=== PATIENT | male | born 1935 | race Caucasian/White ===

== ENCOUNTER → 2018-02-06 10:19 | Outpatient (CLI) | payer MEDICARE, SELFPAY ==
[2018-02-06 10:33] LABS: Bacteria Urine None Seen; RBC Urine None Seen (0-5/HPF)
[2018-02-06 13:28] LABS: Appearance Urine UA CLEAR; Bilirubin Urine UA NEGATIVE (NEGATIVE); Color Urine UA YELLOW; Glucose Urine UA NEGATIVE (Normal); Ketones Urine UA NEGATIVE (NEGATIVE); Leukocyte Esterase Urine UA TRACE (NEGATIVE); Nitrite Urine UA Negative (Negative); Occult Blood Urine UA NEGATIVE (Negative); Protein Urine UA NEGATIVE (Negative)
[2018-02-06 13:35] LABS: Culture Indicated Urine Cult Not Indicated; WBC Urine 0-1/HPF (0-5/HPF)
== END ==
PROVIDERS: Family Provider Internal Medicine; PCP Internal Medicine; Visit Provider Urology
DX: R39.9 Unspecified symptoms and signs involving the genitourinary system (principal)
CPT/HCPCS: 81001

== ENCOUNTER → 2018-03-27 10:25 | Outpatient (CLI) | payer MEDICARE, SELFPAY ==
--- NOTE | 2018-03-27 | DI.RAD.S_ITS ---
PROCEDURE: XR LUMBAR SPINE 2-3V INDICATIONS: LOW BACK PAIN TECHNIQUE: 2 Views of the lumbar spine were acquired. COMPARISON: None. FINDINGS: Motion artifact limits evaluation of the lateral view. Bones: 5 [id number] vertebrae are present. There is normal bony alignment. No vertebral body compression fractures. No suspicious bony lesions. Mild degenerative change including intervertebral disc space narrowing, endplate sclerosis, and facet sclerosis is present in the lower lumbar spine. Soft tissues: Overlying bowel gas pattern is normal. No suspicious soft tissue calcifications. IMPRESSION: Mild degenerative change. Dictated by: Madisyn Juares M.D. on 03/27/2018 at 10:59 Approved by: aMdisyn Juares M.D. on 03/27/2018 at 10:59
== END ==
PROVIDERS: Family Provider Internal Medicine; PCP Internal Medicine; Visit Provider Internal Medicine
DX: M51.36 Other intervertebral disc degeneration, lumbar region (principal); M54.5 Low back pain
CPT/HCPCS: 72100

== ENCOUNTER → 2018-06-19 15:30 | Outpatient (CLI) | payer MEDICARE, SELFPAY ==
[2018-06-19 19:07] LABS: Vitamin B12 735 pg/mL (239-931)
== END ==
PROVIDERS: Family Provider Internal Medicine; PCP Internal Medicine; Visit Provider Internal Medicine
DX: D51.1 Vitamin B12 deficiency anemia due to selective vitamin B12 malabsorption with proteinuria (principal)
CPT/HCPCS: 36415; 82607

== ENCOUNTER → 2018-07-12 11:14 | Outpatient (CLI) | payer MEDICARE, SELFPAY ==
[2018-07-12 13:59] LABS: Thyroid Stimulating Hormone 2.19 uIU/mL (0.47-4.68)
[2018-07-12 21:43] LABS: Vitamin B12 893 pg/mL (239-931)
== END ==
PROVIDERS: PCP Internal Medicine; Visit Provider Internal Medicine
DX: D51.9 Vitamin B12 deficiency anemia, unspecified (principal); E03.9 Hypothyroidism, unspecified
CPT/HCPCS: 36415; 82607; 84443

== ENCOUNTER → 2018-10-09 08:07 | Outpatient (CLI) | payer MEDICARE, SELFPAY ==
[2018-10-09 09:54] LABS: BUN Creatinine Ratio 15.8 (6-22); Blood Urea Nitrogen 19 mg/dL (9-20); Calcium 9.1 mg/dL (8.4-10.2); Carbon Dioxide 29 mmol/L (22-32); Chloride 101 mmol/L (98-107); Cholesterol 154 mg/dL (140-199); Glucose 94 mg/dL (80-110); HDL Cholesterol 30 mg/dL (40-60); HEMOLYSIS 17 (0-50); LDL Cholesterol Calculated 97 mg/dL (<100); Potassium 4.3 mmol/L (3.4-5.1); Sodium 140 mmol/L (137-145); Triglycerides 137 mg/dL (35-150)
[2018-10-09 10:42] LABS: Vitamin B12 732 pg/mL (239-931)
[2018-10-09 11:37] LABS: Free T4, Direct Thyroxine 0.94 ng/dL (0.78-2.19)
== END ==
PROVIDERS: PCP Internal Medicine; Visit Provider Internal Medicine
DX: D51.1 Vitamin B12 deficiency anemia due to selective vitamin B12 malabsorption with proteinuria (principal); E03.9 Hypothyroidism, unspecified
CPT/HCPCS: 36415; 80048; 80061; 82607; 84439; 84443

== ENCOUNTER → 2018-11-06 10:30 | Outpatient (CLI) | payer MEDICARE, SELFPAY ==
[2018-11-06 11:23] LABS: Add Manual Diff / Slide Review NO; Basophils Absolute Auto 0 /uL (0-100); Basophils Percent Auto 0.5 % (0-2); Eosinophils Absolute Auto 300 /uL (0-450); Hematocrit 40.7 % (41-53); Hemoglobin 13.9 g/dL (13.5-17.5); Lymphocytes Absolute Auto 1200 /uL (1100-4500); Lymphocytes Percent Auto 21.2 % (25-40); Mean Corpuscular Hemoglobin 31.8 PG (26-34); Mean Corpuscular Volume 93.6 fL (80-100); Monocytes Absolute Auto 500 /uL (0-900); Monocytes Percent Auto 8.6 % (3-14); Neutrophils Absolute Auto 3700 /uL (1500-7000); Neutrophils Percent Auto 63.7 % (50-75); Platelet Count 227 X10^3/uL (150-400); Red Blood Cell Count 4.35 X10^6/uL (4.5-5.9); Red Cell Distribution Width 14.7 % (11.6-14.8); White Blood Cell Count 5.8 X10^3/uL (4.5-11.0)
[2018-11-06 11:41] LABS: B Type Natriuretic Peptide < 100 (<100)
[2018-11-06 11:44] LABS: Alanine Aminotransferase 30 IU/L (21-72); Albumin Globulin Ratio 1.3 (1.0-2.8); Alkaline Phosphatase 72 U/L (38-126); Aspartate Aminotransferase 22 IU/L (17-59); Bilirubin Total 0.8 mg/dL (0.2-1.3); Blood Urea Nitrogen 18 mg/dL (9-20); Calcium 8.6 mg/dL (8.4-10.2); Carbon Dioxide 28 mmol/L (22-32); Chloride 102 mmol/L (98-107); Glucose 128 mg/dL (80-110); HEMOLYSIS < 15 (0-50); Potassium 4.4 mmol/L (3.4-5.1); Sodium 139 mmol/L (137-145)
== END ==
PROVIDERS: Family Provider Internal Medicine; PCP Internal Medicine; Visit Provider Internal Medicine Cardiovascular Disease
DX: R06.02 Shortness of breath (principal)
CPT/HCPCS: 36415; 80053; 83880; 85025

== ENCOUNTER → 2018-11-20 09:02 | Outpatient (CLI) | payer MEDICARE, SELFPAY ==
--- NOTE | 2018-11-24 15:46 | P.PFT.S_ITS ---
Pulmonary Function Test Referral & Results Date Patient Seen: 11/20/18 Requesting provider: Pam Apodaca Indication: Shortness of breath Results: The spirometry demonstrates an FVC of 4.0 7 L which is 94% of predicted . The FEV1 was measured at 3.13 L which is 103% of predicted. The FEV1/FVC ratio was 77 which is 100% of predicted. Following the administration of bronchodilator there was no appreciable change to above normal numbers. Lung volumes show an SVC of 4.09 L which is 87% of predicted. The diffusing capacity was measured at 21.43 which is 61% of predicted. No hemoglobin value was provided, so no correction for potential anemia could be made, if appropriate. The maximum voluntary ventilation was normal Interpretation: This study demonstrates normal spirometry but reduced diffusing capacity as above. Compared to PFTs performed in February 2012, spirometry was normal at that time as well however diffusing capacity has decreased from 20/7 0.98 or 79% of predicted in 2011 to current numbers above. Clinical correlation suggested
== END ==
PROVIDERS: Family Provider Internal Medicine; PCP Internal Medicine; Visit Provider Internal Medicine Cardiovascular Disease
DX: R06.02 Shortness of breath (principal)
CPT/HCPCS: 94060; 94726; 94729

== ENCOUNTER → 2018-11-27 12:36 | Outpatient (CLI) | payer MEDICARE, SELFPAY ==
--- NOTE | 2018-11-27 | DI.NM.S_ITS ---
PROCEDURE: NM SHERRY PERF SPECT R&S PHARM Rest and pharmacological stress myocardial perfusion SPECT with gated imaging and ejection fraction RADIOPHARMACEUTICAL: 24.9 mCi Tc-99m tetrafosmin IV at rest and 26.3 mCi Tc-99m tetrafosmin IV at peak effect of pharmacological stress. Syp-lei-wptzjhgk was performed. INDICATIONS: SHORTNESS OF BREATH TECHNIQUE: Radiopharmaceutical was injected at peak stress test, and also at rest. SPECT images were obtained. SPECT myocardial perfusion images were displayed in short axis, horizontal long axis, and vertical long axis views. Gated images were reviewed using [employer] software. COMPARISON: None. CARDIAC STRESS: A pharmacologic stress test was performed under the supervision of an attending staff, using an infusion of Lexiscan. Hemodynamic data: There is normal blood pressure and heart rate response to pharmacologic stress. Symptoms: The patient denied anginal chest pain. Aminophylline: Not given EKG: No diagnostic changes of ischemia; no ectopy. FINDINGS: Raw data: There is good myocardial uptake of radiotracer. No significant motion artifacts. Hkbz-wc-fkdte ratio is 0.37 (normal is less than 0.38 for tetrafosmin tracer). Left ventricle function: Gated images demonstrate normal left ventricular wall thickening. No segmental wall motion abnormalities. No transient ischemic dilation; TID is 1.04 (normal less than 1.3). Left ventricle resting end diastolic volume is 98 mL. Left ventricle stress ejection fraction is >75% ; normal range is above 45%. Myocardial perfusion: There is normal distribution of activity in the right and left ventricular myocardium. No fixed or reversible perfusion defects. IMPRESSION: Normal pharmacological myocardial perfusion study. Dictated by: Oracio Souza M.D. on 11/28/2018 at 14:40 Approved by: Oracio Souza M.D. on 11/28/2018 at 14:43
--- NOTE | 2018-11-27 | DI.ECHO.S_ITS ---
[place] [facility]---------+ [facility] +---------+ : : [address] : : : : [id number] : : : : Phone: [phone]+ Echocardiogram Report + + :Name: SADIA MATHUR Study Date: 11/27/2018 Height: 72 in : :[facility] Weight: 205 lb : : Gender: Male BSA: 2.2 m2 : :: 1935 Age: 83 yrs BP: 150/84 mmHg: :Reason For Study: SOB : :Ordering Physician: Pam : :Aziwmary Performed By: Leslie Zhang : :Referring: Charmaine Adamson : + + Interpretation Summary The left ventricle is normal in size. The ejection fraction is estimated to be 60-65%. Borderline right ventricular enlargement. Right ventricular systolic function is at the lower limits of normal. There is a pacemaker lead in the right ventricle. Pacemaker lead is new. There is mild tricuspid regurgitation. The right ventricular systolic pressure is estimated to be at least 31 mmHg based on an estimated right atrial pressure of 3 mm Hg. Procedure: A two-dimensional transthoracic echocardiogram with color flow and Doppler was performed. The study quality was technically adequate. Comparison is made with the echocardiogram of 12-19-09. The patient has a paced rhythm. Left Ventricle: The left ventricle is normal in size. There is no thrombus. The ejection fraction is estimated to be 60-65%. There has been no significant change since the previous study. Septal motion is consistent with conduction abnormality. MV E/A: 0.99 Med Peak E' Sadi: 4.7 cm/sec E/E' med: 14.7. Right Ventricle: Borderline right ventricular enlargement. There is a pacemaker lead in the right ventricle. Right ventricular systolic function is at the lower limits of normal. Atria: The left atrium is moderately dilated. Right atrial size is normal. A prominent eustachian valve is noted. The interatrial septum is intact with no evidence for an atrial septal defect. Mitral Valve: There is mild mitral annular calcification. There is trace mitral regurgitation. Aortic Valve: The aortic valve is trileaflet. The aortic valve opens well. There is no aortic valve stenosis. There is trace aortic regurgitation. Tricuspid Valve: The tricuspid valve is not well visualized, but is grossly normal. There is mild tricuspid regurgitation. The right ventricular systolic pressure is estimated to be at least 31 mmHg based on an estimated right atrial pressure of 3 mm Hg. Pulmonic Valve: The pulmonic valve is not well seen, but is grossly normal. There is trace pulmonic regurgitation. Great Vessels: The aortic root is normal size. The ascending aorta is mildly enlarged. The aortic arch is mildly enlarged. There has been no significant change since the previous study. The IVC is of normal diameter and collapses greater than 50% with a sniff. This suggests a low right atrial pressure of 3 mm Hg. Pericardium/ Pleura There is no pericardial effusion. There is no pleural effusion. MMode/2D Measurements & Calculations LVIDd: 5.1 cm Ao root diam: 3.7 cm LVIDs: 3.7 cm Aortic Jxn: 3.0 cm FS: 27.0 % asc Aorta Diam: 3.9 cm IVSd: 0.85 cm Ao Arch Diam (Prox Trans): 3.7 cm LVPWd: 0.98 cm LV landrum. diameter/BSA (cm/m^2): 2.3 LV sys. diameter/BSA (cm/m^2): 1.7 LA dimension: 4.2 cm RA long axis: 5.2 cm LA A2 area: 28.2 cm2 RA area: 20.9 cm2 LA A4 area: 24.4 cm2 RA vol: 71.4 ml LA length (vol): 6.0 cm RA : 33.2 ml/m2 LA vol: 97.9 ml IVC diam: 1.8 cm LA vol index: 45.5 ml/m2 RVDd major: 5.9 cm RVD1 (basal): 5.0 cm RVD2 (mid): 4.6 cm Doppler Measurements & Calculations Ao V2 max: 139.5 cm/sec MV E max sadi: 69.6 cm/sec Ao V2 mean: 96.2 cm/sec MV A max sadi: 70.5 cm/sec Ao max P.8 mmHg MV E/A: 0.99 Ao mean P.2 mmHg Med Peak E' Sadi: 4.7 cm/sec Ao V2 VTI: 33.1 cm E/E' med: 14.7 Lat Peak E' Sadi: 8.1 cm/sec E/E' lat: 8.6 E/e' average: 11.6 MV dec time: 0.24 sec MV P1/2t: 69.1 msec TR max sadi: 264.3 cm/sec MV P1/2t max sadi: 67.5 cm/sec TR max P.9 mmHg MVA(P1/2t): 3.2 cm2 PA V2 max: 85.3 cm/sec PA V2 mean: 56.3 cm/sec PA mean P.5 mmHg PA Accel Time: 0.11 sec Reading Physician:LAVONNE
--- NOTE | 2018-11-27 14:50 | P.PCN_ITS ---
Cardiac Stress Test Report Referral & Results Date Patient Seen: 11/27/18 Requesting provider: Pam Apodaca Indication: Shortness of breath Procedure Note: After both written and verbal informed consent the patient had an IV started by the diagnostic imaging RN and then was hooked up to the treadmill monitoring system. The patient was placed on the treadmill at 1 mile an hour with no elevation and was then injected with the Ana María scan material. The Cardiolite was then immediately administered. The patient spent an additional 2-3 minutes on the treadmill before being returned to the [facility] in the supine position. The patient had a normal response to all infused materials. Occasional PVC Impression: Normal response as above Occasional PVC Please see perfusion imaging report for details regarding possible ischemia Please note: Actual ECG tracings can be found in the PACS system.
== END ==
PROVIDERS: PCP Internal Medicine; Visit Provider Internal Medicine Cardiovascular Disease
DX: I07.1 Rheumatic tricuspid insufficiency (principal); R06.02 Shortness of breath; Z95.0 Presence of cardiac pacemaker
CPT/HCPCS: 78452; 93016; 93017; 93018; 93306; A9502; J2785

== ENCOUNTER 2018-11-29 13:00 | Outpatient (RCR) | payer MEDICARE, SELFPAY ==
--- NOTE | 2018-06-14 12:02 | PT.OPPOC ---
Current Diagnoses Other abnormalities of gait and mobility (06/14/18) Weakness (06/14/18) Provider Visit Care Team Role Provider Type Charmaine Adamson MD Attending Provider Physician Family Provider Primary Care Provider Specialty: Internal Medicine Address: [address] [place] [address], [id number] Email: Plan Of Care PT-OP-T Assessment and Plan Start: 06/14/18 17:35 Freq: Status: Active Protocol: Document 06/14/18 17:37 ML (Rec: 06/14/18 18:12 ML [id number]) Physical Therapy Assessment Rehab Potential Rehabilitation Potential Good Evaluation Complexity Number of Personal Factors/Comorbidities 3 or More Number of Body Systems Impaired 4 or More Clinical Presentation at Evaluation Evolving Impairments Impairments Activity Tolerance Balance Coordination Functional Activities Functional Mobility Gait Posture Strength Transfers Goals 2 Impairment dec strength Short Term Goal (STG) Pt will improve MMT of all LE to greater than or equal to 4 STG Duration 07/15/18 1 Impairment dec balance Short Term Goal (STG) Pt will score >35 on the WILLETT demonstrating safe ambulation w/AD STG Duration 07/15/18 Intermediate Goal (LTG) Pt will score >45 on the WILLETT demonstrating safe ambulation and dec fall risk LTG Duration 08/14/18 Assessment Summary Assessment Pt shows significant decline since the last time that he has been in PT, but would benefit from skilled PT 2x/ week to inc balance and strength. Pt seems eager to grow in his mobility confidence in order to avoid future falls and become more function. Physical Therapy Plan Frequency and Duration Frequency of Treatment 2x/Week Duration of Treatment 2 months Plan of Care Start Date 06/14/18 Plan of Care End Date 08/14/18 Therapeutic Interventions Therapeutic Interventions Balance Training Coordination Training Gait Training Home Exercise Program Joint Mobilizations Manual Therapy Neuromuscular Re-education Patient/Caregiver Education Self-Care/Home Management Soft Tissue Mobilization Therapeutic Activities Therapeutic Exercises Next Visit Focus/Plan Next Note Type Treatment Note Next Visit Plan HEP (check exercises and add others, including strength); shuttle balance, gait training , marching Plan of Care Dates Plan of Care Start Date 06/14/18 Plan of Care End Date 08/14/18 Please Sign and Return: I have reviewed this Plan of Care and certify that the skilled therapy services above are required to meet the patient?s needs. Physician Signature Date Printed Name and Credentials Clinical Instructor Signature Printed Name and Credentials
--- NOTE | 2018-06-14 17:00 | PT.OIE ---
Current Diagnoses Other abnormalities of gait and mobility (06/14/18) Weakness (06/14/18) Provider Visit Care Team Role Provider Type Charmaine Adamson MD Attending Provider Physician Family Provider Primary Care Provider Specialty: Internal Medicine Address: [address] [place] [address], [id number] Email: Physical Therapy Initial Evaluation PT-OP-A Visit Information Start: 06/14/18 17:35 Freq: Status: Active Protocol: Document 06/14/18 17:37 ML (Rec: 06/14/18 18:12 ML [id number]) Out-Patient Physical Therapy Visit Information Visit Information Visit Type Initial Evaluation Visit Start Time 16:00 Visit Stop Time 16:48 Total Visit Minutes 48 Visit Number 1 Number of BULK PLANT AGENT Visits 0 Evaluation Information Evaluation Date 06/14/18 PT-OP-B Current Condition Start: 06/14/18 17:35 Freq: Status: Active Protocol: Document 06/14/18 17:37 ML (Rec: 06/14/18 18:12 ML [id number]) Current Condition History of Current Condition Current Complaints dec balance & strength History of Current Condition Pt presents to initial evaluation with a 4WW, moving slowly into the treatment room with his caregiver and . The pt reports having two falls within the last two weeks about a week apart, but the caregiver reports no falls prior since starting her buhr dresser work with him in January. The pt reports no major injuries from the falls, but that they both occurred in the narrow spaced bathroom where he was trying to turn and lost his balance, or tried to bend down and his R knee gave out. The pt mentions that he does not ambulate anywhere without his 4WW inside of the house or outside of the house. The pt reports general fatigue that seems to be getting worse and shows concern for his difficulty of turning, especially in tight spaces, stairs (in which he walks down sideways witha rail), walking uphill, and bending down. The pt voices that he seeks to increase his balance overall and to feel comfortable with his R leg, because it currently feels weak. The pt's MMT showed that his L LE was weaker than his R, but the pt said he noted this today in general after going for a walk . Treatment Goals Patient/Caregiver Goals Pt would like to inc LE strength, dec fatigue, and inc overall balance in order to feel more comfortable for functional activities, particularly showering at home . PT-OP-C Subjective Start: 06/14/18 17:35 Freq: Status: Active Protocol: Document 06/14/18 17:37 ML (Rec: 06/14/18 18:12 ML [id number]) OP-PT Subjective Patient Comments Patient Comments Pt also noted that his memory seems to be decreasing and that he has trouble articulating sometimes, especially with his M's, and that he is more open to beginning speech therapy. Caregiver and also note that his voice is softer recently. PT-OP-D Balance Start: 06/14/18 17:35 Freq: Status: Active Protocol: Document 06/14/18 17:37 ML (Rec: 06/14/18 18:12 ML [id number]) Valdez Balance Assessment Total Score Valdez Impairment Rating 40 to 59% Impaired (Score 23- 33) PT-OP-G Mobility & Gait Start: 06/14/18 17:35 Freq: Status: Active Protocol: Document 06/14/18 17:37 ML (Rec: 06/14/18 18:12 ML [id number]) OP Gait Assessment Assistive Devices Assistive Device 4 Wheeled Walker Comments Gait Comments Pt moves slowly with AD PT-OP-Q Treatments Start: 06/14/18 17:35 Freq: Status: Active Protocol: Document 06/14/18 17:37 ML (Rec: 06/14/18 18:12 ML [id number]) Neuro Re-Education Treatment Balance Activities 2 Details eyes closed at counter Reps/Duration 30 sec hold 3x w/rest prn Comments HEP; DO NOT DO WITHOUT CAREGIVER 1 Details tandem stance at counter Reps/Duration 30 sec hold 3x w/rest prn Comments HEP; not full tandem, small step forward, DO NOT DO WITHOUT CAREGIVER PT-OP-T Assessment and Plan Start: 06/14/18 17:35 Freq: Status: Active Protocol: Document 06/14/18 17:37 ML (Rec: 06/14/18 18:12 ML [id number]) Physical Therapy Assessment Rehab Potential Rehabilitation Potential Good Evaluation Complexity Number of Personal Factors/Comorbidities 3 or More Number of Body Systems Impaired 4 or More Clinical Presentation at Evaluation Evolving Impairments Impairments Activity Tolerance Balance Coordination Functional Activities Functional Mobility Gait Posture Strength Transfers Goals 2 Impairment dec strength Short Term Goal (STG) Pt will improve MMT of all LE to greater than or equal to 4 STG Duration 07/15/18 1 Impairment dec balance Short Term Goal (STG) Pt will score >35 on the VALDEZ demonstrating safe ambulation w/AD STG Duration 07/15/18 Detention Goal (LTG) Pt will score >45 on the VALDEZ demonstrating safe ambulation and dec fall risk LTG Duration 08/14/18 Assessment Summary Assessment Pt shows significant decline since the last time that he has been in PT, but would benefit from skilled PT 2x/ week to inc balance and strength. Pt seems eager to grow in his mobility confidence in order to avoid future falls and become more function. Physical Therapy Plan Frequency and Duration Frequency of Treatment 2x/Week Duration of Treatment 2 months Plan of Care Start Date 06/14/18 Plan of Care End Date 08/14/18 Therapeutic Interventions Therapeutic Interventions Balance Training Coordination Training Gait Training Home Exercise Program Joint Mobilizations Manual Therapy Neuromuscular Re-education Patient/Caregiver Education Self-Care/Home Management Soft Tissue Mobilization Therapeutic Activities Therapeutic Exercises Next Visit Focus/Plan Next Note Type Treatment Note Next Visit Plan HEP (check exercises and add others, including strength); shuttle balance, gait training , marching
--- NOTE | 2018-06-15 11:58 | PT.OIE ---
Current Diagnoses Other abnormalities of gait and mobility (06/14/18) Weakness (06/14/18) Provider Visit Care Team Role Provider Type Charmaine Adamson MD Attending Provider Physician Family Provider Primary Care Provider Specialty: Internal Medicine Address: [address] [place] [address], [id number] Email: Physical Therapy Initial Evaluation PT-OP-A Visit Information Start: 06/14/18 17:35 Freq: Status: Active Protocol: Document 06/14/18 17:37 ML (Rec: 06/14/18 18:12 ML [id number]) Out-Patient Physical Therapy Visit Information Visit Information Visit Type Initial Evaluation Visit Start Time 16:00 Visit Stop Time 16:48 Total Visit Minutes 48 Visit Number 1 Number of ELEVATOR OPERATOR Visits 0 Evaluation Information Evaluation Date 06/14/18 PT-OP-B Current Condition Start: 06/14/18 17:35 Freq: Status: Active Protocol: Document 06/14/18 17:37 ML (Rec: 06/14/18 18:12 ML [id number]) Current Condition History of Current Condition Current Complaints dec balance & strength History of Current Condition Pt presents to initial evaluation with a 4WW, moving slowly into the treatment room with his caregiver and . The pt reports having two falls within the last two weeks about a week apart, but the caregiver reports no falls prior since starting her senior national account manager work with him in January. The pt reports no major injuries from the falls, but that they both occurred in the narrow spaced bathroom where he was trying to turn and lost his balance, or tried to bend down and his R knee gave out. The pt mentions that he does not ambulate anywhere without his 4WW inside of the house or outside of the house. The pt reports general fatigue that seems to be getting worse and shows concern for his difficulty of turning, especially in tight spaces, stairs (in which he walks down sideways witha rail), walking uphill, and bending down. The pt voices that he seeks to increase his balance overall and to feel comfortable with his R leg, because it currently feels weak. The pt's MMT showed that his L LE was weaker than his R, but the pt said he noted this today in general after going for a walk . Treatment Goals Patient/Caregiver Goals Pt would like to inc LE strength, dec fatigue, and inc overall balance in order to feel more comfortable for functional activities, particularly showering at home . PT-OP-C Subjective Start: 06/14/18 17:35 Freq: Status: Active Protocol: Document 06/14/18 17:37 ML (Rec: 06/14/18 18:12 ML [id number]) OP-PT Subjective Patient Comments Patient Comments Pt also noted that his memory seems to be decreasing and that he has trouble articulating sometimes, especially with his M's, and that he is more open to beginning speech therapy. Caregiver and also note that his voice is softer recently. PT-OP-D Balance Start: 06/14/18 17:35 Freq: Status: Active Protocol: Document 06/14/18 17:37 ML (Rec: 06/14/18 18:12 ML [id number]) Valdez Balance Assessment Total Score Valdez Impairment Rating 40 to 59% Impaired (Score 23- 33) PT-OP-G Mobility & Gait Start: 06/14/18 17:35 Freq: Status: Active Protocol: Document 06/14/18 17:37 ML (Rec: 06/14/18 18:12 ML [id number]) OP Gait Assessment Assistive Devices Assistive Device 4 Wheeled Walker Comments Gait Comments Pt moves slowly with AD PT-OP-Q Treatments Start: 06/14/18 17:35 Freq: Status: Active Protocol: Document 06/14/18 17:37 ML (Rec: 06/14/18 18:12 ML [id number]) Neuro Re-Education Treatment Balance Activities 2 Details eyes closed at counter Reps/Duration 30 sec hold 3x w/rest prn Comments HEP; DO NOT DO WITHOUT CAREGIVER 1 Details tandem stance at counter Reps/Duration 30 sec hold 3x w/rest prn Comments HEP; not full tandem, small step forward, DO NOT DO WITHOUT CAREGIVER PT-OP-T Assessment and Plan Start: 06/14/18 17:35 Freq: Status: Active Protocol: Document 06/14/18 17:37 ML (Rec: 06/14/18 18:12 ML [id number]) Physical Therapy Assessment Rehab Potential Rehabilitation Potential Good Evaluation Complexity Number of Personal Factors/Comorbidities 3 or More Number of Body Systems Impaired 4 or More Clinical Presentation at Evaluation Evolving Impairments Impairments Activity Tolerance Balance Coordination Functional Activities Functional Mobility Gait Posture Strength Transfers Goals 2 Impairment dec strength Short Term Goal (STG) Pt will improve MMT of all LE to greater than or equal to 4 STG Duration 07/15/18 1 Impairment dec balance Short Term Goal (STG) Pt will score >35 on the VALDEZ demonstrating safe ambulation w/AD STG Duration 07/15/18 Nursing Home Goal (LTG) Pt will score >45 on the VALDEZ demonstrating safe ambulation and dec fall risk LTG Duration 08/14/18 Assessment Summary Assessment Pt shows significant decline since the last time that he has been in PT, but would benefit from skilled PT 2x/ week to inc balance and strength. Pt seems eager to grow in his mobility confidence in order to avoid future falls and become more function. Physical Therapy Plan Frequency and Duration Frequency of Treatment 2x/Week Duration of Treatment 2 months Plan of Care Start Date 06/14/18 Plan of Care End Date 08/14/18 Therapeutic Interventions Therapeutic Interventions Balance Training Coordination Training Gait Training Home Exercise Program Joint Mobilizations Manual Therapy Neuromuscular Re-education Patient/Caregiver Education Self-Care/Home Management Soft Tissue Mobilization Therapeutic Activities Therapeutic Exercises Next Visit Focus/Plan Next Note Type Treatment Note Next Visit Plan HEP (check exercises and add others, including strength); shuttle balance, gait training , marching
--- NOTE | 2018-06-16 16:05 | PT.OTN ---
Current Diagnoses Other abnormalities of gait and mobility (06/16/18) Physical Therapy Treatment Note PT-OP-A Visit Information Start: 06/14/18 17:35 Freq: Status: Active Protocol: Document 06/16/18 16:05 RCC (Rec: 06/16/18 16:52 RCC [id number]) Out-Patient Physical Therapy Visit Information Visit Information Visit Type Treatment Note Visit Start Time 15:20 Visit Stop Time 16:05 Total Visit Minutes 45 Visit Number 2 Number of RETORT OR CONDENSER PRESS OPERATOR Visits 0 Evaluation Information Evaluation Date 06/14/18 PT-OP-B Current Condition Start: 06/14/18 17:35 Freq: Status: Active Protocol: Document 06/14/18 17:37 ML (Rec: 06/14/18 18:12 ML [id number]) Current Condition History of Current Condition Current Complaints dec balance & strength History of Current Condition Pt presents to initial evaluation with a 4WW, moving slowly into the treatment room with his caregiver and . The pt reports having two falls within the last two weeks about a week apart, but the caregiver reports no falls prior since starting her material spreader work with him in January. The pt reports no major injuries from the falls, but that they both occurred in the narrow spaced bathroom where he was trying to turn and lost his balance, or tried to bend down and his R knee gave out. The pt mentions that he does not ambulate anywhere without his 4WW inside of the house or outside of the house. The pt reports general fatigue that seems to be getting worse and shows concern for his difficulty of turning, especially in tight spaces, stairs (in which he walks down sideways witha rail), walking uphill, and bending down. The pt voices that he seeks to increase his balance overall and to feel comfortable with his R leg, because it currently feels weak. The pt's MMT showed that his L LE was weaker than his R, but the pt said he noted this today in general after going for a walk . Treatment Goals Patient/Caregiver Goals Pt would like to inc LE strength, dec fatigue, and inc overall balance in order to feel more comfortable for functional activities, particularly showering at home . PT-OP-C Subjective Start: 06/14/18 17:35 Freq: Status: Active Protocol: Document 06/16/18 16:05 RCC (Rec: 06/16/18 16:52 RCC [email or web address]) OP-PT Subjective Patient Comments Patient Comments Pt, , caregiver report compliance with HEP. PT-OP-D Balance Start: 06/14/18 17:35 Freq: Status: Active Protocol: Document 06/14/18 17:37 ML (Rec: 06/14/18 18:12 ML [id number]) Valdez Balance Assessment Total Score Valdez Impairment Rating 40 to 59% Impaired (Score 23- 33) PT-OP-G Mobility & Gait Start: 06/14/18 17:35 Freq: Status: Active Protocol: Document 06/14/18 17:37 ML (Rec: 06/14/18 18:12 ML [id number]) OP Gait Assessment Assistive Devices Assistive Device 4 Wheeled Walker Comments Gait Comments Pt moves slowly with AD PT-OP-Q Treatments Start: 06/14/18 17:35 Freq: Status: Active Protocol: Document 06/16/18 16:05 RCC (Rec: 06/16/18 16:52 RCC [email or web address]) Gym Equipment Shuttle Recovery Unilateral Squats Resistance 37 lbs Shuttle Recovery Platform Unstable Reps/Time to fatigue Bilateral Squats Resistance 62 lbs Shuttle Recovery Platform Unstable Reps/Time to fatigue Shuttle Balance 1 Details yellow- DL neutral, semi- tandem with horiz head turns, 1/4 turns Therapeutic Exercises Standing Exercises sit<->stand Standing Exercise Name sit<->stand/squats with chair behind pt Side bilateral Equipment Used standing bar Reps/Minutes 5 Comments VC for body mechanics/ alignment lateral walks Standing Exercise Name resisted lateral walking Side bilateral Resistance level 2 Reps/Minutes 2 laps Comments VC Neuro Re-Education Treatment Balance Activities 1 Details tandem stance at balance bar Reps/Duration 30 sec hold 3x w/rest prn Comments not full tandem, small step forward; EO, EC, head movements horiz and vertical PT-OP-T Assessment and Plan Start: 06/14/18 17:35 Freq: Status: Active Protocol: Document 06/16/18 16:05 RCC (Rec: 06/16/18 16:52 RCC [email or web address]) Physical Therapy Assessment Assessment Summary Assessment Pt given a gait belt today for use with CGs during HEP, advance HEP to include head movements with static standing balance. Pt fatigues more quickly on the RLE compared to the LLE with leg press. He was able to control concentric and eccentrically with leg press but occasional plopping with sit<->stand. Physical Therapy Plan Frequency and Duration Frequency of Treatment 2x/Week Duration of Treatment 2 months Plan of Care Start Date 06/14/18 Plan of Care End Date 08/14/18 Next Visit Focus/Plan Next Note Type Treatment Note Next Visit Plan standing marching, hurdles in // bars; if safe, add lateral walk or steps to HEP.
--- NOTE | 2018-06-19 16:51 | PT.OTN ---
Current Diagnoses Other abnormalities of gait and mobility (06/19/18) Physical Therapy Treatment Note PT-OP-A Visit Information Start: 06/14/18 17:35 Freq: Status: Active Protocol: Document 06/19/18 14:34 SAK (Rec: 06/19/18 16:49 SAK [id number]) Out-Patient Physical Therapy Visit Information Visit Information Visit Type Treatment Note Visit Start Time 14:34 Visit Stop Time 15:14 Total Visit Minutes 40 Visit Number 3 Number of SUPERVISOR Visits 0 Evaluation Information Evaluation Date 06/14/18 PT-OP-B Current Condition Start: 06/14/18 17:35 Freq: Status: Active Protocol: Document 06/14/18 17:37 ML (Rec: 06/14/18 18:12 ML [id number]) Current Condition History of Current Condition Current Complaints dec balance & strength History of Current Condition Pt presents to initial evaluation with a 4WW, moving slowly into the treatment room with his caregiver and . The pt reports having two falls within the last two weeks about a week apart, but the caregiver reports no falls prior since starting her multimedia coordinator work with him in January. The pt reports no major injuries from the falls, but that they both occurred in the narrow spaced bathroom where he was trying to turn and lost his balance, or tried to bend down and his R knee gave out. The pt mentions that he does not ambulate anywhere without his 4WW inside of the house or outside of the house. The pt reports general fatigue that seems to be getting worse and shows concern for his difficulty of turning, especially in tight spaces, stairs (in which he walks down sideways witha rail), walking uphill, and bending down. The pt voices that he seeks to increase his balance overall and to feel comfortable with his R leg, because it currently feels weak. The pt's MMT showed that his L LE was weaker than his R, but the pt said he noted this today in general after going for a walk . Treatment Goals Patient/Caregiver Goals Pt would like to inc LE strength, dec fatigue, and inc overall balance in order to feel more comfortable for functional activities, particularly showering at home . PT-OP-C Subjective Start: 06/14/18 17:35 Freq: Status: Active Protocol: Document 06/19/18 14:34 SAK (Rec: 06/19/18 16:49 SAK [id number]) OP-PT Subjective Patient Comments Patient Comments Patient frustrated with body's decreased balance responses PT-OP-D Balance Start: 06/14/18 17:35 Freq: Status: Active Protocol: Document 06/14/18 17:37 ML (Rec: 06/14/18 18:12 ML [id number]) Willett Balance Assessment Total Score Willett Impairment Rating 40 to 59% Impaired (Score 23- 33) PT-OP-G Mobility & Gait Start: 06/14/18 17:35 Freq: Status: Active Protocol: Document 06/14/18 17:37 ML (Rec: 06/14/18 18:12 ML [id number]) OP Gait Assessment Assistive Devices Assistive Device 4 Wheeled Walker Comments Gait Comments Pt moves slowly with AD PT-OP-Q Treatments Start: 06/14/18 17:35 Freq: Status: Active Protocol: Document 06/19/18 14:34 SAK (Rec: 06/19/18 15:13 SAK [id number]) Gym Equipment Shuttle Recovery Unilateral Squats Resistance 37 lbs Shuttle Recovery Platform Unstable Reps/Time to fatigue Bilateral Squats Resistance 62 lbs Shuttle Recovery Platform Unstable Reps/Time to fatigue Gait Training Gait Activity 1 Device Used 4WW Level of Assistance SBA, cues Surface firm Distance/Duration 50' x 2 Treatment Focus upright posture, minimize lean on walker Neuro Re-Education Treatment Balance Activities marching Reps/Duration 1 min Comments unilateral UE suport at at parallel bars step-outs Details fwd, bck, side Equipment in parallel bars Reps/Duration 10x ea Tiltboard Details fwd/bck, side/side Reps/Duration 10 min standing rhythmic stabilization Details EO Surface firm Reps/Duration 6 min backward walking Reps/Duration 3 min Comments single UE support on bar as needed sidestepping Reps/Duration 3 min Comments franchesca UE support as needed on bar Self-Care/Home Management Treatment Education Patient Education Home Exercise Program Safety Caregiver Education step-outs Other Education step-outs for at home PT-OP-T Assessment and Plan Start: 06/14/18 17:35 Freq: Status: Active Protocol: Document 06/19/18 14:34 SAK (Rec: 06/19/18 16:49 SAK [id number]) Physical Therapy Assessment Goals 2 Impairment dec strength Short Term Goal (STG) Pt will improve MMT of all LE to greater than or equal to 4 STG Duration 07/15/18 1 Impairment dec balance Short Term Goal (STG) Pt will score >35 on the WILLETT demonstrating safe ambulation w/AD STG Duration 07/15/18 Mcc Goal (LTG) Pt will score >45 on the WILLETT demonstrating safe ambulation and dec fall risk LTG Duration 08/14/18 Assessment Summary Assessment Needs frequent, brief rest breaks. Initially very poor balance reactions, improved awareness with training during session, but still poor automatic reactions. Physical Therapy Plan Frequency and Duration Frequency of Treatment 2x/Week Duration of Treatment 2 months Plan of Care Start Date 06/14/18 Plan of Care End Date 08/14/18 Next Visit Focus/Plan Next Note Type Treatment Note Next Visit Plan add hurdles, progression of balance ex to facilitate balance reactions.
--- NOTE | 2018-06-23 16:05 | PT.OTN ---
Current Diagnoses Other abnormalities of gait and mobility (06/23/18) Physical Therapy Treatment Note PT-OP-A Visit Information Start: 06/14/18 17:35 Freq: Status: Active Protocol: Document 06/23/18 16:05 RCC (Rec: 06/24/18 13:51 RCC [email or web address]) Out-Patient Physical Therapy Visit Information Visit Information Visit Type Treatment Note Visit Start Time 15:23 Visit Stop Time 16:05 Total Visit Minutes 42 Visit Number 4 Number of CCNP Visits 0 Evaluation Information Evaluation Date 06/14/18 PT-OP-B Current Condition Start: 06/14/18 17:35 Freq: Status: Active Protocol: Document 06/14/18 17:37 ML (Rec: 06/14/18 18:12 ML [id number]) Current Condition History of Current Condition Current Complaints dec balance & strength History of Current Condition Pt presents to initial evaluation with a 4WW, moving slowly into the treatment room with his caregiver and . The pt reports having two falls within the last two weeks about a week apart, but the caregiver reports no falls prior since starting her time checker work with him in January. The pt reports no major injuries from the falls, but that they both occurred in the narrow spaced bathroom where he was trying to turn and lost his balance, or tried to bend down and his R knee gave out. The pt mentions that he does not ambulate anywhere without his 4WW inside of the house or outside of the house. The pt reports general fatigue that seems to be getting worse and shows concern for his difficulty of turning, especially in tight spaces, stairs (in which he walks down sideways witha rail), walking uphill, and bending down. The pt voices that he seeks to increase his balance overall and to feel comfortable with his R leg, because it currently feels weak. The pt's MMT showed that his L LE was weaker than his R, but the pt said he noted this today in general after going for a walk . Treatment Goals Patient/Caregiver Goals Pt would like to inc LE strength, dec fatigue, and inc overall balance in order to feel more comfortable for functional activities, particularly showering at home . PT-OP-C Subjective Start: 06/14/18 17:35 Freq: Status: Active Protocol: Document 06/23/18 16:05 RCC (Rec: 06/24/18 13:51 RCC [email or web address]) OP-PT Subjective Patient Comments Patient Comments pt's CG reports she thinks Boubacar is better on his feet today. PT-OP-D Balance Start: 06/14/18 17:35 Freq: Status: Active Protocol: Document 06/14/18 17:37 ML (Rec: 06/14/18 18:12 ML [id number]) Valdez Balance Assessment Total Score Valdez Impairment Rating 40 to 59% Impaired (Score 23- 33) PT-OP-G Mobility & Gait Start: 06/14/18 17:35 Freq: Status: Active Protocol: Document 06/14/18 17:37 ML (Rec: 06/14/18 18:12 ML [id number]) OP Gait Assessment Assistive Devices Assistive Device 4 Wheeled Walker Comments Gait Comments Pt moves slowly with AD PT-OP-Q Treatments Start: 06/14/18 17:35 Freq: Status: Active Protocol: Document 06/23/18 16:05 RCC (Rec: 06/24/18 13:51 RCC [email or web address]) Gym Equipment Shuttle Recovery Unilateral Squats Resistance 37 lbs Shuttle Recovery Platform Unstable Reps/Time to fatigue Bilateral Squats Resistance 62 lbs Shuttle Recovery Platform Unstable Reps/Time to fatigue Shuttle Balance 1 Details yellow- DL neutral, semi- tandem with horiz head turns, 1/4 turns Comments perturbations with eyes open Gait Training Gait Activity hurdles Description hurdles on firm and foam surfaces Device Used standing bar on one side Level of Assistance Min A Surface firm and foam Comments gait belt Neuro Re-Education Treatment Balance Activities marching Reps/Duration 1 min Comments unilateral UE suport at at parallel bars Tiltboard Details fwd/bck, side/side Reps/Duration 12 min backward walking Reps/Duration 2 min Comments single UE support on bar as needed PT-OP-T Assessment and Plan Start: 06/14/18 17:35 Freq: Status: Active Protocol: Document 06/23/18 16:05 RCC (Rec: 06/24/18 13:51 RCC [email or web address]) Physical Therapy Assessment Assessment Summary Assessment Pt tolerated standing on Shuttle Balance with perturbations today, losing balance occasionally but improved since last week. Pt was fatigued after this session, with prolonged time required to manage the transition from tile to carpet to rubber outdoor rug region using his FWW. Physical Therapy Plan Frequency and Duration Frequency of Treatment 2x/Week Duration of Treatment 2 months Plan of Care Start Date 06/14/18 Plan of Care End Date 08/14/18 Next Visit Focus/Plan Next Note Type Treatment Note Next Visit Plan cont. standing balance training, prog. gait with various surfaces.
--- NOTE | 2018-06-27 15:19 | PT.OTN ---
Current Diagnoses Other abnormalities of gait and mobility (06/27/18) Physical Therapy Treatment Note PT-OP-A Visit Information Start: 06/14/18 17:35 Freq: Status: Active Protocol: Document 06/27/18 14:30 DCW (Rec: 06/27/18 15:18 DCW [id number]) Out-Patient Physical Therapy Visit Information Visit Information Visit Type Treatment Note Visit Start Time 14:30 Visit Stop Time 15:15 Total Visit Minutes 45 Visit Number 5 Number of CREDIT RISK OFFICER Visits 0 Evaluation Information Evaluation Date 06/14/18 PT-OP-B Current Condition Start: 06/14/18 17:35 Freq: Status: Active Protocol: Document 06/14/18 17:37 ML (Rec: 06/14/18 18:12 ML [id number]) Current Condition History of Current Condition Current Complaints dec balance & strength History of Current Condition Pt presents to initial evaluation with a 4WW, moving slowly into the treatment room with his caregiver and . The pt reports having two falls within the last two weeks about a week apart, but the caregiver reports no falls prior since starting her evp global multimedia sales work with him in January. The pt reports no major injuries from the falls, but that they both occurred in the narrow spaced bathroom where he was trying to turn and lost his balance, or tried to bend down and his R knee gave out. The pt mentions that he does not ambulate anywhere without his 4WW inside of the house or outside of the house. The pt reports general fatigue that seems to be getting worse and shows concern for his difficulty of turning, especially in tight spaces, stairs (in which he walks down sideways witha rail), walking uphill, and bending down. The pt voices that he seeks to increase his balance overall and to feel comfortable with his R leg, because it currently feels weak. The pt's MMT showed that his L LE was weaker than his R, but the pt said he noted this today in general after going for a walk . Treatment Goals Patient/Caregiver Goals Pt would like to inc LE strength, dec fatigue, and inc overall balance in order to feel more comfortable for functional activities, particularly showering at home . PT-OP-C Subjective Start: 06/14/18 17:35 Freq: Status: Active Protocol: Document 06/27/18 14:30 DCW (Rec: 06/27/18 15:18 DCW [id number]) OP-PT Subjective Patient Comments Patient Comments Pt notes that he feels his left leg is stronger than his right. PT-OP-D Balance Start: 06/14/18 17:35 Freq: Status: Active Protocol: Document 06/14/18 17:37 ML (Rec: 06/14/18 18:12 ML [id number]) Willett Balance Assessment Total Score Willett Impairment Rating 40 to 59% Impaired (Score 23- 33) PT-OP-G Mobility & Gait Start: 06/14/18 17:35 Freq: Status: Active Protocol: Document 06/14/18 17:37 ML (Rec: 06/14/18 18:12 ML [id number]) OP Gait Assessment Assistive Devices Assistive Device 4 Wheeled Walker Comments Gait Comments Pt moves slowly with AD PT-OP-Q Treatments Start: 06/14/18 17:35 Freq: Status: Active Protocol: Document 06/27/18 14:30 DCW (Rec: 06/27/18 15:18 DCW [id number]) Gym Equipment Shuttle Recovery Bilateral Heel Raises Resistance 75# Reps/Time to fatigue Unilateral Squats Resistance 37 lbs Shuttle Recovery Platform Unstable Reps/Time to fatigue Bilateral Squats Resistance 62 lbs Shuttle Recovery Platform Unstable Reps/Time to fatigue Shuttle Balance 1 Details yellow Comments eyes open/closed, head turns, perturbations with eyes open Therapeutic Exercises Sitting Exercises Seated Marching Sitting Exercise Name Marching Side bilateral Resistance 9# Long Arc Quads Sitting Exercise Name LAQ Side bilateral Resistance 9# Standing Exercises Heel-toe Ambulation Standing Exercise Name Heel-toe in // bars Other Exercises Resisted Fwd/Retro walking Resistance Yellow Resisted Side-stepping Resistance Yellow Gait Training Gait Activity hurdles Description hurdles on firm and foam surfaces Device Used standing bar on one side Level of Assistance Min A Surface firm and foam Comments gait belt PT-OP-T Assessment and Plan Start: 06/14/18 17:35 Freq: Status: Active Protocol: Document 06/27/18 14:30 DCW (Rec: 06/27/18 15:18 DCW [id number]) Physical Therapy Assessment Impairments Impairments Activity Tolerance Balance Coordination Functional Activities Functional Mobility Gait Posture Strength Transfers Goals 2 Impairment dec strength Short Term Goal (STG) Pt will improve MMT of all LE to greater than or equal to 4 STG Duration 07/15/18 1 Impairment dec balance Short Term Goal (STG) Pt will score >35 on the WILLETT demonstrating safe ambulation w/AD STG Duration 07/15/18 Senior Living Goal (LTG) Pt will score >45 on the WILLETT demonstrating safe ambulation and dec fall risk LTG Duration 08/14/18 Assessment Summary Assessment Pt tolerated new TherEx well, no new complaints or concerns. Physical Therapy Plan Frequency and Duration Frequency of Treatment 2x/Week Duration of Treatment 2 months Plan of Care Start Date 06/14/18 Plan of Care End Date 08/14/18 Therapeutic Interventions Therapeutic Interventions Balance Training Coordination Training Gait Training Home Exercise Program Joint Mobilizations Manual Therapy Neuromuscular Re-education Patient/Caregiver Education Self-Care/Home Management Soft Tissue Mobilization Therapeutic Activities Therapeutic Exercises Next Visit Focus/Plan Next Note Type Treatment Note Next Visit Plan cont. standing balance training, prog. gait with various surfaces.
--- NOTE | 2018-06-30 15:15 | PT.OTN ---
Current Diagnoses Other abnormalities of gait and mobility (06/30/18) Physical Therapy Treatment Note PT-OP-A Visit Information Start: 06/14/18 17:35 Freq: Status: Active Protocol: Document 06/30/18 15:15 RCC (Rec: 06/30/18 16:46 RCC [email or web address]) Out-Patient Physical Therapy Visit Information Visit Information Visit Type Treatment Note Visit Start Time 14:43 Visit Stop Time 15:15 Total Visit Minutes 32 Visit Number 6 Number of PAINTING CONTRACTOR Visits 0 Evaluation Information Evaluation Date 06/14/18 PT-OP-B Current Condition Start: 06/14/18 17:35 Freq: Status: Active Protocol: Document 06/14/18 17:37 ML (Rec: 06/14/18 18:12 ML [id number]) Current Condition History of Current Condition Current Complaints dec balance & strength History of Current Condition Pt presents to initial evaluation with a 4WW, moving slowly into the treatment room with his caregiver and . The pt reports having two falls within the last two weeks about a week apart, but the caregiver reports no falls prior since starting her full stack software developer work with him in January. The pt reports no major injuries from the falls, but that they both occurred in the narrow spaced bathroom where he was trying to turn and lost his balance, or tried to bend down and his R knee gave out. The pt mentions that he does not ambulate anywhere without his 4WW inside of the house or outside of the house. The pt reports general fatigue that seems to be getting worse and shows concern for his difficulty of turning, especially in tight spaces, stairs (in which he walks down sideways witha rail), walking uphill, and bending down. The pt voices that he seeks to increase his balance overall and to feel comfortable with his R leg, because it currently feels weak. The pt's MMT showed that his L LE was weaker than his R, but the pt said he noted this today in general after going for a walk . Treatment Goals Patient/Caregiver Goals Pt would like to inc LE strength, dec fatigue, and inc overall balance in order to feel more comfortable for functional activities, particularly showering at home . PT-OP-C Subjective Start: 06/14/18 17:35 Freq: Status: Active Protocol: Document 06/30/18 15:15 RCC (Rec: 06/30/18 16:46 RCC [email or web address]) OP-PT Subjective Patient Comments Patient Comments After 32 min of treatment, pt requested to stop pt due to fatigue, stating I think I'm done. PT-OP-D Balance Start: 06/14/18 17:35 Freq: Status: Active Protocol: Document 06/14/18 17:37 ML (Rec: 06/14/18 18:12 ML [id number]) Valdez Balance Assessment Total Score Valdez Impairment Rating 40 to 59% Impaired (Score 23- 33) PT-OP-G Mobility & Gait Start: 06/14/18 17:35 Freq: Status: Active Protocol: Document 06/14/18 17:37 ML (Rec: 06/14/18 18:12 ML [id number]) OP Gait Assessment Assistive Devices Assistive Device 4 Wheeled Walker Comments Gait Comments Pt moves slowly with AD PT-OP-Q Treatments Start: 06/14/18 17:35 Freq: Status: Active Protocol: Document 06/30/18 15:15 RCC (Rec: 06/30/18 16:46 RCC [email or web address]) Gym Equipment Shuttle Balance 1 Details blue Comments eyes open/closed, head turns, perturbations with eyes open, semi-tandem with horiz. head movements Therapeutic Exercises Standing Exercises Heel-toe Ambulation Standing Exercise Name Heel-toe in // bars Neuro Re-Education Treatment Balance Activities BOSU standing Details DL standing on BOSU with UE support Reps/Duration 4 min Tiltboard Details fwd/bck, side/side Reps/Duration 10 min PT-OP-T Assessment and Plan Start: 06/14/18 17:35 Freq: Status: Active Protocol: Document 06/30/18 15:15 RCC (Rec: 06/30/18 16:46 RCC [email or web address]) Physical Therapy Assessment Assessment Summary Assessment Pt tolerated 32 min of treatment, then requested to discontinue the session today due to fatigue. Pt was able to ambulate to car safely. Plan to progress pt with gait and standing balance as tolerated, with close monitoring on fatigue, but likely an isolated incident as pt was just at dermatology prior to this appointment and had a large biopsy done today. Physical Therapy Plan Frequency and Duration Frequency of Treatment 2x/Week Duration of Treatment 2 months Plan of Care Start Date 06/14/18 Plan of Care End Date 08/14/18 Next Visit Focus/Plan Next Note Type Treatment Note Next Visit Plan cont. to prog. gait and standing balance as tolerated, uneven gait and ankle strategy with balance.
--- NOTE | 2018-07-04 15:39 | PT.OTN ---
Current Diagnoses Other abnormalities of gait and mobility (07/04/18) Physical Therapy Treatment Note PT-OP-A Visit Information Start: 06/14/18 17:35 Freq: Status: Active Protocol: Document 07/04/18 14:30 GGD (Rec: 07/04/18 15:39 GGD [email or web address]) Out-Patient Physical Therapy Visit Information Visit Information Visit Type Treatment Note Visit Start Time 14:30 Visit Stop Time 15:12 Total Visit Minutes 42 Visit Number 7 Number of LARYNGOLOGIST Visits 1 Evaluation Information Evaluation Date 06/14/18 PT-OP-B Current Condition Start: 06/14/18 17:35 Freq: Status: Active Protocol: Document 06/14/18 17:37 ML (Rec: 06/14/18 18:12 ML [id number]) Current Condition History of Current Condition Current Complaints dec balance & strength History of Current Condition Pt presents to initial evaluation with a 4WW, moving slowly into the treatment room with his caregiver and . The pt reports having two falls within the last two weeks about a week apart, but the caregiver reports no falls prior since starting her multimedia educational specialist work with him in January. The pt reports no major injuries from the falls, but that they both occurred in the narrow spaced bathroom where he was trying to turn and lost his balance, or tried to bend down and his R knee gave out. The pt mentions that he does not ambulate anywhere without his 4WW inside of the house or outside of the house. The pt reports general fatigue that seems to be getting worse and shows concern for his difficulty of turning, especially in tight spaces, stairs (in which he walks down sideways witha rail), walking uphill, and bending down. The pt voices that he seeks to increase his balance overall and to feel comfortable with his R leg, because it currently feels weak. The pt's MMT showed that his L LE was weaker than his R, but the pt said he noted this today in general after going for a walk . Treatment Goals Patient/Caregiver Goals Pt would like to inc LE strength, dec fatigue, and inc overall balance in order to feel more comfortable for functional activities, particularly showering at home . PT-OP-C Subjective Start: 06/14/18 17:35 Freq: Status: Active Protocol: Document 07/04/18 14:30 GGD (Rec: 07/04/18 15:39 GGD [email or web address]) OP-PT Subjective Patient Comments Patient Comments Pt states that he went to the pool today. PT-OP-D Balance Start: 06/14/18 17:35 Freq: Status: Active Protocol: Document 06/14/18 17:37 ML (Rec: 06/14/18 18:12 ML [id number]) Valdez Balance Assessment Total Score Valdez Impairment Rating 40 to 59% Impaired (Score 23- 33) PT-OP-G Mobility & Gait Start: 06/14/18 17:35 Freq: Status: Active Protocol: Document 06/14/18 17:37 ML (Rec: 06/14/18 18:12 ML [id number]) OP Gait Assessment Assistive Devices Assistive Device 4 Wheeled Walker Comments Gait Comments Pt moves slowly with AD PT-OP-Q Treatments Start: 06/14/18 17:35 Freq: Status: Active Protocol: Document 07/04/18 14:30 GGD (Rec: 07/04/18 15:39 GGD [email or web address]) Gym Equipment Shuttle Recovery Bilateral Heel Raises Resistance 75# Reps/Time to fatigue Unilateral Squats Resistance 37 lbs Shuttle Recovery Platform Unstable Reps/Time to fatigue Bilateral Squats Resistance 75 lbs Shuttle Recovery Platform Unstable Reps/Time to fatigue Shuttle Balance 1 Details blue Comments eyes open/closed, head turns, perturbations with eyes open, semi-tandem with horiz. head movements Therapeutic Exercises Standing Exercises Heel-toe Ambulation Standing Exercise Name Heel-toe in // bars Comments forward and backwards. Other Exercises Resisted Fwd/Retro walking Resistance Yellow Resisted Side-stepping Resistance Yellow Gait Training Gait Activity hurdles Description hurdles on firm Device Used standing bar on one side Level of Assistance Min A Surface firm and foam Comments gait belt Neuro Re-Education Treatment Balance Activities 1 Details balloon toss Comments WBOS, without UE support PT-OP-T Assessment and Plan Start: 06/14/18 17:35 Freq: Status: Active Protocol: Document 07/04/18 14:30 GGD (Rec: 07/04/18 15:39 GGD [email or web address]) Physical Therapy Assessment Assessment Summary Assessment Pt improved tolerance to exercise and balance activities. He had backwards lean with NBOS balance and LOB needing UE support with tandem balance. Physical Therapy Plan Frequency and Duration Frequency of Treatment 2x/Week Duration of Treatment 2 months Plan of Care Start Date 06/14/18 Plan of Care End Date 08/14/18 Next Visit Focus/Plan Next Note Type Treatment Note Next Visit Plan cont. to prog. gait and standing balance
--- NOTE | 2018-07-18 16:17 | PT.OTN ---
Current Diagnoses Other abnormalities of gait and mobility (07/18/18) Physical Therapy Treatment Note PT-OP-A Visit Information Start: 06/14/18 17:35 Freq: Status: Active Protocol: Document 07/18/18 13:45 GGD (Rec: 07/18/18 16:17 GGD [email or web address]) Out-Patient Physical Therapy Visit Information Visit Information Visit Type Treatment Note Visit Start Time 13:45 Visit Stop Time 14:25 Total Visit Minutes 40 Visit Number 8 Number of CAPTAIN FIRE PREVENTION BUREAU Visits 2 Evaluation Information Evaluation Date 06/14/18 PT-OP-B Current Condition Start: 06/14/18 17:35 Freq: Status: Active Protocol: Document 06/14/18 17:37 ML (Rec: 06/14/18 18:12 ML [id number]) Current Condition History of Current Condition Current Complaints dec balance & strength History of Current Condition Pt presents to initial evaluation with a 4WW, moving slowly into the treatment room with his caregiver and . The pt reports having two falls within the last two weeks about a week apart, but the caregiver reports no falls prior since starting her time checker work with him in January. The pt reports no major injuries from the falls, but that they both occurred in the narrow spaced bathroom where he was trying to turn and lost his balance, or tried to bend down and his R knee gave out. The pt mentions that he does not ambulate anywhere without his 4WW inside of the house or outside of the house. The pt reports general fatigue that seems to be getting worse and shows concern for his difficulty of turning, especially in tight spaces, stairs (in which he walks down sideways witha rail), walking uphill, and bending down. The pt voices that he seeks to increase his balance overall and to feel comfortable with his R leg, because it currently feels weak. The pt's MMT showed that his L LE was weaker than his R, but the pt said he noted this today in general after going for a walk . Treatment Goals Patient/Caregiver Goals Pt would like to inc LE strength, dec fatigue, and inc overall balance in order to feel more comfortable for functional activities, particularly showering at home . PT-OP-C Subjective Start: 06/14/18 17:35 Freq: Status: Active Protocol: Document 07/18/18 13:45 GGD (Rec: 07/18/18 16:17 GGD [email or web address]) OP-PT Subjective Patient Comments Patient Comments Pt states he is tired today and didn't sleep good last night. PT-OP-D Balance Start: 06/14/18 17:35 Freq: Status: Active Protocol: Document 06/14/18 17:37 ML (Rec: 06/14/18 18:12 ML [id number]) Valdez Balance Assessment Total Score [place] Impairment Rating 40 to 59% Impaired (Score 23- 33) PT-OP-G Mobility & Gait Start: 06/14/18 17:35 Freq: Status: Active Protocol: Document 06/14/18 17:37 ML (Rec: 06/14/18 18:12 ML [id number]) OP Gait Assessment Assistive Devices Assistive Device 4 Wheeled Walker Comments Gait Comments Pt moves slowly with AD PT-OP-Q Treatments Start: 06/14/18 17:35 Freq: Status: Active Protocol: Document 07/18/18 13:45 GGD (Rec: 07/18/18 16:17 GGD [email or web address]) Gym Equipment Shuttle Recovery Bilateral Heel Raises Resistance 75# Reps/Time to fatigue Unilateral Squats Resistance 37 lbs Shuttle Recovery Platform Unstable Reps/Time to fatigue Bilateral Squats Resistance 75 lbs Shuttle Recovery Platform Unstable Reps/Time to fatigue Shuttle Balance 1 Details blue Comments eyes open/closed, head turns, perturbations with eyes open, semi-tandem with horiz. head movements Therapeutic Exercises Standing Exercises Heel-toe Ambulation Standing Exercise Name Heel-toe Comments forward and backwards. Other Exercises Resisted Fwd/Retro walking Resistance Yellow Resisted Side-stepping Resistance Yellow Gait Training Gait Activity hurdles Description hurdles on firm Device Used standing bar on one side Level of Assistance Min A Surface firm and foam Comments gait belt Neuro Re-Education Treatment Balance Activities 3 Details SLS Surface firm Reps/Duration 6 PT-OP-T Assessment and Plan Start: 06/14/18 17:35 Freq: Status: Active Protocol: Document 07/18/18 13:45 GGD (Rec: 07/18/18 16:17 GGD [email or web address]) Physical Therapy Assessment Assessment Summary Assessment Pt need increase in rest breaks and quickly fatigued. He had increase in LOB posterior and need CGA to mod A. Physical Therapy Plan Frequency and Duration Frequency of Treatment 2x/Week Duration of Treatment 2 months Plan of Care Start Date 06/14/18 Plan of Care End Date 08/14/18 Next Visit Focus/Plan Next Note Type Treatment Note Next Visit Plan progress gait and standing balance
--- NOTE | 2018-07-25 16:49 | PT.OTN ---
Current Diagnoses Other abnormalities of gait and mobility (07/25/18) Physical Therapy Treatment Note PT-OP-A Visit Information Start: 06/14/18 17:35 Freq: Status: Active Protocol: Document 07/25/18 12:00 ML (Rec: 07/25/18 12:11 ML [email or web address]) Out-Patient Physical Therapy Visit Information Visit Information Visit Type Treatment Note Visit Start Time 11:20 Visit Stop Time 12:00 Total Visit Minutes 40 Visit Number 9 Number of WET END OPERATOR Visits 0 PT-OP-B Current Condition Start: 06/14/18 17:35 Freq: Status: Active Protocol: Document 06/14/18 17:37 ML (Rec: 06/14/18 18:12 ML [id number]) Current Condition History of Current Condition Current Complaints dec balance & strength History of Current Condition Pt presents to initial evaluation with a 4WW, moving slowly into the treatment room with his caregiver and . The pt reports having two falls within the last two weeks about a week apart, but the caregiver reports no falls prior since starting her time buyer work with him in January. The pt reports no major injuries from the falls, but that they both occurred in the narrow spaced bathroom where he was trying to turn and lost his balance, or tried to bend down and his R knee gave out. The pt mentions that he does not ambulate anywhere without his 4WW inside of the house or outside of the house. The pt reports general fatigue that seems to be getting worse and shows concern for his difficulty of turning, especially in tight spaces, stairs (in which he walks down sideways witha rail), walking uphill, and bending down. The pt voices that he seeks to increase his balance overall and to feel comfortable with his R leg, because it currently feels weak. The pt's MMT showed that his L LE was weaker than his R, but the pt said he noted this today in general after going for a walk . Treatment Goals Patient/Caregiver Goals Pt would like to inc LE strength, dec fatigue, and inc overall balance in order to feel more comfortable for functional activities, particularly showering at home . PT-OP-C Subjective Start: 06/14/18 17:35 Freq: Status: Active Protocol: Document 07/25/18 12:00 ML (Rec: 07/25/18 12:11 ML [email or web address]) OP-PT Subjective Patient Comments Patient Comments Pt notes that he did a workout in the pool this morning so he is a bit tired today. PT-OP-D Balance Start: 06/14/18 17:35 Freq: Status: Active Protocol: Document 06/14/18 17:37 ML (Rec: 06/14/18 18:12 ML [id number]) Willett Balance Assessment Total Score Willett Impairment Rating 40 to 59% Impaired (Score 23- 33) PT-OP-G Mobility & Gait Start: 06/14/18 17:35 Freq: Status: Active Protocol: Document 06/14/18 17:37 ML (Rec: 06/14/18 18:12 ML [id number]) OP Gait Assessment Assistive Devices Assistive Device 4 Wheeled Walker Comments Gait Comments Pt moves slowly with AD PT-OP-Q Treatments Start: 06/14/18 17:35 Freq: Status: Active Protocol: Document 07/25/18 12:00 ML (Rec: 07/25/18 12:11 ML [email or web address]) Gym Equipment Shuttle Balance 1 Details blue Comments WBOS forward; WBOS, NBOS, mid- tandem side ways; balance and wt shifting Therapeutic Exercises Standing Exercises sit<->stand Reps/Minutes 5x Comments cues for control and walker position to side Neuro Re-Education Treatment Balance Activities 180 turns Details no UE support Comments cues for picking up feet and engaging core; pt noted difficulty in maintaining balance through this motion diagonal step to Details R and L Equipment bar and cones Comments cues for picking up feet marching Details slow and controlled Equipment bar Reps/Duration 20'x4 backward walking Equipment bar, yellow band Comments cues for keeping feet apart sidestepping Equipment bar, yellow band Comments cues for dec trunk lean and picking up feet 2 Details tandem walking PT-OP-T Assessment and Plan Start: 06/14/18 17:35 Freq: Status: Active Protocol: Document 07/25/18 12:00 ML (Rec: 07/25/18 12:11 ML [email or web address]) Physical Therapy Assessment Goals 2 Impairment dec strength Short Term Goal (STG) Pt will improve MMT of all LE to greater than or equal to 4 STG Duration 07/15/18 1 Impairment dec balance Short Term Goal (STG) Pt will score >35 on the WILLETT demonstrating safe ambulation w/AD STG Duration 07/15/18 Residential Goal (LTG) Pt will score >45 on the WILLETT demonstrating safe ambulation and dec fall risk LTG Duration 08/14/18 Assessment Summary Assessment Pt was able to achieve all balance exercises today, although was continually cued for a more forward lean, rather than leaning backward where he tends to lose his balance. Pt was able to improve his balance when cued to engage core. Pt has difficulty picking up his R foot through activities, but improved with cueing. Physical Therapy Plan Frequency and Duration Frequency of Treatment 2x/Week Duration of Treatment 2 months Plan of Care Start Date 06/14/18 Plan of Care End Date 08/14/18 Next Visit Focus/Plan Next Note Type Progress Note Next Visit Plan strength assessment; progress gait and standing balance
--- NOTE | 2018-07-28 15:15 | PT.OPPN ---
Current Diagnoses Other abnormalities of gait and mobility (07/31/18) Physical Therapy Progress Note PT-OP-A Visit Information Start: 06/14/18 17:35 Freq: Status: Active Protocol: Document 07/31/18 14:43 [facility] (Rec: 07/31/18 15:15 [facility] [id number]) Out-Patient Physical Therapy Visit Information Visit Information Visit Type Treatment Note Visit Note 11 total Visit Start Time 14:35 Visit Stop Time 15:15 Total Visit Minutes 40 Visit Number 2/10 Number of MEDICAL CENTER DIRECTOR Visits 0 PT-OP-B Current Condition Start: 06/14/18 17:35 Freq: Status: Active Protocol: Document 06/14/18 17:37 ML (Rec: 06/14/18 18:12 ML [id number]) Current Condition History of Current Condition Current Complaints dec balance & strength History of Current Condition Pt presents to initial evaluation with a 4WW, moving slowly into the treatment room with his caregiver and . The pt reports having two falls within the last two weeks about a week apart, but the caregiver reports no falls prior since starting her multimedia educational specialist work with him in January. The pt reports no major injuries from the falls, but that they both occurred in the narrow spaced bathroom where he was trying to turn and lost his balance, or tried to bend down and his R knee gave out. The pt mentions that he does not ambulate anywhere without his 4WW inside of the house or outside of the house. The pt reports general fatigue that seems to be getting worse and shows concern for his difficulty of turning, especially in tight spaces, stairs (in which he walks down sideways witha rail), walking uphill, and bending down. The pt voices that he seeks to increase his balance overall and to feel comfortable with his R leg, because it currently feels weak. The pt's MMT showed that his L LE was weaker than his R, but the pt said he noted this today in general after going for a walk . Treatment Goals Patient/Caregiver Goals Pt would like to inc LE strength, dec fatigue, and inc overall balance in order to feel more comfortable for functional activities, particularly showering at home . PT-OP-C Subjective Start: 06/14/18 17:35 Freq: Status: Active Protocol: Document 07/31/18 14:43 [facility] (Rec: 07/31/18 15:15 [facility] [id number]) OP-PT Subjective Patient Comments Patient Comments reports he has been doing exercises without CG PT-OP-D Balance Start: 06/14/18 17:35 Freq: Status: Active Protocol: Document 07/28/18 10:36 ML (Rec: 07/28/18 11:41 ML [id number]) Balance Tests Willett Balance Test Willett Balance Test Score 36 Willett Impairment Rating 20 to 39% Impaired (Score 34- 44) Willett Balance Assessment Total Score Willett Impairment Rating 20 to 39% Impaired (Score 34- 44) PT-OP-G Mobility & Gait Start: 06/14/18 17:35 Freq: Status: Active Protocol: Document 06/14/18 17:37 ML (Rec: 06/14/18 18:12 ML [id number]) OP Gait Assessment Assistive Devices Assistive Device 4 Wheeled Walker Comments Gait Comments Pt moves slowly with AD PT-OP-M Strength Start: 06/14/18 17:35 Freq: Status: Active Protocol: Document 07/28/18 10:36 ML (Rec: 07/28/18 11:41 ML [id number]) Hip Strength Hip Manual Muscle Testing Right Flexion (L2) 4 Good Abduction 4 Good External Rotation 4 Good Internal Rotation 4 Good Left Flexion (L2) 4+ Good+ Abduction 4 Good External Rotation 4- Good- Internal Rotation 4+ Good+ Knee Strength Knee Manual Muscle Testing Right Flexion (S2) 4+ Good+ Extension (L3) 4+ Good+ Left Flexion (S2) 4 Good Extension (L3) 4+ Good+ Ankle/Foot Strength Ankle and Foot Manual Muscle Testing Right Dorsiflexion (L4) 4+ Good+ Plantarflexion (S1) 5 Normal Left Dorsiflexion (L4) 4+ Good+ Plantarflexion (S1) 5 Normal Comments PF tested seated PT-OP-T Assessment and Plan Start: 06/14/18 17:35 Freq: Status: Active Protocol: Document 07/31/18 14:43 [facility] (Rec: 07/31/18 15:15 [facility] [id number]) Physical Therapy Assessment Goals 2 Impairment dec strength Short Term Goal (STG) Pt will improve MMT of all LE to greater than or equal to 4 STG Duration 07/15/18 1 Impairment dec balance Short Term Goal (STG) Pt will score >35 on the WILLETT demonstrating safe ambulation w/AD STG Duration 07/15/18 Button Bradder Goal (LTG) Pt will score >45 on the WILLETT demonstrating safe ambulation and dec fall risk LTG Duration 08/14/18 Assessment Summary Assessment Pt was fatigued by today's session. Reminders required for doing exercises with caregivers. Physical Therapy Plan Frequency and Duration Frequency of Treatment 2x/Week Duration of Treatment 2 months Plan of Care Start Date 06/14/18 Plan of Care End Date 08/14/18 Next Visit Focus/Plan Next Note Type Treatment Note Next Visit Plan Advance balance and strengthening
--- NOTE | 2018-07-28 15:50 | PT.OTN ---
Current Diagnoses Other abnormalities of gait and mobility (07/28/18) Physical Therapy Treatment Note PT-OP-A Visit Information Start: 06/14/18 17:35 Freq: Status: Active Protocol: Document 07/28/18 10:36 ML (Rec: 07/28/18 11:41 ML [id number]) Out-Patient Physical Therapy Visit Information Visit Information Visit Type Progress Note Visit Start Time 10:32 Visit Stop Time 11:20 Total Visit Minutes 48 Visit Number 10 Number of JAMMER OPERATOR Visits 0 PT-OP-B Current Condition Start: 06/14/18 17:35 Freq: Status: Active Protocol: Document 06/14/18 17:37 ML (Rec: 06/14/18 18:12 ML [id number]) Current Condition History of Current Condition Current Complaints dec balance & strength History of Current Condition Pt presents to initial evaluation with a 4WW, moving slowly into the treatment room with his caregiver and . The pt reports having two falls within the last two weeks about a week apart, but the caregiver reports no falls prior since starting her assistant associate full professor work with him in January. The pt reports no major injuries from the falls, but that they both occurred in the narrow spaced bathroom where he was trying to turn and lost his balance, or tried to bend down and his R knee gave out. The pt mentions that he does not ambulate anywhere without his 4WW inside of the house or outside of the house. The pt reports general fatigue that seems to be getting worse and shows concern for his difficulty of turning, especially in tight spaces, stairs (in which he walks down sideways witha rail), walking uphill, and bending down. The pt voices that he seeks to increase his balance overall and to feel comfortable with his R leg, because it currently feels weak. The pt's MMT showed that his L LE was weaker than his R, but the pt said he noted this today in general after going for a walk . Treatment Goals Patient/Caregiver Goals Pt would like to inc LE strength, dec fatigue, and inc overall balance in order to feel more comfortable for functional activities, particularly showering at home . PT-OP-C Subjective Start: 06/14/18 17:35 Freq: Status: Active Protocol: Document 07/28/18 10:36 ML (Rec: 07/28/18 11:41 ML [id number]) OP-PT Subjective Patient Comments Patient Comments Pt notes that he is feeling a little light headed today and weak. PT-OP-D Balance Start: 06/14/18 17:35 Freq: Status: Active Protocol: Document 07/28/18 10:36 ML (Rec: 07/28/18 11:41 ML [id number]) Balance Tests Willett Balance Test Willett Balance Test Score 36 Willett Impairment Rating 20 to 39% Impaired (Score 34- 44) Willett Balance Assessment Total Score Willett Impairment Rating 20 to 39% Impaired (Score 34- 44) PT-OP-G Mobility & Gait Start: 06/14/18 17:35 Freq: Status: Active Protocol: Document 06/14/18 17:37 ML (Rec: 06/14/18 18:12 ML [id number]) OP Gait Assessment Assistive Devices Assistive Device 4 Wheeled Walker Comments Gait Comments Pt moves slowly with AD PT-OP-M Strength Start: 06/14/18 17:35 Freq: Status: Active Protocol: Document 07/28/18 10:36 ML (Rec: 07/28/18 11:41 ML [id number]) Hip Strength Hip Manual Muscle Testing Right Flexion (L2) 4 Good Abduction 4 Good External Rotation 4 Good Internal Rotation 4 Good Left Flexion (L2) 4+ Good+ Abduction 4 Good External Rotation 4- Good- Internal Rotation 4+ Good+ Knee Strength Knee Manual Muscle Testing Right Flexion (S2) 4+ Good+ Extension (L3) 4+ Good+ Left Flexion (S2) 4 Good Extension (L3) 4+ Good+ Ankle/Foot Strength Ankle and Foot Manual Muscle Testing Right Dorsiflexion (L4) 4+ Good+ Plantarflexion (S1) 5 Normal Left Dorsiflexion (L4) 4+ Good+ Plantarflexion (S1) 5 Normal Comments PF tested seated PT-OP-Q Treatments Start: 06/14/18 17:35 Freq: Status: Active Protocol: Document 07/28/18 10:36 ML (Rec: 07/28/18 11:41 ML [id number]) Therapeutic Exercises Standing Exercises toe taps Equipment Used bar and stool Comments HEP ER Resistance lvl 2 Equipment Used bar Comments HEP; cues for foot position and going slow sit<->stand Equipment Used bar Reps/Minutes 10x Comments HEP lateral walks Resistance lvl 2 Reps/Minutes bar Comments HEP Therapeutic Activity Therapeutic Activity BP Comments BP 136/78 PT-OP-T Assessment and Plan Start: 06/14/18 17:35 Freq: Status: Active Protocol: Document 07/28/18 10:36 ML (Rec: 07/28/18 11:41 ML [id number]) Physical Therapy Assessment Goals 2 Impairment dec strength Short Term Goal (STG) Pt will improve MMT of all LE to greater than or equal to 4 STG Duration 07/15/18 1 Impairment dec balance Short Term Goal (STG) Pt will score >35 on the WILLETT demonstrating safe ambulation w/AD STG Duration 07/15/18 Prison Goal (LTG) Pt will score >45 on the WILLETT demonstrating safe ambulation and dec fall risk LTG Duration 08/14/18 Assessment Summary Assessment Pt demonstrated inc strength today. Pt's feeling of lightheadedness was addressed and his BP was 136/78. Pt was checked in with frequently and given rests. Pt has also improved his balance. Pt was given an updated HEP to progress through these advancement as he still has some deficits. Physical Therapy Plan Frequency and Duration Frequency of Treatment 2x/Week Duration of Treatment 2 months Plan of Care Start Date 06/14/18 Plan of Care End Date 08/14/18 Next Visit Focus/Plan Next Note Type Treatment Note Next Visit Plan review HEP (clamshell instead if needed); strength assessment; progress gait and standing balance
--- NOTE | 2018-07-31 15:15 | PT.OTN ---
Current Diagnoses Other abnormalities of gait and mobility (07/31/18) Physical Therapy Treatment Note PT-OP-A Visit Information Start: 06/14/18 17:35 Freq: Status: Active Protocol: Document 07/31/18 14:43 [facility] (Rec: 07/31/18 15:15 [facility] [id number]) Out-Patient Physical Therapy Visit Information Visit Information Visit Type Treatment Note Visit Note 11 total Visit Start Time 14:35 Visit Stop Time 15:15 Total Visit Minutes 40 Visit Number 2/10 Number of SALES ACCOUNT SPECIALIST Visits 0 PT-OP-B Current Condition Start: 06/14/18 17:35 Freq: Status: Active Protocol: Document 06/14/18 17:37 ML (Rec: 06/14/18 18:12 ML [id number]) Current Condition History of Current Condition Current Complaints dec balance & strength History of Current Condition Pt presents to initial evaluation with a 4WW, moving slowly into the treatment room with his caregiver and . The pt reports having two falls within the last two weeks about a week apart, but the caregiver reports no falls prior since starting her time piece repairer work with him in January. The pt reports no major injuries from the falls, but that they both occurred in the narrow spaced bathroom where he was trying to turn and lost his balance, or tried to bend down and his R knee gave out. The pt mentions that he does not ambulate anywhere without his 4WW inside of the house or outside of the house. The pt reports general fatigue that seems to be getting worse and shows concern for his difficulty of turning, especially in tight spaces, stairs (in which he walks down sideways witha rail), walking uphill, and bending down. The pt voices that he seeks to increase his balance overall and to feel comfortable with his R leg, because it currently feels weak. The pt's MMT showed that his L LE was weaker than his R, but the pt said he noted this today in general after going for a walk . Treatment Goals Patient/Caregiver Goals Pt would like to inc LE strength, dec fatigue, and inc overall balance in order to feel more comfortable for functional activities, particularly showering at home . PT-OP-C Subjective Start: 06/14/18 17:35 Freq: Status: Active Protocol: Document 07/31/18 14:43 [facility] (Rec: 07/31/18 15:15 [facility] [id number]) OP-PT Subjective Patient Comments Patient Comments reports he has been doing exercises without CG PT-OP-D Balance Start: 06/14/18 17:35 Freq: Status: Active Protocol: Document 07/28/18 10:36 ML (Rec: 07/28/18 11:41 ML [id number]) Balance Tests Willett Balance Test Willett Balance Test Score 36 Willett Impairment Rating 20 to 39% Impaired (Score 34- 44) Willett Balance Assessment Total Score Willett Impairment Rating 20 to 39% Impaired (Score 34- 44) PT-OP-G Mobility & Gait Start: 06/14/18 17:35 Freq: Status: Active Protocol: Document 06/14/18 17:37 ML (Rec: 06/14/18 18:12 ML [id number]) OP Gait Assessment Assistive Devices Assistive Device 4 Wheeled Walker Comments Gait Comments Pt moves slowly with AD PT-OP-M Strength Start: 06/14/18 17:35 Freq: Status: Active Protocol: Document 07/28/18 10:36 ML (Rec: 07/28/18 11:41 ML [id number]) Hip Strength Hip Manual Muscle Testing Right Flexion (L2) 4 Good Abduction 4 Good External Rotation 4 Good Internal Rotation 4 Good Left Flexion (L2) 4+ Good+ Abduction 4 Good External Rotation 4- Good- Internal Rotation 4+ Good+ Knee Strength Knee Manual Muscle Testing Right Flexion (S2) 4+ Good+ Extension (L3) 4+ Good+ Left Flexion (S2) 4 Good Extension (L3) 4+ Good+ Ankle/Foot Strength Ankle and Foot Manual Muscle Testing Right Dorsiflexion (L4) 4+ Good+ Plantarflexion (S1) 5 Normal Left Dorsiflexion (L4) 4+ Good+ Plantarflexion (S1) 5 Normal Comments PF tested seated PT-OP-Q Treatments Start: 06/14/18 17:35 Freq: Status: Active Protocol: Document 07/31/18 14:43 [facility] (Rec: 07/31/18 15:15 [facility] [id number]) Gym Equipment Shuttle Balance 1 Details red Comments WBOS & NBOS fwd & side Therapeutic Exercises Standing Exercises toe taps Equipment Used bar and stool Comments changed to controlled marches ER Resistance lvl 2 Equipment Used bar Comments HEP; cues for foot position and going slow sit<->stand Equipment Used bar Reps/Minutes 10x Comments HEP lateral walks Resistance lvl 2 Reps/Minutes barx3 Comments HEP Neuro Re-Education Treatment Balance Activities 3 Details hurdles Reps/Duration 6 reps PT-OP-T Assessment and Plan Start: 06/14/18 17:35 Freq: Status: Active Protocol: Document 07/31/18 14:43 [facility] (Rec: 07/31/18 15:15 [facility] [id number]) Physical Therapy Assessment Goals 2 Impairment dec strength Short Term Goal (STG) Pt will improve MMT of all LE to greater than or equal to 4 STG Duration 07/15/18 1 Impairment dec balance Short Term Goal (STG) Pt will score >35 on the WILLETT demonstrating safe ambulation w/AD STG Duration 07/15/18 Director Of Blood Goal (LTG) Pt will score >45 on the WILLETT demonstrating safe ambulation and dec fall risk LTG Duration 08/14/18 Assessment Summary Assessment Pt was fatigued by today's session. Reminders required for doing exercises with caregivers. Physical Therapy Plan Frequency and Duration Frequency of Treatment 2x/Week Duration of Treatment 2 months Plan of Care Start Date 06/14/18 Plan of Care End Date 08/14/18 Next Visit Focus/Plan Next Note Type Treatment Note Next Visit Plan Advance balance and strengthening
--- NOTE | 2018-08-04 14:32 | PT.OTN ---
Current Diagnoses Other abnormalities of gait and mobility (08/04/18) Physical Therapy Treatment Note PT-OP-A Visit Information Start: 06/14/18 17:35 Freq: Status: Active Protocol: Document 08/04/18 14:07 [facility] (Rec: 08/04/18 14:32 [facility] [id number]) Out-Patient Physical Therapy Visit Information Visit Information Visit Type Treatment Note Visit Note 12 total Visit Start Time 14:35 Visit Stop Time 15:15 Total Visit Minutes 40 Visit Number 3/10 Number of LANGUAGE TUTOR Visits 0 PT-OP-B Current Condition Start: 06/14/18 17:35 Freq: Status: Active Protocol: Document 06/14/18 17:37 ML (Rec: 06/14/18 18:12 ML [id number]) Current Condition History of Current Condition Current Complaints dec balance & strength History of Current Condition Pt presents to initial evaluation with a 4WW, moving slowly into the treatment room with his caregiver and . The pt reports having two falls within the last two weeks about a week apart, but the caregiver reports no falls prior since starting her horse race timer work with him in January. The pt reports no major injuries from the falls, but that they both occurred in the narrow spaced bathroom where he was trying to turn and lost his balance, or tried to bend down and his R knee gave out. The pt mentions that he does not ambulate anywhere without his 4WW inside of the house or outside of the house. The pt reports general fatigue that seems to be getting worse and shows concern for his difficulty of turning, especially in tight spaces, stairs (in which he walks down sideways witha rail), walking uphill, and bending down. The pt voices that he seeks to increase his balance overall and to feel comfortable with his R leg, because it currently feels weak. The pt's MMT showed that his L LE was weaker than his R, but the pt said he noted this today in general after going for a walk . Treatment Goals Patient/Caregiver Goals Pt would like to inc LE strength, dec fatigue, and inc overall balance in order to feel more comfortable for functional activities, particularly showering at home . PT-OP-C Subjective Start: 06/14/18 17:35 Freq: Status: Active Protocol: Document 08/04/18 14:07 [facility] (Rec: 08/04/18 14:32 [facility] [id number]) OP-PT Subjective Patient Comments Patient Comments reports he has been unable to get to the pool this week d/t car issues. PT-OP-D Balance Start: 06/14/18 17:35 Freq: Status: Active Protocol: Document 07/28/18 10:36 ML (Rec: 07/28/18 11:41 ML [id number]) Balance Tests Willett Balance Test Willett Balance Test Score 36 Willett Impairment Rating 20 to 39% Impaired (Score 34- 44) Willett Balance Assessment Total Score Willett Impairment Rating 20 to 39% Impaired (Score 34- 44) PT-OP-G Mobility & Gait Start: 06/14/18 17:35 Freq: Status: Active Protocol: Document 06/14/18 17:37 ML (Rec: 06/14/18 18:12 ML [id number]) OP Gait Assessment Assistive Devices Assistive Device 4 Wheeled Walker Comments Gait Comments Pt moves slowly with AD PT-OP-M Strength Start: 06/14/18 17:35 Freq: Status: Active Protocol: Document 07/28/18 10:36 ML (Rec: 07/28/18 11:41 ML [id number]) Hip Strength Hip Manual Muscle Testing Right Flexion (L2) 4 Good Abduction 4 Good External Rotation 4 Good Internal Rotation 4 Good Left Flexion (L2) 4+ Good+ Abduction 4 Good External Rotation 4- Good- Internal Rotation 4+ Good+ Knee Strength Knee Manual Muscle Testing Right Flexion (S2) 4+ Good+ Extension (L3) 4+ Good+ Left Flexion (S2) 4 Good Extension (L3) 4+ Good+ Ankle/Foot Strength Ankle and Foot Manual Muscle Testing Right Dorsiflexion (L4) 4+ Good+ Plantarflexion (S1) 5 Normal Left Dorsiflexion (L4) 4+ Good+ Plantarflexion (S1) 5 Normal Comments PF tested seated PT-OP-Q Treatments Start: 06/14/18 17:35 Freq: Status: Active Protocol: Document 08/04/18 14:07 [facility] (Rec: 08/04/18 14:32 [facility] [id number]) Gym Equipment Shuttle Recovery Unilateral Squats Resistance 37 lbs Shuttle Recovery Platform Unstable Reps/Time to fatigue Bilateral Squats Resistance 75 lbs Shuttle Recovery Platform Unstable Reps/Time to fatigue Shuttle Balance 1 Details red Comments WBOS & NBOS & staggered stance fwd & side WBOS Neuro Re-Education Treatment Balance Activities 3 Details hurdles Reps/Duration 6 reps marching Details slow and controlled Equipment bar as needed Reps/Duration 20'x2 backward walking Equipment bar as needed Comments cues for keeping feet apart sidestepping Equipment bar, yellow band Comments cues for dec trunk lean and picking up feet 2 Details tandem walking Reps/Duration 2x20ft 1 Details tandem stance B PT-OP-T Assessment and Plan Start: 06/14/18 17:35 Freq: Status: Active Protocol: Document 08/04/18 14:07 [facility] (Rec: 08/04/18 14:32 [facility] [id number]) Physical Therapy Assessment Goals 2 Impairment dec strength Short Term Goal (STG) Pt will improve MMT of all LE to greater than or equal to 4 STG Duration 07/15/18 1 Impairment dec balance Short Term Goal (STG) Pt will score >35 on the WILLETT demonstrating safe ambulation w/AD STG Duration 07/15/18 Halfway Goal (LTG) Pt will score >45 on the WILLETT demonstrating safe ambulation and dec fall risk LTG Duration 08/14/18 Assessment Summary Assessment Pt had difficulty with turning during today's session. He is challenged by dec use of rail during balance exercises and does require it to regain balance throughout exercises. Physical Therapy Plan Frequency and Duration Frequency of Treatment 2x/Week Duration of Treatment 2 months Plan of Care Start Date 06/14/18 Plan of Care End Date 08/14/18 Next Visit Focus/Plan Next Note Type Treatment Note Next Visit Plan Advance balance and strengthening
--- NOTE | 2018-08-09 14:29 | PT.OTN ---
Current Diagnoses Other abnormalities of gait and mobility (08/09/18) Physical Therapy Treatment Note PT-OP-A Visit Information Start: 06/14/18 17:35 Freq: Status: Active Protocol: Document 08/09/18 14:02 [facility] (Rec: 08/09/18 14:29 [facility] [id number]) Out-Patient Physical Therapy Visit Information Visit Information Visit Type Treatment Note Visit Note 13 total Visit Start Time 13:45 Visit Stop Time 14:25 Total Visit Minutes 40 Visit Number 4/10 Number of PRODUCTION LINE OPERATOR Visits 0 PT-OP-B Current Condition Start: 06/14/18 17:35 Freq: Status: Active Protocol: Document 06/14/18 17:37 ML (Rec: 06/14/18 18:12 ML [id number]) Current Condition History of Current Condition Current Complaints dec balance & strength History of Current Condition Pt presents to initial evaluation with a 4WW, moving slowly into the treatment room with his caregiver and . The pt reports having two falls within the last two weeks about a week apart, but the caregiver reports no falls prior since starting her time clock mechanic work with him in January. The pt reports no major injuries from the falls, but that they both occurred in the narrow spaced bathroom where he was trying to turn and lost his balance, or tried to bend down and his R knee gave out. The pt mentions that he does not ambulate anywhere without his 4WW inside of the house or outside of the house. The pt reports general fatigue that seems to be getting worse and shows concern for his difficulty of turning, especially in tight spaces, stairs (in which he walks down sideways witha rail), walking uphill, and bending down. The pt voices that he seeks to increase his balance overall and to feel comfortable with his R leg, because it currently feels weak. The pt's MMT showed that his L LE was weaker than his R, but the pt said he noted this today in general after going for a walk . Treatment Goals Patient/Caregiver Goals Pt would like to inc LE strength, dec fatigue, and inc overall balance in order to feel more comfortable for functional activities, particularly showering at home . PT-OP-C Subjective Start: 06/14/18 17:35 Freq: Status: Active Protocol: Document 08/09/18 14:02 [facility] (Rec: 08/09/18 14:29 [facility] [id number]) OP-PT Subjective Patient Comments Patient Comments Reports he went to the pool yesterday. PT-OP-D Balance Start: 06/14/18 17:35 Freq: Status: Active Protocol: Document 07/28/18 10:36 ML (Rec: 07/28/18 11:41 ML [id number]) Balance Tests Willett Balance Test Willett Balance Test Score 36 Willett Impairment Rating 20 to 39% Impaired (Score 34- 44) Willett Balance Assessment Total Score Willett Impairment Rating 20 to 39% Impaired (Score 34- 44) PT-OP-G Mobility & Gait Start: 06/14/18 17:35 Freq: Status: Active Protocol: Document 06/14/18 17:37 ML (Rec: 06/14/18 18:12 ML [id number]) OP Gait Assessment Assistive Devices Assistive Device 4 Wheeled Walker Comments Gait Comments Pt moves slowly with AD PT-OP-M Strength Start: 06/14/18 17:35 Freq: Status: Active Protocol: Document 07/28/18 10:36 ML (Rec: 07/28/18 11:41 ML [id number]) Hip Strength Hip Manual Muscle Testing Right Flexion (L2) 4 Good Abduction 4 Good External Rotation 4 Good Internal Rotation 4 Good Left Flexion (L2) 4+ Good+ Abduction 4 Good External Rotation 4- Good- Internal Rotation 4+ Good+ Knee Strength Knee Manual Muscle Testing Right Flexion (S2) 4+ Good+ Extension (L3) 4+ Good+ Left Flexion (S2) 4 Good Extension (L3) 4+ Good+ Ankle/Foot Strength Ankle and Foot Manual Muscle Testing Right Dorsiflexion (L4) 4+ Good+ Plantarflexion (S1) 5 Normal Left Dorsiflexion (L4) 4+ Good+ Plantarflexion (S1) 5 Normal Comments PF tested seated PT-OP-Q Treatments Start: 06/14/18 17:35 Freq: Status: Active Protocol: Document 08/09/18 14:02 [facility] (Rec: 08/09/18 14:29 [facility] [id number]) Gym Equipment Shuttle Recovery Unilateral Squats Resistance 37 lbs Shuttle Recovery Platform Unstable Reps/Time to fatigue Bilateral Squats Resistance 87 lbs Shuttle Recovery Platform Unstable Reps/Time to fatigue Shuttle Balance 1 Details red Comments WBOS & NBOS & staggered stance fwd & side WBOS Neuro Re-Education Treatment Balance Activities 3 Details hurdles Equipment rail prn Reps/Duration 10 reps BOSU standing Details standing on bosu Comments rail prn marching Details slow and controlled Equipment bar as needed Reps/Duration 20'x2 backward walking Equipment bar as needed Reps/Duration 2x15ft Comments cues for keeping feet apart sidestepping Equipment bar, red band Reps/Duration 2x15ft Comments cues for dec trunk lean and picking up feet 2 Details tandem walking Reps/Duration 2x20ft 1 Details tandem stance B PT-OP-T Assessment and Plan Start: 06/14/18 17:35 Freq: Status: Active Protocol: Document 08/09/18 14:02 [facility] (Rec: 08/09/18 14:29 [facility] [id number]) Physical Therapy Assessment Goals 2 Impairment dec strength Short Term Goal (STG) Pt will improve MMT of all LE to greater than or equal to 4 STG Duration 07/15/18 1 Impairment dec balance Short Term Goal (STG) Pt will score >35 on the WILLETT demonstrating safe ambulation w/AD STG Duration 07/15/18 Speech Correction Consultant Goal (LTG) Pt will score >45 on the WILLETT demonstrating safe ambulation and dec fall risk LTG Duration 08/14/18 Assessment Summary Assessment Pt is improving with his ability to tolerate standing activities and is improving with ability to tolerate inc resistance and balance. Physical Therapy Plan Frequency and Duration Frequency of Treatment 2x/Week Duration of Treatment 2 months Plan of Care Start Date 06/14/18 Plan of Care End Date 08/14/18 Next Visit Focus/Plan Next Note Type Treatment Note Next Visit Plan Advance balance and strengthening
--- NOTE | 2018-08-11 14:28 | PT.OTN ---
Current Diagnoses Other abnormalities of gait and mobility (08/11/18) Physical Therapy Treatment Note PT-OP-A Visit Information Start: 06/14/18 17:35 Freq: Status: Active Protocol: Document 08/11/18 13:44 [facility] (Rec: 08/11/18 14:27 [facility] [id number]) Out-Patient Physical Therapy Visit Information Visit Information Visit Type Treatment Note Visit Note 14 total Visit Start Time 13:45 Visit Stop Time 14:25 Total Visit Minutes 40 Visit Number 5/10 Number of INTEGRATION SOLUTION ARCHITECT Visits 0 PT-OP-B Current Condition Start: 06/14/18 17:35 Freq: Status: Active Protocol: Document 06/14/18 17:37 ML (Rec: 06/14/18 18:12 ML [id number]) Current Condition History of Current Condition Current Complaints dec balance & strength History of Current Condition Pt presents to initial evaluation with a 4WW, moving slowly into the treatment room with his caregiver and . The pt reports having two falls within the last two weeks about a week apart, but the caregiver reports no falls prior since starting her time study technologist work with him in January. The pt reports no major injuries from the falls, but that they both occurred in the narrow spaced bathroom where he was trying to turn and lost his balance, or tried to bend down and his R knee gave out. The pt mentions that he does not ambulate anywhere without his 4WW inside of the house or outside of the house. The pt reports general fatigue that seems to be getting worse and shows concern for his difficulty of turning, especially in tight spaces, stairs (in which he walks down sideways witha rail), walking uphill, and bending down. The pt voices that he seeks to increase his balance overall and to feel comfortable with his R leg, because it currently feels weak. The pt's MMT showed that his L LE was weaker than his R, but the pt said he noted this today in general after going for a walk . Treatment Goals Patient/Caregiver Goals Pt would like to inc LE strength, dec fatigue, and inc overall balance in order to feel more comfortable for functional activities, particularly showering at home . PT-OP-C Subjective Start: 06/14/18 17:35 Freq: Status: Active Protocol: Document 08/11/18 13:44 [facility] (Rec: 08/11/18 14:27 [facility] [id number]) OP-PT Subjective Patient Comments Patient Comments Pt reports he felt okay after last session. PT-OP-D Balance Start: 06/14/18 17:35 Freq: Status: Active Protocol: Document 07/28/18 10:36 ML (Rec: 07/28/18 11:41 ML [id number]) Balance Tests Willett Balance Test Willett Balance Test Score 36 Willett Impairment Rating 20 to 39% Impaired (Score 34- 44) Willett Balance Assessment Total Score Willett Impairment Rating 20 to 39% Impaired (Score 34- 44) PT-OP-G Mobility & Gait Start: 06/14/18 17:35 Freq: Status: Active Protocol: Document 06/14/18 17:37 ML (Rec: 06/14/18 18:12 ML [id number]) OP Gait Assessment Assistive Devices Assistive Device 4 Wheeled Walker Comments Gait Comments Pt moves slowly with AD PT-OP-M Strength Start: 06/14/18 17:35 Freq: Status: Active Protocol: Document 07/28/18 10:36 ML (Rec: 07/28/18 11:41 ML [id number]) Hip Strength Hip Manual Muscle Testing Right Flexion (L2) 4 Good Abduction 4 Good External Rotation 4 Good Internal Rotation 4 Good Left Flexion (L2) 4+ Good+ Abduction 4 Good External Rotation 4- Good- Internal Rotation 4+ Good+ Knee Strength Knee Manual Muscle Testing Right Flexion (S2) 4+ Good+ Extension (L3) 4+ Good+ Left Flexion (S2) 4 Good Extension (L3) 4+ Good+ Ankle/Foot Strength Ankle and Foot Manual Muscle Testing Right Dorsiflexion (L4) 4+ Good+ Plantarflexion (S1) 5 Normal Left Dorsiflexion (L4) 4+ Good+ Plantarflexion (S1) 5 Normal Comments PF tested seated PT-OP-Q Treatments Start: 06/14/18 17:35 Freq: Status: Active Protocol: Document 08/11/18 13:44 [facility] (Rec: 08/11/18 14:27 [facility] [id number]) Gym Equipment Shuttle Recovery Unilateral Squats Resistance 50 lbs Shuttle Recovery Platform Unstable Reps/Time to fatigue Bilateral Squats Resistance 100 lbs Shuttle Recovery Platform Unstable Reps/Time to fatigue Neuro Re-Education Treatment Balance Activities theradiscs Details NBOS & staggered stance B Comments w/head turns 3 Details hurdles Equipment rail prn Reps/Duration 8 reps BOSU standing Details standing on bosu Comments rail prn marching Details slow and controlled Equipment bar as needed Reps/Duration 20'x2 backward walking Equipment bar as needed Reps/Duration 2x20ft Comments cues for keeping feet apart sidestepping Equipment bar, red band Reps/Duration 2x20ft Comments cues for dec trunk lean and picking up feet 2 Details tandem walking Reps/Duration 2x20ft 1 Details tandem stance B PT-OP-T Assessment and Plan Start: 06/14/18 17:35 Freq: Status: Active Protocol: Document 08/11/18 13:44 [facility] (Rec: 08/11/18 14:27 [facility] [id number]) Physical Therapy Assessment Goals 2 Impairment dec strength Short Term Goal (STG) Pt will improve MMT of all LE to greater than or equal to 4 STG Duration 07/15/18 1 Impairment dec balance Short Term Goal (STG) Pt will score >35 on the WILLETT demonstrating safe ambulation w/AD STG Duration 07/15/18 Senior Power Plant Operator Goal (LTG) Pt will score >45 on the WILLETT demonstrating safe ambulation and dec fall risk LTG Duration 08/14/18 Assessment Summary Assessment Pt did well with NBOS on blue theradiscs but had more difficulty with staggered stance. He cont to fatigue with exercise, but requires less rest breaks between exercises. Physical Therapy Plan Frequency and Duration Frequency of Treatment 2x/Week Duration of Treatment 2 months Plan of Care Start Date 06/14/18 Plan of Care End Date 08/14/18 Next Visit Focus/Plan Next Note Type Treatment Note Next Visit Plan progress balance with further head turns & eyes closed
--- NOTE | 2018-08-16 12:09 | PT.OTN ---
Current Diagnoses Other abnormalities of gait and mobility (08/16/18) Physical Therapy Treatment Note PT-OP-A Visit Information Start: 06/14/18 17:35 Freq: Status: Active Protocol: Document 08/16/18 11:26 [facility] (Rec: 08/16/18 12:07 [facility] [id number]) Out-Patient Physical Therapy Visit Information Visit Information Visit Type Treatment Note Visit Note 15 total Visit Start Time 11:15 Visit Stop Time 11:55 Total Visit Minutes 40 Visit Number 6/10 Number of LENDING CONSULTANT Visits 0 PT-OP-B Current Condition Start: 06/14/18 17:35 Freq: Status: Active Protocol: Document 06/14/18 17:37 ML (Rec: 06/14/18 18:12 ML [id number]) Current Condition History of Current Condition Current Complaints dec balance & strength History of Current Condition Pt presents to initial evaluation with a 4WW, moving slowly into the treatment room with his caregiver and . The pt reports having two falls within the last two weeks about a week apart, but the caregiver reports no falls prior since starting her real time analyst work with him in January. The pt reports no major injuries from the falls, but that they both occurred in the narrow spaced bathroom where he was trying to turn and lost his balance, or tried to bend down and his R knee gave out. The pt mentions that he does not ambulate anywhere without his 4WW inside of the house or outside of the house. The pt reports general fatigue that seems to be getting worse and shows concern for his difficulty of turning, especially in tight spaces, stairs (in which he walks down sideways witha rail), walking uphill, and bending down. The pt voices that he seeks to increase his balance overall and to feel comfortable with his R leg, because it currently feels weak. The pt's MMT showed that his L LE was weaker than his R, but the pt said he noted this today in general after going for a walk . Treatment Goals Patient/Caregiver Goals Pt would like to inc LE strength, dec fatigue, and inc overall balance in order to feel more comfortable for functional activities, particularly showering at home . PT-OP-C Subjective Start: 06/14/18 17:35 Freq: Status: Active Protocol: Document 08/16/18 11:26 [facility] (Rec: 08/16/18 12:07 [facility] [id number]) OP-PT Subjective Patient Comments Patient Comments Pt reports he wants to start going to the pool more often. PT-OP-D Balance Start: 06/14/18 17:35 Freq: Status: Active Protocol: Document 08/16/18 11:26 [facility] (Rec: 08/16/18 12:08 [facility] [id number]) Balance Tests Willett Balance Test Willett Balance Test Score 43 Willett Impairment Rating 20 to 39% Impaired (Score 34- 44) PT-OP-G Mobility & Gait Start: 06/14/18 17:35 Freq: Status: Active Protocol: Document 06/14/18 17:37 ML (Rec: 06/14/18 18:12 ML [id number]) OP Gait Assessment Assistive Devices Assistive Device 4 Wheeled Walker Comments Gait Comments Pt moves slowly with AD PT-OP-M Strength Start: 06/14/18 17:35 Freq: Status: Active Protocol: Document 08/16/18 11:26 [facility] (Rec: 08/16/18 12:07 [facility] [id number]) Hip Strength Hip Manual Muscle Testing Right Flexion (L2) 5 Normal Abduction 3+ Fair+ External Rotation 4+ Good+ Internal Rotation 4 Good Left Flexion (L2) 5 Normal Abduction 4- Good- External Rotation 4+ Good+ Internal Rotation 4+ Good+ Knee Strength Knee Manual Muscle Testing Right Flexion (S2) 5 Normal Extension (L3) 5 Normal Left Flexion (S2) 5 Normal Extension (L3) 4+ Good+ Ankle/Foot Strength Ankle and Foot Manual Muscle Testing Right Dorsiflexion (L4) 4+ Good+ Plantarflexion (S1) 4 Good Left Dorsiflexion (L4) 4 Good PT-OP-Q Treatments Start: 06/14/18 17:35 Freq: Status: Active Protocol: Document 08/16/18 11:26 [facility] (Rec: 08/16/18 12:07 [facility] [id number]) Therapeutic Exercises Sidelying Exercises abd Sidelying Exercise Name hip abd Side bilateral Reps/Minutes 15 Neuro Re-Education Treatment Balance Activities theradiscs Details NBOS & staggered stance B Comments w/head turns marching Details slow and controlled Equipment bar as needed Reps/Duration 20'x2 backward walking Equipment bar as needed Reps/Duration 2x20ft Comments cues for keeping feet apart sidestepping Equipment bar, red band Reps/Duration 2x20ft Comments cues for dec trunk lean and picking up feet 2 Details up/down stairs Comments attempting reciprocal up 13 stiars and step to down with 1 rail Self-Care/Home Management Treatment Activities Self-Care/Home Management Activities discussed gradually going to the pool more often; start by adding 1 day a week; discussed progresss with balance and continuation of PT. PT-OP-T Assessment and Plan Start: 06/14/18 17:35 Freq: Status: Active Protocol: Document 08/16/18 11:26 [facility] (Rec: 08/16/18 12:07 [facility] [id number]) Physical Therapy Assessment Goals 2 Impairment dec strength Short Term Goal (STG) Pt will improve MMT of all LE to greater than or equal to 4 STG Duration 07/15/18 almost achieved except abd 1 Impairment dec balance Short Term Goal (STG) Pt will score >35 on the WILLETT demonstrating safe ambulation w/AD STG Duration achieved It Help Desk Analyst Goal (LTG) Pt will score >45 on the WILLETT demonstrating safe ambulation and dec fall risk LTG Duration 09/14/18-improved Assessment Summary Assessment Pt had difficulty when asked to do head turns today. He is improving overall with balance and met his short term balance goals but is still very weak in abductors and dynamic balance Physical Therapy Plan Frequency and Duration Frequency of Treatment 1-2x/Week Duration of Treatment 2 months Plan of Care Start Date 08/16/18 Plan of Care End Date 10/17/18 Next Visit Focus/Plan Next Note Type Treatment Note Next Visit Plan progress balance with further head turns & eyes closed
--- NOTE | 2018-08-16 12:09 | PT.OPPOC ---
Current Diagnoses Other abnormalities of gait and mobility (08/16/18) Provider Visit Care Team Role Provider Type Charmaine Adamson MD Attending Provider Physician Family Provider Primary Care Provider Specialty: Internal Medicine Address: [address] [place] [address], [id number] Email: Plan Of Care PT-OP-T Assessment and Plan Start: 06/14/18 17:35 Freq: Status: Active Protocol: Document 08/16/18 11:26 [facility] (Rec: 08/16/18 12:07 [facility] [id number]) Physical Therapy Assessment Goals 2 Impairment dec strength Short Term Goal (STG) Pt will improve MMT of all LE to greater than or equal to 4 STG Duration 07/15/18 almost achieved except abd 1 Impairment dec balance Short Term Goal (STG) Pt will score >35 on the WILLETT demonstrating safe ambulation w/AD STG Duration achieved Lens Grinder Rough Goal (LTG) Pt will score >45 on the WILLETT demonstrating safe ambulation and dec fall risk LTG Duration 09/14/18-improved Assessment Summary Assessment Pt had difficulty when asked to do head turns today. He is improving overall with balance and met his short term balance goals but is still very weak in abductors and dynamic balance Physical Therapy Plan Frequency and Duration Frequency of Treatment 1-2x/Week Duration of Treatment 2 months Plan of Care Start Date 08/16/18 Plan of Care End Date 10/17/18 Next Visit Focus/Plan Next Note Type Treatment Note Next Visit Plan progress balance with further head turns & eyes closed Plan of Care Dates Plan of Care Start Date 08/16/18 Plan of Care End Date 10/17/18 Please Sign and Return: I have reviewed this Plan of Care and certify that the skilled therapy services above are required to meet the patient?s needs. Physician Signature Date Printed Name and Credentials Clinical Instructor Signature Printed Name and Credentials
--- NOTE | 2018-08-18 12:58 | PT.OTN ---
Current Diagnoses Other abnormalities of gait and mobility (08/18/18) Physical Therapy Treatment Note PT-OP-A Visit Information Start: 06/14/18 17:35 Freq: Status: Active Protocol: Document 08/18/18 12:16 [facility] (Rec: 08/18/18 12:58 [facility] [id number]) Out-Patient Physical Therapy Visit Information Visit Information Visit Type Treatment Note Visit Note 16 total Visit Start Time 12:15 Visit Stop Time 12:55 Total Visit Minutes 40 Visit Number 2/10 Number of SPA MANAGER Visits 0 PT-OP-B Current Condition Start: 06/14/18 17:35 Freq: Status: Active Protocol: Document 06/14/18 17:37 ML (Rec: 06/14/18 18:12 ML [id number]) Current Condition History of Current Condition Current Complaints dec balance & strength History of Current Condition Pt presents to initial evaluation with a 4WW, moving slowly into the treatment room with his caregiver and . The pt reports having two falls within the last two weeks about a week apart, but the caregiver reports no falls prior since starting her time clerk work with him in January. The pt reports no major injuries from the falls, but that they both occurred in the narrow spaced bathroom where he was trying to turn and lost his balance, or tried to bend down and his R knee gave out. The pt mentions that he does not ambulate anywhere without his 4WW inside of the house or outside of the house. The pt reports general fatigue that seems to be getting worse and shows concern for his difficulty of turning, especially in tight spaces, stairs (in which he walks down sideways witha rail), walking uphill, and bending down. The pt voices that he seeks to increase his balance overall and to feel comfortable with his R leg, because it currently feels weak. The pt's MMT showed that his L LE was weaker than his R, but the pt said he noted this today in general after going for a walk . Treatment Goals Patient/Caregiver Goals Pt would like to inc LE strength, dec fatigue, and inc overall balance in order to feel more comfortable for functional activities, particularly showering at home . PT-OP-C Subjective Start: 06/14/18 17:35 Freq: Status: Active Protocol: Document 08/18/18 12:16 [facility] (Rec: 08/18/18 12:58 [facility] [id number]) OP-PT Subjective Patient Comments Patient Comments Reports he is feeling pretty good. PT-OP-D Balance Start: 06/14/18 17:35 Freq: Status: Active Protocol: Document 08/16/18 11:26 [facility] (Rec: 08/16/18 12:08 [facility] [id number]) Balance Tests Willett Balance Test Willett Balance Test Score 43 Willett Impairment Rating 20 to 39% Impaired (Score 34- 44) PT-OP-G Mobility & Gait Start: 06/14/18 17:35 Freq: Status: Active Protocol: Document 06/14/18 17:37 ML (Rec: 06/14/18 18:12 ML [id number]) OP Gait Assessment Assistive Devices Assistive Device 4 Wheeled Walker Comments Gait Comments Pt moves slowly with AD PT-OP-M Strength Start: 06/14/18 17:35 Freq: Status: Active Protocol: Document 08/16/18 11:26 [facility] (Rec: 08/16/18 12:07 [facility] [id number]) Hip Strength Hip Manual Muscle Testing Right Flexion (L2) 5 Normal Abduction 3+ Fair+ External Rotation 4+ Good+ Internal Rotation 4 Good Left Flexion (L2) 5 Normal Abduction 4- Good- External Rotation 4+ Good+ Internal Rotation 4+ Good+ Knee Strength Knee Manual Muscle Testing Right Flexion (S2) 5 Normal Extension (L3) 5 Normal Left Flexion (S2) 5 Normal Extension (L3) 4+ Good+ Ankle/Foot Strength Ankle and Foot Manual Muscle Testing Right Dorsiflexion (L4) 4+ Good+ Plantarflexion (S1) 4 Good Left Dorsiflexion (L4) 4 Good PT-OP-Q Treatments Start: 06/14/18 17:35 Freq: Status: Active Protocol: Document 08/18/18 12:16 [facility] (Rec: 08/18/18 12:58 [facility] [id number]) Neuro Re-Education Treatment Balance Activities stairs Details up/down 13 steps with 1 rail reciprocally carioca Details carioca Reps/Duration 2x20ft theradiscs Details NBOS & staggered stance B Comments w/head turns 3 Details hurdles Equipment rail prn Reps/Duration 8 reps BOSU standing Details standing on bosu Comments rail prn marching Details slow and controlled Equipment bar as needed Reps/Duration 20'x2 backward walking Equipment bar as needed Reps/Duration 2x20ft Comments cues for keeping feet apart sidestepping Equipment bar, red band Reps/Duration 2x20ft Comments cues for dec trunk lean and picking up feet 2 Details tandem walking Reps/Duration 2x20ft 1 Details tandem stance B PT-OP-T Assessment and Plan Start: 06/14/18 17:35 Freq: Status: Active Protocol: Document 08/18/18 12:16 [facility] (Rec: 08/18/18 12:58 [facility] [id number]) Physical Therapy Assessment Goals 2 Impairment dec strength Short Term Goal (STG) Pt will improve MMT of all LE to greater than or equal to 4 STG Duration 07/15/18 almost achieved except abd 1 Impairment dec balance Short Term Goal (STG) Pt will score >35 on the WILLETT demonstrating safe ambulation w/AD STG Duration achieved Slitter Scorer Goal (LTG) Pt will score >45 on the WILLETT demonstrating safe ambulation and dec fall risk LTG Duration 09/14/18-improved Assessment Summary Assessment Pt improved with stairs today with less imbalance and improved control down the steps. He cont to be challeneged with unstable surfaces and NBOS positions Physical Therapy Plan Frequency and Duration Frequency of Treatment 1-2x/Week Duration of Treatment 2 months Plan of Care Start Date 08/16/18 Plan of Care End Date 10/17/18 Next Visit Focus/Plan Next Note Type Treatment Note Next Visit Plan Cont to work on step ups
--- NOTE | 2018-08-25 10:31 | PT.OTN ---
Current Diagnoses Other abnormalities of gait and mobility (08/25/18) Physical Therapy Treatment Note PT-OP-A Visit Information Start: 06/14/18 17:35 Freq: Status: Active Protocol: Document 08/25/18 10:06 [facility] (Rec: 08/25/18 10:31 [facility] [id number]) Out-Patient Physical Therapy Visit Information Visit Information Visit Type Treatment Note Visit Note 17 total Visit Start Time 09:45 Visit Stop Time 10:25 Total Visit Minutes 40 Visit Number 3/10 Number of HAND GLASS CUTTER Visits 0 PT-OP-B Current Condition Start: 06/14/18 17:35 Freq: Status: Active Protocol: Document 06/14/18 17:37 ML (Rec: 06/14/18 18:12 ML [id number]) Current Condition History of Current Condition Current Complaints dec balance & strength History of Current Condition Pt presents to initial evaluation with a 4WW, moving slowly into the treatment room with his caregiver and . The pt reports having two falls within the last two weeks about a week apart, but the caregiver reports no falls prior since starting her crane chaser work with him in January. The pt reports no major injuries from the falls, but that they both occurred in the narrow spaced bathroom where he was trying to turn and lost his balance, or tried to bend down and his R knee gave out. The pt mentions that he does not ambulate anywhere without his 4WW inside of the house or outside of the house. The pt reports general fatigue that seems to be getting worse and shows concern for his difficulty of turning, especially in tight spaces, stairs (in which he walks down sideways witha rail), walking uphill, and bending down. The pt voices that he seeks to increase his balance overall and to feel comfortable with his R leg, because it currently feels weak. The pt's MMT showed that his L LE was weaker than his R, but the pt said he noted this today in general after going for a walk . Treatment Goals Patient/Caregiver Goals Pt would like to inc LE strength, dec fatigue, and inc overall balance in order to feel more comfortable for functional activities, particularly showering at home . PT-OP-C Subjective Start: 06/14/18 17:35 Freq: Status: Active Protocol: Document 08/25/18 10:06 [facility] (Rec: 08/25/18 10:31 [facility] [id number]) OP-PT Subjective Patient Comments Patient Comments Reports legs are feeling week. HE has not gone to the pool this week. PT-OP-D Balance Start: 06/14/18 17:35 Freq: Status: Active Protocol: Document 08/16/18 11:26 [facility] (Rec: 08/16/18 12:08 [facility] [id number]) Balance Tests Willett Balance Test Willett Balance Test Score 43 Willett Impairment Rating 20 to 39% Impaired (Score 34- 44) PT-OP-G Mobility & Gait Start: 06/14/18 17:35 Freq: Status: Active Protocol: Document 06/14/18 17:37 ML (Rec: 06/14/18 18:12 ML [id number]) OP Gait Assessment Assistive Devices Assistive Device 4 Wheeled Walker Comments Gait Comments Pt moves slowly with AD PT-OP-M Strength Start: 06/14/18 17:35 Freq: Status: Active Protocol: Document 08/16/18 11:26 [facility] (Rec: 08/16/18 12:07 [facility] [id number]) Hip Strength Hip Manual Muscle Testing Right Flexion (L2) 5 Normal Abduction 3+ Fair+ External Rotation 4+ Good+ Internal Rotation 4 Good Left Flexion (L2) 5 Normal Abduction 4- Good- External Rotation 4+ Good+ Internal Rotation 4+ Good+ Knee Strength Knee Manual Muscle Testing Right Flexion (S2) 5 Normal Extension (L3) 5 Normal Left Flexion (S2) 5 Normal Extension (L3) 4+ Good+ Ankle/Foot Strength Ankle and Foot Manual Muscle Testing Right Dorsiflexion (L4) 4+ Good+ Plantarflexion (S1) 4 Good Left Dorsiflexion (L4) 4 Good PT-OP-Q Treatments Start: 06/14/18 17:35 Freq: Status: Active Protocol: Document 08/25/18 10:06 [facility] (Rec: 08/25/18 10:31 [facility] [id number]) Gym Equipment Shuttle Balance 1 Details red Comments WBOS & NBOS fwd & side Neuro Re-Education Treatment Balance Activities stairs Details up/down 26 steps with 1 rail reciprocally carioca Details carioca Reps/Duration 20ft theradiscs Details NBOS & staggered stance B Comments w/head turns then EC 3 Details hurdles Equipment rail prn Reps/Duration 6 reps marching Details slow and controlled Equipment bar as needed Reps/Duration 20'x2 backward walking Equipment bar as needed Reps/Duration 2x20ft Comments cues for keeping feet apart sidestepping Equipment bar, red band Reps/Duration 2x20ft Comments cues for dec trunk lean and picking up feet 2 Details tandem walking Reps/Duration 2x20ft 1 Details tandem stance B PT-OP-T Assessment and Plan Start: 06/14/18 17:35 Freq: Status: Active Protocol: Document 08/25/18 10:06 [facility] (Rec: 08/25/18 10:31 [facility] [id number]) Physical Therapy Assessment Goals 2 Impairment dec strength Short Term Goal (STG) Pt will improve MMT of all LE to greater than or equal to 4 STG Duration 07/15/18 almost achieved except abd 1 Impairment dec balance Short Term Goal (STG) Pt will score >35 on the WILLETT demonstrating safe ambulation w/AD STG Duration achieved Mcc Goal (LTG) Pt will score >45 on the WILLETT demonstrating safe ambulation and dec fall risk LTG Duration 09/14/18-improved Assessment Summary Assessment Pt is improving with balance on uneven surfaces today and was able to stairs with improved form and endurance. Physical Therapy Plan Frequency and Duration Frequency of Treatment 1-2x/Week Duration of Treatment 2 months Plan of Care Start Date 08/16/18 Plan of Care End Date 10/17/18 Next Visit Focus/Plan Next Note Type Treatment Note Next Visit Plan Work on balance with balloon
--- NOTE | 2018-09-06 14:18 | PT.OTN ---
Current Diagnoses Other abnormalities of gait and mobility (09/06/18) Physical Therapy Treatment Note PT-OP-A Visit Information Start: 06/14/18 17:35 Freq: Status: Active Protocol: Document 09/06/18 13:45 [facility] (Rec: 09/06/18 14:18 [facility] [id number]) Out-Patient Physical Therapy Visit Information Visit Information Visit Type Treatment Note Visit Note 1 visit 2019 Visit Start Time 13:45 Visit Stop Time 14:25 Total Visit Minutes 40 Visit Number 4/ Number of TRIM SAWYER Visits 0 PT-OP-B Current Condition Start: 06/14/18 17:35 Freq: Status: Active Protocol: Document 06/14/18 17:37 ML (Rec: 06/14/18 18:12 ML [id number]) Current Condition History of Current Condition Current Complaints dec balance & strength History of Current Condition Pt presents to initial evaluation with a 4WW, moving slowly into the treatment room with his caregiver and . The pt reports having two falls within the last two weeks about a week apart, but the caregiver reports no falls prior since starting her real time operator work with him in January. The pt reports no major injuries from the falls, but that they both occurred in the narrow spaced bathroom where he was trying to turn and lost his balance, or tried to bend down and his R knee gave out. The pt mentions that he does not ambulate anywhere without his 4WW inside of the house or outside of the house. The pt reports general fatigue that seems to be getting worse and shows concern for his difficulty of turning, especially in tight spaces, stairs (in which he walks down sideways witha rail), walking uphill, and bending down. The pt voices that he seeks to increase his balance overall and to feel comfortable with his R leg, because it currently feels weak. The pt's MMT showed that his L LE was weaker than his R, but the pt said he noted this today in general after going for a walk . Treatment Goals Patient/Caregiver Goals Pt would like to inc LE strength, dec fatigue, and inc overall balance in order to feel more comfortable for functional activities, particularly showering at home . PT-OP-C Subjective Start: 06/14/18 17:35 Freq: Status: Active Protocol: Document 09/06/18 13:45 [facility] (Rec: 09/06/18 14:18 [facility] [id number]) OP-PT Subjective Patient Comments Patient Comments Reports his balance has been difficult chari with turns. PT-OP-D Balance Start: 06/14/18 17:35 Freq: Status: Active Protocol: Document 08/16/18 11:26 [facility] (Rec: 08/16/18 12:08 [facility] [id number]) Balance Tests Willett Balance Test Willett Balance Test Score 43 Willett Impairment Rating 20 to 39% Impaired (Score 34- 44) PT-OP-G Mobility & Gait Start: 06/14/18 17:35 Freq: Status: Active Protocol: Document 06/14/18 17:37 ML (Rec: 06/14/18 18:12 ML [id number]) OP Gait Assessment Assistive Devices Assistive Device 4 Wheeled Walker Comments Gait Comments Pt moves slowly with AD PT-OP-M Strength Start: 06/14/18 17:35 Freq: Status: Active Protocol: Document 08/16/18 11:26 [facility] (Rec: 08/16/18 12:07 [facility] [id number]) Hip Strength Hip Manual Muscle Testing Right Flexion (L2) 5 Normal Abduction 3+ Fair+ External Rotation 4+ Good+ Internal Rotation 4 Good Left Flexion (L2) 5 Normal Abduction 4- Good- External Rotation 4+ Good+ Internal Rotation 4+ Good+ Knee Strength Knee Manual Muscle Testing Right Flexion (S2) 5 Normal Extension (L3) 5 Normal Left Flexion (S2) 5 Normal Extension (L3) 4+ Good+ Ankle/Foot Strength Ankle and Foot Manual Muscle Testing Right Dorsiflexion (L4) 4+ Good+ Plantarflexion (S1) 4 Good Left Dorsiflexion (L4) 4 Good PT-OP-Q Treatments Start: 06/14/18 17:35 Freq: Status: Active Protocol: Document 09/06/18 13:45 [facility] (Rec: 09/06/18 14:18 [facility] [id number]) Gym Equipment Shuttle Recovery Bilateral Squats Resistance 112 lbs Shuttle Recovery Platform Unstable Reps/Time to fatigue Neuro Re-Education Treatment Balance Activities EC Details EC fwd & backwards walking Reps/Duration 2x20ft stairs Details up/down 26 steps with 1 rail reciprocally theradiscs Details NBOS & staggered stance B Comments w/head turns then EC 3 Details hurdles Equipment rail prn Reps/Duration 6 reps Comments then 8 reps with 2 hurdles spread marching Details slow and controlled Equipment bar as needed Reps/Duration 20'x2 1 Details tandem stance B PT-OP-T Assessment and Plan Start: 06/14/18 17:35 Freq: Status: Active Protocol: Document 09/06/18 13:45 [facility] (Rec: 09/06/18 14:18 [facility] [id number]) Physical Therapy Assessment Goals 2 Impairment dec strength Short Term Goal (STG) Pt will improve MMT of all LE to greater than or equal to 4 STG Duration 07/15/18 almost achieved except abd 1 Impairment dec balance Short Term Goal (STG) Pt will score >35 on the WILLETT demonstrating safe ambulation w/AD STG Duration achieved Heating Technician Goal (LTG) Pt will score >45 on the WILLETT demonstrating safe ambulation and dec fall risk LTG Duration 09/14/18-improved Assessment Summary Assessment Pt fatigued with treatment, but did well with balance pods today. EC balance is most limit for pt. Physical Therapy Plan Frequency and Duration Frequency of Treatment 1-2x/Week Duration of Treatment 2 months Plan of Care Start Date 08/16/18 Plan of Care End Date 10/17/18 Next Visit Focus/Plan Next Note Type Treatment Note Next Visit Plan Work on balance with balloon & UE use during balance activities
--- NOTE | 2018-09-15 14:32 | PT.OTN ---
Current Diagnoses Other abnormalities of gait and mobility (09/15/18) Physical Therapy Treatment Note PT-OP-A Visit Information Start: 06/14/18 17:35 Freq: Status: Active Protocol: Document 09/15/18 14:14 [facility] (Rec: 09/15/18 14:31 [facility] [id number]) Out-Patient Physical Therapy Visit Information Visit Information Visit Type Treatment Note Visit Note 2 visit 2019 Visit Start Time 13:50 Visit Stop Time 14:30 Total Visit Minutes 40 Visit Number 5/10 Number of FLUORESCENT SOLUTION MIXER Visits 0 PT-OP-B Current Condition Start: 06/14/18 17:35 Freq: Status: Active Protocol: Document 06/14/18 17:37 ML (Rec: 06/14/18 18:12 ML [id number]) Current Condition History of Current Condition Current Complaints dec balance & strength History of Current Condition Pt presents to initial evaluation with a 4WW, moving slowly into the treatment room with his caregiver and . The pt reports having two falls within the last two weeks about a week apart, but the caregiver reports no falls prior since starting her full stack java developer work with him in January. The pt reports no major injuries from the falls, but that they both occurred in the narrow spaced bathroom where he was trying to turn and lost his balance, or tried to bend down and his R knee gave out. The pt mentions that he does not ambulate anywhere without his 4WW inside of the house or outside of the house. The pt reports general fatigue that seems to be getting worse and shows concern for his difficulty of turning, especially in tight spaces, stairs (in which he walks down sideways witha rail), walking uphill, and bending down. The pt voices that he seeks to increase his balance overall and to feel comfortable with his R leg, because it currently feels weak. The pt's MMT showed that his L LE was weaker than his R, but the pt said he noted this today in general after going for a walk . Treatment Goals Patient/Caregiver Goals Pt would like to inc LE strength, dec fatigue, and inc overall balance in order to feel more comfortable for functional activities, particularly showering at home . PT-OP-C Subjective Start: 06/14/18 17:35 Freq: Status: Active Protocol: Document 09/15/18 14:14 [facility] (Rec: 09/15/18 14:32 [facility] [id number]) OP-PT Subjective Patient Comments Patient Comments Pt reports d/t diahrea he was unable to go to the pool yesterday PT-OP-D Balance Start: 06/14/18 17:35 Freq: Status: Active Protocol: Document 08/16/18 11:26 [facility] (Rec: 08/16/18 12:08 [facility] [id number]) Balance Tests Willett Balance Test Willett Balance Test Score 43 Willett Impairment Rating 20 to 39% Impaired (Score 34- 44) PT-OP-G Mobility & Gait Start: 06/14/18 17:35 Freq: Status: Active Protocol: Document 06/14/18 17:37 ML (Rec: 06/14/18 18:12 ML [id number]) OP Gait Assessment Assistive Devices Assistive Device 4 Wheeled Walker Comments Gait Comments Pt moves slowly with AD PT-OP-M Strength Start: 06/14/18 17:35 Freq: Status: Active Protocol: Document 08/16/18 11:26 [facility] (Rec: 08/16/18 12:07 [facility] [id number]) Hip Strength Hip Manual Muscle Testing Right Flexion (L2) 5 Normal Abduction 3+ Fair+ External Rotation 4+ Good+ Internal Rotation 4 Good Left Flexion (L2) 5 Normal Abduction 4- Good- External Rotation 4+ Good+ Internal Rotation 4+ Good+ Knee Strength Knee Manual Muscle Testing Right Flexion (S2) 5 Normal Extension (L3) 5 Normal Left Flexion (S2) 5 Normal Extension (L3) 4+ Good+ Ankle/Foot Strength Ankle and Foot Manual Muscle Testing Right Dorsiflexion (L4) 4+ Good+ Plantarflexion (S1) 4 Good Left Dorsiflexion (L4) 4 Good PT-OP-Q Treatments Start: 06/14/18 17:35 Freq: Status: Active Protocol: Document 09/15/18 14:14 [facility] (Rec: 09/15/18 14:31 [facility] [id number]) Gym Equipment Shuttle Recovery Bilateral Squats Resistance 112 lbs Shuttle Recovery Platform Unstable Reps/Time to fatigue Therapeutic Exercises Sitting Exercises hip abd Sitting Exercise Name hip abd Equipment Used red band Reps/Minutes 30 Seated Marching Sitting Exercise Name seated marching Equipment Used red band Reps/Minutes 20 Neuro Re-Education Treatment Balance Activities EC Details EC fwd & backwards walking Reps/Duration 2x20ft theradiscs Details NBOS & staggered stance B Comments w/head turns then EC 3 Details hurdles Equipment rail prn Reps/Duration 6 reps Comments then 8 reps with 2 hurdles spread marching Details slow and controlled Equipment bar as needed Reps/Duration 20'x2 backward walking Equipment bar as needed Reps/Duration 2x20ft Comments cues for keeping feet apart sidestepping Equipment bar, red band Reps/Duration 2x20ft Comments cues for dec trunk lean and picking up feet 1 Details tandem stance B PT-OP-T Assessment and Plan Start: 06/14/18 17:35 Freq: Status: Active Protocol: Document 09/15/18 14:14 [facility] (Rec: 09/15/18 14:31 [facility] [id number]) Physical Therapy Assessment Goals 2 Impairment dec strength Short Term Goal (STG) Pt will improve MMT of all LE to greater than or equal to 4 STG Duration 07/15/18 almost achieved except abd 1 Impairment dec balance Short Term Goal (STG) Pt will score >35 on the WILLETT demonstrating safe ambulation w/AD STG Duration achieved Multi Disciplined Language Analyst Goal (LTG) Pt will score >45 on the WILLETT demonstrating safe ambulation and dec fall risk LTG Duration 09/14/18-improved Assessment Summary Assessment Pt fatigued easility with today's session but he did well with eyes closed and backwards walking balance today. Physical Therapy Plan Frequency and Duration Frequency of Treatment 1-2x/Week Duration of Treatment 2 months Plan of Care Start Date 08/16/18 Plan of Care End Date 10/17/18 Next Visit Focus/Plan Next Note Type Treatment Note Next Visit Plan balance with balloon
--- NOTE | 2018-09-20 14:51 | PT.OTN ---
Current Diagnoses Other abnormalities of gait and mobility (09/20/18) Physical Therapy Treatment Note PT-OP-A Visit Information Start: 06/14/18 17:35 Freq: Status: Active Protocol: Document 09/20/18 13:55 [facility] (Rec: 09/20/18 14:51 [facility] [id number]) Out-Patient Physical Therapy Visit Information Visit Information Visit Type Treatment Note Visit Note 3 visit 2019 Visit Start Time 13:45 Visit Stop Time 14:25 Total Visit Minutes 40 Visit Number 6/ Number of BENZENE WASHER Visits 0 PT-OP-B Current Condition Start: 06/14/18 17:35 Freq: Status: Active Protocol: Document 06/14/18 17:37 ML (Rec: 06/14/18 18:12 ML [id number]) Current Condition History of Current Condition Current Complaints dec balance & strength History of Current Condition Pt presents to initial evaluation with a 4WW, moving slowly into the treatment room with his caregiver and . The pt reports having two falls within the last two weeks about a week apart, but the caregiver reports no falls prior since starting her full stack web developer work with him in January. The pt reports no major injuries from the falls, but that they both occurred in the narrow spaced bathroom where he was trying to turn and lost his balance, or tried to bend down and his R knee gave out. The pt mentions that he does not ambulate anywhere without his 4WW inside of the house or outside of the house. The pt reports general fatigue that seems to be getting worse and shows concern for his difficulty of turning, especially in tight spaces, stairs (in which he walks down sideways witha rail), walking uphill, and bending down. The pt voices that he seeks to increase his balance overall and to feel comfortable with his R leg, because it currently feels weak. The pt's MMT showed that his L LE was weaker than his R, but the pt said he noted this today in general after going for a walk . Treatment Goals Patient/Caregiver Goals Pt would like to inc LE strength, dec fatigue, and inc overall balance in order to feel more comfortable for functional activities, particularly showering at home . PT-OP-C Subjective Start: 06/14/18 17:35 Freq: Status: Active Protocol: Document 09/20/18 13:55 [facility] (Rec: 09/20/18 14:51 [facility] [id number]) OP-PT Subjective Patient Comments Patient Comments Pt reports he had diahrea again and was unable to go to the pool. Feels better today than last week PT-OP-D Balance Start: 06/14/18 17:35 Freq: Status: Active Protocol: Document 08/16/18 11:26 [facility] (Rec: 08/16/18 12:08 [facility] [id number]) Balance Tests Willett Balance Test Willett Balance Test Score 43 Willett Impairment Rating 20 to 39% Impaired (Score 34- 44) PT-OP-G Mobility & Gait Start: 06/14/18 17:35 Freq: Status: Active Protocol: Document 06/14/18 17:37 ML (Rec: 06/14/18 18:12 ML [id number]) OP Gait Assessment Assistive Devices Assistive Device 4 Wheeled Walker Comments Gait Comments Pt moves slowly with AD PT-OP-M Strength Start: 06/14/18 17:35 Freq: Status: Active Protocol: Document 08/16/18 11:26 [facility] (Rec: 08/16/18 12:07 [facility] [id number]) Hip Strength Hip Manual Muscle Testing Right Flexion (L2) 5 Normal Abduction 3+ Fair+ External Rotation 4+ Good+ Internal Rotation 4 Good Left Flexion (L2) 5 Normal Abduction 4- Good- External Rotation 4+ Good+ Internal Rotation 4+ Good+ Knee Strength Knee Manual Muscle Testing Right Flexion (S2) 5 Normal Extension (L3) 5 Normal Left Flexion (S2) 5 Normal Extension (L3) 4+ Good+ Ankle/Foot Strength Ankle and Foot Manual Muscle Testing Right Dorsiflexion (L4) 4+ Good+ Plantarflexion (S1) 4 Good Left Dorsiflexion (L4) 4 Good PT-OP-Q Treatments Start: 06/14/18 17:35 Freq: Status: Active Protocol: Document 09/20/18 13:55 [facility] (Rec: 09/20/18 14:51 [facility] [id number]) Gym Equipment Shuttle Recovery Bilateral Squats Resistance 112 lbs Shuttle Recovery Platform Unstable Reps/Time to fatigue Shuttle Balance 1 Details red Comments WBOS & NBOS fwd & side Neuro Re-Education Treatment Balance Activities EC Details EC fwd & backwards walking Reps/Duration 2x20ft theradiscs Details NBOS & staggered stance B Comments w/tossing balloon 3 Details hurdles Equipment rail prn Reps/Duration 6 reps Comments then 8 reps with 2 hurdles spread marching Details slow and controlled Equipment bar as needed Reps/Duration 20'x2 backward walking Equipment bar as needed Reps/Duration 20ft Comments cues for large steps with eyes closed sidestepping Equipment bar, red band Reps/Duration 20ft Comments cues for dec trunk lean and picking up feet 1 Details tandem stance B PT-OP-T Assessment and Plan Start: 06/14/18 17:35 Freq: Status: Active Protocol: Document 09/20/18 13:55 [facility] (Rec: 09/20/18 14:51 [facility] [id number]) Physical Therapy Assessment Goals 2 Impairment dec strength Short Term Goal (STG) Pt will improve MMT of all LE to greater than or equal to 4 STG Duration 07/15/18 almost achieved except abd 1 Impairment dec balance Short Term Goal (STG) Pt will score >35 on the WILLETT demonstrating safe ambulation w/AD STG Duration achieved Assisted Goal (LTG) Pt will score >45 on the WILLETT demonstrating safe ambulation and dec fall risk LTG Duration 09/14/18-improved Assessment Summary Assessment Pt did well with balloon tosses but was challenged with higher throws. He cont to fatigue with sessions Physical Therapy Plan Frequency and Duration Frequency of Treatment 1-2x/Week Duration of Treatment 2 months Plan of Care Start Date 08/16/18 Plan of Care End Date 10/17/18 Next Visit Focus/Plan Next Note Type Treatment Note Next Visit Plan SLS & kicking ball
--- NOTE | 2018-09-27 14:24 | PT.OTN ---
Current Diagnoses Other abnormalities of gait and mobility (09/27/18) Physical Therapy Treatment Note PT-OP-A Visit Information Start: 06/14/18 17:35 Freq: Status: Active Protocol: Document 09/27/18 14:06 [facility] (Rec: 09/27/18 14:24 [facility] [id number]) Out-Patient Physical Therapy Visit Information Visit Information Visit Type Treatment Note Visit Note 4 visit 2019 Visit Start Time 13:40 Visit Stop Time 14:20 Total Visit Minutes 40 Visit Number 7/ Number of MANUFACTURING INSPECTOR Visits 0 PT-OP-B Current Condition Start: 06/14/18 17:35 Freq: Status: Active Protocol: Document 06/14/18 17:37 ML (Rec: 06/14/18 18:12 ML [id number]) Current Condition History of Current Condition Current Complaints dec balance & strength History of Current Condition Pt presents to initial evaluation with a 4WW, moving slowly into the treatment room with his caregiver and . The pt reports having two falls within the last two weeks about a week apart, but the caregiver reports no falls prior since starting her realtime court reporter work with him in January. The pt reports no major injuries from the falls, but that they both occurred in the narrow spaced bathroom where he was trying to turn and lost his balance, or tried to bend down and his R knee gave out. The pt mentions that he does not ambulate anywhere without his 4WW inside of the house or outside of the house. The pt reports general fatigue that seems to be getting worse and shows concern for his difficulty of turning, especially in tight spaces, stairs (in which he walks down sideways witha rail), walking uphill, and bending down. The pt voices that he seeks to increase his balance overall and to feel comfortable with his R leg, because it currently feels weak. The pt's MMT showed that his L LE was weaker than his R, but the pt said he noted this today in general after going for a walk . Treatment Goals Patient/Caregiver Goals Pt would like to inc LE strength, dec fatigue, and inc overall balance in order to feel more comfortable for functional activities, particularly showering at home . PT-OP-C Subjective Start: 06/14/18 17:35 Freq: Status: Active Protocol: Document 09/27/18 14:06 [facility] (Rec: 09/27/18 14:24 [facility] [id number]) OP-PT Subjective Patient Comments Patient Comments Pt reports he went to the pool yesterday. PT-OP-D Balance Start: 06/14/18 17:35 Freq: Status: Active Protocol: Document 08/16/18 11:26 [facility] (Rec: 08/16/18 12:08 [facility] [id number]) Balance Tests Willett Balance Test Willett Balance Test Score 43 Willett Impairment Rating 20 to 39% Impaired (Score 34- 44) PT-OP-G Mobility & Gait Start: 06/14/18 17:35 Freq: Status: Active Protocol: Document 06/14/18 17:37 ML (Rec: 06/14/18 18:12 ML [id number]) OP Gait Assessment Assistive Devices Assistive Device 4 Wheeled Walker Comments Gait Comments Pt moves slowly with AD PT-OP-M Strength Start: 06/14/18 17:35 Freq: Status: Active Protocol: Document 08/16/18 11:26 [facility] (Rec: 08/16/18 12:07 [facility] [id number]) Hip Strength Hip Manual Muscle Testing Right Flexion (L2) 5 Normal Abduction 3+ Fair+ External Rotation 4+ Good+ Internal Rotation 4 Good Left Flexion (L2) 5 Normal Abduction 4- Good- External Rotation 4+ Good+ Internal Rotation 4+ Good+ Knee Strength Knee Manual Muscle Testing Right Flexion (S2) 5 Normal Extension (L3) 5 Normal Left Flexion (S2) 5 Normal Extension (L3) 4+ Good+ Ankle/Foot Strength Ankle and Foot Manual Muscle Testing Right Dorsiflexion (L4) 4+ Good+ Plantarflexion (S1) 4 Good Left Dorsiflexion (L4) 4 Good PT-OP-Q Treatments Start: 06/14/18 17:35 Freq: Status: Active Protocol: Document 09/27/18 14:06 [facility] (Rec: 09/27/18 14:24 [facility] [id number]) Gym Equipment Shuttle Recovery Bilateral Squats Resistance 112 lbs Shuttle Recovery Platform Unstable Reps/Time to fatigue Neuro Re-Education Treatment Balance Activities EC Details EC fwd & backwards walking Reps/Duration 2x20ft stairs Details up/down 26 steps with 1 rail reciprocally theradiscs Details NBOS & staggered stance B Comments w/tossing balloon marching Details slow and controlled Equipment bar as needed Reps/Duration 20'x2 Comments fwd/back EC 1 Details tandem stance B PT-OP-T Assessment and Plan Start: 06/14/18 17:35 Freq: Status: Active Protocol: Document 09/27/18 14:06 [facility] (Rec: 09/27/18 14:24 [facility] [id number]) Physical Therapy Assessment Goals 2 Impairment dec strength Short Term Goal (STG) Pt will improve MMT of all LE to greater than or equal to 4 STG Duration 07/15/18 almost achieved except abd 1 Impairment dec balance Short Term Goal (STG) Pt will score >35 on the WILLETT demonstrating safe ambulation w/AD STG Duration achieved Fdc Goal (LTG) Pt will score >45 on the WILLETT demonstrating safe ambulation and dec fall risk LTG Duration 09/14/18-improved Assessment Summary Assessment Pt did better with balloon toss today. He cont to lose his balance backwards most often without ability to regain indep. Physical Therapy Plan Frequency and Duration Frequency of Treatment 1-2x/Week Duration of Treatment 2 months Plan of Care Start Date 08/16/18 Plan of Care End Date 10/17/18 Next Visit Focus/Plan Next Note Type Treatment Note Next Visit Plan kicking ball
--- NOTE | 2018-10-04 15:16 | PT.OTN ---
Current Diagnoses Other abnormalities of gait and mobility (10/04/18) Physical Therapy Treatment Note PT-OP-A Visit Information Start: 06/14/18 17:35 Freq: Status: Active Protocol: Document 10/04/18 14:24 [facility] (Rec: 10/04/18 15:16 [facility] [id number]) Out-Patient Physical Therapy Visit Information Visit Information Visit Type Treatment Note Visit Note 5 visit 2019 Visit Start Time 13:52 Visit Stop Time 14:30 Total Visit Minutes 38 Visit Number 8/ Number of COAT CHECKER Visits 0 PT-OP-B Current Condition Start: 06/14/18 17:35 Freq: Status: Active Protocol: Document 06/14/18 17:37 ML (Rec: 06/14/18 18:12 ML [id number]) Current Condition History of Current Condition Current Complaints dec balance & strength History of Current Condition Pt presents to initial evaluation with a 4WW, moving slowly into the treatment room with his caregiver and . The pt reports having two falls within the last two weeks about a week apart, but the caregiver reports no falls prior since starting her flight crew time clerk work with him in January. The pt reports no major injuries from the falls, but that they both occurred in the narrow spaced bathroom where he was trying to turn and lost his balance, or tried to bend down and his R knee gave out. The pt mentions that he does not ambulate anywhere without his 4WW inside of the house or outside of the house. The pt reports general fatigue that seems to be getting worse and shows concern for his difficulty of turning, especially in tight spaces, stairs (in which he walks down sideways witha rail), walking uphill, and bending down. The pt voices that he seeks to increase his balance overall and to feel comfortable with his R leg, because it currently feels weak. The pt's MMT showed that his L LE was weaker than his R, but the pt said he noted this today in general after going for a walk . Treatment Goals Patient/Caregiver Goals Pt would like to inc LE strength, dec fatigue, and inc overall balance in order to feel more comfortable for functional activities, particularly showering at home . PT-OP-C Subjective Start: 06/14/18 17:35 Freq: Status: Active Protocol: Document 10/04/18 14:24 [facility] (Rec: 10/04/18 15:16 [facility] [id number]) OP-PT Subjective Patient Comments Patient Comments Pt reports he has sometimes had some SOB and dizziness recently. CG and note he has not told them re: this. PT-OP-D Balance Start: 06/14/18 17:35 Freq: Status: Active Protocol: Document 08/16/18 11:26 [facility] (Rec: 08/16/18 12:08 [facility] [id number]) Balance Tests Willett Balance Test Willett Balance Test Score 43 Willett Impairment Rating 20 to 39% Impaired (Score 34- 44) PT-OP-G Mobility & Gait Start: 06/14/18 17:35 Freq: Status: Active Protocol: Document 06/14/18 17:37 ML (Rec: 06/14/18 18:12 ML [id number]) OP Gait Assessment Assistive Devices Assistive Device 4 Wheeled Walker Comments Gait Comments Pt moves slowly with AD PT-OP-M Strength Start: 06/14/18 17:35 Freq: Status: Active Protocol: Document 08/16/18 11:26 [facility] (Rec: 08/16/18 12:07 [facility] [id number]) Hip Strength Hip Manual Muscle Testing Right Flexion (L2) 5 Normal Abduction 3+ Fair+ External Rotation 4+ Good+ Internal Rotation 4 Good Left Flexion (L2) 5 Normal Abduction 4- Good- External Rotation 4+ Good+ Internal Rotation 4+ Good+ Knee Strength Knee Manual Muscle Testing Right Flexion (S2) 5 Normal Extension (L3) 5 Normal Left Flexion (S2) 5 Normal Extension (L3) 4+ Good+ Ankle/Foot Strength Ankle and Foot Manual Muscle Testing Right Dorsiflexion (L4) 4+ Good+ Plantarflexion (S1) 4 Good Left Dorsiflexion (L4) 4 Good PT-OP-Q Treatments Start: 06/14/18 17:35 Freq: Status: Active Protocol: Document 10/04/18 14:24 LR (Rec: 10/04/18 15:16 [facility] [id number]) Gym Equipment Shuttle Recovery Bilateral Squats Resistance 112 lbs Shuttle Recovery Platform Unstable Reps/Time to fatigue Therapeutic Exercises Standing Exercises lunges Standing Exercise Name walking mini lunges Reps/Minutes 2x20ft Neuro Re-Education Treatment Balance Activities EC Details EC fwd & backwards walking Reps/Duration 2x20ft marching Details slow and controlled Equipment bar as needed Reps/Duration 20'x2 Comments fwd/back EC sidestepping Equipment bar, red band Reps/Duration 20ft Comments cues for dec trunk lean and picking up feet 1 Details tandem stance B PT-OP-T Assessment and Plan Start: 06/14/18 17:35 Freq: Status: Active Protocol: Document 10/04/18 14:24 [facility] (Rec: 10/04/18 15:16 [facility] [id number]) Physical Therapy Assessment Goals 2 Impairment dec strength Short Term Goal (STG) Pt will improve MMT of all LE to greater than or equal to 4 STG Duration 07/15/18 almost achieved except abd 1 Impairment dec balance Short Term Goal (STG) Pt will score >35 on the WILLETT demonstrating safe ambulation w/AD STG Duration achieved Color Blender Goal (LTG) Pt will score >45 on the WILLETT demonstrating safe ambulation and dec fall risk LTG Duration 09/14/18-improved Assessment Summary Assessment Pt had inc difficulty with balance tasks today. He appeared more fatigued today. Physical Therapy Plan Frequency and Duration Frequency of Treatment 1-2x/Week Duration of Treatment 2 months Plan of Care Start Date 08/16/18 Plan of Care End Date 10/17/18 Next Visit Focus/Plan Next Note Type Treatment Note Next Visit Plan kicking ball
--- NOTE | 2018-10-18 18:59 | PT.OTN ---
Current Diagnoses Other abnormalities of gait and mobility (10/18/18) Physical Therapy Treatment Note PT-OP-A Visit Information Start: 06/14/18 17:35 Freq: Status: Active Protocol: Document 10/18/18 13:44 [facility] (Rec: 10/18/18 15:59 [facility] [id number]) Out-Patient Physical Therapy Visit Information Visit Information Visit Type Treatment Note Visit Note 6 visit 2019 Visit Start Time 13:45 Visit Stop Time 14:25 Total Visit Minutes 40 Visit Number 09/07 Number of PEDIATRIC HOSPITALIST Visits 0 PT-OP-B Current Condition Start: 06/14/18 17:35 Freq: Status: Active Protocol: Document 06/14/18 17:37 ML (Rec: 06/14/18 18:12 ML [id number]) Current Condition History of Current Condition Current Complaints dec balance & strength History of Current Condition Pt presents to initial evaluation with a 4WW, moving slowly into the treatment room with his caregiver and . The pt reports having two falls within the last two weeks about a week apart, but the caregiver reports no falls prior since starting her time lock expert work with him in January. The pt reports no major injuries from the falls, but that they both occurred in the narrow spaced bathroom where he was trying to turn and lost his balance, or tried to bend down and his R knee gave out. The pt mentions that he does not ambulate anywhere without his 4WW inside of the house or outside of the house. The pt reports general fatigue that seems to be getting worse and shows concern for his difficulty of turning, especially in tight spaces, stairs (in which he walks down sideways witha rail), walking uphill, and bending down. The pt voices that he seeks to increase his balance overall and to feel comfortable with his R leg, because it currently feels weak. The pt's MMT showed that his L LE was weaker than his R, but the pt said he noted this today in general after going for a walk . Treatment Goals Patient/Caregiver Goals Pt would like to inc LE strength, dec fatigue, and inc overall balance in order to feel more comfortable for functional activities, particularly showering at home . PT-OP-C Subjective Start: 06/14/18 17:35 Freq: Status: Active Protocol: Document 10/18/18 13:44 [facility] (Rec: 10/18/18 15:59 [facility] [id number]) OP-PT Subjective Patient Comments Patient Comments had fever last wk PT-OP-D Balance Start: 06/14/18 17:35 Freq: Status: Active Protocol: Document 08/16/18 11:26 [facility] (Rec: 08/16/18 12:08 [facility] [id number]) Balance Tests Willett Balance Test Willett Balance Test Score 43 Willett Impairment Rating 20 to 39% Impaired (Score 34- 44) PT-OP-G Mobility & Gait Start: 06/14/18 17:35 Freq: Status: Active Protocol: Document 06/14/18 17:37 ML (Rec: 06/14/18 18:12 ML [id number]) OP Gait Assessment Assistive Devices Assistive Device 4 Wheeled Walker Comments Gait Comments Pt moves slowly with AD PT-OP-M Strength Start: 06/14/18 17:35 Freq: Status: Active Protocol: Document 10/18/18 13:44 [facility] (Rec: 10/18/18 15:59 [facility] [id number]) Hip Strength Hip Manual Muscle Testing Right Flexion (L2) 4+ Good+ Abduction 4 Good External Rotation 4+ Good+ Internal Rotation 5 Normal Left Flexion (L2) 4+ Good+ Abduction 4 Good External Rotation 5 Normal Internal Rotation 5 Normal Knee Strength Knee Manual Muscle Testing Right Flexion (S2) 5 Normal Extension (L3) 5 Normal Left Flexion (S2) 4+ Good+ Extension (L3) 5 Normal Ankle/Foot Strength Ankle and Foot Manual Muscle Testing Right Dorsiflexion (L4) 5 Normal Plantarflexion (S1) 5 Normal Comments seated Left Dorsiflexion (L4) 5 Normal Plantarflexion (S1) 5 Normal PT-OP-Q Treatments Start: 06/14/18 17:35 Freq: Status: Active Protocol: Document 10/18/18 13:44 [facility] (Rec: 10/18/18 15:59 [facility] [id number]) Gym Equipment Shuttle Recovery Bilateral Squats Resistance 112 lbs Shuttle Recovery Platform Unstable Reps/Time to fatigue Neuro Re-Education Treatment Balance Activities EC Details EC fwd & backwards walking Reps/Duration 2x20ft stairs Details up/down 26 steps with 1 rail reciprocally marching Details slow and controlled Equipment bar as needed Reps/Duration 20'x2 Comments fwd/back EC 2 Details toe taps on 6 in step 1 Details tandem stance B PT-OP-T Assessment and Plan Start: 06/14/18 17:35 Freq: Status: Active Protocol: Document 10/18/18 13:44 [facility] (Rec: 10/18/18 15:59 [facility] [id number]) Physical Therapy Assessment Goals 2 Impairment dec strength Short Term Goal (STG) Pt will improve MMT of all LE to greater than or equal to 4 STG Duration achieved 1 Impairment dec balance Short Term Goal (STG) Pt will score >35 on the WILLETT demonstrating safe ambulation w/AD STG Duration achieved Nursing Home Goal (LTG) Pt will score >45 on the WILLETT demonstrating safe ambulation and dec fall risk LTG Duration 12/13/18 43 Assessment Summary Assessment Pt has made excellent progress with strength and has difficulty with balance still at home. Pt would benefit from cont PT to progress balance now that pt has improved strength. Physical Therapy Plan Frequency and Duration Frequency of Treatment 1-2x/Week Duration of Treatment 6 weeks Plan of Care Start Date 10/18/18 Plan of Care End Date 11/29/18 Therapeutic Interventions Therapeutic Interventions Balance Training Gait Training Home Exercise Program Neuromuscular Re-education Taping Therapeutic Activities Therapeutic Exercises Next Visit Focus/Plan Next Note Type Treatment Note Next Visit Plan kicking ball
--- NOTE | 2018-10-18 18:59 | PT.OPPOC ---
Current Diagnoses Other abnormalities of gait and mobility (10/18/18) Provider Visit Care Team Role Provider Type Charmaine Adamson MD Attending Provider Physician Family Provider Primary Care Provider Specialty: Internal Medicine Address: [address] [place] [address], [id number] Email: Plan Of Care PT-OP-T Assessment and Plan Start: 06/14/18 17:35 Freq: Status: Active Protocol: Document 10/18/18 13:44 [facility] (Rec: 10/18/18 15:59 [facility] [id number]) Physical Therapy Assessment Goals 2 Impairment dec strength Short Term Goal (STG) Pt will improve MMT of all LE to greater than or equal to 4 STG Duration achieved 1 Impairment dec balance Short Term Goal (STG) Pt will score >35 on the WILLETT demonstrating safe ambulation w/AD STG Duration achieved Fpc Goal (LTG) Pt will score >45 on the WILLETT demonstrating safe ambulation and dec fall risk LTG Duration 12/13/18 43 Assessment Summary Assessment Pt has made excellent progress with strength and has difficulty with balance still at home. Pt would benefit from cont PT to progress balance now that pt has improved strength. Physical Therapy Plan Frequency and Duration Frequency of Treatment 1-2x/Week Duration of Treatment 6 weeks Plan of Care Start Date 10/18/18 Plan of Care End Date 11/29/18 Therapeutic Interventions Therapeutic Interventions Balance Training Gait Training Home Exercise Program Neuromuscular Re-education Taping Therapeutic Activities Therapeutic Exercises Next Visit Focus/Plan Next Note Type Treatment Note Next Visit Plan kicking ball Plan of Care Dates Plan of Care Start Date 10/18/18 Plan of Care End Date 11/29/18 Please Sign and Return: I have reviewed this Plan of Care and certify that the skilled therapy services above are required to meet the patient?s needs. Physician Signature Date Printed Name and Credentials Clinical Instructor Signature Printed Name and Credentials
--- NOTE | 2018-10-25 16:48 | PT.OTN ---
Current Diagnoses Other abnormalities of gait and mobility (10/25/18) Physical Therapy Treatment Note PT-OP-A Visit Information Start: 06/14/18 17:35 Freq: Status: Active Protocol: Document 10/25/18 15:15 HH (Rec: 10/25/18 16:48 HH [id number]) Out-Patient Physical Therapy Visit Information Visit Information Visit Type Treatment Note Visit Note 7 visit 2019 Visit Start Time 15:15 Visit Stop Time 16:10 Total Visit Minutes 55 Visit Number 2/ Number of ROLL SLICING MACHINE TENDER Visits 0 PT-OP-B Current Condition Start: 06/14/18 17:35 Freq: Status: Active Protocol: Document 06/14/18 17:37 ML (Rec: 06/14/18 18:12 ML [id number]) Current Condition History of Current Condition Current Complaints dec balance & strength History of Current Condition Pt presents to initial evaluation with a 4WW, moving slowly into the treatment room with his caregiver and . The pt reports having two falls within the last two weeks about a week apart, but the caregiver reports no falls prior since starting her master automotive technician work with him in January. The pt reports no major injuries from the falls, but that they both occurred in the narrow spaced bathroom where he was trying to turn and lost his balance, or tried to bend down and his R knee gave out. The pt mentions that he does not ambulate anywhere without his 4WW inside of the house or outside of the house. The pt reports general fatigue that seems to be getting worse and shows concern for his difficulty of turning, especially in tight spaces, stairs (in which he walks down sideways witha rail), walking uphill, and bending down. The pt voices that he seeks to increase his balance overall and to feel comfortable with his R leg, because it currently feels weak. The pt's MMT showed that his L LE was weaker than his R, but the pt said he noted this today in general after going for a walk . Treatment Goals Patient/Caregiver Goals Pt would like to inc LE strength, dec fatigue, and inc overall balance in order to feel more comfortable for functional activities, particularly showering at home . PT-OP-C Subjective Start: 06/14/18 17:35 Freq: Status: Active Protocol: Document 10/25/18 15:15 HH (Rec: 10/25/18 16:48 HH [id number]) OP-PT Subjective Patient Comments Patient Comments I think i am getting stronger CG and attend tx session PT-OP-D Balance Start: 06/14/18 17:35 Freq: Status: Active Protocol: Document 08/16/18 11:26 [facility] (Rec: 08/16/18 12:08 [facility] [id number]) Balance Tests Valdez Balance Test Valdez Balance Test Score 43 Valdez Impairment Rating 20 to 39% Impaired (Score 34- 44) PT-OP-G Mobility & Gait Start: 06/14/18 17:35 Freq: Status: Active Protocol: Document 06/14/18 17:37 ML (Rec: 06/14/18 18:12 ML [id number]) OP Gait Assessment Assistive Devices Assistive Device 4 Wheeled Walker Comments Gait Comments Pt moves slowly with AD PT-OP-M Strength Start: 06/14/18 17:35 Freq: Status: Active Protocol: Document 10/18/18 13:44 [facility] (Rec: 10/18/18 15:59 [facility] [id number]) Hip Strength Hip Manual Muscle Testing Right Flexion (L2) 4+ Good+ Abduction 4 Good External Rotation 4+ Good+ Internal Rotation 5 Normal Left Flexion (L2) 4+ Good+ Abduction 4 Good External Rotation 5 Normal Internal Rotation 5 Normal Knee Strength Knee Manual Muscle Testing Right Flexion (S2) 5 Normal Extension (L3) 5 Normal Left Flexion (S2) 4+ Good+ Extension (L3) 5 Normal Ankle/Foot Strength Ankle and Foot Manual Muscle Testing Right Dorsiflexion (L4) 5 Normal Plantarflexion (S1) 5 Normal Comments seated Left Dorsiflexion (L4) 5 Normal Plantarflexion (S1) 5 Normal PT-OP-Q Treatments Start: 06/14/18 17:35 Freq: Status: Active Protocol: Document 10/25/18 15:15 (Rec: 10/25/18 16:48 [id number]) Therapeutic Exercises Standing Exercises marches Standing Exercise Name high knee walking Side bilateral Comments close to grab bar sit<->stand Standing Exercise Name finger support on grab bar Comments focus on eccentric stand to sit lateral walks Standing Exercise Name CGA Comments dance 'tango' sequence Neuro Re-Education Treatment Balance Activities ball catch and throw with amb Equipment tennis ball Comments foward walking and lateral walk ball catch and throw Comments balloon --> therapy ball --> tennis ball PT-OP-T Assessment and Plan Start: 06/14/18 17:35 Freq: Status: Active Protocol: Document 10/25/18 15:15 HH (Rec: 10/25/18 16:48 HH [email or web address]) Physical Therapy Assessment Assessment Summary Assessment Pt arcadio session very well. He only took 2 breaks with 2 -4 mins break. There's noticeable improved balance and steadiness during task oriented balance training. Pt demonstrates steady gait today while tennis ball catch and throw. Pt did not show signs of LOB but he tends to increased sway / LOB while amb without a task. cues for him to use wall to park his 4WW and use trunk lean to facilitate sit to stand . Physical Therapy Plan Next Visit Focus/Plan Next Note Type Treatment Note Next Visit Plan kicking ball/ ball catch and throw
--- NOTE | 2018-11-01 15:21 | PT.OTN ---
Current Diagnoses Other abnormalities of gait and mobility (11/01/18) Physical Therapy Treatment Note PT-OP-A Visit Information Start: 06/14/18 17:35 Freq: Status: Active Protocol: Document 11/01/18 09:45 AMB (Rec: 11/01/18 09:49 AMB [id number]) Out-Patient Physical Therapy Visit Information Visit Information Visit Type Treatment Note Visit Note 8 visit 2019 Visit Start Time 09:00 Visit Stop Time 09:45 Total Visit Minutes 45 Visit Number 3/10 Number of DIVERSIFIED CROPS SUPERVISOR Visits 0 PT-OP-B Current Condition Start: 06/14/18 17:35 Freq: Status: Active Protocol: Document 06/14/18 17:37 ML (Rec: 06/14/18 18:12 ML [id number]) Current Condition History of Current Condition Current Complaints dec balance & strength History of Current Condition Pt presents to initial evaluation with a 4WW, moving slowly into the treatment room with his caregiver and . The pt reports having two falls within the last two weeks about a week apart, but the caregiver reports no falls prior since starting her timekeeper work with him in January. The pt reports no major injuries from the falls, but that they both occurred in the narrow spaced bathroom where he was trying to turn and lost his balance, or tried to bend down and his R knee gave out. The pt mentions that he does not ambulate anywhere without his 4WW inside of the house or outside of the house. The pt reports general fatigue that seems to be getting worse and shows concern for his difficulty of turning, especially in tight spaces, stairs (in which he walks down sideways witha rail), walking uphill, and bending down. The pt voices that he seeks to increase his balance overall and to feel comfortable with his R leg, because it currently feels weak. The pt's MMT showed that his L LE was weaker than his R, but the pt said he noted this today in general after going for a walk . Treatment Goals Patient/Caregiver Goals Pt would like to inc LE strength, dec fatigue, and inc overall balance in order to feel more comfortable for functional activities, particularly showering at home . PT-OP-C Subjective Start: 06/14/18 17:35 Freq: Status: Active Protocol: Document 11/01/18 09:45 AMB (Rec: 11/01/18 09:49 AMB [email or web address]) OP-PT Subjective Patient Comments Patient Comments Pt states he feels his strength is getting better, but his balance is still a think. PT-OP-D Balance Start: 06/14/18 17:35 Freq: Status: Active Protocol: Document 08/16/18 11:26 LR (Rec: 08/16/18 12:08 [facility] [id number]) Balance Tests Valdez Balance Test Valdez Balance Test Score 43 Valdez Impairment Rating 20 to 39% Impaired (Score 34- 44) PT-OP-G Mobility & Gait Start: 06/14/18 17:35 Freq: Status: Active Protocol: Document 06/14/18 17:37 ML (Rec: 06/14/18 18:12 ML [id number]) OP Gait Assessment Assistive Devices Assistive Device 4 Wheeled Walker Comments Gait Comments Pt moves slowly with AD PT-OP-M Strength Start: 06/14/18 17:35 Freq: Status: Active Protocol: Document 10/18/18 13:44 LR (Rec: 10/18/18 15:59 [facility] [id number]) Hip Strength Hip Manual Muscle Testing Right Flexion (L2) 4+ Good+ Abduction 4 Good External Rotation 4+ Good+ Internal Rotation 5 Normal Left Flexion (L2) 4+ Good+ Abduction 4 Good External Rotation 5 Normal Internal Rotation 5 Normal Knee Strength Knee Manual Muscle Testing Right Flexion (S2) 5 Normal Extension (L3) 5 Normal Left Flexion (S2) 4+ Good+ Extension (L3) 5 Normal Ankle/Foot Strength Ankle and Foot Manual Muscle Testing Right Dorsiflexion (L4) 5 Normal Plantarflexion (S1) 5 Normal Comments seated Left Dorsiflexion (L4) 5 Normal Plantarflexion (S1) 5 Normal PT-OP-Q Treatments Start: 06/14/18 17:35 Freq: Status: Active Protocol: Document 11/01/18 09:00 AMB (Rec: 11/01/18 15:21 AMB [email or web address]) Therapeutic Exercises Standing Exercises 1 Standing Exercise Name salsa walking Comments fwd/bckwd stepping lunges Standing Exercise Name walking mini lunges Reps/Minutes 2x20ft sit<->stand Standing Exercise Name finger support on grab bar Comments focus on eccentric stand to sit lateral walks Standing Exercise Name CGA Comments dance 'tango' sequence Neuro Re-Education Treatment Balance Activities ball catch and throw with amb Equipment tennis ball Comments foward walking and lateral walk CGA at all times, 1 Karin for LOB ball catch and throw Details WBOS to mod tandem Comments tennis ball CGA stairs Details tap ups at 6 step PT-OP-T Assessment and Plan Start: 06/14/18 17:35 Freq: Status: Active Protocol: Document 11/01/18 09:00 AMB (Rec: 11/01/18 09:54 AMB [id number]) Physical Therapy Assessment Assessment Summary Assessment Pt is doing well with dual tasking balance exercises. Physical Therapy Plan Next Visit Focus/Plan Next Note Type Treatment Note Next Visit Plan kicking ball/ ball catch and throw
--- NOTE | 2018-11-08 13:46 | PT.OTN ---
Current Diagnoses Other abnormalities of gait and mobility (11/08/18) Physical Therapy Treatment Note PT-OP-A Visit Information Start: 06/14/18 17:35 Freq: Status: Active Protocol: Document 11/08/18 12:13 EA (Rec: 11/08/18 13:14 EA [id number]) Out-Patient Physical Therapy Visit Information Visit Information Visit Type Treatment Note Visit Start Time 10:30 Visit Stop Time 11:15 Total Visit Minutes 45 Visit Number 12/06 PT-OP-B Current Condition Start: 06/14/18 17:35 Freq: Status: Active Protocol: Document 06/14/18 17:37 ML (Rec: 06/14/18 18:12 ML [id number]) Current Condition History of Current Condition Current Complaints dec balance & strength History of Current Condition Pt presents to initial evaluation with a 4WW, moving slowly into the treatment room with his caregiver and . The pt reports having two falls within the last two weeks about a week apart, but the caregiver reports no falls prior since starting her timers inspector work with him in January. The pt reports no major injuries from the falls, but that they both occurred in the narrow spaced bathroom where he was trying to turn and lost his balance, or tried to bend down and his R knee gave out. The pt mentions that he does not ambulate anywhere without his 4WW inside of the house or outside of the house. The pt reports general fatigue that seems to be getting worse and shows concern for his difficulty of turning, especially in tight spaces, stairs (in which he walks down sideways witha rail), walking uphill, and bending down. The pt voices that he seeks to increase his balance overall and to feel comfortable with his R leg, because it currently feels weak. The pt's MMT showed that his L LE was weaker than his R, but the pt said he noted this today in general after going for a walk . Treatment Goals Patient/Caregiver Goals Pt would like to inc LE strength, dec fatigue, and inc overall balance in order to feel more comfortable for functional activities, particularly showering at home . PT-OP-C Subjective Start: 06/14/18 17:35 Freq: Status: Active Protocol: Document 11/08/18 12:13 EA (Rec: 11/08/18 13:14 EA [id number]) OP-PT Subjective Patient Comments Patient Comments Pt reports no other complaint but balance today. PT-OP-D Balance Start: 06/14/18 17:35 Freq: Status: Active Protocol: Document 08/16/18 11:26 LR (Rec: 08/16/18 12:08 [facility] [id number]) Balance Tests Valdez Balance Test Valdez Balance Test Score 43 Valdez Impairment Rating 20 to 39% Impaired (Score 34- 44) PT-OP-G Mobility & Gait Start: 06/14/18 17:35 Freq: Status: Active Protocol: Document 06/14/18 17:37 ML (Rec: 06/14/18 18:12 ML [id number]) OP Gait Assessment Assistive Devices Assistive Device 4 Wheeled Walker Comments Gait Comments Pt moves slowly with AD PT-OP-M Strength Start: 06/14/18 17:35 Freq: Status: Active Protocol: Document 10/18/18 13:44 LR (Rec: 10/18/18 15:59 [facility] [id number]) Hip Strength Hip Manual Muscle Testing Right Flexion (L2) 4+ Good+ Abduction 4 Good External Rotation 4+ Good+ Internal Rotation 5 Normal Left Flexion (L2) 4+ Good+ Abduction 4 Good External Rotation 5 Normal Internal Rotation 5 Normal Knee Strength Knee Manual Muscle Testing Right Flexion (S2) 5 Normal Extension (L3) 5 Normal Left Flexion (S2) 4+ Good+ Extension (L3) 5 Normal Ankle/Foot Strength Ankle and Foot Manual Muscle Testing Right Dorsiflexion (L4) 5 Normal Plantarflexion (S1) 5 Normal Comments seated Left Dorsiflexion (L4) 5 Normal Plantarflexion (S1) 5 Normal PT-OP-Q Treatments Start: 06/14/18 17:35 Freq: Status: Active Protocol: Document 11/08/18 12:13 EA (Rec: 11/08/18 13:14 EA [id number]) Therapeutic Exercises Standing Exercises 1 Standing Exercise Name salsa walking Comments fwd/bckwd stepping lunges Standing Exercise Name walking mini lunges Reps/Minutes 2x20ft sit<->stand Standing Exercise Name no support Comments focus on eccentric stand to sit lateral walks Standing Exercise Name CGA Comments dance 'tango' sequence Neuro Re-Education Treatment Balance Activities ball catch and throw with amb Equipment tennis ball Comments foward walking and lateral walk CGA at all times, 1 Karin for LOB ball catch and throw Details WBOS to mod tandem Comments tennis ball CGA EC Details EC fwd & backwards walking Reps/Duration 2x20ft stairs Details tap ups at 6 step carioca Details carioca Reps/Duration 20ft sidestepping Details side step squat heel raises Equipment YTB Reps/Duration 20ft PT-OP-T Assessment and Plan Start: 06/14/18 17:35 Freq: Status: Active Protocol: Document 11/08/18 12:13 EA (Rec: 11/08/18 13:14 EA [id number]) Physical Therapy Assessment Assessment Summary Assessment Pt tolerated treatment well. Patient will cont to benefit with current plan. Physical Therapy Plan Next Visit Focus/Plan Next Note Type Treatment Note Next Visit Plan kicking ball/ ball catch and throw
--- NOTE | 2018-11-22 16:00 | PT.OTN ---
Current Diagnoses Other abnormalities of gait and mobility (11/22/18) Physical Therapy Treatment Note PT-OP-A Visit Information Start: 06/14/18 17:35 Freq: Status: Active Protocol: Document 11/22/18 15:54 EA (Rec: 11/22/18 16:00 EA [id number]) Out-Patient Physical Therapy Visit Information Visit Information Visit Type Treatment Note Visit Start Time 13:45 Visit Stop Time 14:30 Total Visit Minutes 38 Visit Number 02/05 PT-OP-B Current Condition Start: 06/14/18 17:35 Freq: Status: Active Protocol: Document 06/14/18 17:37 ML (Rec: 06/14/18 18:12 ML [id number]) Current Condition History of Current Condition Current Complaints dec balance & strength History of Current Condition Pt presents to initial evaluation with a 4WW, moving slowly into the treatment room with his caregiver and . The pt reports having two falls within the last two weeks about a week apart, but the caregiver reports no falls prior since starting her teller supervisor work with him in January. The pt reports no major injuries from the falls, but that they both occurred in the narrow spaced bathroom where he was trying to turn and lost his balance, or tried to bend down and his R knee gave out. The pt mentions that he does not ambulate anywhere without his 4WW inside of the house or outside of the house. The pt reports general fatigue that seems to be getting worse and shows concern for his difficulty of turning, especially in tight spaces, stairs (in which he walks down sideways witha rail), walking uphill, and bending down. The pt voices that he seeks to increase his balance overall and to feel comfortable with his R leg, because it currently feels weak. The pt's MMT showed that his L LE was weaker than his R, but the pt said he noted this today in general after going for a walk . Treatment Goals Patient/Caregiver Goals Pt would like to inc LE strength, dec fatigue, and inc overall balance in order to feel more comfortable for functional activities, particularly showering at home . PT-OP-C Subjective Start: 06/14/18 17:35 Freq: Status: Active Protocol: Document 11/22/18 15:54 EA (Rec: 11/22/18 16:00 EA [id number]) OP-PT Subjective Patient Comments Patient Comments Pt reports compliant with HEP. PT-OP-D Balance Start: 06/14/18 17:35 Freq: Status: Active Protocol: Document 08/16/18 11:26 LR (Rec: 08/16/18 12:08 [facility] [id number]) Balance Tests Valdez Balance Test Valdez Balance Test Score 43 Valdez Impairment Rating 20 to 39% Impaired (Score 34- 44) PT-OP-G Mobility & Gait Start: 06/14/18 17:35 Freq: Status: Active Protocol: Document 06/14/18 17:37 ML (Rec: 06/14/18 18:12 ML [id number]) OP Gait Assessment Assistive Devices Assistive Device 4 Wheeled Walker Comments Gait Comments Pt moves slowly with AD PT-OP-M Strength Start: 06/14/18 17:35 Freq: Status: Active Protocol: Document 10/18/18 13:44 LR (Rec: 10/18/18 15:59 [facility] [id number]) Hip Strength Hip Manual Muscle Testing Right Flexion (L2) 4+ Good+ Abduction 4 Good External Rotation 4+ Good+ Internal Rotation 5 Normal Left Flexion (L2) 4+ Good+ Abduction 4 Good External Rotation 5 Normal Internal Rotation 5 Normal Knee Strength Knee Manual Muscle Testing Right Flexion (S2) 5 Normal Extension (L3) 5 Normal Left Flexion (S2) 4+ Good+ Extension (L3) 5 Normal Ankle/Foot Strength Ankle and Foot Manual Muscle Testing Right Dorsiflexion (L4) 5 Normal Plantarflexion (S1) 5 Normal Comments seated Left Dorsiflexion (L4) 5 Normal Plantarflexion (S1) 5 Normal PT-OP-Q Treatments Start: 06/14/18 17:35 Freq: Status: Active Protocol: Document 11/22/18 15:54 EA (Rec: 11/22/18 16:00 EA [id number]) Cardio Equipment Recumbent Stepper (Sci-Fit) Duration (Minutes) 5 Resistance 2 Gym Equipment Shuttle Balance 1 Details red Comments WBOS & NBOS fwd & side Therapeutic Exercises Standing Exercises 1 Standing Exercise Name salsa walking Comments fwd/bckwd stepping marches Standing Exercise Name high knee walking Side bilateral Comments close to grab bar lunges Standing Exercise Name walking mini lunges Reps/Minutes 2x20ft toe taps Equipment Used bar and stool Comments changed to controlled marches Heel-toe Ambulation Standing Exercise Name Heel-toe Comments forward and backwards. sit<->stand Standing Exercise Name no support Comments focus on eccentric stand to sit Other Exercises Resisted Fwd/Retro walking Resistance Yellow Neuro Re-Education Treatment Balance Activities ball catch and throw with amb Equipment basket ball Comments foward walking and lateral walk CGA at all times, 1 Karin for LOB ball catch and throw Details WBOS to mod tandem Comments basket ball CGA EC Details EC fwd & backwards walking Reps/Duration 2x20ft carioca Details carioca Reps/Duration 20ft step-outs Details step in/out floor squares Reps/Duration x 4 lines Comments CGA sidestepping Details side step squat heel raises Equipment GTB Reps/Duration 20ft PT-OP-T Assessment and Plan Start: 06/14/18 17:35 Freq: Status: Active Protocol: Document 11/22/18 15:54 EA (Rec: 11/22/18 16:00 EA [id number]) Physical Therapy Assessment Assessment Summary Assessment Pt tolerated treatment well. Continue with current plan. Physical Therapy Plan Next Visit Focus/Plan Next Note Type Treatment Note Next Visit Plan kicking ball/ ball catch and throw
--- NOTE | 2018-11-29 13:48 | PT.OTN ---
Current Diagnoses Other abnormalities of gait and mobility (11/29/18) Physical Therapy Treatment Note PT-OP-A Visit Information Start: 06/14/18 17:35 Freq: Status: Active Protocol: Document 11/29/18 12:59 [facility] (Rec: 11/29/18 13:48 [facility] [id number]) Out-Patient Physical Therapy Visit Information Visit Information Visit Type Discharge Summary Visit Start Time 13:00 Visit Stop Time 13:40 Total Visit Minutes 40 PT-OP-B Current Condition Start: 06/14/18 17:35 Freq: Status: Active Protocol: Document 06/14/18 17:37 ML (Rec: 06/14/18 18:12 ML [id number]) Current Condition History of Current Condition Current Complaints dec balance & strength History of Current Condition Pt presents to initial evaluation with a 4WW, moving slowly into the treatment room with his caregiver and . The pt reports having two falls within the last two weeks about a week apart, but the caregiver reports no falls prior since starting her marine diesel mechanic work with him in January. The pt reports no major injuries from the falls, but that they both occurred in the narrow spaced bathroom where he was trying to turn and lost his balance, or tried to bend down and his R knee gave out. The pt mentions that he does not ambulate anywhere without his 4WW inside of the house or outside of the house. The pt reports general fatigue that seems to be getting worse and shows concern for his difficulty of turning, especially in tight spaces, stairs (in which he walks down sideways witha rail), walking uphill, and bending down. The pt voices that he seeks to increase his balance overall and to feel comfortable with his R leg, because it currently feels weak. The pt's MMT showed that his L LE was weaker than his R, but the pt said he noted this today in general after going for a walk . Treatment Goals Patient/Caregiver Goals Pt would like to inc LE strength, dec fatigue, and inc overall balance in order to feel more comfortable for functional activities, particularly showering at home . PT-OP-C Subjective Start: 06/14/18 17:35 Freq: Status: Active Protocol: Document 11/29/18 12:59 LR (Rec: 11/29/18 13:48 [facility] [id number]) OP-PT Subjective Patient Comments Patient Comments Pt reports compliant with HEP. PT-OP-D Balance Start: 06/14/18 17:35 Freq: Status: Active Protocol: Document 11/29/18 12:59 [facility] (Rec: 11/29/18 13:48 [facility] [id number]) Balance Tests Willett Balance Test Willett Balance Test Score 46 PT-OP-G Mobility & Gait Start: 06/14/18 17:35 Freq: Status: Active Protocol: Document 06/14/18 17:37 ML (Rec: 06/14/18 18:12 ML [id number]) OP Gait Assessment Assistive Devices Assistive Device 4 Wheeled Walker Comments Gait Comments Pt moves slowly with AD PT-OP-M Strength Start: 06/14/18 17:35 Freq: Status: Active Protocol: Document 10/18/18 13:44 [facility] (Rec: 10/18/18 15:59 [facility] [id number]) Hip Strength Hip Manual Muscle Testing Right Flexion (L2) 4+ Good+ Abduction 4 Good External Rotation 4+ Good+ Internal Rotation 5 Normal Left Flexion (L2) 4+ Good+ Abduction 4 Good External Rotation 5 Normal Internal Rotation 5 Normal Knee Strength Knee Manual Muscle Testing Right Flexion (S2) 5 Normal Extension (L3) 5 Normal Left Flexion (S2) 4+ Good+ Extension (L3) 5 Normal Ankle/Foot Strength Ankle and Foot Manual Muscle Testing Right Dorsiflexion (L4) 5 Normal Plantarflexion (S1) 5 Normal Comments seated Left Dorsiflexion (L4) 5 Normal Plantarflexion (S1) 5 Normal PT-OP-Q Treatments Start: 06/14/18 17:35 Freq: Status: Active Protocol: Document 11/29/18 12:59 [facility] (Rec: 11/29/18 13:48 [facility] [id number]) Gym Equipment Shuttle Balance 1 Details blue Comments FWD: WBOS, NBOS & staggered stance ; side : WBOS while hitting balloon Neuro Re-Education Treatment Balance Activities ball catch and throw with amb Equipment basket ball Comments foward/back walking and lateral walk CGA at all times , 1 Karin for LOB 3 Details step fwd/back w/arm swings B Self-Care/Home Management Treatment Education Caregiver Education edu to pt and CG on cont of home program and senior center courses PT-OP-T Assessment and Plan Start: 06/14/18 17:35 Freq: Status: Active Protocol: Document 11/29/18 12:59 [facility] (Rec: 11/29/18 13:48 [facility] [id number]) Physical Therapy Assessment Goals 2 Impairment dec strength Short Term Goal (STG) Pt will improve MMT of all LE to greater than or equal to 4 STG Duration achieved 1 Impairment dec balance Short Term Goal (STG) Pt will score >35 on the WILLETT demonstrating safe ambulation w/AD STG Duration achieved Collection Support Specialist Goal (LTG) Pt will score >45 on the WILLETT demonstrating safe ambulation and dec fall risk LTG Duration achieved Assessment Summary Assessment Pt has made good improvements with his strength and balance at this time. He is indep with HEP and is going to cont with home exercises. Physical Therapy Plan Discharge Physical Therapy Discharge Reasons Goals Met
== END 2018-11-29 15:00 | disposition home or self-care (01) ==
LOC: PHYS 13:00
PROVIDERS: Family Provider Internal Medicine; PCP Internal Medicine; Visit Provider Internal Medicine
DX: R26.89 Other abnormalities of gait and mobility (principal)
CPT/HCPCS: 97110; 97112; 97116; 97162; 97535

== ENCOUNTER 2019-03-07 08:22 | Day surgery (SDC) | payer MEDICARE, SELFPAY ==
--- NOTE | 2019-03-04 15:45 | PM.PREOP ---
Pre-operative Note Interval Note History & Physical reviewed/Exam performed by Physician: Yes Changes to H&P: No
--- NOTE | 2019-03-04 15:53 | P.OP_ITS ---
Operative Date/Time/Diagnoses Date of procedure: 03/07/19 Time of procedure: 09:45 Procedure & Clinicians Procedure: Preoperative diagnoses: 1. Cataract surgery with PCIOL. 2. Mature or advanced nuclear sclerotic and cortical cataract with loose zonules. 3. History of Flomax use. 4. Cardiac pacemaker on aspirin. 5. Sleep apnea. 6. 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 7. Memory loss 8. 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 9. Anosmia 10. Ptosis 11. Macular degeneration Postoperative diagnoses: 1. Phacoemulsification with placement of a posterior chamber intraocular lens implant. Surgeon: Verona Dalton MD Complications: none Specimen: None Implant: ZCBOO+20.5 Blood loss: None Anesthesia: Retrobulbar with monitored standby. Description of procedure: Dictated by: Verona Dalton MD Copy to: [facility] Post operative diagnoses: 1. Cataract removed with placement of a posterior chamber intraocular lens. Procedure: Phacoemulsification with posterior chamber intraocular lens implant Surgeon: Verona Dalton MD Blood loss: None Anesthesia: Retrobulbar with monitored standby Description of procedure: Patient has presented with decreased vision due to cataract which is affecting activities of daily living. Has multiple medical problems as described above and has been cleared for surgery. Due to his memory loss is felt best improve his vision to decrease his risk falls and improved quality of life. He has prostate surgery but prior Flomax use withpossible floppy iris syndrome but a Malyguin ring iwas not required during surgery. The patient wants surgery to improve vision. He declines a toric intraocular lens. Aspirin was stopped for surgery. The patient was taken to the operating room and given IV sedation. A retrobulbar block consisting of 6 cc of 2% xylocaine without epinephrine mixed half and half with 0.5% Marcaine with 1 cc of hyaluronidase added is placed between the medial and lateral 1/3 of the inferior orbital rim. Lid akinesia is obtain with 1% xylocaine with epinephrine infiltrated along the lid margin. The eye is manually massaged for 30 sec, prepped using Betadine solution, and draped in the usual sterile fashion. Temporal approach was made, a 1 mm side-port incision was performed 90 degrees from the planned corneal wound. Phenylephrine 1.5% mixed with 1% xylocaine 0.2 cc was placed into the anterior chamber. Viscoat followed by Brisa was then placed. A 2.6 mm clear incision with a 2.6 mm blade was placed. A 360 degree capsulorrhexis style capsulotomy was then performed with a cystitome needle on a Healon. Zonules were loose but held intact.Hydrodelineation and hydrodissection were performed. The phacoemulsification unit is introduced, and sculpting used to groove the central lens. It is then removed in chopping mode. Epi nucleus is removed with epinuclear mode and irrigation aspiration was used to remove the peripheral cortex. The posterior capsule is polished. The intraocular lens is selected, inspected, power confirmed, and placed in the posterior chamber. The pupil was constricted with Miostat. The wound was stromally hydrated and tested for leaks, there was none and was left sutureless. Vigamox 0.1 cc was placed into the anterior chamber. Kenalog 0.2 cc was placed in the superior subconjunctival space. A drop of antibiotic and was placed and the eye was patched and shielded. The patient was stable and returned to the recovery room in excellent condition. Dictated by: Verona Dalton MD Copy to: [facility]
[2019-03-07 08:56] VITALS: BMI 27.3
[2019-03-07 09:00] VITALS: BP 109/67; PULSE 64; RESP 15; TEMP 36.2; O2SAT 95
[2019-03-07] MEDS: PROPARACAINE 0.5% OPHTH SOL 2 DROPS EYE-OP (09:08)
[2019-03-07] MEDS: CATARACT EYE COMPOUND (10 DROPS/SYRINGE) 3 DROPS EYE-OP (09:17)
--- NOTE | 2019-03-07 10:09 | SUR.OPER ---
Supine on eye stretcher, head on extension cradle secured with tape. Arms tucked at sides with blanket. Pillow under knees.
[2019-03-07] MEDS: ERYTHROMYCIN OPHTH 1 GM OINT 1 APPLIC EYE-RIGHT (10:16)
[2019-03-07] MEDS: BALANCED SALT IRRIG SOLN NO.2 500 ML, EPINEPHrine 1 MG IRR (10:17)
[2019-03-07] MEDS: OFLOXACIN 0.3% OPHTH 5 ML 2 DROPS EYE-RIGHT (10:18)
[2019-03-07] MEDS: LIDOCAINE 1% W/EPI INJ 20 ML INJ (10:19)
[2019-03-07] MEDS: LIDOCAINE 2% INJ SDV 5 ML INJ (10:20)
[2019-03-07] MEDS: LIDOCAINE 2% 4 ML, BUPIVACAINE 0.5% (PF) 4 ML, HYALURONIDASE 150 UNIT INJ (10:22)
[2019-03-07] MEDS: CARBACHOL 1.5 ML VIAL INJ (10:24)
[2019-03-07] MEDS: HYALURONATE SODIUM 10 MG/ML SYRINGE INJ (10:24)
[2019-03-07] MEDS: CHONDROIDTIN/SOD HYALURONATE 1.05 ML SYRINGE INTRAOCULA ×2 (10:24→10:25)
[2019-03-07] MEDS: TRIAMCINOLONE 50 MG/5 ML VIAL INJ (10:25)
[2019-03-07] MEDS: MOXIFLOXACIN OPHTH DROPS 3 ML BOTTLE 2 DROPS INJ (10:26)
[2019-03-07 11:00] VITALS: BP 122/75; PULSE 60; RESP 18; TEMP 36.7; O2SAT 97
== END 2019-03-07 11:10 | disposition home or self-care (01) ==
LOC: OR 08:23
PROVIDERS: Family Provider Internal Medicine; PCP Internal Medicine; Visit Provider Ophthalmology
PROC: (CPT 66984; principal; 2019-03-07 09:45)
DX: H25.811 Combined forms of age-related cataract, right eye (principal); Z95.0 Presence of cardiac pacemaker; G47.30 Sleep apnea, unspecified; H02.409 Unspecified ptosis of unspecified eyelid; H35.30 Unspecified macular degeneration
CPT/HCPCS: 66984; J0171; J2704; J3301; J3470

== ENCOUNTER 2019-03-21 08:09 | Day surgery (SDC) | payer MEDICARE, SELFPAY ==
--- NOTE | 2019-03-19 19:36 | PM.PREOP ---
Pre-operative Note Interval Note History & Physical reviewed/Exam performed by Physician: Yes Changes to H&P: No
--- NOTE | 2019-03-19 19:37 | PM.OP.1 ---
Operative Date/Time/Diagnoses Date of procedure: 03/21/19 Time of procedure: 10:45 Procedure & Clinicians Procedure: Preoperative diagnoses: 1. Left cataract surgery with PCIOL 2. Advanced nuclear sclerotic and cortical cataract. 3. Cardiac pacemaker. 4. Sleep Apnea. 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 7. H/o TURP 8. Macular drusen. Postoperative diagnoses: 1. Left complex surgery with use of capsular dye and placement of a posterior chamber intraocular lens implant. Surgeon: Verona Dalton MD Complications: none Specimen: None Implant: ZCBOO+20.0 Blood loss: None Anesthesia: Retrobulbar with monitored standby. Description of procedure: Dictated by: Verona Dalton MD Copy to: [facility] Post operative diagnoses: 1. Left complex cataract removed with placement of a posterior chamber intraocular lens. Procedure: Phacoemulsification with posterior chamber intraocular lens implant Surgeon: Verona Dalton MD Blood loss: None Anesthesia: Retrobulbar with monitored standby Description of procedure: Patient has presented with decreased vision due to cataract which is affecting activities of daily living. The patient wants surgery to improve vision especially reading. The patient was taken to the operating room and given IV sedation. A retrobulbar block consisting of 6 cc of 2% xylocaine without epinephrine mixed half and half with 0.5% Marcaine with 1 cc of hyaluronidase added is placed between the medial and lateral 1/3 of the inferior orbital rim. Lid akinesia is obtain with 1% xylocaine with epinephrine infiltrated along the lid margin. The eye is manually massaged for 30 sec, prepped using Betadine solution, and draped in the usual sterile fashion. Temporal approach was made, a 1 mm side-port incision was performed 90 degrees from the planned corneal wound. Phenylephrine 1.5% mixed with 1% xylocaine 0.2 cc was placed into the anterior chamber. Viscoat followed by Brisa was then placed. A 2.6 mm clear incision with a 2.6 mm blade was placed. A 360 degree capsulorrhexis style capsulotomy was then performed with a cystitome needle on a Healon. The zonules were slightly lax but remained intact. Hydrodelineation and hydrodissection were performed. The phacoemulsification unit is introduced, and sculpting used to groove the central lens. It is then removed in chopping mode. Epi nucleus is removed with epinuclear mode and irrigation aspiration was used to remove the peripheral cortex. The posterior capsule is polished. The intraocular lens is selected, inspected, power confirmed, and placed in the posterior chamber. The pupil was constricted with Miostat. The wound was stromally hydrated and tested for leaks, there was none and was left sutureless. Vigamox 0.1 cc was placed into the anterior chamber. Kenalog 0.2 cc was placed in the superior subconjunctival space. A drop of antibiotic and was placed and the eye was patched and shielded. The patient was stable and returned to the recovery room in excellent condition. Dictated by: Verona Dalton MD Copy to: [facility]
[2019-03-21 09:38] VITALS: BP 118/78; PULSE 60; RESP 15; TEMP 36.3; O2SAT 96; BMI 36.6
[2019-03-21] MEDS: PROPARACAINE 0.5% OPHTH SOL 2 DROPS EYE-OP (09:50)
[2019-03-21] MEDS: CATARACT EYE COMPOUND (10 DROPS/SYRINGE) 3 DROPS EYE-OP (09:50)
[2019-03-21] MEDS: LIDOCAINE 2% 4 ML, BUPIVACAINE 0.5% (PF) 4 ML, HYALURONIDASE 150 UNIT INJ (11:19)
[2019-03-21] MEDS: LIDOCAINE 1% W/EPI INJ 20 ML INJ (11:19)
[2019-03-21] MEDS: MOXIFLOXACIN OPHTH DROPS 3 ML BOTTLE 2 DROPS INJ (11:20)
[2019-03-21] MEDS: PHENYLEPHRINE/LIDOCAINE VIAL (OR) 0.2 ML EYE-OP (11:20)
[2019-03-21] MEDS: BALANCED SALT IRRIG SOLN NO.2 15 ML IRR (11:21)
[2019-03-21] MEDS: CHONDROIDTIN/SOD HYALURONATE 1.05 ML SYRINGE INTRAOCULA (11:21)
[2019-03-21] MEDS: TRIAMCINOLONE 50 MG/5 ML VIAL INJ (11:21)
[2019-03-21] MEDS: CARBACHOL 1.5 ML VIAL INJ (11:22)
[2019-03-21] MEDS: OFLOXACIN 0.3% OPHTH 5 ML 2 DROPS EYE-LEFT (11:22)
[2019-03-21] MEDS: HYALURONATE SODIUM 10 MG/ML SYRINGE INJ (11:22)
[2019-03-21] MEDS: BALANCED SALT IRRIG SOLN NO.2 500 ML, EPINEPHrine 1 MG IRR (11:23)
[2019-03-21] MEDS: ERYTHROMYCIN OPHTH 1 GM OINT 1 APPLIC EYE-LEFT (11:28)
[2019-03-21 11:50] VITALS: BP 122/74; PULSE 60; RESP 15; TEMP 36.5; O2SAT 97
== END 2019-03-21 12:00 | disposition home or self-care (01) ==
LOC: OR 08:11
PROVIDERS: Family Provider Internal Medicine; PCP Internal Medicine; Visit Provider Ophthalmology
PROC: (CPT 66984; principal; 2019-03-21 10:45)
DX: H25.812 Combined forms of age-related cataract, left eye (principal); Z95.0 Presence of cardiac pacemaker; G47.30 Sleep apnea, unspecified; H35.369 Drusen (degenerative) of macula, unspecified eye
CPT/HCPCS: 66984; J0171; J2250; J2704; J3010; J3301; J3470

== ENCOUNTER → 2019-06-07 19:02 | Outpatient (ROUT) | payer MEDICARE, SELFPAY ==
[2019-06-07 20:00] LABS: TSH w/ Reflex to FT4 2.07 uIU/mL (0.47-4.68)
== END ==
PROVIDERS: Family Provider Internal Medicine; PCP Internal Medicine; Visit Provider Internal Medicine
DX: E03.9 Hypothyroidism, unspecified (principal)
CPT/HCPCS: 84443

== ENCOUNTER 2019-09-26 08:36 | Emergency (ER) | payer MEDICARE, SELFPAY ==
[2019-09-26 09:12] VITALS: BP 125/78; PULSE 62; RESP 14; TEMP 36.4; O2SAT 97; BMI 27.5
[2019-09-26] MEDS: SODIUM CHLORIDE 0.9% 1,000 ML 150 ML IV (09:38)
--- NOTE | 2019-09-26 09:38 | DI.CT.S_ITS ---
PROCEDURE: CT HEAD/BRAIN WO CON INDICATIONS: spining vertigo and weakness in right leg TECHNIQUE: Noncontrast 4.5 mm thick angled axial sections acquired from the foramen magnum to the vertex, with coronal and sagittal reformats. For radiation dose reduction, the following was used: automated exposure control, adjustment of mA and/or kV according to patient size. COMPARISON: [facility], CT, HEAD WITHOUT CONTRAST, 11/05/2017, 5:30. FINDINGS: Image quality: Excellent. CSF spaces: Basal cisterns are patent. No extra-axial fluid collections. Ventricles are prominent in size. There is mild parenchymal volume loss. Brain: No midline shift. No intracranial masses or hemorrhage. Wyatt-white matter interface is normal. Confluent areas of low attenuation are seen within the periventricular white matter of the supratentorial brain. Skull and face: Calvarium and visualized facial bones are intact, without suspicious lesions. Sinuses: Postoperative changes of the ethmoid sinuses are present. Opacification of the sphenoid air cells and right maxillary sinus is present. Bony remodeling and thickening is evident. Otherwise, the imaged paranasal sinuses and mastoid air cells are clear. IMPRESSION: 1. No acute intracranial hemorrhage. 2. Chronic small vessel ischemic changes and parenchymal volume loss are similar to the prior study. 3. Given the degree of ventricular prominence, clinical correlation to exclude the possibility of normal pressure hydrocephalus is recommended. 4. 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 Dictated by: Richard Benson M.D. on 09/26/2019 at 9:03 Approved by: Richard Benson M.D. on 09/26/2019 at 9:05
[2019-09-26 09:39] LABS: Add Manual Diff / Slide Review NO; Basophils Absolute Auto 0 /uL (0-100); Basophils Percent Auto 0.2 % (0-2); Eosinophils Absolute Auto 100 /uL (0-450); Eosinophils Percent Auto 1.8 % (2-4); Hematocrit 42.6 % (41-53); Hemoglobin 14.5 g/dL (13.5-17.5); Lymphocytes Absolute Auto 800 /uL (1100-4500); Lymphocytes Percent Auto 10.6 % (25-40); Mean Corpuscular Hemoglobin 32.2 PG (26-34); Mean Corpuscular Volume 94.7 fL (80-100); Monocytes Absolute Auto 400 /uL (0-900); Monocytes Percent Auto 5.6 % (3-14); Neutrophils Absolute Auto 5900 /uL (1500-7000); Neutrophils Percent Auto 81.8 % (50-75); Platelet Count 180 X10^3/uL (150-400); Red Cell Distribution Width 14.9 % (11.6-14.8); White Blood Cell Count 7.2 X10^3/uL (4.5-11.0)
--- NOTE | 2019-09-26 09:46 | ED_ITS ---
HPI - Dizziness General Chief Complaint: Dizziness Stated Complaint: R LEG WEAKNESS DIZINESS VOMITING Time Seen by Provider: 09/26/19 09:27 Source: patient Mode of arrival: Wheelchair Limitations: no limitations History of Present Illness HPI Narrative: The patient is a 4-year-old male who presented to the emergency department with dizziness when he woke up. He had trouble with his balance on the right side and was unable to walk. He describes his dizziness as spinning. He denied any headache. He has had no change in his hearing no pressure in his head. He states that he was having difficulty in bearing weight on his right leg will without falling. He denied any pain or weakness in his right leg. He denies a history of atrial fibrillation any racing of his heart. He admits to a pacemaker and has had no irregular heart rate. He states that he falls all the time and fell 2 weeks ago but has not had any head injury. He has not lost consciousness. He denies any seizures. He denied any change in vision loss of vision double vision. He has had no shortness of breath cough chest pain palpitations. He has had no abdominal pain but has had occasional nausea without any significant vomiting. He has had no diarrhea with normal bowel movements no melena or hematochezia. He denies any urinary symptoms. Related Data Home Medications Medication Instructions Recorded Confirmed CU/MN/SE/VIT A/VIT B2/VIT C/ 1 tab PO BID #0 04/12/13 03/07/19 (#ICAPS ORIGINAL) CYANOCOBALAMIN (VITAMIN B-12) 1,000 mcg PO BID #0 04/12/13 03/07/19 HYOSCYAMINE SULFATE (HYOMAX-FT) 1 tab PO BID #0 04/12/13 03/07/19 VITAMIN D (Vitamin D3) 1,000 unit PO QDAY #0 04/12/13 03/07/19 colesevelam [WelChol] 0 mg PO TIDP #0 04/12/13 03/07/19 levothyroxine 100 mcg PO DAILY 03/07/19 03/07/19 Previous Rx's Medication Instructions Recorded levofloxacin [Levaquin] 500 mg PO 1600 #30 tab 11/09/17 meclizine 12.5 mg PO TID PRN #20 tab 09/26/19 Allergies Allergy/AdvReac Type Severity Reaction Status Date / Time metoclopramide Allergy Unknown pt unsure Verified 09/26/19 09:12 [METOCLOPRAMIDE] Sulfa (Sulfonamide Allergy Unknown Verified 09/26/19 09:12 Antibiotics) [SULFA (SULFONAMIDE ANTIBIOTICS)] Review of Systems Review of Systems ROS Unobtainable: All systems reviewed & are unremarkable except as noted in HPI and below Patient History Social History household members: spouse Smoking Status: Unknown if ever smoked Smoking Status: Unknown if ever smoked alcohol intake frequency: holidays/special occasions only Substance Use Type: does not use Exam Narrative Exam Narrative: PHYSICAL EXAM: CONSTITUTIONAL: Awake, Alert, Oriented, Coherent, Cooperative in NAD. Does not appear toxic or ill. The patient is very talkative and has a good sense of humor. HEAD: AT/NC EENT: PERRL, FROM of eyes, no discharge, no nystagmus No drainage from the ears, Tympanic membranes intact bilaterally, clear EAC No epistaxis or nasal drainage Oral mucosa is moist and pink, posterior pharynx is without erythema or exudate. NECK: Supple, no obvious JVD, Trachea is midline without stridor, no palpable LN or masses. SPINE: No gross deformity, no palpable tenderness of the cervical, thoracic, lumbar or sacral spine. No CVA tenderness. THORAX: No deformity, retractions, chest wall tenderness, subcutaneous air or crepitice. LUNGS: Clear with symmetrical breath sounds without respiratory distress HEART: Normal heart tones, regular rhythm and rate without murmur. ABDOMEN: Soft, non-tender, normal bowel sounds without guarding, rebound, rigidity or palpable mass or organomegaly. EXTREMITIES: No edema, cyanosis, deformity or tenderness. SKIN: No rash, bruising, petechiae or purpura. NEURO: Awake, alert, oriented, conversive, cranial nerves II-XII are symmetrical and normal, moves all 4 extremities and is ambulatory with assistance and a walker. The patient's cerebellar functions were within normal limits as well as sensation. Initial Vital Signs Initial Vital Signs: Vital Signs Temperature 97.6 F 09/26/19 09:12 Pulse Rate 62 09/26/19 09:12 Respiratory Rate 14 09/26/19 09:12 Blood Pressure 125/78 09/26/19 09:12 Pulse Oximetry 97 09/26/19 09:12 Course Course Course Narrative: [id number] patient earlier today was complaining of of vertigo. Physical exam did not reveal that he had any nystagmus. His tympanic membranes are intact bilaterally without any pathology noted. CT scan revealed no acute intracranial pathology hemorrhage or stroke. The patient was given Antivert 25 mg p.o. and 1 L of fluid rehydration. The patient's dizziness has completely resolved he was ambulated with a walker and did well. The patient appears to be safe to go home. He was advised to follow-up with his primary care physician and be re-evaluated in 48-72 hours. Orders Ordered: Discontinued Medications Hydralazine HCl (Apresoline) 10 mg IV Q6HR PRN PRN Reason: Hypertension Sodium Chloride (Normal Saline 0.9%) 1,000 mls @ 150 mls/hr IV CONT CINDI Last Infusion: 09/26/19 13:30 Dose: 0 mls/hr Documented by: GAURIARRINGJOSE Infusion: 09/26/19 12:50 Dose: 999 mls/hr Documented by: GAURIARRINGJOSE Admin: 09/26/19 09:38 Dose: 150 mls/hr Documented by: NORMA Meclizine HCl (Antivert) 25 mg PO NOW ONE Stop: 09/26/19 11:34 Last Admin: 09/26/19 12:13 Dose: 25 mg Documented by: NORMA Vital Signs Vital signs: Vital Signs - 8 hr 09/26/19 09:12 09/26/19 09:58 09/26/19 10:25 Temperature 97.6 F Pulse Rate 62 63 60 Pulse Rate [Orthostatic Lying] Pulse Rate [Orthostatic Sitting] Pulse Rate [Orthostatic Standing] Respiratory Rate 14 21 19 Blood Pressure 125/78 Blood Pressure [Left Arm] 123/73 122/69 Blood Pressure [Orthostatic Lying] Blood Pressure [Orthostatic Sitting] Blood Pressure [Orthostatic Standing] Pulse Oximetry 97 98 92 09/26/19 11:33 09/26/19 12:28 Temperature Pulse Rate 60 Pulse Rate [Orthostatic Lying] 62 Pulse Rate [Orthostatic Sitting] 60 Pulse Rate [Orthostatic Standing] 65 Respiratory Rate 18 Blood Pressure Blood Pressure [Left Arm] 119/71 Blood Pressure [Orthostatic Lying] 114/71 Blood Pressure [Orthostatic Sitting] 122/72 Blood Pressure [Orthostatic Standing] 122/95 H Pulse Oximetry 96 MDM - Dizziness Lab Data Attestation: I reviewed the patient's lab results. Result diagrams: 09/26/19 09:30 09/26/19 09:30 Labs: Lab Results 09/26/19 09/26/19 09/26/19 Range/Units 09:30 09:30 09:30 WBC 7.2 (4.5-11.0) X10^3/uL RBC 4.50 (4.5-5.9) X10^6/uL Hgb 14.5 (13.5-17.5) g/dL Hct 42.6 (41-53) % MCV 94.7 (80-100) fL MCH 32.2 (26-34) PG MCHC 34.0 (30-36) % RDW 14.9 H (11.6-14.8) % Plt Count 180 (150-400) X10^3/uL Neut % (Auto) 81.8 H (50-75) % Lymph % (Auto) 10.6 L (25-40) % Arthur % (Auto) 5.6 (3-14) % Eos % (Auto) 1.8 L (2-4) % Baso % (Auto) 0.2 (0-2) % Neut # (Auto) 5900 (4801-4722) /uL Lymph # (Auto) 800 L (9985-6365) /uL Arthur # (Auto) 400 (0-900) /uL Eos # (Auto) 100 (0-450) /uL Baso # (Auto) 0 (0-100) /uL ESR 6 (0-15) MM/HR Sodium 141 (137-145) mmol/L Potassium 4.3 (3.4-5.1) mmol/L Chloride 107 (98-107) mmol/L Carbon Dioxide 25 (22-32) mmol/L BUN 24 H (9-20) mg/dL Creatinine 1.10 (0.66-1.25) mg/dL Estimated GFR > 60.0 (>60) mL/min BUN/Creatinine Ratio 21.8 (6-22) Glucose 103 (80-110) mg/dL Calcium 9.1 (8.4-10.2) mg/dL Troponin I < 0.012 (0.01-0.034) ng/mL ECG Data Attestation: I personally reviewed and interpreted this ECG as follows: Interpretation: The patient's EKG obtained on September 26 at 9:11 a.m.: 3 6 reveals a in electronic atrial paced rhythm [place] interval is 304 milliseconds first-degree AV block ventricular rate is 60. QTC is normal at 422 milliseconds. Left axis deviation. There are no acute diagnostic ST segment changes noted. T-waves are inverted in leads III. The patient has a Q-wave in III no other acute diagnostic changes. Discharge Plan Departure Patient Disposition: Home Clinical Impression: Weakness, Vertigo, Dizziness Discharge Date/Time: 09/26/19 13:47 Instructions: Orthostatic Hypotension, DI for Vertigo, DI for Dizziness- Nonvertigo Activity Restrictions/Additional Instructions: The patient was advised to be re-evaluated by his primary care physician in 48- 72 hours. If you developed spinning dizziness take the Antivert as prescribed. You must drink at least 2 L of fluid per day to keep yourself well hydrated. Your normal maintenance fluid is 2 L per day. If your dehydrated you need to drink a little bit more depending on how dehydrated you are. If you develop chest pain associated with dizziness shortness of breath associated with d izziness passing out you need to return to the emergency department for re- evaluation otherwise follow-up with your primary care physician. Prescriptions: New meclizine 12.5 mg tablet 12.5 mg PO TID PRN (Reason: dizziness) Qty: 20 RF: 0 No Action colesevelam [WelChol] 625 MG tablet 0 mg PO TIDP Qty: 0 RF: 0 CU/MN/SE/VIT A/VIT B2/VIT C/ (#ICAPS ORIGINAL) 1 tab PO BID Qty: 0 RF: 0 HYOSCYAMINE SULFATE (HYOMAX-FT) 1 tab PO BID Qty: 0 RF: 0 CYANOCOBALAMIN (VITAMIN B-12) 1,000 mcg PO BID Qty: 0 RF: 0 VITAMIN D (Vitamin D3) 1,000 unit PO QDAY Qty: 0 RF: 0 levofloxacin [Levaquin] 500 MG tablet 500 mg PO 1600 Qty: 30 RF: 0 levothyroxine 100 mcg PO DAILY RF: 0 Referrals: Charmaine Adamson MD [Primary Care Provider] -
[2019-09-26 09:51] LABS: BUN Creatinine Ratio 21.8 (6-22); Blood Urea Nitrogen 24 mg/dL (9-20); Calcium 9.1 mg/dL (8.4-10.2); Carbon Dioxide 25 mmol/L (22-32); Chloride 107 mmol/L (98-107); Estimated Glomerular Filt Rate > 60.0 mL/min (>60); Glucose 103 mg/dL (80-110); HEMOLYSIS < 15 (0-50); Potassium 4.3 mmol/L (3.4-5.1); Sodium 141 mmol/L (137-145)
[2019-09-26 09:58] VITALS: BP 123/73; PULSE 63; RESP 21; O2SAT 98
[2019-09-26 10:03] LABS: Erythrocyte Sedimentation Rate 6 MM/HR (0-15); Troponin I < 0.012 ng/mL (0.01-0.034)
[2019-09-26 10:25] VITALS: BP 122/69; PULSE 60; RESP 19; O2SAT 92
[2019-09-26 11:33] VITALS: BP 114/71; BP 122/72; BP 122/95; PULSE 60; PULSE 62; PULSE 65
[2019-09-26] MEDS: MECLIZINE HCL 12.5 MG TABLET 25 MG PO (12:13)
[2019-09-26 12:28] VITALS: BP 119/71; PULSE 60; RESP 18; O2SAT 96
== END 2019-09-26 13:47 | disposition home or self-care (01) ==
PROVIDERS: Emergency Provider Emergency Medicine; Family Provider Internal Medicine; PCP Internal Medicine
DX: R53.1 Weakness (principal); R42 Dizziness and giddiness; Z95.0 Presence of cardiac pacemaker
CPT/HCPCS: 36415; 70450; 80048; 84484; 85025; 85651; 93005; 93010; 99285

== ENCOUNTER → 2019-10-10 14:14 | Outpatient (CLI) | payer MEDICARE, SELFPAY ==
[2019-10-10 14:51] LABS: Alanine Aminotransferase 17 IU/L (<50); Albumin 4.2 g/dL (3.5-5.0); Albumin Globulin Ratio 1.4 (1.0-2.8); Alkaline Phosphatase 61 U/L (38-126); Aspartate Aminotransferase 25 IU/L (17-59); BUN Creatinine Ratio 14.5 (6-22); Bilirubin Total 0.9 mg/dL (0.2-1.3); Blood Urea Nitrogen 16 mg/dL (9-20); Calcium 9.2 mg/dL (8.4-10.2); Carbon Dioxide 30 mmol/L (22-32); Chloride 101 mmol/L (98-107); Estimated Glomerular Filt Rate > 60.0 mL/min (>60); Glucose 84 mg/dL (80-110); HEMOLYSIS < 15 (0-50); Potassium 4.1 mmol/L (3.4-5.1); Sodium 141 mmol/L (137-145); Total Protein 7.2 g/dL (6.3-8.2)
[2019-10-10 14:52] LABS: Hemoglobin A1C% w Est Avg Glu 5.5 % (4.0-6.0)
[2019-10-10 15:43] LABS: Vitamin B12 761 pg/mL (239-931)
[2019-10-10 16:00] LABS: Free T4, Direct Thyroxine 0.73 ng/dL (0.78-2.19)
[2019-10-10 16:15] LABS: Thyroid Stimulating Hormone 3.36 uIU/mL (0.47-4.68)
[2019-10-12 15:09] LABS: Triiodothyronine T3 Total 79 ng/dL (76-181)
== END ==
PROVIDERS: PCP Internal Medicine; Referring Provider Internal Medicine; Visit Provider Internal Medicine
DX: I95.9 Hypotension, unspecified (principal); E03.9 Hypothyroidism, unspecified; G31.84 Mild cognitive impairment of uncertain or unknown etiology; R73.9 Hyperglycemia, unspecified
CPT/HCPCS: 36415; 80053; 82607; 83036; 84439; 84443; 84480

== ENCOUNTER 2019-10-24 12:25 | Outpatient (RCR) | payer MEDICARE, SELFPAY ==
--- NOTE | 2019-10-24 16:02 | ST.OPIE ---
Visit Care Team Role Provider Type Kenyon Dalton MD Attending Provider Physician Primary Care Provider Referring Provider Specialty: Wound Care Address: [address] [place] [address], [id number] Email: [email or web address] Speech-Language Pathology Initial Evaluation [facility] Clinical Swallow Evaluation Start: 10/24/19 13:26 Freq: Status: Active Protocol: Document 10/24/19 13:26 LL (Rec: 10/24/19 13:31 LL [id number]) Clinical Swallow Evaluation Session Time Visit Start Time 12:30 Visit Stop Time 13:15 Total Visit Minutes 45 Visit Information Visit Number 1 Plan of Care Dates 10/24/19-01/22/20 Insurance Information Medicare Referral Referring Physician Dr. Kenyon Dalton Reason for Referral Dysphagia Setting Assessment Location Outpatient Care Visit Type Note Type Initial Evaluation Next Note Type Next Note Type Treatment Note Patient Information Identification Type Name History Shelli is a 84 y/o M who was referred by his primary physician, Dr. Kenyon Dalton due to choking/gagging episodes while eating/drinking. Dr. Dalton stated Patient reports choking on solids a couple of times per month and feels the frequency is beginning to increase. Of note, he has a SLT eval about 4 years ago however these notes are not yet available in his chart. Shelli reports no surgical procedures and/or injuries that caused swallowing difficulty. Shelli's reported that she has noticed a decrease in 's speaking volume over the past several months. Subjective Observations Shelli arrived on time to appointment. Shelli was accompanied by his and caregiver, who were both present during session. Evaluation Liquids Trialed Thin Solids Trialed Puree,Regular Administration Type Cup Single Sip,Cup Consecutive Sips,Self-Feeding Oral Impairment Mildly Impaired Oral Strategies Upright at 90 degrees,Lingual Sweep,Controlled Bite/Sip Size Oral Phase Comments During oral mechanism examination, it was noted that Shelli presented with a left side slight labial droop, reduced/weak lip seal (e.g., [facility] able to deflate cheeks filled with air), and slightly uncoordinated lingual movements. Shelli reported that he occassionally drools and pockets food on the left side which he independently clears with a lingual sweep. Shelli was given thin water by cup, applesauce, and a cracker. During PO trials, Shelli presented with minimum oral residue with cracker, which was cleared with a lingual sweep and liquid wash. Pharyngeal Strategies Sitting Upright (90 deg),Small Bites and Sips Pharyngeal Phase Comments During PO trials, Shelli presented with an immediate cough with thin water following cracker. He reported feeling food/liquid stuck on the left side of his throat. However, pharyngeal impairment cannot be fully evaluated without instrumental assessment. Findings Dysphagia Type Oropharyngeal phase dysphagia Rehabilitation Potential Excellent Impressions Shelli presents with mild oral dysphagia and signs of aspiration during intake as well as reported symptoms of swallowing difficulties (e.g., choking/gagging). It is recommended that Shelli receive a modified barium swallow study to determine least restrictive diet, risk for aspiration, and skilled therapy recommendations. Diet Recommendations Liquids Order Thin Diet Order Regular Medication Recommendations As Tolerated Aspiration Precautions Recommended Precautions Upright at 90 Degrees,Small Bites/Sips,Lingual Sweep,Check for Pocketing Treatment Plan Therapy Recommendations Verbal education was provided to Shelli, his , and their caregiver to review recommended compensatory swallow strategies (e.g., upright at 90 degrees, small bites/sips, check for pocketing, lingual sweep, and liquid wash to clear oral residues). Discussed recommendations for ENT consult with to include laryngoscopy to determine cause of dysphonia and potential need for voice therapy. Further therapy recommendations will be made pending modified barium swallow study results. Dysphagia Goals Shelli will participate in a modified barium swallow study to determine least restrictive diet, risk for aspiration, and skilled therapy recommendations. [facility] Follow Up After modified barium swallow study to review results and guide POC Referrals/Other Recommended Referrals ENT Consult
--- NOTE | 2020-05-15 14:19 | ST.OPDS ---
Visit Care Team Role Provider Type Kenyon Dalton MD Attending Provider Physician Primary Care Provider Referring Provider Address: [address] [place] [address], [id number] Patient is being discharged due to not being seen since September 2019.
== END 2020-05-16 15:00 ==
LOC: SP 12:25
PROVIDERS: PCP Internal Medicine; Referring Provider Internal Medicine; Visit Provider Internal Medicine
DX: R13.11 Dysphagia, oral phase (principal)
CPT/HCPCS: 92610

== ENCOUNTER → 2020-01-14 10:50 | Outpatient (CLI) | payer MEDICARE, SELFPAY ==
[2020-01-14 12:39] LABS: Free T4, Direct Thyroxine 0.83 ng/dL (0.78-2.19)
[2020-01-14 12:52] LABS: Thyroid Stimulating Hormone 2.98 uIU/mL (0.47-4.68)
[2020-01-15 23:07] LABS: Triiodothyronine T3 Total 79 ng/dL (71-180)
== END ==
PROVIDERS: PCP Internal Medicine; Referring Provider Internal Medicine; Visit Provider Internal Medicine
DX: E03.9 Hypothyroidism, unspecified (principal)
CPT/HCPCS: 36415; 84439; 84443; 84480

== ENCOUNTER → 2020-02-04 07:53 | Outpatient (CLI) | payer MEDICARE, SELFPAY ==
--- NOTE | 2020-02-04 | DI.RAD.S_ITS ---
PROCEDURE: FL BARIUM SWALLOW W SPEECH INDICATIONS: Other dysphagia TECHNIQUE: Examination was conducted in conjunction with speech pathology per standard protocol. In the lateral projection, filming was performed of the patient swallowing. AP projection filming may also be performed with patient swallowing. COMPARISON: None. FINDINGS: Function: The oral preparatory phase appears normal, with proper containment. The subsequent oral propulsive phase, pharyngeal phase, and esophageal phase of swallowing also appear normal with all proffered substances. There is laryngotracheal penetration without jeanne aspiration. Laryngotracheal penetration most pronounced with thin liquids. No pathologic vallecular pooling. A 13 mm barium pill rapidly passed through the esophagus to the stomach Morphology: No cricopharyngeal bar is identified. No cervical esophageal webs. No Zenker's diverticulum. No strictures. IMPRESSION: Laryngotracheal penetration. Dictated by: Mindi Malik MD, PhD on 02/04/2020 at 9:37 Approved by: Mindi Malik MD, PhD on 02/04/2020 at 9:39
--- NOTE | 2020-02-04 15:59 | ST.SWALLOW ---
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 Modified Barium Swallow Study Start: 02/04/20 13:28 Freq: Status: Active Protocol: Document 02/04/20 13:29 LL (Rec: 02/04/20 13:42 LL [id number]) Modified Barium Swallow Study Total Time Visit Start Time 08:30 Visit Stop Time 08:53 Total Visit Minutes 23 Visit Information Insurance Information Medicare Referral Referring Physician Andrae Wallace MD Reason for Referral Type and severity of dysphagia Setting Setting Outpatient Care Patient Information Identification Type Name,ID Card Patient History Per initial evaluation report: Shelli is an 84 y/o male who was referred by his primary physician, Dr. Kenyon Dalton due to choking/gagging episodes while eating/drinking . Dr. Dalton stated Patient reports choking on solids a couple of times per month and feels the frequency is beginning to increase. 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 Shelli reports no surgical procedures and/or injuries that caused swallowing difficulty. Shelli's reported that she has noticed a decrease in 's speaking volume over the past several months. Shelli was referred by ENT, Dr. Andrae Wallace to receive a modified barium swallow study to determine least restrictive diet, risk for aspiration, and effective compensatory swallow strategies. Subjective Observations Shelli arrived on time and provided case history. He was able to follow all instructions. Patient Positioning Position View Lateral Imaging Lateral View Textures Administered Trials Presented Thin Liquid via Cup,Thin Liquid via Straw,[place] Liquid via Cup,Regular Textures, Barium Tablet Oral Phase Source: MBSIMP (TM) (C) Bolus Specific Scoring Grid Lip Closure Minimal Impairment Tongue Control During Bolus Hold WFL Bolus Prep/Mastication No Impairment (WNL) Bolus Transport/Lingual Motion No Impairment (WNL) A/P Lingual Propulsion Delay No Oral Residue Mild Impairment Residue Clearing WFL Nasal Regurgitation No Additional Oral Phase Observations Oral Peripheral Exam: Left side labial droop, reduced/ weak labial seal, and slightly uncoordinated lingual movements. Oral phase: Mildly impaired. Mild oral residue present which cleared with subsequent swallows, not abnormal for intake of barium contrast. Pharyngeal Phase Source: MBSIMP (TM) (C) Bolus Specific Scoring Grid Delayed Initiation of Pharyngeal Swallow No Soft Palate Elevation Minimal Impairment Tongue Base Strength/Range of Motion Minimal Impairment Residue Along the Tongue Base Yes: Mild Clearance of Residue Along Tongue Base WFL Laryngeal Elevation Minimal Impairment Anterior Hyoid Movement Minimal Impairment Epiglottic Range of Motion Minimal Impairment Vallecular Residue Yes: mild Clearance of Vallecular Residue WFL Laryngeal Vestibular Closure Mild Impairment Pharyngeal Stripping Wave Mild Impairment Pharyngeal Contraction Mild Impairment Posterior Pharyngeal Wall Residue No Clearance of Posterior Pharyngeal Wall WFL Residue Upper Esophageal Sphincter Opening WFL Residue in the Pyriform Sinuses Yes: Mild Clearance of Residue in the Pyriform WFL Sinuses Esophageal Clearance Upright Position WFL Pharyngoesophageal Backflow Observed No Additional Pharyngeal Phase Observations Minimally reduced tongue base retraction impacting hyolaryngeal elevation and complete epiglottic inversion. PA Scale Score: 3 - contrast enters the airway, remains above the vocal folds, and is not ejected from the airway (e .g., Shelli's PA score is between 2-3 - trace amount of residue in the airway until cued to throat clear - reswallow). Penetration observed with normal size sip of thin liquid from cup and straw. Penetration not observed when straw was taken away and bolus size was reduced. Chin tuck was implemented, but proved to be ineffective. Shelli presented with mild tongue base, vallecular, and pyriform sinuses residue on thin and nectar thick liquids, which cleared with throat clear and reswallow. Shelli presented with trace tongue base and pyriform sinuses residue on regular texture (e.g., abimael cracker) trial. Reduced pharyngeal stripping wave and contraction likely due to pharyngeal weakness, causing pharynx residue and penetration with normal bolus size. A/P View Esophageal Observations Esophageal Function Rapid bolus flow through esophagus and into stomach was observed. Clinical Impressions Dysphagia Type Mild oropharyngeal dysphagia Findings Shelli presents with mild oropharyngeal dysphagia likely due to generalized weakness and age -related changes. Shelli tolerated thin liquid from cup and straw, nectar thick liquid from cup, and regular texture (e.g., cracker) trial with no overt s/sx of aspiration (e.g., cough, throat clear, watery eyes). No penetration observed when Shelli was verbally cued to take a small sip to limit liquid bolus size. Shelli was educated on results and recommendations. Shelli verbalized understanding and agreement with continuation of current diet and recommended swallow strategies to increase safety with oral intake. It is recommended that Shelli continues with a regular texture diet and thin liquids with use of small bites/sips, sitting upright at 90 degrees, throat clear - reswallow, no straw use, and check for left sided pocketing / perform lingual sweep, which Shelli does independently. Rehabilitation Potential Excellent Patient Appropriate for Therapy Yes Recommendations Diet Liquids Order Thin Diet Order Regular Medication Recommendation As Tolerated Additional Dietary Needs Single Sips,Controlled Sips,No Straws Aspiration Precautions Recommended Precautions Upright at 90 Degrees,Small Bites/Sips,Lingual Sweep,Check for Pocketing,Liquids from Cup Treatment Plan Therapy Recommendations Outpatient Speech Therapy,Oral Motor Exercises,Vocal Fold Adduction Exercises, Compensatory Strategy Education Compensatory Strategies Recommendations Sitting Upright (90 deg), Pocketing,No Straw,Liquids from Cup,Small Bites and Sips Short Term Goals 1. Shelli will perform safe swallow strategies given minimum cues to improve protection of airway and reduce the risk of aspiration. 2. Shelli will tolerate regular texture diet and thin liquids with use of compensatory swallow strategies without any overt s /sx of aspiration. 3. Shelli will complete recommended oral and pharyngeal/laryngeal strengthening exercises given minimum cues. Snf Goals 1. Shelli will tolerate regular texture diet and thin liquids without any overt s/sx of aspiration. 2. Patient and caregiver(s) will verbalize understanding of education for dysphagia severity, oral motor and laryngeal/pharyngeal strengthening exercises, and compensatory swallow strategies. Placement Recommendation After Discharge Home Additional Recommendations/Comments Follow up x 1-2 to review modified barium swallow study results, train safety swallow strategies, train oral and pharyngeal/laryngeal strengthening exercises, and provide patient/caregiver education on dysphagia severity and compensatory swallow strategies.
== END ==
PROVIDERS: PCP Internal Medicine; Referring Provider Otolaryngology; Visit Provider Otolaryngology
DX: R13.19 Other dysphagia (principal)
CPT/HCPCS: 74230; 92611

== ENCOUNTER 2020-03-27 13:00 | Outpatient (RCR) | payer MEDICARE, SELFPAY ==
--- NOTE | 2019-11-07 16:25 | PT.OIE ---
Current Diagnoses Difficulty in walking, not elsewhere classified (11/07/19) Weakness (11/07/19) History of falling (11/07/19) Visit Care Team Role Provider Type Kenyon Dalton MD Attending Provider Physician Primary Care Provider Referring Provider Specialty: Wound Care Address: [address] [place] [address], [id number] Email: [email or web address] Physical Therapy Initial Evaluation PT-OP-A Visit Information Start: 11/05/19 15:00 Freq: Status: Active Protocol: Document 11/07/19 10:41 SP (Rec: 11/07/19 11:12 SP [email or web address]) Out-Patient Physical Therapy Visit Information Visit Information Visit Type Initial Evaluation Visit Start Time 09:00 Visit Stop Time 09:50 Total Visit Minutes 50 Visit Number 1 Number of TOOL CRIB ATTENDANT Visits 0 PT-OP-B Current Condition Start: 11/05/19 15:00 Freq: Status: Active Protocol: Document 11/07/19 10:41 SP (Rec: 11/07/19 11:12 SP [email or web address]) Current Condition History of Current Condition Current Complaints leg weakness, decreased balance, low activity tolerance History of Current Condition Pt, 84yo male, presents to PT with c/o B leg weakness. Pt states his legs have gotten weaker over the last few months and he feels unsteady on his feet. He has not had any recent falls and has not experienced any dizziness since the last time he was in the hospital. Pt goes to pool 2x/week and completes old PT exercises at home. He currently has a caregiver with him every day of the week and they assist him with walking up the stairs and getting in and out of a car. Pt would like to get back to going on long walks, grocery shopping, and getting more exercise without feeling weak and unsteady. He has had previous PT before and states it has helped his weakness and balance in the past. Prior Treatments and Tests Physical Therapy for weakness/ balance Cataract removal, R shld refduction, colectomy, neuropathy, pacemaker Treatment Goals Patient/Caregiver Goals get legs stronger in order to be able to go on long walks with , go grocery shopping , and be able to walk around in community without LOB. PT-OP-D Balance Start: 11/05/19 15:00 Freq: Status: Active Protocol: Document 11/07/19 10:41 SP (Rec: 11/07/19 11:12 SP [email or web address]) Balance Tests Valdez Balance Test Valdez Balance Test Score 30 Valdez Impairment Rating 40 to 59% Impaired (Score 23- 33) PT-OP-E Functional Tests Start: 11/05/19 15:00 Freq: Status: Active Protocol: Document 11/07/19 10:41 SP (Rec: 11/07/19 11:12 SP [email or web address]) Functional Tests 30 Second Sit to Stand Test Score 6 Comments with BUE support Dynamic Gait Index (DGI) Score 13/24 DGI Impairment Rating 40 to <60% Impaired (Score 10- 14) PT-OP-G Mobility & Gait Start: 11/05/19 15:00 Freq: Status: Active Protocol: Document 11/07/19 10:41 SP (Rec: 11/07/19 11:12 SP [email or web address]) OP Mobility Evaluation Transfers Sit to Stand able to complete without UE support, needs cueing when transferring stand to sit to slow down and get closer to the surface. OP Gait Assessment Comments Gait Comments Pt ambulates with FWW, forward trunk lean, decreased gait speed, decreased B foot clearance, and decreased push off on the R. PT-OP-M Strength Start: 11/05/19 15:00 Freq: Status: Active Protocol: Document 11/07/19 10:41 SP (Rec: 11/07/19 11:12 SP [email or web address]) Hip Strength Hip Manual Muscle Testing Right Flexion (L2) 3+ Fair+ External Rotation 3+ Fair+ Internal Rotation 3+ Fair+ Left Flexion (L2) 4- Good- External Rotation 4- Good- Internal Rotation 4- Good- Knee Strength Knee Manual Muscle Testing Right Flexion (S2) 4- Good- Extension (L3) 4- Good- Left Flexion (S2) 4- Good- Extension (L3) 4- Good- Ankle/Foot Strength Ankle and Foot Manual Muscle Testing Right Dorsiflexion (L4) 4- Good- Left Dorsiflexion (L4) 4- Good- PT-OP-Q Treatments Start: 11/05/19 15:00 Freq: Status: Active Protocol: Document 11/07/19 10:41 SP (Rec: 11/07/19 11:12 SP [email or web address]) Therapeutic Exercises Supine Exercises clamshell Side bilateral Resistance L1 Reps/Minutes 10 SLR Side bilateral Reps/Minutes 20 Standing Exercises hip abd Side bilateral Reps/Minutes 20 hip ext Side bilateral Reps/Minutes 20 PT-OP-T Assessment and Plan Start: 11/05/19 15:00 Freq: Status: Active Protocol: Document 11/07/19 10:41 SP (Rec: 11/07/19 11:12 SP [email or web address]) Physical Therapy Assessment Rehab Potential Rehabilitation Potential Good Evaluation Complexity Number of Personal Factors/Comorbidities 3 or More Number of Body Systems Impaired 4 or More Clinical Presentation at Evaluation Evolving Impairments Impairments Activity Tolerance,Balance, Coordination,Functional Activities,Functional Mobility ,Gait,Pain,Posture,ROM, Strength,Transfers Goals Three Impairment Gait Pocket Builder Goal (LTG) Pt will walk with improved gait pattern and demonstrate foot clearance bilaterally during swing phase LTG Duration 8 weeks 2 Impairment Balance Short Term Goal (STG) Pt will score >45/56 on BBS to decrease fall risk STG Duration 6 weeks [facility] Goal (LTG) Pt will score >19/24 on DGI in order to decrease fall risk LTG Duration 8 weeks 1 Impairment LE strength Short Term Goal (STG) Pt will be able to complete 10 sit to stands in 30s STG Duration 4 weeks [facility] Goal (LTG) Pt will have 4/5 LE strength in order to be able to transfer safely LTG Duration 8 weeks Assessment Summary Assessment Pt presents to PT with B LE weakness and decreased balance causing pt to be a high fall risk in the community. He also presents with poor posture and slow gait speed. Pt would benefit from skilled PT services in order to improve impairments, maximize function , and increase overall activity tolerance in order to be able to ambulate for longer distances and complete ADLs. Physical Therapy Plan Frequency and Duration Frequency of Treatment 2x/Week Duration of Treatment 2 months Plan of Care Start Date 11/07/19 Plan of Care End Date 01/07/20 Therapeutic Interventions Therapeutic Interventions Aquatic Therapy,Balance Training,Gait Training,Home Exercise Program,Joint Mobilizations,Manual Therapy, Neuromuscular Re-education, Patient/Caregiver Education, Self-Care/Home Management,Soft Tissue Mobilization, Therapeutic Activities, Therapeutic Exercises Modalities Cold Pack/Ice Massage,Hot Packs Next Visit Focus/Plan Next Note Type Treatment Note Next Visit Plan Reassess how HEP went, begin balance activities.
--- NOTE | 2019-11-07 16:26 | PT.OPPOC ---
Physical, Occupational & Speech Therapy At [facility] Current Diagnoses Difficulty in walking, not elsewhere classified (11/07/19) Weakness (11/07/19) History of falling (11/07/19) Visit Care Team Role Provider Type Kenyon Dalton MD Attending Provider Physician Primary Care Provider Referring Provider Specialty: Wound Care Address: [address] [place] [address], [phone] Email: [email or web address] Plan Of Care PT-OP-T Assessment and Plan Start: 11/05/19 15:00 Freq: Status: Active Protocol: Document 11/07/19 10:41 SP (Rec: 11/07/19 11:12 SP [email or web address]) Physical Therapy Assessment Rehab Potential Rehabilitation Potential Good Evaluation Complexity Number of Personal Factors/Comorbidities 3 or More Number of Body Systems Impaired 4 or More Clinical Presentation at Evaluation Evolving Impairments Impairments Activity Tolerance,Balance, Coordination,Functional Activities,Functional Mobility ,Gait,Pain,Posture,ROM, Strength,Transfers Goals Three Impairment Gait Correction Goal (LTG) Pt will walk with improved gait pattern and demonstrate foot clearance bilaterally during swing phase LTG Duration 8 weeks 2 Impairment Balance Short Term Goal (STG) Pt will score >45/56 on BBS to decrease fall risk STG Duration 6 weeks Correction Goal (LTG) Pt will score >19/24 on DGI in order to decrease fall risk LTG Duration 8 weeks 1 Impairment LE strength Short Term Goal (STG) Pt will be able to complete 10 sit to stands in 30s STG Duration 4 weeks Transportation Equipment Painter Goal (LTG) Pt will have 4/5 LE strength in order to be able to transfer safely LTG Duration 8 weeks Assessment Summary Assessment Pt presents to PT with B LE weakness and decreased balance causing pt to be a high fall risk in the community. He also presents with poor posture and slow gait speed. Pt would benefit from skilled PT services in order to improve impairments, maximize function , and increase overall activity tolerance in order to be able to ambulate for longer distances and complete ADLs. Physical Therapy Plan Frequency and Duration Frequency of Treatment 2x/Week Duration of Treatment 2 months Plan of Care Start Date 11/07/19 Plan of Care End Date 01/07/20 Therapeutic Interventions Therapeutic Interventions Aquatic Therapy,Balance Training,Gait Training,Home Exercise Program,Joint Mobilizations,Manual Therapy, Neuromuscular Re-education, Patient/Caregiver Education, Self-Care/Home Management,Soft Tissue Mobilization, Therapeutic Activities, Therapeutic Exercises Modalities Cold Pack/Ice Massage,Hot Packs Next Visit Focus/Plan Next Note Type Treatment Note Next Visit Plan Reassess how HEP went, begin balance activities. Plan of Care Dates Plan of Care Start Date 11/07/19 Plan of Care End Date 01/07/20 Electronically Signed by: Hannah Wallace, PT 11/07/19 [id number] Please Sign and Return: I have reviewed this Plan of Care and certify that the skilled therapy services above are required to meet the patient?s needs. Physician Signature Date Printed Name and Credentials Clinical Instructor Signature Printed Name and Credentials
--- NOTE | 2019-11-12 15:47 | PT.OTN ---
Current Diagnoses Difficulty in walking, not elsewhere classified (11/12/19) Weakness (11/12/19) History of falling (11/12/19) Physical Therapy Treatment Note PT-OP-A Visit Information Start: 11/05/19 15:00 Freq: Status: Active Protocol: Document 11/12/19 11:19 SP (Rec: 11/12/19 11:33 SP [email or web address]) Out-Patient Physical Therapy Visit Information Visit Information Visit Type Treatment Note Visit Start Time 09:48 Visit Stop Time 10:30 Total Visit Minutes 42 Visit Number 2 Number of GREASER AND OILER Visits 0 PT-OP-B Current Condition Start: 11/05/19 15:00 Freq: Status: Active Protocol: Document 11/07/19 10:41 SP (Rec: 11/07/19 11:12 SP [email or web address]) Current Condition History of Current Condition Current Complaints leg weakness, decreased balance, low activity tolerance History of Current Condition Pt, 84yo male, presents to PT with c/o B leg weakness. Pt states his legs have gotten weaker over the last few months and he feels unsteady on his feet. He has not had any recent falls and has not experienced any dizziness since the last time he was in the hospital. Pt goes to pool 2x/week and completes old PT exercises at home. He currently has a caregiver with him every day of the week and they assist him with walking up the stairs and getting in and out of a car. Pt would like to get back to going on long walks, grocery shopping, and getting more exercise without feeling weak and unsteady. He has had previous PT before and states it has helped his weakness and balance in the past. Prior Treatments and Tests Physical Therapy for weakness/ balance Cataract removal, R shld refduction, colectomy, neuropathy, pacemaker Treatment Goals Patient/Caregiver Goals get legs stronger in order to be able to go on long walks with , go grocery shopping , and be able to walk around in community without LOB. PT-OP-C Subjective Start: 11/05/19 15:00 Freq: Status: Active Protocol: Document 11/12/19 11:19 SP (Rec: 11/12/19 11:33 SP [email or web address]) OP-PT Subjective Patient Comments Patient Comments Pt reports he has been doing his HEP daily. He went on a walk yesterday and felt good. He states he is feeling like he tends to shift his weight backwards when standing and wants to work on his balance. PT-OP-D Balance Start: 11/05/19 15:00 Freq: Status: Active Protocol: Document 11/07/19 10:41 SP (Rec: 11/07/19 11:12 SP [email or web address]) Balance Tests Valdez Balance Test Valdez Balance Test Score 30 Valdez Impairment Rating 40 to 59% Impaired (Score 23- 33) PT-OP-E Functional Tests Start: 11/05/19 15:00 Freq: Status: Active Protocol: Document 11/07/19 10:41 SP (Rec: 11/07/19 11:12 SP [email or web address]) Functional Tests 30 Second Sit to Stand Test Score 6 Comments with BUE support Dynamic Gait Index (DGI) Score 13/24 DGI Impairment Rating 40 to <60% Impaired (Score 10- 14) PT-OP-G Mobility & Gait Start: 11/05/19 15:00 Freq: Status: Active Protocol: Document 11/07/19 10:41 SP (Rec: 11/07/19 11:12 SP [email or web address]) OP Mobility Evaluation Transfers Sit to Stand able to complete without UE support, needs cueing when transferring stand to sit to slow down and get closer to the surface. OP Gait Assessment Comments Gait Comments Pt ambulates with FWW, forward trunk lean, decreased gait speed, decreased B foot clearance, and decreased push off on the R. PT-OP-M Strength Start: 11/05/19 15:00 Freq: Status: Active Protocol: Document 11/07/19 10:41 SP (Rec: 11/07/19 11:12 SP [email or web address]) Hip Strength Hip Manual Muscle Testing Right Flexion (L2) 3+ Fair+ External Rotation 3+ Fair+ Internal Rotation 3+ Fair+ Left Flexion (L2) 4- Good- External Rotation 4- Good- Internal Rotation 4- Good- Knee Strength Knee Manual Muscle Testing Right Flexion (S2) 4- Good- Extension (L3) 4- Good- Left Flexion (S2) 4- Good- Extension (L3) 4- Good- Ankle/Foot Strength Ankle and Foot Manual Muscle Testing Right Dorsiflexion (L4) 4- Good- Left Dorsiflexion (L4) 4- Good- PT-OP-Q Treatments Start: 11/05/19 15:00 Freq: Status: Active Protocol: Document 11/12/19 11:19 SP (Rec: 11/12/19 11:33 SP [email or web address]) Cardio Equipment Recumbent Stepper (Sci-Fit) Duration (Minutes) 6 Resistance 4 Therapeutic Exercises Supine Exercises bridge Reps/Minutes 20 clamshell Side bilateral Resistance L1 Reps/Minutes 20 SLR Side bilateral Reps/Minutes 30 Comments cue for quad contraction prior to lifting leg, slow down. Sitting Exercises seated heel raises Side bilateral Reps/Minutes 30 Seated Marching Side bilateral Resistance L1 Reps/Minutes 30 sec x 4 Standing Exercises hip abd Side bilateral Reps/Minutes 30 hip ext Side bilateral Reps/Minutes 20 Neuro Re-Education Treatment Balance Activities parallel bars Comments 1. feet together 2. feet apart 3. staggered stance all with head turns, EC rockerboard Comments 1. weight shift fwd/back 2. keep board in place, add head turns PT-OP-T Assessment and Plan Start: 11/05/19 15:00 Freq: Status: Active Protocol: Document 11/12/19 11:19 SP (Rec: 11/12/19 11:33 SP [email or web address]) Physical Therapy Assessment Goals Three Impairment Gait Assisted Goal (LTG) Pt will walk with improved gait pattern and demonstrate foot clearance bilaterally during swing phase LTG Duration 8 weeks 2 Impairment Balance Short Term Goal (STG) Pt will score >45/56 on BBS to decrease fall risk STG Duration 6 weeks Cigarette Roller Goal (LTG) Pt will score >19/24 on DGI in order to decrease fall risk LTG Duration 8 weeks 1 Impairment LE strength Short Term Goal (STG) Pt will be able to complete 10 sit to stands in 30s STG Duration 4 weeks Assisted Goal (LTG) Pt will have 4/5 LE strength in order to be able to transfer safely LTG Duration 8 weeks Assessment Summary Assessment Pt able to demonstrate HEP with minimal cueing indicating pt has been compliant. He has difficulty with staggered stance and demonstrates increased sway with head turns . Pt was able to complete standing exercises however required rest breaks due to legs feeling like they could give out. Physical Therapy Plan Frequency and Duration Frequency of Treatment 2x/Week Duration of Treatment 2 months Plan of Care Start Date 11/07/19 Plan of Care End Date 01/07/20 Next Visit Focus/Plan Next Note Type Treatment Note Next Visit Plan continue with balance activities, progress quad strengthening.
--- NOTE | 2019-11-14 10:15 | PT.OTN ---
Current Diagnoses Difficulty in walking, not elsewhere classified (11/14/19) Weakness (11/14/19) History of falling (11/14/19) Physical Therapy Treatment Note PT-OP-A Visit Information Start: 11/05/19 15:00 Freq: Status: Active Protocol: Document 11/14/19 10:01 SP (Rec: 11/14/19 10:10 SP [email or web address]) Out-Patient Physical Therapy Visit Information Visit Information Visit Type Treatment Note Visit Start Time 09:07 Visit Stop Time 09:45 Total Visit Minutes 38 Visit Number 3 Number of BUTANE COMPRESSOR OPERATOR Visits 0 PT-OP-B Current Condition Start: 11/05/19 15:00 Freq: Status: Active Protocol: Document 11/07/19 10:41 SP (Rec: 11/07/19 11:12 SP [email or web address]) Current Condition History of Current Condition Current Complaints leg weakness, decreased balance, low activity tolerance History of Current Condition Pt, 84yo male, presents to PT with c/o B leg weakness. Pt states his legs have gotten weaker over the last few months and he feels unsteady on his feet. He has not had any recent falls and has not experienced any dizziness since the last time he was in the hospital. Pt goes to pool 2x/week and completes old PT exercises at home. He currently has a caregiver with him every day of the week and they assist him with walking up the stairs and getting in and out of a car. Pt would like to get back to going on long walks, grocery shopping, and getting more exercise without feeling weak and unsteady. He has had previous PT before and states it has helped his weakness and balance in the past. Prior Treatments and Tests Physical Therapy for weakness/ balance Cataract removal, R shld refduction, colectomy, neuropathy, pacemaker Treatment Goals Patient/Caregiver Goals get legs stronger in order to be able to go on long walks with , go grocery shopping , and be able to walk around in community without LOB. PT-OP-C Subjective Start: 11/05/19 15:00 Freq: Status: Active Protocol: Document 11/14/19 10:01 SP (Rec: 11/14/19 10:10 SP [email or web address]) OP-PT Subjective Patient Comments Patient Comments Pt reports he is feeling more steady on his feet the last couple of days. He feels like he sways backwards however does not feel it in his feet and is getting worried about that. PT-OP-D Balance Start: 11/05/19 15:00 Freq: Status: Active Protocol: Document 11/07/19 10:41 SP (Rec: 11/07/19 11:12 SP [email or web address]) Balance Tests Valdez Balance Test Valdez Balance Test Score 30 Valdez Impairment Rating 40 to 59% Impaired (Score 23- 33) PT-OP-E Functional Tests Start: 11/05/19 15:00 Freq: Status: Active Protocol: Document 11/07/19 10:41 SP (Rec: 11/07/19 11:12 SP [email or web address]) Functional Tests 30 Second Sit to Stand Test Score 6 Comments with BUE support Dynamic Gait Index (DGI) Score 13/24 DGI Impairment Rating 40 to <60% Impaired (Score 10- 14) PT-OP-G Mobility & Gait Start: 11/05/19 15:00 Freq: Status: Active Protocol: Document 11/07/19 10:41 SP (Rec: 11/07/19 11:12 SP [email or web address]) OP Mobility Evaluation Transfers Sit to Stand able to complete without UE support, needs cueing when transferring stand to sit to slow down and get closer to the surface. OP Gait Assessment Comments Gait Comments Pt ambulates with FWW, forward trunk lean, decreased gait speed, decreased B foot clearance, and decreased push off on the R. PT-OP-M Strength Start: 11/05/19 15:00 Freq: Status: Active Protocol: Document 11/07/19 10:41 SP (Rec: 11/07/19 11:12 SP [email or web address]) Hip Strength Hip Manual Muscle Testing Right Flexion (L2) 3+ Fair+ External Rotation 3+ Fair+ Internal Rotation 3+ Fair+ Left Flexion (L2) 4- Good- External Rotation 4- Good- Internal Rotation 4- Good- Knee Strength Knee Manual Muscle Testing Right Flexion (S2) 4- Good- Extension (L3) 4- Good- Left Flexion (S2) 4- Good- Extension (L3) 4- Good- Ankle/Foot Strength Ankle and Foot Manual Muscle Testing Right Dorsiflexion (L4) 4- Good- Left Dorsiflexion (L4) 4- Good- PT-OP-Q Treatments Start: 11/05/19 15:00 Freq: Status: Active Protocol: Document 11/14/19 10:01 SP (Rec: 11/14/19 10:10 SP [email or web address]) Cardio Equipment Recumbent Stepper (Sci-Fit) Duration (Minutes) 6 Resistance 4 Therapeutic Exercises Sitting Exercises knee extension Side bilateral Resistance L1 Reps/Minutes 20 clamshells Side bilateral Resistance L2 seated heel raises Side bilateral Reps/Minutes 30 Seated Marching Side bilateral Resistance L1 Reps/Minutes 30 sec x 4 Standing Exercises marches Side bilateral Reps/Minutes 30 Neuro Re-Education Treatment Balance Activities on foam Comments 1. feet together head turns, EC parallel bars Comments 1. feet together 2. feet apart 3. staggered stance all with head turns, EC rockerboard Comments 1. weight shift fwd/back 2. keep board in place, add head turns Self-Care/Home Management Treatment Education Patient Education Home Exercise Program,Safety Caregiver Education Caregiver educated on making sure pt is next to counter when performing all standing exercises and balance activities. Educated on use of gait belt and proper positioning for guarding pt. Other Education Pt educated on shifting weight forward and using counter to stabilize prior to beginning all exercises. PT-OP-T Assessment and Plan Start: 11/05/19 15:00 Freq: Status: Active Protocol: Document 11/14/19 10:01 SP (Rec: 11/14/19 10:10 SP [email or web address]) Physical Therapy Assessment Goals Three Impairment Gait Health Insurance Assessor Goal (LTG) Pt will walk with improved gait pattern and demonstrate foot clearance bilaterally during swing phase LTG Duration 8 weeks 2 Impairment Balance Short Term Goal (STG) Pt will score >45/56 on BBS to decrease fall risk STG Duration 6 weeks Health Insurance Assessor Goal (LTG) Pt will score >19/24 on DGI in order to decrease fall risk LTG Duration 8 weeks 1 Impairment LE strength Short Term Goal (STG) Pt will be able to complete 10 sit to stands in 30s STG Duration 4 weeks Health Insurance Assessor Goal (LTG) Pt will have 4/5 LE strength in order to be able to transfer safely LTG Duration 8 weeks Assessment Summary Assessment Pt was able to complete all balance activities in parallel bars without taking rest break. He needed less cueing for exercises today however does need to slow down and go through full range. Pt able to complete balance activities with less sway and takes 1 min of holding on to parallel bars to get balance prior to removing UE support. He has difficulty performing sit to stand following strengthening session and requires BUE support. At this time, pt's visits will be on hold due to policy on COVID-19 and pt being high-risk. Physical Therapy Plan Frequency and Duration Frequency of Treatment 2x/Week Duration of Treatment 2 months Plan of Care Start Date 11/07/19 Plan of Care End Date 01/07/20 Next Visit Focus/Plan Next Note Type Treatment Note Next Visit Plan continue with balance activities, progress quad strengthening.
--- NOTE | 2020-02-13 09:46 | PT.OTN ---
Current Diagnoses Difficulty in walking, not elsewhere classified (02/13/20) Weakness (02/13/20) History of falling (02/13/20) Physical Therapy Treatment Note PT-OP-A Visit Information Start: 11/05/19 15:00 Freq: Status: Active Protocol: Document 02/13/20 09:06 [facility] (Rec: 02/13/20 09:46 [facility] [id number]) Out-Patient Physical Therapy Visit Information Visit Information Visit Type Progress Note Visit Start Time 09:02 Visit Stop Time 09:44 Total Visit Minutes 42 Visit Number 4 Number of CYLINDER INSPECTOR AND TESTER Visits 0 PT-OP-B Current Condition Start: 11/05/19 15:00 Freq: Status: Active Protocol: Document 11/07/19 10:41 SP (Rec: 11/07/19 11:12 SP [id number]) Current Condition History of Current Condition Current Complaints leg weakness, decreased balance, low activity tolerance History of Current Condition Pt, 84yo male, presents to PT with c/o B leg weakness. Pt states his legs have gotten weaker over the last few months and he feels unsteady on his feet. He has not had any recent falls and has not experienced any dizziness since the last time he was in the hospital. Pt goes to pool 2x/week and completes old PT exercises at home. He currently has a caregiver with him every day of the week and they assist him with walking up the stairs and getting in and out of a car. Pt would like to get back to going on long walks, grocery shopping, and getting more exercise without feeling weak and unsteady. He has had previous PT before and states it has helped his weakness and balance in the past. Prior Treatments and Tests Physical Therapy for weakness/ balance Cataract removal, R shld refduction, colectomy, neuropathy, pacemaker Treatment Goals Patient/Caregiver Goals get legs stronger in order to be able to go on long walks with , go grocery shopping , and be able to walk around in community without LOB. PT-OP-C Subjective Start: 11/05/19 15:00 Freq: Status: Active Protocol: Document 02/13/20 09:06 [facility] (Rec: 02/13/20 09:46 [facility] [id number]) OP-PT Subjective Patient Comments Patient Comments Pt reports he has noticed his R leg has been more weak. REports CG have been making sure he does exercsies.He walks when weather allows. PT-OP-D Balance Start: 11/05/19 15:00 Freq: Status: Active Protocol: Document 02/13/20 09:06 [facility] (Rec: 02/13/20 09:46 [facility] [id number]) Balance Tests Valdez Balance Test [place] Balance Test Score 26/56 PT-OP-E Functional Tests Start: 11/05/19 15:00 Freq: Status: Active Protocol: Document 02/13/20 09:06 [facility] (Rec: 02/13/20 09:46 [facility] [id number]) Functional Tests 30 Second Sit to Stand Test Score 7 Comments with BUE support Dynamic Gait Index (DGI) Score 07/22- without walker PT-OP-G Mobility & Gait Start: 11/05/19 15:00 Freq: Status: Active Protocol: Document 02/13/20 09:06 [facility] (Rec: 02/13/20 09:46 [facility] [id number]) OP Gait Assessment Comments Gait Comments Pt amb with 4WW with dec foot clearance B. Without 4WW but requires CGA and does not have good foot clearance PT-OP-M Strength Start: 11/05/19 15:00 Freq: Status: Active Protocol: Document 02/13/20 09:06 [facility] (Rec: 02/13/20 09:46 [facility] [id number]) Hip Strength Hip Manual Muscle Testing Right Flexion (L2) 3+ Fair+ External Rotation 4- Good- Internal Rotation 3+ Fair+ Left Flexion (L2) 4- Good- External Rotation 4- Good- Internal Rotation 3+ Fair+ Knee Strength Knee Manual Muscle Testing Right Flexion (S2) 4 Good Extension (L3) 4- Good- Left Flexion (S2) 4 Good Extension (L3) 4- Good- Ankle/Foot Strength Ankle and Foot Manual Muscle Testing Right Dorsiflexion (L4) 4- Good- Plantarflexion (S1) 4+ Good+ Comments seated Left Dorsiflexion (L4) 4- Good- Plantarflexion (S1) 4+ Good+ Comments PF tested seated PT-OP-Q Treatments Start: 11/05/19 15:00 Freq: Status: Active Protocol: Document 02/13/20 09:06 [facility] (Rec: 02/13/20 09:46 [facility] [id number]) Cardio Equipment Recumbent Stepper (Sci-Fit) Duration (Minutes) 6 Resistance 4 Therapeutic Exercises Supine Exercises LTR Side bilateral Reps/Minutes 10 bridge Reps/Minutes 5 sec holdx10 PT-OP-T Assessment and Plan Start: 11/05/19 15:00 Freq: Status: Active Protocol: Document 02/13/20 09:06 [facility] (Rec: 02/13/20 09:46 [facility] [id number]) Physical Therapy Assessment Goals Three Impairment Gait Aquaculture Farmer Goal (LTG) Pt will walk with improved gait pattern and demonstrate foot clearance bilaterally during swing phase LTG Duration 8 weeks 2 Impairment Balance Short Term Goal (STG) Pt will score >45/56 on BBS to decrease fall risk STG Duration 6 weeks Intermediate Goal (LTG) Pt will score >19/24 on DGI in order to decrease fall risk LTG Duration 8 weeks 1 Impairment LE strength Short Term Goal (STG) Pt will be able to complete 10 sit to stands in 30s STG Duration 4 weeks Intermediate Goal (LTG) Pt will have 4/5 LE strength in order to be able to transfer safely LTG Duration 8 weeks Assessment Summary Assessment Pt scored worse on balance tests but scored about same or better on strengthening which is likely d/t not doing PT for 3 months d/t clinic closure and stopping of treatments d/t COVID. Pt woudl benefit from resuming PT in order to work on balance and strength of LE. Pt was tested today with DGI without walker which may be what caused dec in that score. Physical Therapy Plan Frequency and Duration Frequency of Treatment 2x/Week Duration of Treatment 2 months Plan of Care Start Date 02/13/20 Plan of Care End Date 04/14/20 Therapeutic Interventions Therapeutic Interventions Aquatic Therapy,Balance Training,Gait Training,Home Exercise Program,Joint Mobilizations,Manual Therapy, Neuromuscular Re-education, Patient/Caregiver Education, Self-Care/Home Management,Soft Tissue Mobilization, Therapeutic Activities, Therapeutic Exercises Modalities Cold Pack/Ice Massage,Hot Packs Next Visit Focus/Plan Next Note Type Treatment Note Next Visit Plan continue with balance activities, progress quad strengthening.
--- NOTE | 2020-02-13 09:47 | PT.OPPOC ---
Physical, Occupational & Speech Therapy At [facility] Current Diagnoses Difficulty in walking, not elsewhere classified (02/13/20) Weakness (02/13/20) History of falling (02/13/20) Visit Care Team Role Provider Type Kenyon Dalton MD Attending Provider Physician Primary Care Provider Referring Provider Specialty: Wound Care Address: [address] [place] [address], [phone] Email: [email or web address] Plan Of [email or web address] PT-OP-T Assessment and Plan Start: 11/05/19 15:00 Freq: Status: Active Protocol: Document 02/13/20 09:06 [facility] (Rec: 02/13/20 09:46 [facility] [id number]) Physical Therapy Assessment Goals Three Impairment Gait Alf Goal (LTG) Pt will walk with improved gait pattern and demonstrate foot clearance bilaterally during swing phase LTG Duration 8 weeks 2 Impairment Balance Short Term Goal (STG) Pt will score >45/56 on BBS to decrease fall risk STG Duration 6 weeks Alf Goal (LTG) Pt will score >19/24 on DGI in order to decrease fall risk LTG Duration 8 weeks 1 Impairment LE strength Short Term Goal (STG) Pt will be able to complete 10 sit to stands in 30s STG Duration 4 weeks Alf Goal (LTG) Pt will have 4/5 LE strength in order to be able to transfer safely LTG Duration 8 weeks Assessment Summary Assessment Pt scored worse on balance tests but scored about same or better on strengthening which is likely d/t not doing PT for 3 months d/t clinic closure and stopping of treatments d/t COVID. Pt woudl benefit from resuming PT in order to work on balance and strength of LE. Pt was tested today with DGI without walker which may be what caused dec in that score. Physical Therapy Plan Frequency and Duration Frequency of Treatment 2x/Week Duration of Treatment 2 months Plan of Care Start Date 02/13/20 Plan of Care End Date 04/14/20 Therapeutic Interventions Therapeutic Interventions Aquatic Therapy,Balance Training,Gait Training,Home Exercise Program,Joint Mobilizations,Manual Therapy, Neuromuscular Re-education, Patient/Caregiver Education, Self-Care/Home Management,Soft Tissue Mobilization, Therapeutic Activities, Therapeutic Exercises Modalities Cold Pack/Ice Massage,Hot Packs Next Visit Focus/Plan Next Note Type Treatment Note Next Visit Plan continue with balance activities, progress quad strengthening. Plan of Care Dates Plan of Care Start Date 02/13/20 Plan of Care End Date 04/14/20 Electronically Signed by: Hannah Wallace, EUNICE 02/13/20 0947 Please Sign and Return: I have reviewed this Plan of Care and certify that the skilled therapy services above are required to meet the patient?s needs. Physician Signature Date Printed Name and Credentials Clinical Instructor Signature Printed Name and Credentials
--- NOTE | 2020-02-26 16:47 | PT.OTN ---
Current Diagnoses Difficulty in walking, not elsewhere classified (02/26/20) Weakness (02/26/20) History of falling (02/26/20) Physical Therapy Treatment Note PT-OP-A Visit Information Start: 11/05/19 15:00 Freq: Status: Active Protocol: Document 02/26/20 16:00 [facility] (Rec: 02/26/20 16:47 [facility] [id number]) Out-Patient Physical Therapy Visit Information Visit Information Visit Type Treatment Note Visit Start Time 16:00 Visit Stop Time 16:45 Total Visit Minutes 45 Visit Number 5 Number of COVER ASSEMBLER Visits 0 PT-OP-B Current Condition Start: 11/05/19 15:00 Freq: Status: Active Protocol: Document 11/07/19 10:41 SP (Rec: 11/07/19 11:12 SP [id number]) Current Condition History of Current Condition Current Complaints leg weakness, decreased balance, low activity tolerance History of Current Condition Pt, 84yo male, presents to PT with c/o B leg weakness. Pt states his legs have gotten weaker over the last few months and he feels unsteady on his feet. He has not had any recent falls and has not experienced any dizziness since the last time he was in the hospital. Pt goes to pool 2x/week and completes old PT exercises at home. He currently has a caregiver with him every day of the week and they assist him with walking up the stairs and getting in and out of a car. Pt would like to get back to going on long walks, grocery shopping, and getting more exercise without feeling weak and unsteady. He has had previous PT before and states it has helped his weakness and balance in the past. Prior Treatments and Tests Physical Therapy for weakness/ balance Cataract removal, R shld refduction, colectomy, neuropathy, pacemaker Treatment Goals Patient/Caregiver Goals get legs stronger in order to be able to go on long walks with , go grocery shopping , and be able to walk around in community without LOB. PT-OP-C Subjective Start: 11/05/19 15:00 Freq: Status: Active Protocol: Document 02/26/20 16:00 [facility] (Rec: 02/26/20 16:47 [facility] [id number]) OP-PT Subjective Patient Comments Patient Comments Pt reports he is doing pretty well today. PT-OP-D Balance Start: 11/05/19 15:00 Freq: Status: Active Protocol: Document 02/13/20 09:06 [facility] (Rec: 02/13/20 09:46 [facility] [id number]) Balance Tests Valdez Balance Test [place] Balance Test Score 26/56 PT-OP-E Functional Tests Start: 11/05/19 15:00 Freq: Status: Active Protocol: Document 02/13/20 09:06 [facility] (Rec: 02/13/20 09:46 [facility] [id number]) Functional Tests 30 Second Sit to Stand Test Score 7 Comments with BUE support Dynamic Gait Index (DGI) Score 07/22- without walker PT-OP-G Mobility & Gait Start: 11/05/19 15:00 Freq: Status: Active Protocol: Document 02/13/20 09:06 [facility] (Rec: 02/13/20 09:46 [facility] [id number]) OP Gait Assessment Comments Gait Comments Pt amb with 4WW with dec foot clearance B. Without 4WW but requires CGA and does not have good foot clearance PT-OP-M Strength Start: 11/05/19 15:00 Freq: Status: Active Protocol: Document 02/13/20 09:06 [facility] (Rec: 02/13/20 09:46 [facility] [id number]) Hip Strength Hip Manual Muscle Testing Right Flexion (L2) 3+ Fair+ External Rotation 4- Good- Internal Rotation 3+ Fair+ Left Flexion (L2) 4- Good- External Rotation 4- Good- Internal Rotation 3+ Fair+ Knee Strength Knee Manual Muscle Testing Right Flexion (S2) 4 Good Extension (L3) 4- Good- Left Flexion (S2) 4 Good Extension (L3) 4- Good- Ankle/Foot Strength Ankle and Foot Manual Muscle Testing Right Dorsiflexion (L4) 4- Good- Plantarflexion (S1) 4+ Good+ Comments seated Left Dorsiflexion (L4) 4- Good- Plantarflexion (S1) 4+ Good+ Comments PF tested seated PT-OP-Q Treatments Start: 11/05/19 15:00 Freq: Status: Active Protocol: Document 02/26/20 16:00 [facility] (Rec: 02/26/20 16:47 [facility] [id number]) Cardio Equipment Recumbent Stepper (Sci-Fit) Duration (Minutes) 6 Resistance 4 Gym Equipment Shuttle Balance 1 Details blue Comments FWD: WBOS, NBOS & staggered stance ; side : WBOS while hitting balloon Therapeutic Exercises Standing Exercises 1 Standing Exercise Name Hurdles Resistance 4# lunges Standing Exercise Name walking mini lunges Reps/Minutes 2x20ft toe taps Standing Exercise Name Toe taps Resistance 4# Equipment Used 6 step Comments changed to controlled marches Heel-toe Ambulation Standing Exercise Name Heel-toe Comments forward and backwards. PT-OP-T Assessment and Plan Start: 11/05/19 15:00 Freq: Status: Active Protocol: Document 02/26/20 16:00 [facility] (Rec: 02/26/20 16:47 [facility] [id number]) Physical Therapy Assessment Goals Three Impairment Gait Retirement Goal (LTG) Pt will walk with improved gait pattern and demonstrate foot clearance bilaterally during swing phase LTG Duration 8 weeks 2 Impairment Balance Short Term Goal (STG) Pt will score >45/56 on BBS to decrease fall risk STG Duration 6 weeks Tsa Screener Goal (LTG) Pt will score >19/24 on DGI in order to decrease fall risk LTG Duration 8 weeks 1 Impairment LE strength Short Term Goal (STG) Pt will be able to complete 10 sit to stands in 30s STG Duration 4 weeks Tsa Screener Goal (LTG) Pt will have 4/5 LE strength in order to be able to transfer safely LTG Duration 8 weeks Assessment Summary Assessment Pt tolerated treatment well today with minimal rest breaks . Required repeated cueing for lunge technique. Physical Therapy Plan Frequency and Duration Frequency of Treatment 2x/Week Duration of Treatment 2 months Plan of Care Start Date 02/13/20 Plan of Care End Date 04/14/20 Therapeutic Interventions Therapeutic Interventions Aquatic Therapy,Balance Training,Gait Training,Home Exercise Program,Joint Mobilizations,Manual Therapy, Neuromuscular Re-education, Patient/Caregiver Education, Self-Care/Home Management,Soft Tissue Mobilization, Therapeutic Activities, Therapeutic Exercises Modalities Cold Pack/Ice Massage,Hot Packs Next Visit Focus/Plan Next Note Type Treatment Note Next Visit Plan continue with balance activities, progress quad strengthening.
--- NOTE | 2020-02-27 13:49 | PT.OTN ---
Current Diagnoses Difficulty in walking, not elsewhere classified (02/27/20) Weakness (02/27/20) History of falling (02/27/20) Physical Therapy Treatment Note PT-OP-A Visit Information Start: 11/05/19 15:00 Freq: Status: Active Protocol: Document 02/27/20 12:58 [facility] (Rec: 02/27/20 13:48 [facility] [id number]) Out-Patient Physical Therapy Visit Information Visit Information Visit Type Treatment Note Visit Start Time 13:00 Visit Stop Time 13:39 Total Visit Minutes 39 Visit Number 6 Number of TRANSPORT SPECIALIST Visits 0 PT-OP-B Current Condition Start: 11/05/19 15:00 Freq: Status: Active Protocol: Document 11/07/19 10:41 [facility] (Rec: 11/07/19 11:12 [facility] [id number]) Current Condition History of Current Condition Current Complaints leg weakness, decreased balance, low activity tolerance History of Current Condition Pt, 84yo male, presents to PT with c/o B leg weakness. Pt states his legs have gotten weaker over the last few months and he feels unsteady on his feet. He has not had any recent falls and has not experienced any dizziness since the last time he was in the hospital. Pt goes to pool 2x/week and completes old PT exercises at home. He currently has a caregiver with him every day of the week and they assist him with walking up the stairs and getting in and out of a car. Pt would like to get back to going on long walks, grocery shopping, and getting more exercise without feeling weak and unsteady. He has had previous PT before and states it has helped his weakness and balance in the past. Prior Treatments and Tests Physical Therapy for weakness/ balance Cataract removal, R shld refduction, colectomy, neuropathy, pacemaker Treatment Goals Patient/Caregiver Goals get legs stronger in order to be able to go on long walks with , go grocery shopping , and be able to walk around in community without LOB. PT-OP-C Subjective Start: 11/05/19 15:00 Freq: Status: Active Protocol: Document 02/27/20 12:58 [facility] (Rec: 02/27/20 13:48 [facility] [id number]) OP-PT Subjective Patient Comments Patient Comments Pt reports he was fatigued by last session PT-OP-D Balance Start: 11/05/19 15:00 Freq: Status: Active Protocol: Document 02/13/20 09:06 [facility] (Rec: 02/13/20 09:46 [facility] [id number]) Balance Tests Valdez Balance Test Valdez Balance Test Score 26/56 PT-OP-E Functional Tests Start: 11/05/19 15:00 Freq: Status: Active Protocol: Document 02/13/20 09:06 [facility] (Rec: 02/13/20 09:46 [facility] [id number]) Functional Tests 30 Second Sit to Stand Test Score 7 Comments with BUE support Dynamic Gait Index (DGI) Score 07/22- without walker PT-OP-G Mobility & Gait Start: 11/05/19 15:00 Freq: Status: Active Protocol: Document 02/13/20 09:06 [facility] (Rec: 02/13/20 09:46 [facility] [id number]) OP Gait Assessment Comments Gait Comments Pt amb with 4WW with dec foot clearance B. Without 4WW but requires CGA and does not have good foot clearance PT-OP-M Strength Start: 11/05/19 15:00 Freq: Status: Active Protocol: Document 02/13/20 09:06 [facility] (Rec: 02/13/20 09:46 [facility] [id number]) Hip Strength Hip Manual Muscle Testing Right Flexion (L2) 3+ Fair+ External Rotation 4- Good- Internal Rotation 3+ Fair+ Left Flexion (L2) 4- Good- External Rotation 4- Good- Internal Rotation 3+ Fair+ Knee Strength Knee Manual Muscle Testing Right Flexion (S2) 4 Good Extension (L3) 4- Good- Left Flexion (S2) 4 Good Extension (L3) 4- Good- Ankle/Foot Strength Ankle and Foot Manual Muscle Testing Right Dorsiflexion (L4) 4- Good- Plantarflexion (S1) 4+ Good+ Comments seated Left Dorsiflexion (L4) 4- Good- Plantarflexion (S1) 4+ Good+ Comments PF tested seated PT-OP-Q Treatments Start: 11/05/19 15:00 Freq: Status: Active Protocol: Document 02/27/20 12:58 [facility] (Rec: 02/27/20 13:48 [facility] [id number]) Cardio Equipment Recumbent Stepper (Sci-Fit) Duration (Minutes) 6 Resistance 4 Gym Equipment Shuttle Balance 1 Details blue Comments FWD: WBOS, NBOS & staggered stance ; side : WBOS while hitting balloon Therapeutic Exercises Standing Exercises 1 Standing Exercise Name ELIZABETH PF/DF lateral walks Side bilateral Equipment Used yellow Reps/Minutes 2x20ft Neuro Re-Education Treatment Balance Activities rockerboard Details fwd/back & side/side EC Comments 1. fwd walking 2. NBOS 3.small staggered stance marching Reps/Duration 2x20ft backward walking Reps/Duration 2x20ft 2 Details toe taps Reps/Duration 10 B PT-OP-T Assessment and Plan Start: 11/05/19 15:00 Freq: Status: Active Protocol: Document 02/27/20 12:58 [facility] (Rec: 02/27/20 13:48 [facility] [id number]) Physical Therapy Assessment Goals Three Impairment Gait Detention Goal (LTG) Pt will walk with improved gait pattern and demonstrate foot clearance bilaterally during swing phase LTG Duration 8 weeks 2 Impairment Balance Short Term Goal (STG) Pt will score >45/56 on BBS to decrease fall risk STG Duration 6 weeks Fire Claims Adjuster Goal (LTG) Pt will score >19/24 on DGI in order to decrease fall risk LTG Duration 8 weeks 1 Impairment LE strength Short Term Goal (STG) Pt will be able to complete 10 sit to stands in 30s STG Duration 4 weeks Detention Goal (LTG) Pt will have 4/5 LE strength in order to be able to transfer safely LTG Duration 8 weeks Assessment Summary Assessment Pt did well with static balane tasks today but had inc difficulty with dynamic balance. Faitgued by end of session Physical Therapy Plan Frequency and Duration Frequency of Treatment 2x/Week Duration of Treatment 2 months Plan of Care Start Date 02/13/20 Plan of Care End Date 04/14/20 Next Visit Focus/Plan Next Note Type Treatment Note Next Visit Plan continue with balance activities, progress quad strengthening.
--- NOTE | 2020-03-03 13:38 | PT.OTN ---
Current Diagnoses Difficulty in walking, not elsewhere classified (03/03/20) Weakness (03/03/20) History of falling (03/03/20) Physical Therapy Treatment Note PT-OP-A Visit Information Start: 11/05/19 15:00 Freq: Status: Active Protocol: Document 03/03/20 13:01 [facility] (Rec: 03/03/20 13:38 [facility] [id number]) Out-Patient Physical Therapy Visit Information Visit Information Visit Type Treatment Note Visit Note 03/07 Visit Start Time 13:01 Visit Stop Time 13:39 Total Visit Minutes 39 Visit Number 7 Number of RETAIL SALESMAN Visits 0 PT-OP-B Current Condition Start: 11/05/19 15:00 Freq: Status: Active Protocol: Document 11/07/19 10:41 [facility] (Rec: 11/07/19 11:12 [facility] [id number]) Current Condition History of Current Condition Current Complaints leg weakness, decreased balance, low activity tolerance History of Current Condition Pt, 84yo male, presents to PT with c/o B leg weakness. Pt states his legs have gotten weaker over the last few months and he feels unsteady on his feet. He has not had any recent falls and has not experienced any dizziness since the last time he was in the hospital. Pt goes to pool 2x/week and completes old PT exercises at home. He currently has a caregiver with him every day of the week and they assist him with walking up the stairs and getting in and out of a car. Pt would like to get back to going on long walks, grocery shopping, and getting more exercise without feeling weak and unsteady. He has had previous PT before and states it has helped his weakness and balance in the past. Prior Treatments and Tests Physical Therapy for weakness/ balance Cataract removal, R shld refduction, colectomy, neuropathy, pacemaker Treatment Goals Patient/Caregiver Goals get legs stronger in order to be able to go on long walks with , go grocery shopping , and be able to walk around in community without LOB. PT-OP-C Subjective Start: 11/05/19 15:00 Freq: Status: Active Protocol: Document 03/03/20 13:01 [facility] (Rec: 03/03/20 13:38 [facility] [id number]) OP-PT Subjective Patient Comments Patient Comments Pt did 2 walks this weekend. Pt reports lots of stiffness in finger. PT-OP-D Balance Start: 11/05/19 15:00 Freq: Status: Active Protocol: Document 02/13/20 09:06 [facility] (Rec: 02/13/20 09:46 [facility] [id number]) Balance Tests Valdez Balance Test Valdez Balance Test Score 26/56 PT-OP-E Functional Tests Start: 11/05/19 15:00 Freq: Status: Active Protocol: Document 02/13/20 09:06 [facility] (Rec: 02/13/20 09:46 [facility] [id number]) Functional Tests 30 Second Sit to Stand Test Score 7 Comments with BUE support Dynamic Gait Index (DGI) Score 07/22- without walker PT-OP-G Mobility & Gait Start: 11/05/19 15:00 Freq: Status: Active Protocol: Document 02/13/20 09:06 [facility] (Rec: 02/13/20 09:46 [facility] [id number]) OP Gait Assessment Comments Gait Comments Pt amb with 4WW with dec foot clearance B. Without 4WW but requires CGA and does not have good foot clearance PT-OP-M Strength Start: 11/05/19 15:00 Freq: Status: Active Protocol: Document 02/13/20 09:06 [facility] (Rec: 02/13/20 09:46 [facility] [id number]) Hip Strength Hip Manual Muscle Testing Right Flexion (L2) 3+ Fair+ External Rotation 4- Good- Internal Rotation 3+ Fair+ Left Flexion (L2) 4- Good- External Rotation 4- Good- Internal Rotation 3+ Fair+ Knee Strength Knee Manual Muscle Testing Right Flexion (S2) 4 Good Extension (L3) 4- Good- Left Flexion (S2) 4 Good Extension (L3) 4- Good- Ankle/Foot Strength Ankle and Foot Manual Muscle Testing Right Dorsiflexion (L4) 4- Good- Plantarflexion (S1) 4+ Good+ Comments seated Left Dorsiflexion (L4) 4- Good- Plantarflexion (S1) 4+ Good+ Comments PF tested seated PT-OP-Q Treatments Start: 11/05/19 15:00 Freq: Status: Active Protocol: Document 03/03/20 13:01 [facility] (Rec: 03/03/20 13:38 [facility] [id number]) Cardio Equipment Recumbent Elliptical (Biodex) Duration (Minutes) 6 Resistance 4-5 Seat Position 12 Gym Equipment Shuttle Recovery Bilateral Squats Resistance 87 lbs Shuttle Recovery Platform Unstable Reps/Time to fatigue Shuttle Balance 1 Details blue Comments FWD: WBOS, NBOS & staggered stance ; side : WBOS Therapeutic Exercises Sitting Exercises seated heel raises Sitting Exercise Name Toe taps and heel raises Side bilateral Reps/Minutes 30 ea Seated Marching Side bilateral Reps/Minutes 30 alt Neuro Re-Education Treatment Balance Activities EC Comments 1. fwd walking 20ft x2 marching Reps/Duration 2x20ft Tiltboard Details fwd/bck, side/side tilt & balance backward walking Reps/Duration 2x20ft PT-OP-T Assessment and Plan Start: 11/05/19 15:00 Freq: Status: Active Protocol: Document 03/03/20 13:01 [facility] (Rec: 03/03/20 13:38 [facility] [id number]) Physical Therapy Assessment Goals Three Impairment Gait Fdc Goal (LTG) Pt will walk with improved gait pattern and demonstrate foot clearance bilaterally during swing phase LTG Duration 8 weeks 2 Impairment Balance Short Term Goal (STG) Pt will score >45/56 on BBS to decrease fall risk STG Duration 6 weeks Medical Office Worker Goal (LTG) Pt will score >19/24 on DGI in order to decrease fall risk LTG Duration 8 weeks 1 Impairment LE strength Short Term Goal (STG) Pt will be able to complete 10 sit to stands in 30s STG Duration 4 weeks Fdc Goal (LTG) Pt will have 4/5 LE strength in order to be able to transfer safely LTG Duration 8 weeks Assessment Summary Assessment Pt appeared more fatigued today. He had more difficulty with EC walking today vs last session. He required more breaks for seated exercises today. Required cueing for when he would lose balance one direction Physical Therapy Plan Frequency and Duration Frequency of Treatment 2x/Week Duration of Treatment 2 months Plan of Care Start Date 02/13/20 Plan of Care End Date 04/14/20 Next Visit Focus/Plan Next Note Type Treatment Note Next Visit Plan continue with balance activities, progress quad strengthening.
--- NOTE | 2020-03-05 13:40 | PT.OTN ---
Current Diagnoses Difficulty in walking, not elsewhere classified (03/05/20) Weakness (03/05/20) History of falling (03/05/20) Physical Therapy Treatment Note PT-OP-A Visit Information Start: 11/05/19 15:00 Freq: Status: Active Protocol: Document 03/05/20 12:59 [facility] (Rec: 03/05/20 13:40 [facility] [id number]) Out-Patient Physical Therapy Visit Information Visit Information Visit Type Treatment Note Visit Note 04/07 Visit Start Time 13:00 Visit Stop Time 13:38 Total Visit Minutes 38 Visit Number 8 Number of NATIONAL ACCOUNT EXECUTIVE Visits 0 PT-OP-B Current Condition Start: 11/05/19 15:00 Freq: Status: Active Protocol: Document 11/07/19 10:41 [facility] (Rec: 11/07/19 11:12 SP [id number]) Current Condition History of Current Condition Current Complaints leg weakness, decreased balance, low activity tolerance History of Current Condition Pt, 84yo male, presents to PT with c/o B leg weakness. Pt states his legs have gotten weaker over the last few months and he feels unsteady on his feet. He has not had any recent falls and has not experienced any dizziness since the last time he was in the hospital. Pt goes to pool 2x/week and completes old PT exercises at home. He currently has a caregiver with him every day of the week and they assist him with walking up the stairs and getting in and out of a car. Pt would like to get back to going on long walks, grocery shopping, and getting more exercise without feeling weak and unsteady. He has had previous PT before and states it has helped his weakness and balance in the past. Prior Treatments and Tests Physical Therapy for weakness/ balance Cataract removal, R shld refduction, colectomy, neuropathy, pacemaker Treatment Goals Patient/Caregiver Goals get legs stronger in order to be able to go on long walks with , go grocery shopping , and be able to walk around in community without LOB. PT-OP-C Subjective Start: 11/05/19 15:00 Freq: Status: Active Protocol: Document 03/05/20 12:59 [facility] (Rec: 03/05/20 13:40 [facility] [id number]) OP-PT Subjective Patient Comments Patient Comments Pt reports he had to take a couple hour nap after last PT session PT-OP-D Balance Start: 11/05/19 15:00 Freq: Status: Active Protocol: Document 02/13/20 09:06 [facility] (Rec: 02/13/20 09:46 [facility] [id number]) Balance Tests Valdez Balance Test Valdez Balance Test Score 26/56 PT-OP-E Functional Tests Start: 11/05/19 15:00 Freq: Status: Active Protocol: Document 02/13/20 09:06 [facility] (Rec: 02/13/20 09:46 [facility] [id number]) Functional Tests 30 Second Sit to Stand Test Score 7 Comments with BUE support Dynamic Gait Index (DGI) Score 07/22- without walker PT-OP-G Mobility & Gait Start: 11/05/19 15:00 Freq: Status: Active Protocol: Document 02/13/20 09:06 [facility] (Rec: 02/13/20 09:46 [facility] [id number]) OP Gait Assessment Comments Gait Comments Pt amb with 4WW with dec foot clearance B. Without 4WW but requires CGA and does not have good foot clearance PT-OP-M Strength Start: 11/05/19 15:00 Freq: Status: Active Protocol: Document 02/13/20 09:06 [facility] (Rec: 02/13/20 09:46 [facility] [id number]) Hip Strength Hip Manual Muscle Testing Right Flexion (L2) 3+ Fair+ External Rotation 4- Good- Internal Rotation 3+ Fair+ Left Flexion (L2) 4- Good- External Rotation 4- Good- Internal Rotation 3+ Fair+ Knee Strength Knee Manual Muscle Testing Right Flexion (S2) 4 Good Extension (L3) 4- Good- Left Flexion (S2) 4 Good Extension (L3) 4- Good- Ankle/Foot Strength Ankle and Foot Manual Muscle Testing Right Dorsiflexion (L4) 4- Good- Plantarflexion (S1) 4+ Good+ Comments seated Left Dorsiflexion (L4) 4- Good- Plantarflexion (S1) 4+ Good+ Comments PF tested seated PT-OP-Q Treatments Start: 11/05/19 15:00 Freq: Status: Active Protocol: Document 03/05/20 12:59 [facility] (Rec: 03/05/20 13:40 [facility] [id number]) Cardio Equipment Recumbent Stepper (Sci-Fit) Duration (Minutes) 6 Resistance 5 Gym Equipment Shuttle Balance 1 Details blue Comments FWD: WBOS, NBOS & Therapeutic Exercises Standing Exercises toe taps Standing Exercise Name PF/DF Side bilateral Reps/Minutes 30 Gait Training Gait Activity 1 Description 4WW working on heel to toe for improved clearance Neuro Re-Education Treatment Balance Activities 3 Details hurdles Reps/Duration 6x fwd, 2x side B Tiltboard Details fwd/bck, side/side tilt & balance PT-OP-T Assessment and Plan Start: 11/05/19 15:00 Freq: Status: Active Protocol: Document 03/05/20 12:59 [facility] (Rec: 03/05/20 13:40 [facility] [id number]) Physical Therapy Assessment Goals Three Impairment Gait Line Fisher Goal (LTG) Pt will walk with improved gait pattern and demonstrate foot clearance bilaterally during swing phase LTG Duration 8 weeks 2 Impairment Balance Short Term Goal (STG) Pt will score >45/56 on BBS to decrease fall risk STG Duration 6 weeks Line Fisher Goal (LTG) Pt will score >19/24 on DGI in order to decrease fall risk LTG Duration 8 weeks 1 Impairment LE strength Short Term Goal (STG) Pt will be able to complete 10 sit to stands in 30s STG Duration 4 weeks Line Fisher Goal (LTG) Pt will have 4/5 LE strength in order to be able to transfer safely LTG Duration 8 weeks Assessment Summary Assessment Pt did betteer with wt shifts on tilt board today and did better with all balance. He di show fatigue with RLE at end of session. IMproved foot clearance when cued for heel strike Physical Therapy Plan Frequency and Duration Frequency of Treatment 2x/Week Duration of Treatment 2 months Plan of Care Start Date 02/13/20 Plan of Care End Date 04/14/20 Next Visit Focus/Plan Next Note Type Treatment Note Next Visit Plan continue with balance activities, progress quad strengthening.
--- NOTE | 2020-03-10 13:44 | PT.OTN ---
Current Diagnoses Difficulty in walking, not elsewhere classified (03/10/20) Weakness (03/10/20) History of falling (03/10/20) Physical Therapy Treatment Note PT-OP-A Visit Information Start: 11/05/19 15:00 Freq: Status: Active Protocol: Document 03/10/20 13:04 [facility] (Rec: 03/10/20 13:44 [facility] [id number]) Out-Patient Physical Therapy Visit Information Visit Information Visit Type Treatment Note Visit Note 05/08 Visit Start Time 13:00 Visit Stop Time 13:39 Total Visit Minutes 39 Visit Number 9 Number of NURSES SUPERVISOR Visits 0 PT-OP-B Current Condition Start: 11/05/19 15:00 Freq: Status: Active Protocol: Document 11/07/19 10:41 SP (Rec: 11/07/19 11:12 SP [id number]) Current Condition History of Current Condition Current Complaints leg weakness, decreased balance, low activity tolerance History of Current Condition Pt, 84yo male, presents to PT with c/o B leg weakness. Pt states his legs have gotten weaker over the last few months and he feels unsteady on his feet. He has not had any recent falls and has not experienced any dizziness since the last time he was in the hospital. Pt goes to pool 2x/week and completes old PT exercises at home. He currently has a caregiver with him every day of the week and they assist him with walking up the stairs and getting in and out of a car. Pt would like to get back to going on long walks, grocery shopping, and getting more exercise without feeling weak and unsteady. He has had previous PT before and states it has helped his weakness and balance in the past. Prior Treatments and Tests Physical Therapy for weakness/ balance Cataract removal, R shld refduction, colectomy, neuropathy, pacemaker Treatment Goals Patient/Caregiver Goals get legs stronger in order to be able to go on long walks with , go grocery shopping , and be able to walk around in community without LOB. PT-OP-C Subjective Start: 11/05/19 15:00 Freq: Status: Active Protocol: Document 03/10/20 13:04 [facility] (Rec: 03/10/20 13:44 [facility] [id number]) OP-PT Subjective Patient Comments Patient Comments Pt has done a couple walks since last session. Has been working on heel contact PT-OP-D Balance Start: 11/05/19 15:00 Freq: Status: Active Protocol: Document 02/13/20 09:06 [facility] (Rec: 02/13/20 09:46 [facility] [id number]) Balance Tests Valdez Balance Test Valdez Balance Test Score 26/56 PT-OP-E Functional Tests Start: 11/05/19 15:00 Freq: Status: Active Protocol: Document 02/13/20 09:06 [facility] (Rec: 02/13/20 09:46 [facility] [id number]) Functional Tests 30 Second Sit to Stand Test Score 7 Comments with BUE support Dynamic Gait Index (DGI) Score 07/22- without walker PT-OP-G Mobility & Gait Start: 11/05/19 15:00 Freq: Status: Active Protocol: Document 02/13/20 09:06 [facility] (Rec: 02/13/20 09:46 [facility] [id number]) OP Gait Assessment Comments Gait Comments Pt amb with 4WW with dec foot clearance B. Without 4WW but requires CGA and does not have good foot clearance PT-OP-M Strength Start: 11/05/19 15:00 Freq: Status: Active Protocol: Document 02/13/20 09:06 [facility] (Rec: 02/13/20 09:46 [facility] [id number]) Hip Strength Hip Manual Muscle Testing Right Flexion (L2) 3+ Fair+ External Rotation 4- Good- Internal Rotation 3+ Fair+ Left Flexion (L2) 4- Good- External Rotation 4- Good- Internal Rotation 3+ Fair+ Knee Strength Knee Manual Muscle Testing Right Flexion (S2) 4 Good Extension (L3) 4- Good- Left Flexion (S2) 4 Good Extension (L3) 4- Good- Ankle/Foot Strength Ankle and Foot Manual Muscle Testing Right Dorsiflexion (L4) 4- Good- Plantarflexion (S1) 4+ Good+ Comments seated Left Dorsiflexion (L4) 4- Good- Plantarflexion (S1) 4+ Good+ Comments PF tested seated PT-OP-Q Treatments Start: 11/05/19 15:00 Freq: Status: Active Protocol: Document 03/10/20 13:04 [facility] (Rec: 03/10/20 13:44 [facility] [id number]) Cardio Equipment Recumbent Elliptical (Biodex) Duration (Minutes) 6 Resistance 6 Seat Position 12 Gym Equipment Shuttle Balance 1 Details blue Reps/Duration w/arm raises Comments FWD: WBOS, NBOS & staggered stance ; side : WBOS Therapeutic Exercises Sitting Exercises hip add Side bilateral Equipment Used ball Reps/Minutes 5 secx20 seated heel raises Sitting Exercise Name Toe taps and heel raises Side bilateral Reps/Minutes 30 ea hip abd Sitting Exercise Name hip abd Equipment Used L3 Reps/Minutes 30 Seated Marching Side bilateral Reps/Minutes 30 alt Gait Training Gait Activity 1 Description 4WW working on heel to toe for improved clearance Comments 1. focusing on heel contact for 200ft 2. 50ft x2 ea w/vertical and horizontal head turns Neuro Re-Education Treatment Balance Activities 3 Details hurdles Reps/Duration 4x fwd, 2x side B PT-OP-T Assessment and Plan Start: 11/05/19 15:00 Freq: Status: Active Protocol: Document 03/10/20 13:04 [facility] (Rec: 03/10/20 13:44 [facility] [id number]) Physical Therapy Assessment Goals Three Impairment Gait Armature Winder Repairer Goal (LTG) Pt will walk with improved gait pattern and demonstrate foot clearance bilaterally during swing phase LTG Duration 8 weeks 2 Impairment Balance Short Term Goal (STG) Pt will score >45/56 on BBS to decrease fall risk STG Duration 6 weeks Halfway Goal (LTG) Pt will score >19/24 on DGI in order to decrease fall risk LTG Duration 8 weeks 1 Impairment LE strength Short Term Goal (STG) Pt will be able to complete 10 sit to stands in 30s STG Duration 4 weeks Halfway Goal (LTG) Pt will have 4/5 LE strength in order to be able to transfer safely LTG Duration 8 weeks Assessment Summary Assessment Pt did better on balance board and was able to keep balance better w/arm movements today but would lose balance backwards occasionally. Required rail use with hurdles but improved on spatial awareness throughout, kicking hurdels less by end of activity. Improving gait with less cueing. Physical Therapy Plan Frequency and Duration Frequency of Treatment 2x/Week Duration of Treatment 2 months Plan of Care Start Date 02/13/20 Plan of Care End Date 04/14/20 Next Visit Focus/Plan Next Note Type Progress Note Next Visit Plan assess progress toward goals
--- NOTE | 2020-03-12 13:45 | PT.OTN ---
Current Diagnoses Difficulty in walking, not elsewhere classified (03/12/20) Weakness (03/12/20) History of falling (03/12/20) Physical Therapy Treatment Note PT-OP-A Visit Information Start: 11/05/19 15:00 Freq: Status: Active Protocol: Document 03/12/20 13:05 [facility] (Rec: 03/12/20 13:45 [facility] [id number]) Out-Patient Physical Therapy Visit Information Visit Information Visit Type Progress Note Visit Note 09/07 Visit Start Time 13:00 Visit Stop Time 13:40 Total Visit Minutes 40 Visit Number [address] PHOTOGRAPHER Visits 0 PT-OP-B Current Condition Start: 11/05/19 15:00 Freq: Status: Active Protocol: Document 11/07/19 10:41 SP (Rec: 11/07/19 11:12 SP [id number]) Current Condition History of Current Condition Current Complaints leg weakness, decreased balance, low activity tolerance History of Current Condition Pt, 84yo male, presents to PT with c/o B leg weakness. Pt states his legs have gotten weaker over the last few months and he feels unsteady on his feet. He has not had any recent falls and has not experienced any dizziness since the last time he was in the hospital. Pt goes to pool 2x/week and completes old PT exercises at home. He currently has a caregiver with him every day of the week and they assist him with walking up the stairs and getting in and out of a car. Pt would like to get back to going on long walks, grocery shopping, and getting more exercise without feeling weak and unsteady. He has had previous PT before and states it has helped his weakness and balance in the past. Prior Treatments and Tests Physical Therapy for weakness/ balance Cataract removal, R shld refduction, colectomy, neuropathy, pacemaker Treatment Goals Patient/Caregiver Goals get legs stronger in order to be able to go on long walks with , go grocery shopping , and be able to walk around in community without LOB. PT-OP-C Subjective Start: 11/05/19 15:00 Freq: Status: Active Protocol: Document 03/12/20 13:05 [facility] (Rec: 03/12/20 13:45 [facility] [id number]) OP-PT Subjective Patient Comments Patient Comments Pt reports he was tired earlier and feels better now. PT-OP-D Balance Start: 11/05/19 15:00 Freq: Status: Active Protocol: Document 03/12/20 13:05 [facility] (Rec: 03/12/20 13:45 [facility] [id number]) Balance Tests Willett Balance Test Willett Balance Test Score 38/56 PT-OP-E Functional Tests Start: 11/05/19 15:00 Freq: Status: Active Protocol: Document 03/12/20 13:05 [facility] (Rec: 03/12/20 13:45 [facility] [id number]) Functional Tests 30 Second Sit to Stand Test Score 10 Comments with BUE support Dynamic Gait Index (DGI) Score with walker PT-OP-G Mobility & Gait Start: 11/05/19 15:00 Freq: Status: Active Protocol: Document 02/13/20 09:06 [facility] (Rec: 02/13/20 09:46 [facility] [id number]) OP Gait Assessment Comments Gait Comments Pt amb with 4WW with dec foot clearance B. Without 4WW but requires CGA and does not have good foot clearance PT-OP-M Strength Start: 11/05/19 15:00 Freq: Status: Active Protocol: Document 03/12/20 13:05 [facility] (Rec: 03/12/20 13:45 [facility] [id number]) Hip Strength Hip Manual Muscle Testing Right Flexion (L2) 4- Good- Abduction 3+ Fair+ External Rotation 4- Good- Internal Rotation 4 Good Left Flexion (L2) 4 Good Abduction 4- Good- External Rotation 4 Good Internal Rotation 4+ Good+ Knee Strength Knee Manual Muscle Testing Right Flexion (S2) 4 Good Extension (L3) 4 Good Left Flexion (S2) 4 Good Extension (L3) 4 Good Ankle/Foot Strength Ankle and Foot Manual Muscle Testing Right Dorsiflexion (L4) 4- Good- Plantarflexion (S1) 4+ Good+ Comments seated Left Dorsiflexion (L4) 4+ Good+ Plantarflexion (S1) 5 Normal Comments PF tested seated PT-OP-Q Treatments Start: 11/05/19 15:00 Freq: Status: Active Protocol: Document 03/12/20 13:05 [facility] (Rec: 03/12/20 13:45 [facility] [id number]) Cardio Equipment Recumbent Stepper (Sci-Fit) Duration (Minutes) 6 Resistance 5 Therapeutic Exercises Standing Exercises 1 Standing Exercise Name squat holding bar Side bilateral Reps/Minutes 10 Other Exercises sit<>stand Other Exercise Name 30 sec test Gait Training Gait Activity 1 Description 4WW working on heel to toe for improved clearance Neuro Re-Education Treatment Balance Activities 1 Details WILLETT & DGI PT-OP-T Assessment and Plan Start: 11/05/19 15:00 Freq: Status: Active Protocol: Document 03/12/20 13:05 [facility] (Rec: 03/12/20 13:45 [facility] [id number]) Physical Therapy Assessment Goals Three Impairment Gait Lead Data Entry Operator Goal (LTG) Pt will walk with improved gait pattern and demonstrate foot clearance bilaterally during swing phase 03/12-improved with cueing needed about 75% of the time LTG Duration 8 weeks 2 Impairment Balance Short Term Goal (STG) Pt will score >45/56 on BBS to decrease fall risk 03/12-improved to 38/56 STG Duration 6 weeks Lead Data Entry Operator Goal (LTG) Pt will score >19/24 on DGI in order to decrease fall risk 03/12-16/24 LTG Duration 8 weeks 1 Impairment LE strength Short Term Goal (STG) Pt will be able to complete 10 sit to stands in 30s STG Duration achieved Custodial Goal (LTG) Pt will have 4/5 LE strength in order to be able to transfer safely 03/12-significantly improved LTG Duration 8 weeks Assessment Summary Assessment Pt has made significant progress with his balance, strength and functional ability. He showed imrpovement in 5x sit<>Stand, WILLETT and MMT. He imrpoved with DGI but did use his 4WW with activity today vs last time testing. Improving heel striek but still requires significnat cueing duirng gait Physical Therapy Plan Frequency and Duration Frequency of Treatment 2x/Week Duration of Treatment 2 months Plan of Care Start Date 02/13/20 Plan of Care End Date 04/14/20 Next Visit Focus/Plan Next Note Type Treatment Note Next Visit Plan continue with balance activities, progress quad strengthening.
--- NOTE | 2020-03-17 13:45 | PT.OTN ---
Current Diagnoses Difficulty in walking, not elsewhere classified (03/17/20) Weakness (03/17/20) History of falling (03/17/20) Physical Therapy Treatment Note PT-OP-A Visit Information Start: 11/05/19 15:00 Freq: Status: Active Protocol: Document 03/17/20 13:04 [facility] (Rec: 03/17/20 13:45 [facility] [id number]) Out-Patient Physical Therapy Visit Information Visit Information Visit Type Treatment Note Visit Note 10/08 Visit Start Time 13:01 Visit Stop Time 13:40 Total Visit Minutes 39 Visit Number 11 Number of BELLOWS CHARGER ASSEMBLER Visits 0 PT-OP-B Current Condition Start: 11/05/19 15:00 Freq: Status: Active Protocol: Document 11/07/19 10:41 SP (Rec: 11/07/19 11:12 SP [id number]) Current Condition History of Current Condition Current Complaints leg weakness, decreased balance, low activity tolerance History of Current Condition Pt, 84yo male, presents to PT with c/o B leg weakness. Pt states his legs have gotten weaker over the last few months and he feels unsteady on his feet. He has not had any recent falls and has not experienced any dizziness since the last time he was in the hospital. Pt goes to pool 2x/week and completes old PT exercises at home. He currently has a caregiver with him every day of the week and they assist him with walking up the stairs and getting in and out of a car. Pt would like to get back to going on long walks, grocery shopping, and getting more exercise without feeling weak and unsteady. He has had previous PT before and states it has helped his weakness and balance in the past. Prior Treatments and Tests Physical Therapy for weakness/ balance Cataract removal, R shld refduction, colectomy, neuropathy, pacemaker Treatment Goals Patient/Caregiver Goals get legs stronger in order to be able to go on long walks with , go grocery shopping , and be able to walk around in community without LOB. PT-OP-C Subjective Start: 11/05/19 15:00 Freq: Status: Active Protocol: Document 03/17/20 13:04 [facility] (Rec: 03/17/20 13:45 [facility] [id number]) OP-PT Subjective Patient Comments Patient Comments Pt reports his energy has been a little down today. [place] PT-OP-D Balance Start: 11/05/19 15:00 Freq: Status: Active Protocol: Document 03/12/20 13:05 [facility] (Rec: 03/12/20 13:45 [facility] [id number]) Balance Tests Valdez Balance Test Valdez Balance Test Score 38/56 PT-OP-E Functional Tests Start: 11/05/19 15:00 Freq: Status: Active Protocol: Document 03/12/20 13:05 [facility] (Rec: 03/12/20 13:45 [facility] [id number]) Functional Tests 30 Second Sit to Stand Test Score 10 Comments with BUE support Dynamic Gait Index (DGI) Score with walker PT-OP-G Mobility & Gait Start: 11/05/19 15:00 Freq: Status: Active Protocol: Document 02/13/20 09:06 [facility] (Rec: 02/13/20 09:46 [facility] [id number]) OP Gait Assessment Comments Gait Comments Pt amb with 4WW with dec foot clearance B. Without 4WW but requires CGA and does not have good foot clearance PT-OP-M Strength Start: 11/05/19 15:00 Freq: Status: Active Protocol: Document 03/12/20 13:05 [facility] (Rec: 03/12/20 13:45 [facility] [id number]) Hip Strength Hip Manual Muscle Testing Right Flexion (L2) 4- Good- Abduction 3+ Fair+ External Rotation 4- Good- Internal Rotation 4 Good Left Flexion (L2) 4 Good Abduction 4- Good- External Rotation 4 Good Internal Rotation 4+ Good+ Knee Strength Knee Manual Muscle Testing Right Flexion (S2) 4 Good Extension (L3) 4 Good Left Flexion (S2) 4 Good Extension (L3) 4 Good Ankle/Foot Strength Ankle and Foot Manual Muscle Testing Right Dorsiflexion (L4) 4- Good- Plantarflexion (S1) 4+ Good+ Comments seated Left Dorsiflexion (L4) 4+ Good+ Plantarflexion (S1) 5 Normal Comments PF tested seated PT-OP-Q Treatments Start: 11/05/19 15:00 Freq: Status: Active Protocol: Document 03/17/20 13:04 [facility] (Rec: 03/17/20 13:45 [facility] [id number]) Cardio Equipment Recumbent Stepper (Sci-Fit) Duration (Minutes) 6 Resistance 5 Gym Equipment Shuttle Recovery Bilateral Squats Resistance 100 lbs Shuttle Recovery Platform Stable Reps/Time to fatigue Shuttle Balance 1 Details blue Reps/Duration w/hitting balloon Comments FWD: WBOS, NBOS & staggered stance ; side : WBOS Therapeutic Exercises Standing Exercises sit<->stand Reps/Minutes 5 Comments hands on knees Gait Training Gait Activity 1 Description 4WW working on heel to toe for improved clearance Comments 1. focusing on heel contact for 200ft 2. 50ft x2 ea w/vertical and horizontal head turns Neuro Re-Education Treatment Balance Activities 3 Details toe taps Comments 10 B marching Details fwd Reps/Duration 2x15 ft backward walking Reps/Duration 2x15ft PT-OP-T Assessment and Plan Start: 11/05/19 15:00 Freq: Status: Active Protocol: Document 03/17/20 13:04 [facility] (Rec: 03/17/20 13:45 [facility] [id number]) Physical Therapy Assessment Goals Three Impairment Gait Fci Goal (LTG) Pt will walk with improved gait pattern and demonstrate foot clearance bilaterally during swing phase 03/12-improved with cueing needed about 75% of the time LTG Duration 8 weeks 2 Impairment Balance Short Term Goal (STG) Pt will score >45/56 on BBS to decrease fall risk 15-improved to 38/56 STG Duration 6 weeks Transfer Station Operator Goal (LTG) Pt will score >19/24 on DGI in order to decrease fall risk 15-16/24 LTG Duration 8 weeks 1 Impairment LE strength Short Term Goal (STG) Pt will be able to complete 10 sit to stands in 30s STG Duration achieved Fci Goal (LTG) Pt will have 4/5 LE strength in order to be able to transfer safely 15-significantly improved LTG Duration 8 weeks Assessment Summary Assessment Pt had improved performance with head turns in hallway today and with balance board. when he does lose his balance during activities, it tends to be to the L or backwards. Physical Therapy Plan Frequency and Duration Frequency of Treatment 2x/Week Duration of Treatment 2 months Plan of Care Start Date 02/13/20 Plan of Care End Date 04/14/20 Next Visit Focus/Plan Next Note Type Treatment Note Next Visit Plan continue with balance activities, progress quad strengthening.
--- NOTE | 2020-03-19 13:45 | PT.OTN ---
Current Diagnoses Difficulty in walking, not elsewhere classified (03/19/20) Weakness (03/19/20) History of falling (03/19/20) Physical Therapy Treatment Note PT-OP-A Visit Information Start: 11/05/19 15:00 Freq: Status: Active Protocol: Document 03/19/20 13:04 [facility] (Rec: 03/19/20 13:45 [facility] [id number]) Out-Patient Physical Therapy Visit Information Visit Information Visit Type Treatment Note Visit Note 11/05 Visit Start Time 13:01 Visit Stop Time 13:41 Total Visit Minutes 40 Visit Number 12 Number of OCEANOGRAPHY PROFESSOR Visits 0 PT-OP-B Current Condition Start: 11/05/19 15:00 Freq: Status: Active Protocol: Document 11/07/19 10:41 SP (Rec: 11/07/19 11:12 SP [id number]) Current Condition History of Current Condition Current Complaints leg weakness, decreased balance, low activity tolerance History of Current Condition Pt, 84yo male, presents to PT with c/o B leg weakness. Pt states his legs have gotten weaker over the last few months and he feels unsteady on his feet. He has not had any recent falls and has not experienced any dizziness since the last time he was in the hospital. Pt goes to pool 2x/week and completes old PT exercises at home. He currently has a caregiver with him every day of the week and they assist him with walking up the stairs and getting in and out of a car. Pt would like to get back to going on long walks, grocery shopping, and getting more exercise without feeling weak and unsteady. He has had previous PT before and states it has helped his weakness and balance in the past. Prior Treatments and Tests Physical Therapy for weakness/ balance Cataract removal, R shld refduction, colectomy, neuropathy, pacemaker Treatment Goals Patient/Caregiver Goals get legs stronger in order to be able to go on long walks with , go grocery shopping , and be able to walk around in community without LOB. PT-OP-C Subjective Start: 11/05/19 15:00 Freq: Status: Active Protocol: Document 03/19/20 13:04 [facility] (Rec: 03/19/20 13:45 [facility] [id number]) OP-PT Subjective Patient Comments Patient Comments Pt reports he was tired earlier today so napped and that helped PT-OP-D Balance Start: 11/05/19 15:00 Freq: Status: Active Protocol: Document 03/12/20 13:05 [facility] (Rec: 03/12/20 13:45 [facility] [id number]) Balance Tests Valdez Balance Test Valdez Balance Test Score 38/56 PT-OP-E Functional Tests Start: 11/05/19 15:00 Freq: Status: Active Protocol: Document 03/12/20 13:05 [facility] (Rec: 03/12/20 13:45 [facility] [id number]) Functional Tests 30 Second Sit to Stand Test Score 10 Comments with BUE support Dynamic Gait Index (DGI) Score with walker PT-OP-G Mobility & Gait Start: 11/05/19 15:00 Freq: Status: Active Protocol: Document 02/13/20 09:06 [facility] (Rec: 02/13/20 09:46 [facility] [id number]) OP Gait Assessment Comments Gait Comments Pt amb with 4WW with dec foot clearance B. Without 4WW but requires CGA and does not have good foot clearance PT-OP-M Strength Start: 11/05/19 15:00 Freq: Status: Active Protocol: Document 03/12/20 13:05 [facility] (Rec: 03/12/20 13:45 [facility] [id number]) Hip Strength Hip Manual Muscle Testing Right Flexion (L2) 4- Good- Abduction 3+ Fair+ External Rotation 4- Good- Internal Rotation 4 Good Left Flexion (L2) 4 Good Abduction 4- Good- External Rotation 4 Good Internal Rotation 4+ Good+ Knee Strength Knee Manual Muscle Testing Right Flexion (S2) 4 Good Extension (L3) 4 Good Left Flexion (S2) 4 Good Extension (L3) 4 Good Ankle/Foot Strength Ankle and Foot Manual Muscle Testing Right Dorsiflexion (L4) 4- Good- Plantarflexion (S1) 4+ Good+ Comments seated Left Dorsiflexion (L4) 4+ Good+ Plantarflexion (S1) 5 Normal Comments PF tested seated PT-OP-Q Treatments Start: 11/05/19 15:00 Freq: Status: Active Protocol: Document 03/19/20 13:04 [facility] (Rec: 03/19/20 13:45 [facility] [id number]) Cardio Equipment Recumbent Stepper (Sci-Fit) Duration (Minutes) 6 Resistance 5 Other focus on full range Gym Equipment Shuttle Recovery Bilateral Squats Resistance 100 lbs Shuttle Recovery Platform Stable Reps/Time 20 Shuttle Balance 1 Details blue Reps/Duration w/hitting balloon Comments FWD: WBOS, NBOS & staggered stance ; side : WBOS Therapeutic Exercises Standing Exercises 1 Standing Exercise Name heel raises Side bilateral Reps/Minutes 20 lateral walks Standing Exercise Name w/squats Side bilateral Reps/Minutes 15ft Neuro Re-Education Treatment Balance Activities on foam Details WBOS EO/EC & NBOS Equipment BLUE rockerboard Details fwd/back & side/side wt shifts Comments balancing PT-OP-T Assessment and Plan Start: 11/05/19 15:00 Freq: Status: Active Protocol: Document 03/19/20 13:04 [facility] (Rec: 03/19/20 13:45 [facility] [id number]) Physical Therapy Assessment Goals Three Impairment Gait Mcc Goal (LTG) Pt will walk with improved gait pattern and demonstrate foot clearance bilaterally during swing phase 03/12-improved with cueing needed about 75% of the time LTG Duration 8 weeks 2 Impairment Balance Short Term Goal (STG) Pt will score >45/56 on BBS to decrease fall risk 15-improved to 38/56 STG Duration 6 weeks Cigar Head Piercer Goal (LTG) Pt will score >19/24 on DGI in order to decrease fall risk 03/12-16/24 LTG Duration 8 weeks 1 Impairment LE strength Short Term Goal (STG) Pt will be able to complete 10 sit to stands in 30s STG Duration achieved Cigar Head Piercer Goal (LTG) Pt will have 4/5 LE strength in order to be able to transfer safely 03/12-significantly improved LTG Duration 8 weeks Assessment Summary Assessment Pt improved with balance when cuieng to shift wt fwd into toes as he often loses balance backwards. He was fatigued with strengthening exercises today with dec ROM with last reps. Physical Therapy Plan Frequency and Duration Frequency of Treatment 2x/Week Duration of Treatment 2 months Plan of Care Start Date 02/13/20 Plan of Care End Date 04/14/20 Next Visit Focus/Plan Next Note Type Treatment Note Next Visit Plan continue with balance activities, progress quad strengthening.
--- NOTE | 2020-03-24 13:46 | PT.OTN ---
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 Pt states his legs have gotten weaker over the last few months and he feels unsteady on his feet. He has not had any recent falls and has not experienced any dizziness since the last time he was in the hospital. Pt goes to pool 2x/week and completes old PT exercises at home. He currently has a caregiver with him every day of the week and they assist him with walking up the stairs and getting in and out of a car. Pt would like to get back to going on long walks, grocery shopping, and getting more exercise without feeling weak and unsteady. He has had previous PT before and states it has helped his weakness and balance in the past. Prior Treatments and Tests Physical Therapy for weakness/ balance Cataract removal, R shld refduction, colectomy, neuropathy, pacemaker Treatment Goals Patient/Caregiver Goals get legs stronger in order to be able to go on long walks with , go grocery shopping , and be able to walk around in community without LOB. PT-OP-C Subjective Start: 11/05/19 15:00 Freq: Status: Active Protocol: Document 03/24/20 13:03 [facility] (Rec: 03/24/20 13:46 [facility] [id number]) OP-PT Subjective Patient Comments Patient Comments Pt plans to go to indep with HEP after next session PT-OP-D Balance Start: 11/05/19 15:00 Freq: Status: Active Protocol: Document 03/12/20 13:05 [facility] (Rec: 03/12/20 13:45 [facility] [id number]) Balance Tests Valdez Balance Test Valdez Balance Test Score 38/56 PT-OP-E Functional Tests Start: 11/05/19 15:00 Freq: Status: Active Protocol: Document 03/12/20 13:05 [facility] (Rec: 03/12/20 13:45 [facility] [id number]) Functional Tests 30 Second Sit to Stand Test Score 10 Comments with BUE support Dynamic Gait Index (DGI) Score with walker PT-OP-G Mobility & Gait Start: 11/05/19 15:00 Freq: Status: Active Protocol: Document 02/13/20 09:06 [facility] (Rec: 02/13/20 09:46 [facility] [id number]) OP Gait Assessment Comments Gait Comments Pt amb with 4WW with dec foot clearance B. Without 4WW but requires CGA and does not have good foot clearance PT-OP-M Strength Start: 11/05/19 15:00 Freq: Status: Active Protocol: Document 03/12/20 13:05 [facility] (Rec: 03/12/20 13:45 [facility] [id number]) Hip Strength Hip Manual Muscle Testing Right Flexion (L2) 4- Good- Abduction 3+ Fair+ External Rotation 4- Good- Internal Rotation 4 Good Left Flexion (L2) 4 Good Abduction 4- Good- External Rotation 4 Good Internal Rotation 4+ Good+ Knee Strength Knee Manual Muscle Testing Right Flexion (S2) 4 Good Extension (L3) 4 Good Left Flexion (S2) 4 Good Extension (L3) 4 Good Ankle/Foot Strength Ankle and Foot Manual Muscle Testing Right Dorsiflexion (L4) 4- Good- Plantarflexion (S1) 4+ Good+ Comments seated Left Dorsiflexion (L4) 4+ Good+ Plantarflexion (S1) 5 Normal Comments PF tested seated PT-OP-Q Treatments Start: 11/05/19 15:00 Freq: Status: Active Protocol: Document 03/24/20 13:03 [facility] (Rec: 03/24/20 13:46 [facility] [id number]) Cardio Equipment Recumbent Stepper (Sci-Fit) Duration (Minutes) 6 Resistance 5 Other focus on full range Therapeutic Exercises Supine Exercises clamshell Side bilateral Resistance L3 Reps/Minutes 20 SLR Side bilateral Reps/Minutes 30 Comments cue for quad contraction prior to lifting leg, slow down. Sitting Exercises seated heel raises Sitting Exercise Name DF/PF Side bilateral Reps/Minutes 30 Seated Marching Side bilateral Equipment Used L1 Reps/Minutes 30 alt Long Arc Quads Sitting Exercise Name LAQ Side bilateral Resistance L2 Reps/Minutes 20 Standing Exercises hip abd Side bilateral Equipment Used L1 Reps/Minutes 2x15 hip ext Side bilateral Reps/Minutes 20 1 Standing Exercise Name heel raises Side bilateral Reps/Minutes 30 marches Side bilateral Reps/Minutes 30 toe taps Standing Exercise Name alt Side bilateral Reps/Minutes 15 Neuro Re-Education Treatment Balance Activities 2 Details NBOS & staggered stance B Comments w/head turns PT-OP-T Assessment and Plan Start: 11/05/19 15:00 Freq: Status: Active Protocol: Document 03/24/20 13:03 [facility] (Rec: 03/24/20 13:46 [facility] [id number]) Physical Therapy Assessment Goals Three Impairment Gait Correction Goal (LTG) Pt will walk with improved gait pattern and demonstrate foot clearance bilaterally during swing phase 15-improved with cueing needed about 75% of the time LTG Duration 8 weeks 2 Impairment Balance Short Term Goal (STG) Pt will score >45/56 on BBS to decrease fall risk 7/15-improved to 38/56 STG Duration 6 weeks Correction Goal (LTG) Pt will score >19/24 on DGI in order to decrease fall risk /15-16/24 LTG Duration 8 weeks 1 Impairment LE strength Short Term Goal (STG) Pt will be able to complete 10 sit to stands in 30s STG Duration achieved Correction Goal (LTG) Pt will have 4/5 LE strength in order to be able to transfer safely 7/15-significantly improved LTG Duration 8 weeks Assessment Summary Assessment Exercises reviewed today for pending dc next session. Added inc resistances for exercises and more cues on papers for CG to help with at home focusing on posture & on slow controlled motions. Physical Therapy Plan Frequency and Duration Frequency of Treatment 2x/Week Duration of Treatment 2 months Plan of Care Start Date 02/13/20 Plan of Care End Date 04/14/20 Next Visit Focus/Plan Next Note Type Discharge Summary Next Visit Plan continue with balance activities, progress quad strengthening.
--- NOTE | 2020-03-27 13:45 | PT.OTN ---
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 Pt states his legs have gotten weaker over the last few months and he feels unsteady on his feet. He has not had any recent falls and has not experienced any dizziness since the last time he was in the hospital. Pt goes to pool 2x/week and completes old PT exercises at home. He currently has a caregiver with him every day of the week and they assist him with walking up the stairs and getting in and out of a car. Pt would like to get back to going on long walks, grocery shopping, and getting more exercise without feeling weak and unsteady. He has had previous PT before and states it has helped his weakness and balance in the past. Prior Treatments and Tests Physical Therapy for weakness/ balance Cataract removal, R shld refduction, colectomy, neuropathy, pacemaker Treatment Goals Patient/Caregiver Goals get legs stronger in order to be able to go on long walks with , go grocery shopping , and be able to walk around in community without LOB. PT-OP-C Subjective Start: 11/05/19 15:00 Freq: Status: Active Protocol: Document 03/27/20 12:58 [facility] (Rec: 03/27/20 13:45 [facility] [id number]) OP-PT Subjective Patient Comments Patient Comments Pt did exercises earlier and feels good with them. PT-OP-D Balance Start: 11/05/19 15:00 Freq: Status: Active Protocol: Document 03/12/20 13:05 [facility] (Rec: 03/12/20 13:45 [facility] [id number]) Balance Tests Valdez Balance Test Valdez Balance Test Score 38/56 PT-OP-E Functional Tests Start: 11/05/19 15:00 Freq: Status: Active Protocol: Document 03/12/20 13:05 [facility] (Rec: 03/12/20 13:45 [facility] [id number]) Functional Tests 30 Second Sit to Stand Test Score 10 Comments with BUE support Dynamic Gait Index (DGI) Score with walker PT-OP-G Mobility & Gait Start: 11/05/19 15:00 Freq: Status: Active Protocol: Document 02/13/20 09:06 [facility] (Rec: 02/13/20 09:46 [facility] [id number]) OP Gait Assessment Comments Gait Comments Pt amb with 4WW with dec foot clearance B. Without 4WW but requires CGA and does not have good foot clearance PT-OP-M Strength Start: 11/05/19 15:00 Freq: Status: Active Protocol: Document 03/27/20 12:58 [facility] (Rec: 03/27/20 13:45 [facility] [id number]) Hip Strength Hip Manual Muscle Testing Right Flexion (L2) 4 Good Abduction 4- Good- External Rotation 4 Good Internal Rotation 4 Good Left Flexion (L2) 4+ Good+ Abduction 4 Good External Rotation 4+ Good+ Internal Rotation 4+ Good+ Knee Strength Knee Manual Muscle Testing Right Flexion (S2) 4+ Good+ Extension (L3) 4+ Good+ Left Flexion (S2) 4 Good Extension (L3) 4+ Good+ Ankle/Foot Strength Ankle and Foot Manual Muscle Testing Right Dorsiflexion (L4) 4+ Good+ Plantarflexion (S1) 4+ Good+ Comments seated Left Dorsiflexion (L4) 4+ Good+ Plantarflexion (S1) 5 Normal Comments PF tested seated PT-OP-Q Treatments Start: 11/05/19 15:00 Freq: Status: Active Protocol: Document 03/27/20 12:58 [facility] (Rec: 03/27/20 13:45 [facility] [id number]) Cardio Equipment Recumbent Stepper (Sci-Fit) Duration (Minutes) 6 Resistance 5 Other focus on full range Gym Equipment Shuttle Balance 1 Details blue Comments FWD: WBOS, NBOS & staggered stance ; side : WBOS Therapeutic Exercises Sitting Exercises Seated Marching Side bilateral Reps/Minutes 30 alt Standing Exercises 1 Standing Exercise Name heel raises Side bilateral Reps/Minutes 30 marches Side bilateral Equipment Used 4# Reps/Minutes fwd/back [id number] Neuro Re-Education Treatment Balance Activities on foam Details WBOS & NBOS Equipment BLUE Reps/Duration balloon toss carioca Details carioca Equipment 4# w/rail Reps/Duration 20ft 3 Details head turns vertical & horizonal w/4WW 2 Details NBOS PT-OP-T Assessment and Plan Start: 11/05/19 15:00 Freq: Status: Active Protocol: Document 03/27/20 12:58 [facility] (Rec: 03/27/20 13:45 [facility] [id number]) Physical Therapy Assessment Goals Three Impairment Gait Halfway Goal (LTG) Pt will walk with improved gait pattern and demonstrate foot clearance bilaterally during swing phase 03/12-improved with cueing needed about 75% of the time LTG Duration achieved 2 Impairment Balance Short Term Goal (STG) Pt will score >45/56 on BBS to decrease fall risk 03/12-improved to 38/56 STG Duration 6 weeks Halfway Goal (LTG) Pt will score >19/24 on DGI in order to decrease fall risk 03/12-16/24 LTG Duration improved to 17/24 1 Impairment LE strength Short Term Goal (STG) Pt will be able to complete 10 sit to stands in 30s STG Duration achieved Recreational Resort Manager Goal (LTG) Pt will have 4/5 LE strength in order to be able to transfer safely 03/12-significantly improved LTG Duration achieved except abd Assessment Summary Assessment Pt has made excellent progresss and has even shown inc progress since 2 weeks ago . Pt requested dc and is goint to cont HEP. He has almost met goals. He was edcuated on importance of cont HEP Physical Therapy Plan Discharge Physical Therapy Discharge Reasons Patient Request
== END 2020-03-28 07:30 | disposition home or self-care (01) ==
LOC: PHYS 13:00
PROVIDERS: PCP Internal Medicine; Referring Provider Internal Medicine; Visit Provider Internal Medicine
DX: Z91.81 History of falling (principal); R53.1 Weakness; R26.2 Difficulty in walking, not elsewhere classified
CPT/HCPCS: 97110; 97112; 97116; 97162; 97535

== ENCOUNTER 2020-05-02 09:55 | Emergency (ER) | payer MEDICARE, SELFPAY ==
[2020-05-02 10:00] VITALS: BP 134/85; PULSE 61; RESP 19; TEMP 36.7; O2SAT 100; BMI 27.1
--- NOTE | 2020-05-02 10:17 | ED_ITS ---
HPI - Neuro Symptoms/Deficit General Chief Complaint: Neuro Symptoms/Deficit Stated Complaint: Possible stroke symptoms, referred by triage nurse Time Seen by Provider: 05/02/20 10:10 Source: patient Mode of arrival: Ambulatory Limitations: no limitations History of Present Illness HPI Narrative: Patient is an 84-year-old male who presents with possible stroke- like symptoms. His caregiver noticed a couple days ago he was having difficulty with word finding and difficulty with the letter F and S. his seems to have noticed some of the symptoms as well but says she does not notice them anymore. Patient overall is feeling much better. He has no weakness numbness or tingling. He is complaining of diarrhea but states that he has chronic ongoing diarrhea he thinks maybe over the last day or so it is little bit worse but never goes more than twice a day. On Anticoagulants: No Related Data Home Medications Medication Instructions Recorded Confirmed CYANOCOBALAMIN (VITAMIN B-12) 1,000 mcg PO BID #0 04/12/13 04/21/20 VITAMIN D (Vitamin D3) 1,000 unit PO QDAY #0 04/12/13 04/21/20 ascorbic acid (vitamin C) 500 mg 500 mg PO DAILY 04/21/20 04/21/20 tablet colesevelam 625 mg tablet 1,875 mg PO TID PRN #0 tab 04/21/20 04/21/20 levothyroxine 100 mcg tablet 100 mcg PO DAILY 04/21/20 04/21/20 loperamide 2 mg tablet 2 mg PO Q6H PRN 04/21/20 04/21/20 triamcinolone acetonide 0.025 % 1 applictn TOP BID 04/21/20 04/21/20 topical cream vitamin B complex 1 tab PO DAILY 04/21/20 04/21/20 vitamins A,C,[id number]-[id number] 14,320 1 cap PO BID 04/21/20 04/21/20 unit-226 mg-200 unit capsule Previous Rx's Medication Instructions Recorded meclizine 12.5 mg PO TID PRN #20 tab 09/26/19 escitalopram oxalate 10 mg tablet 10 mg PO DAILY #30 tab 03/31/20 budesonide 3 mg 9 mg PO TID #270 each 04/21/20 capsule,delayed,extended release clotrimazole 1 % topical cream 1 applictn TOP TID #45 gram 04/21/20 Allergies Allergy/AdvReac Type Severity Reaction Status Date / Time metoclopramide Allergy Unknown pt unsure Verified 05/02/20 10:09 [METOCLOPRAMIDE] Sulfa (Sulfonamide Allergy Unknown Verified 05/02/20 10:09 Antibiotics) [SULFA (SULFONAMIDE ANTIBIOTICS)] Review of Systems Review of Systems ROS Unobtainable: All systems reviewed & are unremarkable except as noted in HPI and below Constitutional Constitutional: Denies chills, Denies fever(s), Denies lethargy and Denies weakness Eyes Eyes: Denies change in vision, Denies eye discharge, Denies irritation and Denies loss of vision Cardiovascular Cardiovascular: Denies chest pain, Denies irregular heart rhythm, Denies lightheadedness, Denies palpitations, Denies dyspnea, Denies dyspnea on exertion and Denies orthopnea Respiratory Respiratory: Denies cough, Denies dyspnea, Denies dyspnea on exertion and Denies wheezing Gastrointestinal Gastrointestinal: Reports as per HPI and Reports diarrhea Musculoskeletal Musculoskeletal: Denies back pain and Denies myalgias Integumentary/Breasts Skin/Breast: Denies pruritus, Denies erythema, Denies rash and Denies wounds Neurologic Neurologic: Reports as per HPI, Reports confusion, Denies loss of vision and Denies weakness Psychiatric Psychiatric: Reports confusion Endocrine Endocrine: Denies palpitations Allergic/Immunologic Allergic/Immunologic: Denies wheezing Patient History Medical History Anosmia (Chronic) Benign prostate hyperplasia (Resolved) Cataracts, bilateral (Chronic ~2018) Depression (Inactive ~1959) Fecal incontinence (Chronic ~1957) H/O adenomatous polyp of colon (Inactive) Hearing loss (Chronic ~1999) Hypothyroidism (Chronic ~1995) Lymphocytic colitis (Chronic) Neuropathy (Chronic) Pacemaker (Chronic 11/10/11) Sleep apnea (Chronic ~1995) Urinary incontinence (Chronic) Surgical History Anesthesia (Resolved) S/P cataract extraction (Acute ~2018) S/P cholecystectomy (Acute ~1996) S/P nasal polypectomy (Acute ~1989) S/P partial colectomy (Acute ~2003) S/P tonsillectomy (Acute) S/P TURP (Acute ~2012) S/P vasectomy (Acute ~1973) Family History Father History of heart disease Mother History of heart disease Brother Diabetes mellitus History of heart disease Social History household members: spouse Smoking Status: Never smoker Smoking Status: Never smoker alcohol intake frequency: holidays/special occasions only Substance Use Type: does not use Exam Initial Vital Signs Initial Vital Signs: Vital Signs Temperature 98.1 F 05/02/20 10:00 Pulse Rate 61 05/02/20 10:00 Respiratory Rate 19 05/02/20 10:00 Blood Pressure 134/85 05/02/20 10:00 Pulse Oximetry 100 05/02/20 10:00 GENERAL: Alert pleasant elderly gentleman and in no acute distress. HEENT: Head atraumatic,EOMI, pupils reactive, face symmetric, moist mucous membranes CARDIOVASCULAR: Regular rate and rhythm without murmurs, rubs or gallops. RESPIRATORY: Breath sounds equal bilaterally, no wheezes rales or rhonchi. ABDOMEN: Soft, nontender. Normoactive bowel sounds all 4 quadrants. No guarding or rebound. EXTREMITIES: Normal range of motion, no clubbing or edema. Neurovascularly intact NEUROLOGICAL: Alert and oriented x4.Normal gait and speech. Cranial nerves II through XII grossly intact. Good [id number], good [id number], strength equal bilaterally, no dysarthria or aphasia, sensation in tact to soft touch bilaterally, no visual changes, no facial droop SKIN: Warm, dry, no laceration, no petechiae, no rashes or lesions. Scores NIH Stroke Scale Level of Conciousness: Alert, keenly responsive Ask month/age: Answers both questions correctly. Open/close eyes, close hand: Performs both tasks correctly Best gaze horizontal: Normal Visual bueno: No visual loss Facial palsy: Normal symetrical movement Left arm drift: No drift for full 10 sec Right arm drift: No drift for full 10 sec Left leg drift: No drift for full 10 sec Right leg drift: No drift for full 10 sec Limb ataxia: Absent Sensory on face/arms/legs: Normal, no sensory loss Best language: No aphasia, normal Dysarthria: Normal Extinction or inattention: No abnormality Total NIH Stroke scale score: 0 Course Orders Ordered: ED Orders 05/02/20 10:04 Complete Blood Count AUTO DIFF Stat Comprehensive Metabolic Panel Stat Partial Thromboplastin Time Stat Prothrombin Time INR Stat Troponin & CK Cardiac Panel Stat 05/02/20 10:11 EKG-12 Lead Stat 05/02/20 10:26 CT head/brain wo con Stat Urine Drug Screen, Rapid Stat Discontinued Medications Aspirin (Aspirin Chew) 324 mg PO NOW ONE Stop: 05/02/20 12:00 Last Admin: 05/02/20 12:10 Dose: 324 mg Documented by: ROSA Sodium Chloride (Normal Saline 0.9%) 1,000 mls @ 150 mls/hr IV CONT CINDI Last Admin: 05/02/20 12:24 Dose: Not Given Documented by: ROSA Vital Signs Vital signs: Vital Signs - 8 hr 05/02/20 10:00 05/02/20 10:36 05/02/20 11:00 Temperature 98.1 F Pulse Rate 61 61 60 Respiratory Rate 19 19 Blood Pressure 134/85 143/71 H Pulse Oximetry 100 91 96 05/02/20 11:30 05/02/20 11:54 05/02/20 12:00 Temperature Pulse Rate 60 60 60 Respiratory Rate 23 16 20 Blood Pressure 130/66 143/71 H 130/66 Pulse Oximetry 95 97 97 MDM - Neuro Symptoms/Deficit Lab Data Attestation: I reviewed the patient's lab results. Result diagrams: 05/02/20 10:04 05/02/20 10:04 Labs: Lab Results 05/02/20 05/02/20 05/02/20 Range/Units 10:04 10:04 10:04 WBC 6.9 (4.5-11.0) X10^3/uL RBC 4.46 L (4.5-5.9) X10^6/uL Hgb 14.3 (13.5-17.5) g/dL Hct 42.8 (41-53) % MCV 96.1 (80-100) fL MCH 32.0 (26-34) PG MCHC 33.3 (30-36) % RDW 14.6 (11.6-14.8) % Plt Count 228 (150-400) X10^3/uL Neut % (Auto) 67.5 (50-75) % Lymph % (Auto) 22.3 L (25-40) % [place] % (Auto) 6.9 (3-14) % Eos % (Auto) 2.9 (2-4) % Baso % (Auto) 0.4 (0-2) % Neut # (Auto) 4700 (4609-3741) /uL Lymph # (Auto) 1500 (4967-2296) /uL [place] # (Auto) 500 (0-900) /uL Eos # (Auto) 200 (0-450) /uL Baso # (Auto) 0 (0-100) /uL PT 12.4 (10.1-12.7) SECONDS INR 1.1 (0.9-1.3) APTT 31 (26.4-36.2) SECONDS Sodium 139 (137-145) mmol/L Potassium 3.2 L (3.4-5.1) mmol/L Chloride 106 (98-107) mmol/L Carbon Dioxide 24 (22-32) mmol/L BUN 20 (9-20) mg/dL Creatinine 0.96 (0.66-1.25) mg/dL Estimated GFR > 60.0 (>60) mL/min BUN/Creatinine Ratio 20.8 (6-22) Glucose 102 (80-110) mg/dL Calcium 9.0 (8.4-10.2) mg/dL Total Bilirubin 0.8 (0.2-1.3) mg/dL AST 25 (17-59) IU/L ALT 18 (<50) IU/L Alkaline Phosphatase 68 (38-126) U/L Total Creatine Kinase 38 L (55-170) U/L CK-MB (CK-2) TNP CK-MB (CK-2) Rel Index TNP Troponin I < 0.012 (0.01-0.034) ng/mL Total Protein 7.3 (6.3-8.2) g/dL Albumin 4.2 (3.5-5.0) g/dL Globulin 3.1 (1.7-4.1) g/dL Albumin/Globulin Ratio 1.4 (1.0-2.8) Imaging Data CT scan - head: Radiologist's Impression: PROCEDURE: CT HEAD/BRAIN WO CON INDICATIONS: speech difficulty TECHNIQUE: Noncontrast 4.5 mm thick angled axial sections acquired from the foramen magnum to the vertex, with coronal and sagittal reformats. For radiation dose reduction, the following was used: automated exposure control, adjustment of mA and/or kV according to patient size. COMPARISON: [facility], MR, BRAIN WITHOUT CONTRAST, 06/09/2010, 6:50. [facility], CT, HEAD W&WO CONTRAST, 05/23/2014, 11:10. [facility], CT, HEAD WITHOUT CONTRAST, 11/10/2017, 9:04. [facility], CT, HEAD WITHOUT CONTRAST, 11/05/2017, 5:30. [facility], CT, CT HEAD/BRAIN WO CON, 09/26/2019, 9:45. FINDINGS: Image quality: Excellent. CSF spaces: Basal cisterns are patent. No extra-axial fluid collections. The ventricles are symmetric in size and shape. Brain: No intracranial bleeds or masses. There is cerebral volume loss for age, with resultant ventricular and sulcal prominence. There are periventricular and deep white matter chronic small vessel ischemic changes. There is intracranial internal carotid artery atherosclerosis. Skull and face: Calvarium and visualized facial bones appear intact, without suspicious lesions. Sinuses: There is complete opacification of the right maxillary sinus. There is also complete opacification of the sphenoid sinuses. Postoperative changes are seen, with removal of bony septations within the ethmoid air cells. An apparent right- sided nasal polyp can be seen. No abnormal fluid is seen within the mastoid air cells. IMPRESSION: No acute intracranial process is seen. No acute intracranial hemorrhage is seen. If there is strong clinical suspicion for an acute stroke, please consider an MRI for further evaluation, as it is more sensitive (assuming that there is no contraindication to MRI). Prominent right-sided paranasal sinus disease noted. Dictated by: Nathan Wall M.D. on 05/02/2020 at 9:41 ECG Data Attestation: I personally reviewed and interpreted this ECG as follows: Interpretation: Sinus rhythm atrial paced no ST changes MDM Narrative Medical decision making narrative: Patient's symptoms happened few days ago and completely resolved now. Unclear if he had a TIA or not. At this time I st dionegly recommend outpatient workup any should take aspirin daily until otherwise instructed. I have discussed with them they need to return to the ER at the time of symptoms and as soon as possible so he can be evaluated and treated appropriately. Discharge Plan Departure Patient Disposition: Home Clinical Impression: Brain TIA Discharge Date/Time: 05/02/20 12:26 Instructions: DI for Transient Ischemic Attack Activity Restrictions/Additional Instructions: *You have been diagnosed with possible mini-stroke *What to do: Your symptoms have now completely resolved it is possible you had a mini-stroke however he were not evaluated at that time. If symptoms should return please return to the emergency department immediately and he may even call 911 if needed *Continue to take medications as directed Aspirin 81 mg once a day *Follow up with your primary care provider in 2-3 days *Return to ER if you should have difficulty speaking, weakness on 1 side, facial droop, persistent dizziness or any new, worsening or concerning symptoms Prescriptions: No Action CYANOCOBALAMIN (VITAMIN B-12) 1,000 mcg PO BID Qty: 0 RF: 0 VITAMIN D (Vitamin D3) 1,000 unit PO QDAY Qty: 0 RF: 0 escitalopram oxalate 10 mg tablet 10 mg PO DAILY Qty: 30 RF: 0 levothyroxine 100 mcg tablet 100 mcg PO DAILY RF: 0 PreserVision AREDS 14,320-226-200 [id number] capsule 1 cap PO BID RF: 0 triamcinolone acetonide 0.025 % cream 1 applictn TOP BID RF: 0 ascorbic acid (vitamin C) 500 mg tablet 500 mg PO DAILY RF: 0 vitamin B complex Tablet 1 tab PO DAILY RF: 0 loperamide [Imodium A-D] 2 mg tablet 2 mg PO Q6H PRNRF: 0 colesevelam [WelChol] 625 mg tablet 1,875 mg PO TID PRNQty: 0 RF: 0 budesonide 3 mg capsule,delayed,extend.release 9 mg PO TID Qty: 270 RF: 3 clotrimazole 1 % cream 1 applictn TOP TID Qty: 45 RF: 3 meclizine 12.5 mg tablet 12.5 mg PO TID PRN (Reason: dizziness) Qty: 20 RF: 0 Referrals: Azam Fuller MD [Primary Care Provider] -
--- NOTE | 2020-05-02 10:26 | DI.CT.S_ITS ---
PROCEDURE: CT HEAD/BRAIN WO CON INDICATIONS: speech difficulty TECHNIQUE: Noncontrast 4.5 mm thick angled axial sections acquired from the foramen magnum to the vertex, with coronal and sagittal reformats. For radiation dose reduction, the following was used: automated exposure control, adjustment of mA and/or kV according to patient size. COMPARISON: [facility], MR, BRAIN WITHOUT CONTRAST, 06/09/2010, 6:50. [facility], CT, HEAD W&WO CONTRAST, 05/23/2014, 11:10. [facility], CT, HEAD WITHOUT CONTRAST, 11/10/2017, 9:04. [facility], CT, HEAD WITHOUT CONTRAST, 11/05/2017, 5:30. [facility], CT, CT HEAD/BRAIN WO CON, 09/26/2019, 9:45. FINDINGS: Image quality: Excellent. CSF spaces: Basal cisterns are patent. No extra-axial fluid collections. The ventricles are symmetric in size and shape. Brain: No intracranial bleeds or masses. There is cerebral volume loss for age, with resultant ventricular and sulcal prominence. There are periventricular and deep white matter chronic small vessel ischemic changes. There is intracranial internal carotid artery atherosclerosis. Skull and face: Calvarium and visualized facial bones appear intact, without suspicious lesions. Sinuses: There is complete opacification of the right maxillary sinus. There is also complete opacification of the sphenoid sinuses. Postoperative changes are seen, with removal of bony septations within the ethmoid air cells. An apparent right-sided nasal polyp can be seen. No abnormal fluid is seen within the mastoid air cells. IMPRESSION: No acute intracranial process is seen. No acute intracranial hemorrhage is seen. If there is strong clinical suspicion for an acute stroke, please consider an MRI for further evaluation, as it is more sensitive (assuming that there is no contraindication to MRI). Prominent right-sided paranasal sinus disease noted. Dictated by: Nathan Wall M.D. on 05/02/2020 at 9:41 Approved by: Nathan Wall M.D. on 05/02/2020 at 9:44
[2020-05-02 10:36] VITALS: BP 143/71; PULSE 61; O2SAT 91
[2020-05-02 10:43] LABS: Add Manual Diff / Slide Review NO; Basophils Absolute Auto 0 /uL (0-100); Basophils Percent Auto 0.4 % (0-2); Eosinophils Absolute Auto 200 /uL (0-450); Eosinophils Percent Auto 2.9 % (2-4); Hematocrit 42.8 % (41-53); Hemoglobin 14.3 g/dL (13.5-17.5); Lymphocytes Absolute Auto 1500 /uL (1100-4500); Lymphocytes Percent Auto 22.3 % (25-40); Mean Corpuscular HGB Conc 33.3 % (30-36); Mean Corpuscular Volume 96.1 fL (80-100); Monocytes Absolute Auto 500 /uL (0-900); Monocytes Percent Auto 6.9 % (3-14); Neutrophils Absolute Auto 4700 /uL (1500-7000); Neutrophils Percent Auto 67.5 % (50-75); Platelet Count 228 X10^3/uL (150-400); Red Blood Cell Count 4.46 X10^6/uL (4.5-5.9); Red Cell Distribution Width 14.6 % (11.6-14.8); White Blood Cell Count 6.9 X10^3/uL (4.5-11.0)
[2020-05-02 10:47] LABS: INR 1.1 (0.9-1.3)
[2020-05-02 10:55] LABS: PTT Partial Thromboplastin Tim 31 SECONDS (26.4-36.2)
[2020-05-02 11:00] VITALS: PULSE 60; RESP 19; O2SAT 96
[2020-05-02 11:00] LABS: Prothrombin Time 12.4 SECONDS (10.1-12.7)
[2020-05-02 11:22] LABS: Alanine Aminotransferase 18 IU/L (<50); Albumin 4.2 g/dL (3.5-5.0); Albumin Globulin Ratio 1.4 (1.0-2.8); Alkaline Phosphatase 68 U/L (38-126); Aspartate Aminotransferase 25 IU/L (17-59); BUN Creatinine Ratio 20.8 (6-22); Bilirubin Total 0.8 mg/dL (0.2-1.3); Blood Urea Nitrogen 20 mg/dL (9-20); Carbon Dioxide 24 mmol/L (22-32); Chloride 106 mmol/L (98-107); Creatine Kinase 38 U/L (55-170); Estimated Glomerular Filt Rate > 60.0 mL/min (>60); Globulin 3.1 g/dL (1.7-4.1); Glucose 102 mg/dL (80-110); HEMOLYSIS 24 (0-50); Potassium 3.2 mmol/L (3.4-5.1); Sodium 139 mmol/L (137-145); Total Protein 7.3 g/dL (6.3-8.2)
--- NOTE | 2020-05-02 11:24 | PC.NURSE ---
diarrhea 2x a day which is normal for him, generalized weakness, and lightheadedness. Had difficulty word finding a few days ago.
[2020-05-02 11:30] VITALS: BP 130/66; PULSE 60; RESP 23; O2SAT 95
[2020-05-02 11:34] LABS: Troponin I < 0.012 ng/mL (0.01-0.034)
[2020-05-02 11:54] VITALS: BP 143/71; PULSE 60; RESP 16; O2SAT 97
[2020-05-02 12:00] VITALS: BP 130/66; PULSE 60; RESP 20; O2SAT 97
[2020-05-02] MEDS: ASPIRIN 81 MG CHEW TAB 324 MG PO (12:10)
== END 2020-05-02 12:26 | disposition home or self-care (01) ==
PROVIDERS: Emergency Provider Emergency Medicine; PCP Internal Medicine
DX: G45.9 Transient cerebral ischemic attack, unspecified (principal); R19.7 Diarrhea, unspecified
CPT/HCPCS: 36415; 70450; 80053; 82550; 84484; 85025; 85610; 85730; 93005; 99284

== ENCOUNTER 2020-05-08 15:58 | Observation (INO) | payer MEDICARE, SELFPAY ==
[2020-05-08] VITALS (11 sets, daily range): BP systolic 129–144; BP diastolic 61–98; PULSE 60–70; RESP 12–23; TEMP 36.1–37; O2SAT 93–100; BMI 27.8
--- NOTE | 2020-05-08 15:59 | DI.CT.S_ITS ---
PROCEDURE: CT ANGIO HEAD AND NECK INDICATIONS: left sided weakness improving TECHNIQUE: After the administration of intravenous contrast, 1.5 mm axial sections acquired from the aortic arch to the [place]. Maximum intensity projection (MIP) reformats were then performed. COMPARISON: None. FINDINGS: Image quality: Excellent. Carotid system: The great vessels demonstrate a conventional anatomy as they arise from the aortic arch. The origins of the common carotid arteries appear patent. The common carotid arteries demonstrate normal calibers and courses. The bifurcation regions appear normal bilaterally. The internal carotid arteries demonstrate normal caliber and course. There is mild left carotid atherosclerotic plaque Posterior circulation: The origins of the vertebral arteries appear patent. The more superior portions of the vertebral arteries demonstrate normal course and caliber. They join to form a normal appearing basilar artery. Soft tissues: Visualized neck soft tissues demonstrate no suspicious abnormalities. Thyroid gland grossly unremarkable. Complete opacification of the right maxillary sinus. Bones: No suspicious bony lesions. Visualized cervical spine appears normally aligned. Bilateral temporomandibular joint degeneration IMPRESSION: No intracranial stenosis or occlusion No hemodynamically significant carotid stenosis identified Any quantitative stenosis measurements were performed using the NASCET criteria. Dictated by: Shaheen Houston M.D. on 05/08/2020 at 16:38 Approved by: Shaheen Houston M.D. on 05/08/2020 at 16:47
--- NOTE | 2020-05-08 15:59 | DI.CT.S_ITS ---
PROCEDURE: CT STROKE INDICATIONS: left sided weakness TECHNIQUE: Noncontrast 4.5 mm thick angled axial sections acquired from the foramen magnum to the vertex, with coronal reformats. For radiation dose reduction, the following was used: automated exposure control, adjustment of mA and/or kV according to patient size. COMPARISON: [facility], CT, CT HEAD/BRAIN WO CON, 05/02/2020, 10:28. FINDINGS: Image quality: Excellent. CSF spaces: Basal cisterns are patent. No extra-axial fluid collections. The ventricles are unchanged in size and shape. There is moderate cerebral volume loss, with resultant ventricular and sulcal prominence. Brain: No intracranial hemorrhage, mass, or mass effect. There are subcortical, periventricular and deep white matter hypodensities consistent with moderate chronic small vessel ischemic changes. The gaines-white matter junction appears preserved. There is intracranial internal carotid artery atherosclerosis. Skull and face: Calvarium and visualized facial bones appear intact, without suspicious lesions. Sinuses: Visualized sinuses redemonstrate mucosal opacification of the right maxillary and bilateral sphenoid sinuses with periosteal thickening consistent with sequelae of chronic sinusitis. There are postsurgical changes within the sinuses bilaterally. The mastoid air cells are clear. IMPRESSION: 1. No acute intracranial abnormality. Specifically, no evidence of hemorrhage or other imaging contraindications to tPA. Findings discussed with Dr. Saldivar on May 08, 2020 at 4:13 p.m.. 2. Moderate chronic white matter small vessel ischemic changes and cerebral volume loss. 3. Chronic mucosal opacification of the right maxillary and bilaterally sphenoid sinues redemonstrated. This study fulfills neurological imaging criteria for inclusion or exclusion of acute stroke therapies based on available published neurological guidelines. Dictated by: Karthikeyan Lopez M.D. on 05/08/2020 at 16:12 Approved by: Karthikeyan Lopez M.D. on 05/08/2020 at 16:18
[2020-05-08 16:09] LABS: Add Manual Diff / Slide Review NO; Basophils Absolute Auto 0 /uL (0-100); Basophils Percent Auto 0.4 % (0-2); Eosinophils Absolute Auto 200 /uL (0-450); Eosinophils Percent Auto 2.2 % (2-4); Hematocrit 41.2 % (41-53); Hemoglobin 14.2 g/dL (13.5-17.5); Lymphocytes Absolute Auto 1900 /uL (1100-4500); Lymphocytes Percent Auto 20.2 % (25-40); Mean Corpuscular HGB Conc 34.4 % (30-36); Mean Corpuscular Hemoglobin 32.9 PG (26-34); Mean Corpuscular Volume 95.4 fL (80-100); Monocytes Absolute Auto 700 /uL (0-900); Neutrophils Absolute Auto 6600 /uL (1500-7000); Neutrophils Percent Auto 70.2 % (50-75); Platelet Count 208 X10^3/uL (150-400); Red Blood Cell Count 4.32 X10^6/uL (4.5-5.9); Red Cell Distribution Width 14.7 % (11.6-14.8); White Blood Cell Count 9.4 X10^3/uL (4.5-11.0)
[2020-05-08 16:20] LABS: Alanine Aminotransferase 15 IU/L (<50); Albumin 3.7 g/dL (3.5-5.0); Albumin Globulin Ratio 1.3 (1.0-2.8); Alkaline Phosphatase 60 U/L (38-126); Aspartate Aminotransferase 22 IU/L (17-59); Bilirubin Total 0.7 mg/dL (0.2-1.3); Blood Urea Nitrogen 26 mg/dL (9-20); Calcium 8.7 mg/dL (8.4-10.2); Carbon Dioxide 25 mmol/L (22-32); Chloride 108 mmol/L (98-107); Creatine Kinase 47 U/L (55-170); Estimated Glomerular Filt Rate > 60.0 mL/min (>60); Globulin 2.8 g/dL (1.7-4.1); Glucose 111 mg/dL (80-110); HEMOLYSIS 20 (0-50); Potassium 3.2 mmol/L (3.4-5.1); Sodium 138 mmol/L (137-145); Total Protein 6.5 g/dL (6.3-8.2)
[2020-05-08 16:24] LABS: Prothrombin Time 11.3 SECONDS (10.1-12.7)
[2020-05-08 16:27] LABS: PTT Partial Thromboplastin Tim 29 SECONDS (26.4-36.2)
[2020-05-08 16:32] LABS: Troponin I < 0.012 ng/mL (0.01-0.034)
--- NOTE | 2020-05-08 16:46 | ED.NEUROSD ---
HPI - Neuro Symptoms/Deficit General Chief Complaint: Neuro Symptoms/Deficit Stated Complaint: Code Stroke Time Seen by Provider: 05/08/20 15:59 Source: EMS Mode of arrival: EMS History of Present Illness HPI Narrative: Patient is a 84-year-old male who presents as a code stroke for left-sided weakness and left-sided facial droop, his symptoms have started to resolve upon arrival to the ED. EMS states that his symptoms started with in the shower at caregiver and had the patient noticed he was unable to walk and dragging his left foot and had some left-sided facial droop. He actually was discharged from the emergency department on May 02 with TIA. At that time he presented 4 days after he had speech difficulty. He currently is only on aspirin. Timing confirmed by: caregiver Location: left face and left leg Severity: moderate Quality: improving Relieving factors: time On Anticoagulants: No Related Data Home Medications Medication Instructions Recorded Confirmed CYANOCOBALAMIN (VITAMIN B-12) 1,000 mcg PO BID #0 04/12/13 05/06/20 VITAMIN D (Vitamin D3) 1,000 unit PO QDAY #0 04/12/13 05/06/20 ascorbic acid (vitamin C) 500 mg 500 mg PO DAILY 04/21/20 05/06/20 tablet colesevelam 625 mg tablet 1,875 mg PO TID PRN #0 tab 04/21/20 05/06/20 levothyroxine 100 mcg tablet 100 mcg PO DAILY 04/21/20 05/06/20 loperamide 2 mg tablet 2 mg PO Q6H PRN 04/21/20 05/06/20 triamcinolone acetonide 0.025 % 1 applictn TOP BID 04/21/20 05/06/20 topical cream vitamin B complex 1 tab PO DAILY 04/21/20 05/06/20 vitamins A,C,I-twyg-okedow 14,320 1 cap PO BID 04/21/20 05/06/20 unit-226 mg-200 unit capsule aspirin 81 mg tablet,delayed 81 mg PO DAILY 05/06/20 05/06/20 release Previous Rx's Medication Instructions Recorded meclizine 12.5 mg PO TID PRN #20 tab 09/26/19 escitalopram oxalate 10 mg tablet 10 mg PO DAILY #30 tab 03/31/20 budesonide 3 mg 9 mg PO TID #270 each 04/21/20 capsule,delayed,extended release clotrimazole 1 % topical cream 1 applictn TOP TID #45 gram 04/21/20 Allergies Allergy/AdvReac Type Severity Reaction Status Date / Time metoclopramide Allergy Unknown pt unsure Verified 05/06/20 14:32 [METOCLOPRAMIDE] Sulfa (Sulfonamide Allergy Unknown Verified 05/06/20 14:32 Antibiotics) [SULFA (SULFONAMIDE ANTIBIOTICS)] Review of Systems Review of Systems Narrative: GENERAL: Denies chills, fatigue, malaise, fever, sweats, travel HEENT: Denies sinus pain, ear pain, sore throat, difficulty swallowing, neck pain RESPIRATORY: Denies dyspnea, cough, wheezing, hemoptysis, sputum. CARDIOVASCULAR: Denies chest pain, palpitations, orthopnea, edema GASTROINTESTINAL: Denies nausea, vomiting, abdominal pain, diarrhea, constipation, melena. : Denies dysuria, frequency, incontinence, hematuria, urinary retention, flank pain. MUSCULOSKELETAL: Denies weakness, joint pain, or bony pain SKIN: No rash, no erythema, no pruritus NEUROLOGIC: See HPI PSYCHIATRIC: No concerning psychosocial issues. 12 point review of systems is negative except for those stated above and HPI Patient History Medical History Anosmia (Chronic) Benign prostate hyperplasia (Resolved) Cataracts, bilateral (Chronic ~2018) Depression (Inactive ~1959) Fecal incontinence (Chronic ~1957) H/O adenomatous polyp of colon (Inactive) Hearing loss (Chronic ~1999) Hypothyroidism (Chronic ~1995) Lymphocytic colitis (Chronic) Neuropathy (Chronic) Pacemaker (Chronic 11/10/11) Sleep apnea (Chronic ~1995) Urinary incontinence (Chronic) Surgical History Anesthesia (Resolved) S/P cataract extraction (Acute ~2018) S/P cholecystectomy (Acute ~1996) S/P nasal polypectomy (Acute ~1989) S/P partial colectomy (Acute ~2003) S/P tonsillectomy (Acute) S/P TURP (Acute ~2012) S/P vasectomy (Acute ~1972) Family History Father History of heart disease Mother History of heart disease Brother Diabetes mellitus History of heart disease Social History household members: spouse Smoking Status: Never smoker Smoking Status: Never smoker alcohol intake frequency: holidays/special occasions only Alcohol type: wine Substance Use Type: does not use Exam Initial Vital Signs Initial Vital Signs: Vital Signs Pulse Rate 63 05/08/20 16:23 Respiratory Rate 22 05/08/20 16:23 Pulse Oximetry 96 05/08/20 16:23 GENERAL: Alert pleasant well-appearing elderly gentleman who remembers me from last week and in no acute distress. HEENT: Head atraumatic,EOMI, pupils reactive, face symmetric, moist mucous membranes CARDIOVASCULAR: Regular rate and rhythm without murmurs, rubs or gallops. RESPIRATORY: Breath sounds equal bilaterally, no wheezes rales or rhonchi. ABDOMEN: Soft, nontender. Normoactive bowel sounds all 4 quadrants. No guarding or rebound. EXTREMITIES: Normal range of motion, no clubbing or edema. Neurovascularly intact NEUROLOGICAL: Alert and oriented x4.Normal gait and speech. Cranial nerves II through XII grossly intact. Good [id number], good [id number], strength equal bilaterally, no dysarthria or aphasia, sensation in tact to soft touch bilaterally, no visual changes, no facial droop SKIN: Warm, dry, no laceration, no petechiae, no rashes or lesions. Scores NIH Stroke Scale Level of Conciousness: Alert, keenly responsive Ask month/age: Answers both questions correctly. Open/close eyes, close hand: Performs both tasks correctly Best gaze horizontal: Normal Visual bueno: No visual loss Facial palsy: Normal symetrical movement Left arm drift: No drift for full 10 sec Right arm drift: No drift for full 10 sec Left leg drift: No drift for full 5 sec Right leg drift: No drift for full 5 sec Limb ataxia: Absent Sensory on face/arms/legs: Normal, no sensory loss Best language: No aphasia, normal Dysarthria: Normal Extinction or inattention: No abnormality Total NIH Stroke scale score: 0 Course Orders Ordered: ED Orders 05/08/20 15:50 Complete Blood Count AUTO DIFF Stat Comprehensive Metabolic Panel Stat Partial Thromboplastin Time Stat Prothrombin Time INR Stat Troponin & CK Cardiac Panel Stat 05/08/20 15:[address] angio head and neck Stat 05/08/20 16:04 EKG-12 Lead Stat 05/08/20 18:23 COVID19 -ED/INPAT/OR/L&D Stat Acetaminophen (Tylenol) 650 mg PO Q6HR PRN PRN Reason: Fever/Mild Pain (1-3) Ascorbic Acid (Vitamin C) 500 mg PO DAILY CINDI Budesonide (Entocort Ec) 9 mg PO TID CINDI Clopidogrel Bisulfate (Plavix) 75 mg PO DAILY CINDI Colesevelam HCl (Welchol) 1,875 mg PO TID CINDI Enoxaparin Sodium (Lovenox) 40 mg SUBCUT DAILY CINDI Escitalopram Oxalate (Lexapro) 10 mg PO DAILY CINDI Levothyroxine Sodium (Synthroid) 100 mcg PO DAILY CINDI Loperamide HCl (Imodium) 2 mg PO Q6H PRN PRN Reason: Diarrhea Naloxone HCl (Narcan) 0.2 mg IV Q2MIN PRN PRN Reason: Opiate Reversal Non-Formulary Medication (Vitamin D (Vitamin D3)) 1,000 unit PO QDAY CINDI Non-Formulary Medication (Vitamin B Complex) 1 tab PO DAILY CINDI Non-Formulary Medication (Vitamins A,C,J-Visf-Bpmyyq [Preservision Areds]) 1 cap PO BID CINDI Rosuvastatin Calcium (Crestor) 10 mg PO BEDTIME CINDI Discontinued Medications Clopidogrel Bisulfate (Plavix) 150 mg PO NOW ONE Stop: 05/08/20 18:20 Consultations Consultation #1: rosa Fuller talk to Neurology. Accepts patient for observation Time: 17:45 Consultation #2: Dr. BOOKER, neurology. At this time he recommends adding Plavix and loading him with 150 mg now then 75 daily for 2 weeks. Recommends tele monitoring at least overnight to look for paroxysmal atrial fibrillation an echo cardiogram. Time: 18:15 Vital Signs Vital signs: Vital Signs - 8 hr 05/08/20 16:23 05/08/20 16:30 05/08/20 16:33 Temperature 98.6 F Pulse Rate 63 61 61 Respiratory Rate 22 23 20 Blood Pressure 138/66 Pulse Oximetry 96 96 97 05/08/20 16:40 05/08/20 17:00 05/08/20 17:20 Temperature Pulse Rate 62 60 60 Respiratory Rate 21 20 17 Blood Pressure 135/63 129/61 144/69 H Pulse Oximetry 93 93 97 05/08/20 17:30 05/08/20 17:40 Temperature Pulse Rate 60 60 Respiratory Rate 16 19 Blood Pressure 139/70 Pulse Oximetry 97 97 MDM - Neuro Symptoms/Deficit Lab Data Attestation: I reviewed the patient's lab results. Result diagrams: 05/08/20 15:50 05/08/20 15:50 Labs: Lab Results 05/08/20 05/08/20 05/08/20 Range/Units 15:50 15:50 15:50 WBC 9.4 (4.5-11.0) X10^3/uL RBC 4.32 L (4.5-5.9) X10^6/uL Hgb 14.2 (13.5-17.5) g/dL Hct 41.2 (41-53) % MCV 95.4 (80-100) fL MCH 32.9 (26-34) PG MCHC 34.4 (30-36) % RDW 14.7 (11.6-14.8) % Plt Count 208 (150-400) X10^3/uL Neut % (Auto) 70.2 (50-75) % Lymph % (Auto) 20.2 L (25-40) % [place] % (Auto) 7.0 (3-14) % Eos % (Auto) 2.2 (2-4) % Baso % (Auto) 0.4 (0-2) % Neut # (Auto) 6600 (1760-5708) /uL Lymph # (Auto) 1900 (1347-5633) /uL [place] # (Auto) 700 (0-900) /uL Eos # (Auto) 200 (0-450) /uL Baso # (Auto) 0 (0-100) /uL PT 11.3 (10.1-12.7) SECONDS INR 1.0 (0.9-1.3) APTT 29 D (26.4-36.2) SECONDS Sodium 138 (137-145) mmol/L Potassium 3.2 L (3.4-5.1) mmol/L Chloride 108 H (98-107) mmol/L Carbon Dioxide 25 (22-32) mmol/L BUN 26 H (9-20) mg/dL Creatinine 1.04 (0.66-1.25) mg/dL Estimated GFR > 60.0 (>60) mL/min BUN/Creatinine Ratio 25.0 H (6-22) Glucose 111 H (80-110) mg/dL Calcium 8.7 (8.4-10.2) mg/dL Total Bilirubin 0.7 (0.2-1.3) mg/dL AST 22 (17-59) IU/L ALT 15 (<50) IU/L Alkaline Phosphatase 60 (38-126) U/L Total Creatine Kinase 47 L (55-170) U/L CK-MB (CK-2) TNP CK-MB (CK-2) Rel Index TNP Troponin I < 0.012 (0.01-0.034) ng/mL Total Protein 6.5 (6.3-8.2) g/dL Albumin 3.7 (3.5-5.0) g/dL Globulin 2.8 (1.7-4.1) g/dL Albumin/Globulin Ratio 1.3 (1.0-2.8) COVID-19 PCR (Negative) 05/08/20 Range/Units 18:23 WBC (4.5-11.0) X10^3/uL RBC (4.5-5.9) X10^6/uL Hgb (13.5-17.5) g/dL Hct (41-53) % MCV (80-100) fL MCH (26-34) PG MCHC (30-36) % RDW (11.6-14.8) % Plt Count (150-400) X10^3/uL Neut % (Auto) (50-75) % Lymph % (Auto) (25-40) % [place] % (Auto) (3-14) % Eos % (Auto) (2-4) % Baso % (Auto) (0-2) % Neut # (Auto) (9323-5320) /uL Lymph # (Auto) (8101-0719) /uL [place] # (Auto) (0-900) /uL Eos # (Auto) (0-450) /uL Baso # (Auto) (0-100) /uL PT (10.1-12.7) SECONDS INR (0.9-1.3) APTT (26.4-36.2) SECONDS Sodium (137-145) mmol/L Potassium (3.4-5.1) mmol/L Chloride (98-107) mmol/L Carbon Dioxide (22-32) mmol/L BUN (9-20) mg/dL Creatinine (0.66-1.25) mg/dL Estimated GFR (>60) mL/min BUN/Creatinine Ratio (6-22) Glucose (80-110) mg/dL Calcium (8.4-10.2) mg/dL Total Bilirubin (0.2-1.3) mg/dL AST (17-59) IU/L ALT (<50) IU/L Alkaline Phosphatase (38-126) U/L Total Creatine Kinase (55-170) U/L CK-MB (CK-2) CK-MB (CK-2) Rel Index Troponin I (0.01-0.034) ng/mL Total Protein (6.3-8.2) g/dL Albumin (3.5-5.0) g/dL Globulin (1.7-4.1) g/dL Albumin/Globulin Ratio (1.0-2.8) COVID-19 PCR Negative (Negative) Imaging Data CT scan - head: Radiologist's Impression: PROCEDURE: CT STROKE INDICATIONS: left sided weakness TECHNIQUE: Noncontrast 4.5 mm thick angled axial sections acquired from the foramen magnum to the vertex, with coronal reformats. For radiation dose reduction, the following was used: automated exposure control, adjustment of mA and/or kV according to patient size. COMPARISON: [facility], CT, CT HEAD/BRAIN WO CON, 05/02/2020, 10:28. FINDINGS: Image quality: Excellent. CSF spaces: Basal cisterns are patent. No extra-axial fluid collections. The ventricles are unchanged in size and shape. There is moderate cerebral volume loss, with resultant ventricular and sulcal prominence. Brain: No intracranial hemorrhage, mass, or mass effect. There are subcortical, periventricular and deep white matter hypodensities consistent with moderate chronic small vessel ischemic changes. The gaines-white matter junction appears preserved. There is intracranial internal carotid artery atherosclerosis. Skull and face: Calvarium and visualized facial bones appear intact, without suspicious lesions. Sinuses: Visualized sinuses redemonstrate mucosal opacification of the right maxillary and bilateral sphenoid sinuses with periosteal thickening consistent with sequelae of chronic sinusitis. There are postsurgical changes within the sinuses bilaterally. The mastoid air cells are clear. IMPRESSION: 1. No acute intracranial abnormality. Specifically, no evidence of hemorrhage or other imaging contraindications to tPA. Findings discussed with Dr. Saldivar on May 08, 2020 at 4:13 p.m.. 2. Moderate chronic white matter small vessel ischemic changes and cerebral volume loss. 3. Chronic mucosal opacification of the right maxillary and bilaterally sphenoid sinues redemonstrated. This study fulfills neurological imaging criteria for inclusion or exclusion of acute stroke therapies based on available published neurological guidelines. Dictated by: Karthikeyan Lopez M.D. on 05/08/2020 at 16:12 Approved by: Karthikeyan Lopez M.D. on 05/08/2020 at 16:18 CTA - brain/neck: Radiologist's Impression: PROCEDURE: CT ANGIO HEAD AND NECK INDICATIONS: left sided weakness improving TECHNIQUE: After the administration of intravenous contrast, 1.5 mm axial sections acquired from the aortic arch to the [place]. Maximum intensity projection (MIP) reformats were then performed. COMPARISON: None. FINDINGS: Image quality: Excellent. Carotid system: The great vessels demonstrate a conventional anatomy as they arise from the aortic arch. The origins of the common carotid arteries appear patent. The common carotid arteries demonstrate normal calibers and courses. The bifurcation regions appear normal bilaterally. The internal carotid arteries demonstrate normal caliber and course. There is mild left carotid atherosclerotic plaque Posterior circulation: The origins of the vertebral arteries appear patent. The more superior portions of the vertebral arteries demonstrate normal course and caliber. They join to form a normal appearing basilar artery. Soft tissues: Visualized neck soft tissues demonstrate no suspicious abnormalities. Thyroid gland grossly unremarkable. Complete opacification of the right maxillary sinus. Bones: No suspicious bony lesions. Visualized cervical spine appears normally aligned. Bilateral temporomandibular joint degeneration IMPRESSION: No intracranial stenosis or occlusion No hemodynamically significant carotid stenosis identified Any quantitative stenosis measurements were performed using the NASCET criteria. Dictated by: Shaheen Houston M.D. on 05/08/2020 at 16:38 ECG Data Attestation: I personally reviewed and interpreted this ECG as follows: Prior ECG tracings: available for review Interpretation: Normal sinus rhythm rate 55 no ischemic changes QTC 407 QRS 102 MDM Narrative Medical decision making narrative: The patient has had a 2nd TIA in a week. Possible paroxysmal atrial fibrillation needs to be monitored on tele with echocardiogram. He does not appear to be on statin beta-tolu or any other hypertensive medication.. Patient is admitted to observation to Dr. Fuller. Patient is not a candidate for tPA his symptoms have completely resolved in the emergency department. CT a does not show any large vessel occlusion. Discharge Plan Departure Patient Disposition: Admitted as Observation Clinical Impression: Brain TIA Discharge Date/Time: 05/08/20 18:52 Referrals: Azam Fuller MD [Primary Care Provider] - Admit Date/Time: 05/08/20 18:45 Admit Provider: Azam Fuller
[2020-05-08 18:43] LABS: COVID19 -Nasal RAPID Negative (Negative)
[2020-05-08] MEDS: CLOPIDOGREL 75 MG TABLET 150 MG PO (21:23)
[2020-05-08] MEDS: ROSUVASTATIN 10 MG TABLET PO (21:25)
[2020-05-08] MEDS: VIT C/E/ZN/COPPR/LUTEIN/ZEAXAN CAPSULE 1 CAP PO (21:26)
[2020-05-08] MEDS: BUDESONIDE 3 MG CAP 9 MG PO (21:26)
[2020-05-08] MEDS: COLESEVELAM 625 MG TABLET 1875 MG PO (21:26)
--- NOTE | 2020-05-08 22:14 | PC.ADMIT ---
[email or web address] Admission Note: The patient,Shelli Norman,84 y/o, was given written information regarding hospital policies, unit procedures and contact persons. Patient's smoking status: Never smoker. Pt arrived from ED VIA stretcher. A/O. NIH 0. Denies numbness or weakness. No facial droop, No arm or leg drift. Oriented to room and call system. Swallow screen completed. Advanced diet per MD order. Tele monitor applied. R.T. called for home CPAP to be set-up. Bed alarm on. Pt verbalized he will call for needs. Vital Signs - 8 hr 05/08/20 16:23 05/08/20 16:30 05/08/20 16:33 Temperature 98.6 F Pulse Rate 63 61 61 Respiratory Rate 22 23 20 Blood Pressure 138/66 Pulse Oximetry 96 96 97 05/08/20 16:40 05/08/20 17:00 05/08/20 17:20 Temperature Pulse Rate 62 60 60 Respiratory Rate 21 20 17 Blood Pressure 135/63 129/61 144/69 H Pulse Oximetry 93 93 97 05/08/20 17:30 05/08/20 17:40 05/08/20 19:10 Temperature 97.5 F L Pulse Rate 60 60 60 Respiratory Rate 16 19 16 Blood Pressure 139/70 136/98 H Pulse Oximetry 97 97 100
[2020-05-09 00:05] VITALS: O2SAT 96
[2020-05-09 02:56] VITALS: BP 147/85; PULSE 60; RESP 16; TEMP 36.1; O2SAT 98
[2020-05-09] MEDS: LEVOTHYROXINE 100 MCG TABLET PO (06:33)
--- NOTE | 2020-05-09 07:15 | P.HP_ITS ---
History of Present Illness History of Present Illness Date Patient Seen: 05/09/20 Time Patient Seen: 07:16 Chief complaint: Code Stroke Narrative: Pleasant 84-year-old male whom I have only met on 1 occasion prior to this when he came to see me to establish care 2 and half weeks ago. 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 Most recently he presented to the [facility] Emergency Department on the date of admission after having symptoms weakness and left facial droop. The symptoms began to resolve even prior to transportation to the hospital. EMS confirmed at least the left facial droop. By the time he reached [facility] he had resolved his symptoms completely Patient also presented to the emergency department on May 02 with symptoms that occurred 3 or 4 days earlier that involve some slurred speech that again resolved completely. In the interval he was seen in the outpatient clinic by 1 of my associates as I was unable to see the patient. Patient really declined any further evaluation workup or treatment such as statin therapy etc etera. He was taking an aspirin a day Patient had negative head CT and both occasions and negative CT angiography of the head and neck with this admission. After discussion with the tele stroke neurologist, it was elected to admit the patient for monitoring for cardiac dysrhythmias as a potential source of clot given the 2 TIAs within about a 2 week period of time, he should also have an echocardiogram performed (although he had a normal echocardiogram in November 2018) has a pacemaker in place so is not a candidate for an MRI at this facility which does not have a proper coils for the scanner to perform MR imaging on patient's even with approved pacemakers. Patient History Medical History (Updated 05/09/20 @ 07:51 by Azam Fuller MD) Anosmia (Chronic) Benign prostate hyperplasia (Resolved) Cataracts, bilateral (Chronic ~2018) Depression (Inactive ~1959) Fecal incontinence (Chronic ~1957) H/O adenomatous polyp of colon (Inactive) Hearing loss (Chronic ~1999) Hypothyroidism (Chronic ~1995) Lymphocytic colitis (Chronic) Mild cognitive impairment (Chronic) Neuropathy (Chronic) Pacemaker (Chronic 11/10/11) Sick sinus syndrome (Acute) Sleep apnea (Chronic ~1995) Urinary incontinence (Chronic) Surgical History (Updated 05/09/20 @ 07:51 by Azam Fuller MD) Anesthesia (Resolved) S/P cataract extraction (Acute ~2018) S/P cholecystectomy (Acute ~1996) S/P nasal polypectomy (Acute ~1989) S/P partial colectomy (Acute ~2003) S/P placement of cardiac pacemaker (Acute ~10/2011) S/P tonsillectomy (Acute) S/P TURP (Acute ~2012) S/P vasectomy (Acute ~1972) Family & Social History Family History Father History of heart disease Mother History of heart disease Brother Diabetes mellitus History of heart disease Social History: household members spouse Safety & Behavioral: Feels Safe in Current Yes Environment Been Physically Hurt or No Threatened By a Person Suicidal Ideation Description None Suicide Plan Description No Plan Tobacco & Substance use: Smoking Status Never smoker alcohol intake frequency holiday/special occasion Substance Use Type does not use Meds Home Medications and Allergies Home Medications Medication Instructions Recorded Confirmed Type CYANOCOBALAMIN (VITAMIN B-12) 1,000 mcg PO BID #0 04/12/13 05/06/20 History VITAMIN D (Vitamin D3) 1,000 unit PO QDAY #0 04/12/13 05/06/20 History meclizine 12.5 mg PO TID PRN #20 tab 09/26/19 05/06/20 Rx escitalopram oxalate 10 mg tablet 10 mg PO DAILY #30 tab 03/31/20 05/06/20 Rx ascorbic acid (vitamin C) 500 mg 500 mg PO DAILY 04/21/20 05/06/20 History tablet budesonide 3 mg 9 mg PO TID #270 each 04/21/20 05/06/20 Rx capsule,delayed,extended release clotrimazole 1 % topical cream 1 applictn TOP TID #45 gram 04/21/20 05/06/20 Rx colesevelam 625 mg tablet 1,875 mg PO TID PRN #0 tab 04/21/20 05/06/20 History levothyroxine 100 mcg tablet 100 mcg PO DAILY 04/21/20 05/06/20 History loperamide 2 mg tablet 2 mg PO Q6H PRN 04/21/20 05/06/20 History triamcinolone acetonide 0.025 % 1 applictn TOP BID 04/21/20 05/06/20 History topical cream vitamin B complex 1 tab PO DAILY 04/21/20 05/06/20 History vitamins A,C,G-xhsb-hdwzaa 14,320 1 cap PO BID 04/21/20 05/06/20 History unit-226 mg-200 unit capsule aspirin 81 mg tablet,delayed 81 mg PO DAILY 05/06/20 05/06/20 History release Allergies Allergy/AdvReac Type Severity Reaction Status Date / Time metoclopramide Allergy Unknown pt unsure Verified 05/06/20 14:32 [METOCLOPRAMIDE] Sulfa (Sulfonamide Allergy Unknown Verified 05/06/20 14:32 Antibiotics) [SULFA (SULFONAMIDE ANTIBIOTICS)] Review of Systems Review of Systems ROS: Yes All systems reviewed with the patient and are negative except as otherwise documented Exam Vital Signs (past 8 hours): - 05/09/20 00:05 05/09/20 02:56 Temperature 97 F L Pulse Rate 60 Respiratory Rate 16 Blood Pressure 147/85 H Pulse Oximetry 96 98 Oxygen Delivery Method Room Air Oxygen Flow Rate 0 Narrative Exam Narrative: Elderly male in no obvious distress lying in his hospital bed with his BiPAP mask in place HEENT-unremarkable, normocephalic atraumatic Neck-no lymphadenopathy no bruits Lungs-clear anteriorly and posteriorly no wheezes no crackles good breath sounds Heart-regular rate and rhythm, no murmur, rub, or gallop. normal S1-S2 Abdomen-positive bowel tones, soft, nontender, nondistended, no hepatosplenomegaly, no masses palpable Neuro-normal to screening exam, gait not tested Extremities-no cyanosis clubbing or edema Objective Labs Result Diagrams: 05/08/20 15:50 05/08/20 15:50 Labs: Laboratory Results - last 24 hr 05/08/20 05/08/20 05/08/20 15:50 15:50 15:50 WBC 9.4 RBC 4.32 L Hgb 14.2 Hct 41.2 MCV 95.4 MCH 32.9 MCHC 34.4 RDW 14.7 Plt Count 208 Neut % (Auto) 70.2 Lymph % (Auto) 20.2 L [place] % (Auto) 7.0 Eos % (Auto) 2.2 Baso % (Auto) 0.4 Neut # (Auto) 6600 Lymph # (Auto) 1900 [place] # (Auto) 700 Eos # (Auto) 200 Baso # (Auto) 0 PT 11.3 INR 1.0 APTT 29 D Sodium 138 Potassium 3.2 L Chloride 108 H Carbon Dioxide 25 BUN 26 H Creatinine 1.04 Estimated GFR > 60.0 BUN/Creatinine Ratio 25.0 H Glucose 111 H Calcium 8.7 Total Bilirubin 0.7 AST 22 ALT 15 Alkaline Phosphatase 60 Total Creatine Kinase 47 L CK-MB (CK-2) TNP CK-MB (CK-2) Rel Index TNP Troponin I < 0.012 Total Protein 6.5 Albumin 3.7 Globulin 2.8 Albumin/Globulin Ratio 1.3 COVID-19 PCR 05/08/20 18:23 WBC RBC Hgb Hct MCV MCH MCHC RDW Plt Count Neut % (Auto) Lymph % (Auto) [place] % (Auto) Eos % (Auto) Baso % (Auto) Neut # (Auto) Lymph # (Auto) [place] # (Auto) Eos # (Auto) Baso # (Auto) PT INR APTT Sodium Potassium Chloride Carbon Dioxide BUN Creatinine Estimated GFR BUN/Creatinine Ratio Glucose Calcium Total Bilirubin AST ALT Alkaline Phosphatase Total Creatine Kinase CK-MB (CK-2) CK-MB (CK-2) Rel Index Troponin I Total Protein Albumin Globulin Albumin/Globulin Ratio COVID-19 PCR Negative Assessment & Plan Assessment & Plan narrative: 1. TIA-patient with 2 events over about a 10 or 11 day period of time. No clear etiology. Certainly monitoring for cardiac dysrhythmias make sense. Uncertain how long would be appropriate to monitor in hospital setting but as an outpatient will certainly get least a 2 week monitor technician unless something is seen during this hospitalization (alternatively could have his implanted device interrogated and will work with Cardiology perhaps to do that instead). Also agree with repeat echocardiography although having had 1 that was unremarkable just a little over year ago makes it less likely were going to find something new. Agree with loading patient with clopidogrel and continuing that instead of aspirin as an anti thrombotic therapy in effort to reduce risk of stroke. Patient is completely asymptomatic and his NIH stroke scale was 0 upon presentation. Do not believe he would benefit from a skilled therapies including speech therapy occupational therapy or physical therapy Would strongly recommend statin therapy as risk reduction and will rediscuss this with patient 2. History of lymphocytic colitis controlled somewhat with patient's home medications. Continue with usual home medications for his intermittent diarrhea. (I was anticipating referral to GI upon our 1st meeting in March and will probably still follow through with that) 3. Patient's other medical problems including his hypothyroidism, is sleep apnea, and his cardiac dysrhythmia with pacemaker in place seems stable. Continue patient's usual home medications 4. VTE prophylaxis-I have gone ahead and started patient on Lovenox for this. Also have SCDs available Assuming there are no new neurologic symptoms once patient's echocardiogram is performed he can likely be discharged home, with close follow-up as an outpatient again as above anticipating 2 week monitor technician and continuing on Plavix rather than aspirin. His echocardiogram is extremely unlikely to show any significant findings given a normal echo and November 2018. Extremely unlikely which developed any new or newly noticeable PFO or any structural issues such as that. Therefore will once he has had the study performed he can likely be discharged. Quality VTE Deep Vein Thrombosis/Pulmonary Embolism Present on Admission: No
[2020-05-09 08:28] VITALS: BP 131/77; PULSE 63; RESP 16; TEMP 36.1; O2SAT 98
[2020-05-09] MEDS: ENOXAPARIN 40 MG/0.4 ML SYRINGE SUBCUT (09:10)
[2020-05-09] MEDS: BUDESONIDE 3 MG CAP 9 MG PO ×2 (09:11→14:43)
[2020-05-09] MEDS: COLESEVELAM 625 MG TABLET 1875 MG PO ×2 (09:11→14:43)
[2020-05-09] MEDS: SODIUM CHLORIDE 0.9% FLUSH 10 ML IV (09:11)
[2020-05-09] MEDS: ESCITALOPRAM 10 MG TABLET PO (09:11)
[2020-05-09] MEDS: ASCORBIC ACID 500 MG TABLET PO (09:11)
[2020-05-09] MEDS: CLOPIDOGREL 75 MG TABLET PO (09:11)
[2020-05-09] MEDS: VIT C/E/ZN/COPPR/LUTEIN/ZEAXAN CAPSULE 1 CAP PO (09:11)
[2020-05-09] MEDS: VITAMIN B COMPLEX 1 CAPSULE 1 CAP PO (09:11)
[2020-05-09] MEDS: CHOLECALCIFEROL (VITAMIN D3) 1,000 UNIT TABLET 1000 UNIT PO (09:11)
[2020-05-09] MEDS: POTASSIUM CHLORIDE 20 MEQ TAB PO ×2 (09:13→13:25)
--- NOTE | 2020-05-09 10:48 | CM.DANOTE ---
Addendum entered by HALLE Marin 05/09/20 15:09: ADD: PT was ordered and recommending d/c home with family assist and PP CG and HH. SW met bedside with pt and Dtr again and they confirm that HH would be beneficial since pt recently moved into Dtrs home and now a few stairs and could benefit from home assessment. Preference is [facility] as pt used them in 2018. SW contacted MD who is not in clinic today and not in the hospital and he is agreeable with HH but not available to sign F2F until Tuesday. SW called [facility] with referral and faxed clinicals and MD orders but updated that they will need to contact Dr. Fuller on Tuesday to get signed F2F and they are agreeable. SW updated RN and pt/Dtr. Plan: Patient to d/c home today via Dtr POV and new [facility] referral made. HALLE Marin Original Note: Patient is an 84 year old male who was admitted on 05/08/20 for AFIB. Pt has MCR and A[employer] for insurance and his PCP is Dr. Azam Fuller. EMR was reviewed. Per MD, pt with a hx of TIA and admitted for ongoing TIA symptoms for observation and Echo ordered and pending. Pt recently just established with his PCP Dr. Fuller 2 weeks prior and has since had ongoing TIA symptoms. SW met bedside with pt and adult Dtr Adelaide and explained role and pt confirms that he and his with dementia moved in with their Dtr Adelaide and her about 2 years ago and pt has [employer] PP CG during the day to assist for himself and spouse while Dtr and [employer] work. Pt is mostly independent with ADL's and he recently completed outpt PT sessions and is somewhat active with ambulation. 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 Pt has a hx of [facility] after last admit two years ago in 2018 for similar medical needs and denies any hx of SNF. Pt preference is to d/c home via Dtr POV today pending Echo results and does not anticipate any d/c needs. Pt sees Dr. Apodaca Truck Mechanic in [facility] and will have follow up appointment with him to determine possible need for cardiac monitoring. Plan: SW to follow closely after Echo results to confirm if pt safe for d/c home via Dtr POV today and any further identified discharge planning needs. HALLE Marin Discharge Planning/Care Management CM Discharge Assessment Start: 05/09/20 10:45 Freq: Status: Active Protocol: Document 05/09/20 10:45 BF (Rec: 05/09/20 10:48 BF [id number]) Discharge Planning Assessment Assigned Digital Media Specialist HALLE Ewing DPOA/Assigned Designee Name Dtr Veronica Advance Directives? Yes Advance Directives on File Yes History Provided By Patient,Family Member,Medical Record Has Patient been admitted in last 30 No days? Prior Living Arrangements House Household Members spouse,family Type of transporation used prior to Relies on Others admit Independent with ADL's Yes Is patient alert and oriented? Yes Needs Assistance With Managing Medications,Home Chores / Shopping Caregiver for Another No Comment Pt lives with Dtr and Son kirby and spouse has dementia and they have [employer] for support during the day Comment Likely home with no needs pending Echo results and outpt Cardiology f/u Barriers to Discharge No Discharge Plan Home Transportation Arrangement Dtr bedside and can provide transport home at d/c Referrals Initiated None needed Review Status In Process Please Provide Date Initial DC 05/09/20 Assessment Was Performed Next Review Type Continued Stay Review
[2020-05-09 11:52] VITALS: BP 135/78; PULSE 59; RESP 16; TEMP 36.3; O2SAT 97
--- NOTE | 2020-05-09 13:10 | PT.IIE ---
Surgical History (Last Updated 05/09/20 @ 07:51 by Azam Fuller MD) Anesthesia (Resolved) S/P cataract extraction (Acute ~2018) S/P cholecystectomy (Acute ~1996) S/P nasal polypectomy (Acute ~1989) S/P partial colectomy (Acute ~2003) S/P placement of cardiac pacemaker (Acute ~10/2011) S/P tonsillectomy (Acute) S/P TURP (Acute ~2012) S/P vasectomy (Acute ~1972) Medical History (Last Updated 05/09/20 @ 07:51 by Azam Fuller MD) Anosmia (Chronic) Benign prostate hyperplasia (Resolved) Cataracts, bilateral (Chronic ~2018) Depression (Inactive ~1959) Fecal incontinence (Chronic ~1957) H/O adenomatous polyp of colon (Inactive) Hearing loss (Chronic ~1999) Hypothyroidism (Chronic ~1995) Lymphocytic colitis (Chronic) Mild cognitive impairment (Chronic) Neuropathy (Chronic) Pacemaker (Chronic 11/10/11) Sick sinus syndrome (Acute) Sleep apnea (Chronic ~1995) Urinary incontinence (Chronic) Physical Therapy Inpatient Evaluation/Re-Eval M1 PT/OT-IP Prior Functional Status Start: 05/09/20 13:23 Freq: NEEDED Status: Active Protocol: Document 05/09/20 13:10 AB (Rec: 05/09/20 13:26 AB [id number]) Medical Review Prior Functional Status Medical History Reviewed Yes Communication able to make needs known Mobility and Gait per daughter: pt requires supervision with mobility using 4WW for ambulation. stated that pt has fallen 2x this year and last fall was last month. Activities of Daily Living and IADL's requires SBA for bathing needs Social History Household Members spouse,family Living Arrangements House Number of Floors (Floors) Two Floors Number of Stairs To Enter/Railing? pt stays on main level of the house has 2 steps without rails to enter the house but has a L side pillar Home Environment Standard Height Toilet,Walk in Shower Home Equipment Four Wheel Walker,Shower Seat with Backrest,Hand Held Shower ,Grab Bars In Shower Additional Social History Comment has toilet safety frame pt has caregivers that assist him at home 6x/week and daughter to assist when caregivers are not available: has 10 hours of caregiver assistance on and 8 hours on saturdays. M2 PT-IP Current Condition Start: 05/09/20 13:23 Freq: NEEDED Status: Active Protocol: Document 05/09/20 13:10 AB (Rec: 05/09/20 15:04 AB [id number]) Physical Therapy Current Condition Current Condition Evaluation Date 05/09/20 Treatment Diagnosis brain TIA; difficlty in walking Onset Date 05/08/20 Precautions Other Precautions falls M3 PT-IP Subjective Start: 05/09/20 13:23 Freq: NEEDED Status: Active Protocol: Document 05/09/20 13:10 AB (Rec: 05/09/20 15:04 AB [id number]) Subjective Physical Therapy Visit Type Type Initial Evaluation Visit Start Time 13:10 Visit Stop Time 14:44 Total Visit Minutes 46 Notes Pt seen for split visits: 1310 to 1323 and 1411 to 1444 due to echo procedure Number of POLE CLASSIFIER Visits 0 Physical Therapy Visit Comments Patient Comments pt is agreeable to do PT Therapy Pain Assessment Pain Present Pain Present Denied Pain M4 PT-IP Mobility and Gait Start: 05/09/20 13:23 Freq: NEEDED Status: Active Protocol: Document 05/09/20 13:10 AB (Rec: 05/09/20 15:04 AB [id number]) PT-Bed Mobility Assessment Supine to Sit Supine to Sit Independent Sit to Supine Sit to Supine Independent PT-Transfer Assessment Sit to and From Stand Sit to and from Stand Standby Assistance,1 Person Assistance,Use of Upper Extremities Equipment Transfer Assistive Device Gait Belt,4 Wheeled Walker Orthotic/Prosthetic Devices or Brace: No Comments Mobility Comments pt was up using 4WW with his daughter. pt was washing his hands SBA and ambulated to the bed using 4WW SBA. pt agreed to ambulate more and do stairs. completed ambulation using 4WW SBA to occasional CGA and cues requiring more assist towards end of ambulation with increase shuffling ataxic gait. pt can be impulsive and tends to push 4WW too far away and cued to use half brakes on 4WW. 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 daughter stated that he has chronic shuffling gait especially when he is tired. completed up/down steps using bilateral rails min A. assisted pt with stairs using L rail and CORRECTIONAL COUNSELOR/CASE MANAGER on R requiring mod A and cues. educated daughter on how to assist pt. pt repeated stair climbing again with daughter assisting and completed safely. also educated daughter on how to put on safety belt and how to assist using safety belt. pt ambulated back to his room SBA to occasional CGA. completed sit to supine SBA. positioned on the bed. call light and table placed within reach. Gait Assessment Gait Gait Assistance Required: Standby Assistance,Contact Guard Assist Distance (Feet) 75 Able to Maintain Weight Bearing Status Yes During Gait Assistive Devices Assistive Device Gait Belt,4 Wheeled Walker Orthotic/Prosthetic Devices or Brace: No Gait Deviations General Gait Pattern Ataxic,Decreased Stride Length ,Decreased Feet Clearance Factors Limiting Gait Function Factors Limiting Gait Function Decreased Activity Tolerance, Decreased Sensation,Decreased Strength,Poor Balance,Poor Safety Awareness Stair Climbing Assessment Evaluation Level of Assist On Stairs Minimal Assistance,Moderate Assistance Devices Stair Climbing Assistive Devices Left Railing Technique/Endurance Stair Climbing Direction Ascend and Descend Stair Climbing Technique Step to Step Number of Steps Climbed 3 Query Text: Stair Climbing Set # Repetitions (reps) 3 Comments Stair Climbing Comments caregiver training for stair climbing conducted and daughter was able to assist pt safely PT-Balance Assessment Sitting Balance and Reactions Static Sitting Balance Ability Good Dynamic Sitting Balance Ability Good Standing Balance and Reactions Static Standing Balance Ability Fair Dynamic Standing Balance Ability Fair Device Used 4WW M5 PT-IP Objective Assessments Start: 05/09/20 13:23 Freq: NEEDED Status: Active Protocol: Document 05/09/20 13:10 AB (Rec: 05/09/20 15:04 AB [id number]) Orientation Orientation/Cognition Level of Alertness Alert Orientation Name,Place,Situation Language Function Ability No Deficits Noted Safety Awareness Decreased Safety Awareness Gross Range of Motion Lower Extremity ROM Assessment Within Functional Limits Strength Lower Extremity Strength Assessment Bilaterally Impaired Comments Strength Comments LLE 4-/5 RLE: 3+/5 Coordination Assessment Gross Coordination Gross Coordination WNL Muscle Tone Muscle Tone WNL Yes M6 PT-IP Treatment Start: 05/09/20 13:23 Freq: NEEDED Status: Active Protocol: Document 05/09/20 13:10 AB (Rec: 05/09/20 15:04 AB [id number]) Physical Therapy Treatment Education Education Provided Safety M7 PT-IP Assessment and Plan Start: 05/09/20 13:23 Freq: NEEDED Status: Active Protocol: Document 05/09/20 13:10 AB (Rec: 05/09/20 15:04 AB [id number]) PT Summary Assessment and Plan Potential Rehabilitation Potential Good Status of Condition at Evaluation Stable Summary Impairments Pain,ROM,Strength,Balance, Sensation,Bed Mobility, Transfers,Gait,Activity Tolerance Assessment Summary pt requiring SBA to CGA with transfer and ambulation using 4WW and mod A for stair climbing. pt has 24/7 assist at home but will require home health PT to improve strength and functional independence. pt plans to go home with assist at home. Goals Transfer Goal Standby Assistance,Four Wheeled Walker Gait Goal Standby Assistance,Four Wheel Walker Gait Distance 150 Other Goals up/down 2 steps CORRECTIONAL COUNSELOR/CASE MANAGER/SPC CGA Days to Meet Goals 5 Frequency of Treatment Frequency Of Treatment Once a Day Treatment Plan Physical Therapy Treatment Plan Bed Mobility Training,Transfer Training,Gait Training, Therapeutic Exercise,Balance Retraining,Post Op Education, Discharge Planning,Hot or Cold Pack,Neuromuscular Re-ed, Coordination Retraining,Manual Therapy Other Recommendations and Next Treatment ambulation, stair climbing Focus Recommendations To Nursing Amount of Assist Needed 1 Person Assist Discharge Recommendations PT Discharge Recommendations Home with 24/7 Assist,Home Health Transportation Needs at Discharge Private Vehicle
--- NOTE | 2020-05-09 13:31 | DI.ECHO.S_ITS ---
Echocardiogram Report + + :Name: SADIA MATHUR Study Date: 05/09/2020 Height: 72 in : :[facility] Weight: 205 lb : : Gender: Male BSA: 2.2 m2 : :: 1935 Age: 84 yrs BP: 131/77 mmHg: :Reason For Study: TIA : :Ordering Physician: [place] : :Hospitalist Performed By: Maty Collado : :Referring: AIDEN CASILLAS R : + + Interpretation Summary 1) Normal left ventricular size, thickness, wall motion, and systolic function (EF 60-65%). 2) The right ventricle is normal in size and function. There is a pacemaker lead in the right ventricle. 3) There is mild aortic regurgitation. 4) Compared to the Echo done 11/27/2018, no significant change. Procedure: A two-dimensional transthoracic echocardiogram with color flow and Doppler was performed. The study quality was technically adequate. Comparison is made with the echocardiogram of 11/27/2018. The patient was in normal sinus rhythm during the exam. Left Ventricle: The left ventricle is normal in size. There is normal left ventricular wall thickness. There is no ventricular septal defect visualized. The ejection fraction is estimated to be 60-65%. There are no focal wall motion abnormalities. Diastolic parameters suggest a relaxation abnormality of the left ventricle, consistent with probable normal filling pressures. Right Ventricle: There is a pacemaker lead in the right ventricle. The right ventricle is normal in size and function. Atria: The left atrium is borderline dilated. Right atrial size is normal. There is no Doppler evidence for an interatrial shunt. Mitral Valve: The mitral valve is normal in structure and function. There is trace mitral regurgitation. The mitral regurgitant jet is eccentrically directed. Aortic Valve: The aortic valve is trileaflet. The aortic valve opens well. There is no aortic valve stenosis. There is mild aortic regurgitation. Tricuspid Valve: The tricuspid valve leaflets are thin and pliable. There is a trace or physiologic amount of tricuspid regurgitation. Right ventricular systolic pressure is estimated to be 27 mmHg plus the clinically estimated CVP which cannot be estimated on this exam. Pulmonic Valve: The pulmonic valve leaflets are thin and pliable; valve motion is normal. There is a trace or physiologic amount of pulmonic regurgitation. Great Vessels: The aortic root is normal size. The ascending aorta is mildly enlarged. The aortic arch is mildly enlarged. The inferior vena cava was not visualized. Pericardium/ Pleura There is no pericardial effusion. MMode/2D Measurements & Calculations LVIDd: 4.9 cm LVOT diam: 2.5 cm LVIDs: 3.4 cm Ao root diam: 3.6 cm FS: 30.3 % Aortic Jxn: 2.8 cm IVSd: 0.92 cm asc Aorta Diam: 3.9 cm LVPWd: 0.86 cm Ao Arch Diam (Prox Trans): 3.6 cm LV landrum. diameter/BSA (cm/m^2): 2.3 LV sys. diameter/BSA (cm/m^2): 1.6 LA A2 area: 21.6 cm2 RA long axis: 4.5 cm LA A4 area: 21.6 cm2 RA area: 16.6 cm2 LA length (vol): 5.5 cm RA vol: 52.0 ml LA vol: 71.7 ml RA : 24.2 ml/m2 LA vol index: 33.3 ml/m2 RVD1 (basal): 3.6 cm RVD2 (mid): 3.6 cm TAPSE: 3.5 cm Doppler Measurements & Calculations Ao V2 max: 130.2 cm/sec LVOT Max Sadi: 105.8 cm/sec Ao V2 mean: 92.4 cm/sec LV V1 max P.5 mmHg Ao max P.8 mmHg LV V1 VTI: 21.0 cm Ao mean P.7 mmHg JUAN R(I,D): 3.5 cm2 Ao V2 VTI: 28.7 cm JUAN R(V,D): 3.9 cm2 sev ratio: 0.73 JUAN R indexed to BSA (cm^2/m^2): 1.6 MV E max sadi: 51.4 cm/sec TR max sadi: 258.8 cm/sec MV A max sadi: 69.0 cm/sec TR max P.8 mmHg MV E/A: 0.74 PA V2 max: 91.6 cm/sec Med Peak E' Sadi: 4.6 cm/sec PA V2 mean: 59.5 cm/sec E/E' med: 11.2 PA mean P.6 mmHg Lat Peak E' Sadi: 6.1 cm/sec PA Accel Time: 0.06 sec E/E' lat: 8.4 E/e' average: 9.8 MV dec time: 0.19 sec MV P1/2t: 55.4 msec MV P1/2t max sadi: 51.8 cm/sec SV(LVOT): 101.7 ml MVA(P1/2t): 4.0 cm2 Reading Physician:03:07 PM
--- NOTE | 2020-05-09 14:32 | PC.NURSE ---
Patient is doing well. He is going to be discharged to home, just worked with physical therapy. NIH stroke scale a O. Patient has no deficits. Daughter in room visiting. Patient had has echo and just phoned and patient is going to be discharging home.
== END 2020-05-09 15:56 | disposition home or self-care (01) ==
LOC: ED 18:30 → AC 18:46
PROVIDERS: Admitting Provider Internal Medicine; Emergency Provider Emergency Medicine; PCP Internal Medicine; Visit Provider Internal Medicine
DX: G45.9 Transient cerebral ischemic attack, unspecified (principal); R29.818 Other symptoms and signs involving the nervous system; K52.89 Other specified noninfective gastroenteritis and colitis; G47.30 Sleep apnea, unspecified; Z95.0 Presence of cardiac pacemaker; I49.9 Cardiac arrhythmia, unspecified; Z11.59 Encounter for screening for other viral diseases
CPT/HCPCS: 36415; 70450; 70496; 70498; 80053; 82550; 84484; 85025; 85610; 85730; 87635; 93005; 93306; 96372; 97161; 97530; 99284; G0378; J1650; Q9967

== ENCOUNTER → 2020-05-15 08:33 | Outpatient (CLI) | payer MEDICARE, SELFPAY ==
[2020-05-08 19:02] VITALS: BMI 27.8
[2020-05-15 09:57] LABS: BUN Creatinine Ratio 18.5 (6-22); Blood Urea Nitrogen 20 mg/dL (9-20); Calcium 8.9 mg/dL (8.4-10.2); Carbon Dioxide 30 mmol/L (22-32); Chloride 103 mmol/L (98-107); Cholesterol 81 mg/dL (140-199); Estimated Glomerular Filt Rate > 60.0 mL/min (>60); Glucose 82 mg/dL (80-110); HDL Cholesterol 41 mg/dL (40-60); HEMOLYSIS < 15 (0-50); LDL Cholesterol Calculated 23 mg/dL (<100); Potassium 4.4 mmol/L (3.4-5.1); Sodium 139 mmol/L (137-145); Triglycerides 87 mg/dL (35-150)
== END ==
PROVIDERS: PCP Internal Medicine; Referring Provider Nurse Practitioner; Visit Provider Nurse Practitioner
DX: I10 Essential (primary) hypertension (principal); E78.6 Lipoprotein deficiency
CPT/HCPCS: 36415; 80048; 80061

== ENCOUNTER → 2020-05-21 09:36 | Outpatient (CLI) | payer MEDICARE, SELFPAY ==
[2020-05-20 10:08] VITALS: BMI 27.8
[2020-05-21 10:32] LABS: Appearance Urine UA CLEAR; Bilirubin Urine UA NEGATIVE (NEGATIVE); Color Urine UA YELLOW; Glucose Urine UA NEGATIVE (Negative); Ketones Urine UA NEGATIVE (NEGATIVE); Leukocyte Esterase Urine UA NEGATIVE (NEGATIVE); Nitrite Urine UA NEGATIVE (Negative); Occult Blood Urine UA TRACE-LYSED (Negative); Protein Urine UA NEGATIVE (Negative); Specific Gravity Urine UA 1.015 (1.000-1.035); Urobilinogen Urine UA 0.2 E.U./dL (0.2); pH Urine UA 6.5 (4.5-8.0)
== END ==
PROVIDERS: PCP Internal Medicine; Referring Provider Specialist; Visit Provider Specialist
DX: N39.0 Urinary tract infection, site not specified (principal); N39.41 Urge incontinence; R32 Unspecified urinary incontinence
CPT/HCPCS: 36415; 81003; 84153

== ENCOUNTER 2020-07-05 16:25 | Emergency (ER) | payer MEDICARE, SELFPAY ==
[2020-05-20 10:08] VITALS: BMI 27.8
--- NOTE | 2020-07-05 16:27 | DI.CT.S_ITS ---
PROCEDURE: CT HEAD/BRAIN WO CON INDICATIONS: Fall on blood thinners TECHNIQUE: Noncontrast 4.5 mm thick angled axial sections acquired from the foramen magnum to the vertex, with coronal and sagittal reformats. For radiation dose reduction, the following was used: automated exposure control, adjustment of mA and/or kV according to patient size. COMPARISON: [facility], CT, CT HEAD/BRAIN WO CON, 05/02/2020, 10:28. [facility], CT, CT HEAD/BRAIN WO CON, 09/26/2019, 9:45. FINDINGS: Image quality: Excellent. CSF spaces: Basal cisterns are patent. No extra-axial fluid collections. The ventricles are symmetric in size and shape. Brain: No intracranial bleeds or masses. There is moderate cerebral volume loss for age, with resultant ventricular and sulcal prominence. There are moderate periventricular and deep white matter chronic small vessel ischemic changes. There is intracranial internal carotid artery atherosclerosis. Skull and face: Calvarium and visualized facial bones appear intact, without suspicious lesions. Sinuses: There is redemonstration of complete opacification the right maxillary sinus as well as the sphenoid sinus. Stable postsurgical changes from prior sinus surgery and postoperative changes involving multiple ethmoid sinus cells. Visualized mastoids are clear. IMPRESSION: 1. 1. CT head without acute intracranial abnormalities or acute calvarial fractures. Specifically, no evidence of acute intracranial hemorrhage. 2. Age-related senescent changes and sequela of moderate chronic small vessel ischemic disease. 3. Stable appearance of sinus disease involving the sphenoid, ethmoid, and right maxillary sinuses. Stable postsurgical changes of the sinus. Dictated by: Kiran Gr M.D. on 07/05/2020 at 16:02 Approved by: Kiran Gr M.D. on 07/05/2020 at 16:06
[2020-07-05 16:32] VITALS: BP 151/71; PULSE 66; RESP 18; TEMP 36.9; O2SAT 95; BMI 29.0
--- NOTE | 2020-07-05 16:42 | ED_ITS ---
HPI - Head Injury <Kellie ZunigaTAJ - Last Filed: 07/05/20 17:43> General Chief complaint: Fall Stated complaint: Ground level fall Time Seen by Provider: 07/05/20 16:27 Source: patient Mode of arrival: EMS Limitations: no limitations History of Present Illness HPI Narrative: 84-year-old male presents to the emergency department via EMS after a fall. Patient states he was trying to steel pickler his CT and lost his balance and fell backwards. He currently takes Eliquis, states he hit the back of his head on a chair. No LOC, has a mild headache. Denies any vision changes, vomiting, chest pain, shortness of breath, dizziness prior or post fall, fevers, weakness, or any other concerns. Modified trauma called. Patient lives at home with his daughter. He states he takes Eliquis as he has had multiple TIAs in the past. Related Data Home Medications Medication Instructions Recorded Confirmed CYANOCOBALAMIN (VITAMIN B-12) 1,000 mcg PO BID #0 04/12/13 06/17/20 VITAMIN D (Vitamin D3) 1,000 unit PO QDAY #0 04/12/13 06/17/20 ascorbic acid (vitamin C) 500 mg 500 mg PO DAILY 04/21/20 06/17/20 tablet levothyroxine 100 mcg tablet 100 mcg PO DAILY 04/21/20 06/17/20 loperamide 2 mg tablet 2 mg PO Q6H PRN 04/21/20 06/17/20 vitamin B complex 1 tab PO DAILY 04/21/20 06/17/20 vitamins A,C,H-flsy-fkodrt 14,320 1 cap PO BID 04/21/20 06/17/20 unit-226 mg-200 unit capsule apixaban 2.5 mg tablet 2.5 mg PO BID 05/15/20 06/17/20 triamcinolone acetonide 0.025 % 1 applictn TOP DAILY 05/20/20 06/17/20 topical cream Previous Rx's Medication Instructions Recorded escitalopram oxalate 10 mg tablet 10 mg PO DAILY #30 tab 03/31/20 budesonide 3 mg 9 mg PO TID #270 each 04/21/20 capsule,delayed,extended release clotrimazole 1 % topical cream 1 applictn TOP TID #45 gram 04/21/20 rosuvastatin 10 mg PO BEDTIME #30 tab 05/09/20 Allergies Allergy/AdvReac Type Severity Reaction Status Date / Time metoclopramide Allergy Unknown pt unsure Verified 07/05/20 16:40 [METOCLOPRAMIDE] Sulfa (Sulfonamide Allergy Unknown Verified 07/05/20 16:40 Antibiotics) [SULFA (SULFONAMIDE ANTIBIOTICS)] Review of Systems <TAJ Capone - Last Filed: 07/05/20 17:43> Review of Systems Narrative: REVIEW OF SYSTEMS: GENERAL: Denies fever or chills. HENT: Reports head trauma from fall, see HPI. EYES: No loss of vision, double vision, eye pain, or irritation. CARDIOVASCULAR: No chest pain. RESPIRATORY: No shortness of breath or cough. GASTROINTESTINAL: No nausea, vomiting, diarrhea, or constipation. MUSCULOSKELETAL: No pain, weakness, or deformities. INTEGUMENTARY: No rash, lesions, or pruritus. NEURO: No numbness, tingling, memory loss, or confusion. PSYCH: No behavior or mood changes. Patient History <TAJ Capone - Last Filed: 07/05/20 17:43> Medical History Anosmia (Chronic) Benign prostate hyperplasia (Resolved) Cataracts, bilateral (Chronic ~2018) Depression (Inactive ~1959) Erectile dysfunction (Acute) Family history of prostate cancer (Acute) Fecal incontinence (Chronic ~1957) H/O adenomatous polyp of colon (Inactive) Hearing loss (Chronic ~1999) Hypothyroidism (Chronic ~1995) Lymphocytic colitis (Chronic) Mild cognitive impairment (Chronic) Neuropathy (Chronic) Pacemaker (Chronic 11/10/11) Paroxysmal atrial fibrillation (Chronic) Prostate cancer (Acute) Sick sinus syndrome (Acute) Sleep apnea (Chronic ~1995) Urge incontinence (Acute) Urinary incontinence (Chronic) Urinary incontinence, mixed (Acute) Surgical History Anesthesia (Resolved) H/O cataract removal with insertion of prosthetic lens (Acute) H/O colectomy (Acute) History of appendectomy (Acute) History of cholecystectomy (Acute) History of tonsillectomy (Acute) S/P cataract extraction (Acute ~2018) S/P cholecystectomy (Acute ~1996) S/P nasal polypectomy (Acute ~1989) S/P partial colectomy (Acute ~2003) S/P placement of cardiac pacemaker (Acute ~10/2011) S/P tonsillectomy (Acute) S/P TURP (Acute ~2012) S/P vasectomy (Acute ~1972) Family History Father History of heart disease Mother History of heart disease Brother Diabetes mellitus History of heart disease Social History household members: spouse and family Smoking Status: Never smoker Smoking Status: Never smoker alcohol intake frequency: holidays/special occasions only Alcohol type: wine Substance Use Type: does not use Exam <TAJ Capone - Last Filed: 07/05/20 17:43> Initial Vital Signs Initial Vital Signs: Vital Signs Temperature 98.4 F 07/05/20 16:32 Pulse Rate 66 07/05/20 16:32 Respiratory Rate 18 07/05/20 16:32 Blood Pressure 151/71 H 07/05/20 16:32 Pulse Oximetry 95 07/05/20 16:32 PHYSICAL EXAMINATION: GENERAL: Well groomed, alert, and cooperative. Answers questions promptly and appropriately. Vital signs noted. HENT: Normocephalic. Ear canals patent. Oral mucosa is pink and moist. EYES: PERRLA, EOMIs, conjunctiva pink, sclera white, no periorbital swelling. NECK: Full ROM, no midline or spinal tenderness. CARDIOVASCULAR: S1 and S2 sounds normal. Regular rate and rhythm, no murmurs, clicks, or bruits. RESPIRATORY: Normal respiratory rate, trachea midline, airway patent. No stridor, nasal flaring or accessory muscle use. Lungs are clear in all bueno without wheeze, rhonchi, or crackles. MUSCULOSKELETAL: Normal gait and coordination. Equal tone and mass bilaterally. Equal strength bilaterally to upper and lower extremities. No spinal tenderness. No deformities. EXTREMITIES: CMS intact. Moves all extremities. SKIN: Warm, dry, soft, appropriate color for ethnicity. No lesions, rashes, or wounds to visualized areas. NEURO: Alert and Oriented X 3. GCS: 15. Good coordination. No ataxia, or sensory deficits, or cognitive issues. Cranial Nerves: II: Visual bueno grossly intact. III & IV & : EOMIs V: Able to open and close jaw. VII: Facial movements symetrical. Able to close eyelids tightly. VIII: Hearing grossly intact, adequate balance. X: Uvula pronation intact. XI: Patient is able to shrug shoulders. XII:Patient is able to stick out tongue and move it side to side. PSYCH: Appropriate affect and mood. <Max Linares DO - Last Filed: 07/05/20 17:59> Initial Vital Signs Initial Vital Signs: Vital Signs Temperature 98.4 F 07/05/20 16:32 Pulse Rate 66 07/05/20 16:32 Respiratory Rate 18 07/05/20 16:32 Blood Pressure 151/71 H 07/05/20 16:32 Pulse Oximetry 95 07/05/20 16:32 Scores <TAJ Capone - Last Filed: 07/05/20 17:43> Nexus Score for C-Spine Focal Neurologic deficit present: No Midline spinal tenderness present: No Altered level of conciousness present: No Intoxication present: No Distracting Injury Present: No Nexus Criteria for C-spine: 0 Course <TAJ Capone - Last Filed: 07/05/20 17:43> Course Course Narrative: Patient continues denies symptoms at discharge. Family at bedside when patient was updated on CT scan. Orders Ordered: ED Orders 07/05/20 16:27 CT head/brain wo con Stat Vital Signs Vital signs: Vital Signs - 8 hr 07/05/20 16:32 07/05/20 17:30 Temperature 98.4 F Pulse Rate 66 88 Respiratory Rate 18 15 Blood Pressure 151/71 H 132/88 Pulse Oximetry 95 99 <Max Linares DO - Last Filed: 07/05/20 17:59> Orders Ordered: ED Orders 07/05/20 16:27 CT head/brain wo con Stat Vital Signs Vital signs: Vital Signs - 8 hr 07/05/20 16:32 07/05/20 17:30 Temperature 98.4 F Pulse Rate 66 88 Respiratory Rate 18 15 Blood Pressure 151/71 H 132/88 Pulse Oximetry 95 99 MDM - Head Injury <TAJ Capone - Last Filed: 07/05/20 17:43> Medical Records Attestation: I reviewed the patient's medical records. Lab Data Attestation: I reviewed the patient's lab results. Imaging Data CT scan - head: Radiologist's Impression: [address] [address] [address] Scan Report Signed Patient: Shelli Norman HMR#: [id number] : 7Acct:[id number] Age/Sex: 84 / MDate of Service: 07/05/20 Loc: ED Accession Number: [id number] Procedure: CT head/brain wo con Ordering Provider: Kellie Zuniga PROCEDURE: CT HEAD/BRAIN WO CON INDICATIONS: Fall on blood thinners TECHNIQUE: Noncontrast 4.5 mm thick angled axial sections acquired from the foramen magnum to the vertex, with coronal and sagittal reformats. For radiation dose reduction, the following was used: automated exposure control, adjustment of mA and/or kV according to patient size. COMPARISON: [facility], CT, CT HEAD/BRAIN WO CON, 05/02/2020, 10:28. [facility], CT, CT HEAD/BRAIN WO CON, 09/26/2019, 9:45. FINDINGS: Image quality: Excellent. CSF spaces: Basal cisterns are patent. No extra-axial fluid collections. The ventricles are symmetric in size and shape. Brain: No intracranial bleeds or masses. There is moderate cerebral volume loss for age, with resultant ventricular and sulcal prominence. There are moderate periventricular and deep white matter chronic small vessel ischemic changes. There is intracranial internal carotid artery atherosclerosis. Skull and face: Calvarium and visualized facial bones appear intact, without suspicious lesions. Sinuses: There is redemonstration of complete opacification the right maxillary sinus as well as the sphenoid sinus. Stable postsurgical changes from prior sinus surgery and postoperative changes involving multiple ethmoid sinus cells. Visualized mastoids are clear. IMPRESSION: 1. 1. CT head without acute intracranial abnormalities or acute calvarial fractures. Specifically, no evidence of acute intracranial hemorrhage. 2. Age-related senescent changes and sequela of moderate chronic small vessel ischemic disease. 3. Stable appearance of sinus disease involving the sphenoid, ethmoid, and right maxillary sinuses. Stable postsurgical changes of the sinus. Dictated by: Kiran Gr M.D. on 07/05/2020 at 16:02 Approved by: Kiran Gr M.D. on 07/05/2020 at 16:06 MDM Narrative Medical decision making narrative: 84-year-old male presents emergency department for a clear mechanical fall. Alert and oriented, neuro exam is intact, denies any severe symptoms such as vomiting, loss of consciousness vision changes. Head CT negative for any concerning findings such as a intercranial bleed. I suspect patient's headache is due to fall. No other concerning symptoms or reason to suspect other causes of fall, vital signs within normal limits, patient is hemodynamically stable, no signs of infection such as pain, altered mental status, or fever/tachycardia. No concerning symptoms for respiratory or cardiac etiology such as chest pain or shortness of breath. Patient was encouraged to follow up with PCP in the next 1-2 weeks for further evaluation. ED return precautions given to patient and daughter. Agreed to plan of care verbalized understanding. Discharge Plan Departure Patient Disposition: Home Clinical Impression: Fall Qualifiers: Encounter type: initial encounter Qualified Code(s): W19.XXXA - Unspecified fall, initial encounter Head injury Qualifiers: Encounter type: initial encounter Qualified Code(s): S09.90XA - Unspecified injury of head, initial encounter Discharge Date/Time: 07/05/20 17:31 Instructions: How to Prevent Falls Activity Restrictions/Additional Instructions: Thank you for entrusting me with your care today. As discussed, your CT is negative for fractures or bleeds. Please follow-up with your primary care provider in 1-2 weeks for further evaluation if needed. Return emergency department for any new or worsening symptoms. Prescriptions: No Action CYANOCOBALAMIN (VITAMIN B-12) 1,000 mcg PO BID Qty: 0 RF: 0 VITAMIN D (Vitamin D3) 1,000 unit PO QDAY Qty: 0 RF: 0 escitalopram oxalate 10 mg tablet 10 mg PO DAILY Qty: 30 RF: 0 levothyroxine 100 mcg tablet 100 mcg PO DAILY RF: 0 PreserVision AREDS [id number],[id number] capsule 1 cap PO BID RF: 0 ascorbic acid (vitamin C) 500 mg tablet 500 mg PO DAILY RF: 0 vitamin B complex Tablet 1 tab PO DAILY RF: 0 loperamide [Imodium A-D] 2 mg tablet 2 mg PO Q6H PRNRF: 0 budesonide 3 mg capsule,delayed,extend.release 9 mg PO TID Qty: 270 RF: 3 clotrimazole 1 % cream 1 applictn TOP TID Qty: 45 RF: 3 Eliquis 2.5 mg tablet 2.5 mg PO BID RF: 0 rosuvastatin 10 mg Tablet 10 mg PO BEDTIME Qty: 30 RF: 3 triamcinolone acetonide 0.025 % cream 1 applictn TOP DAILY RF: 0 Referrals: Azam Fuller MD [Primary Care Provider] - <Max Linares, - Last Filed: 07/05/20 17:59> Cosign ED Attending Cosignature Attestation: Dr Linares Co-Sign Statement: I was available for consultation during this patient's emergency department visit. This chart is signed by myself for administrative purposes only. I did not have direct contact with this patient during this visit. They were seen independently by the APC.
[2020-07-05 17:30] VITALS: BP 132/88; PULSE 88; RESP 15; O2SAT 99
== END 2020-07-05 17:31 | disposition home or self-care (01) ==
PROVIDERS: Emergency Provider Nurse Practitioner; PCP Internal Medicine
DX: S09.90XA Unspecified injury of head, initial encounter (principal); W19.XXXA Unspecified fall, initial encounter; R51.9 Headache, unspecified; Z79.01 Long term (current) use of anticoagulants
CPT/HCPCS: 70450; 99281; 99284

== ENCOUNTER → 2020-07-30 13:15 | Outpatient (CLI) | payer MEDICARE, SELFPAY ==
[2020-05-20 10:08] VITALS: BMI 27.8
[2020-07-30 15:03] LABS: COVID19 -Nasal RAPID Negative (Negative)
== END ==
PROVIDERS: PCP Internal Medicine; Visit Provider Physician Assistant
DX: Z11.59 Encounter for screening for other viral diseases (principal)
CPT/HCPCS: 87635

== ENCOUNTER → 2020-08-27 11:53 | Outpatient (CLI) | payer MEDICARE, SELFPAY ==
[2020-05-20 10:08] VITALS: BMI 27.8
[2020-08-27 14:19] LABS: BUN Creatinine Ratio 23.2 (6-22); Blood Urea Nitrogen 22 mg/dL (9-20); Calcium 8.6 mg/dL (8.4-10.2); Carbon Dioxide 29 mmol/L (22-32); Chloride 104 mmol/L (98-107); Estimated Glomerular Filt Rate > 60.0 mL/min (>60); Glucose 114 mg/dL (80-110); HEMOLYSIS < 15 (0-50); Potassium 3.8 mmol/L (3.4-5.1); Sodium 137 mmol/L (137-145)
== END ==
PROVIDERS: PCP Internal Medicine; Referring Provider Internal Medicine Cardiovascular Disease; Visit Provider Internal Medicine Cardiovascular Disease
DX: I10 Essential (primary) hypertension (principal)
CPT/HCPCS: 36415; 80048

== ENCOUNTER 2020-09-06 10:01 | Observation (INO) | payer MEDICARE, SELFPAY ==
[2020-05-20 10:08] VITALS: BMI 27.8
[2020-09-06] VITALS (16 sets, daily range): BP systolic 106–144; BP diastolic 61–78; PULSE 60–69; RESP 16–23; TEMP 36.3–36.7; O2SAT 93–98; BMI 27.2
--- NOTE | 2020-09-06 10:11 | DI.RAD.S_ITS ---
PROCEDURE: XR CHEST 1V INDICATIONS: chest pain TECHNIQUE: One view of the chest was acquired. COMPARISON: [facility], CHEST 2 VIEW, 03/09/2012, 9:56. [facility], CHEST 1 VIEW, 06/03/2011, 12:52. FINDINGS: Surgical changes and devices: Left pacemaker with right atrial and right ventricular leads. Lungs and pleura: Lungs are clear. No pleural effusions or pneumothorax. Mediastinum: Mediastinal contours appear normal. Heart size is at the upper limits of normal. Bones and chest wall: No suspicious bony lesions. Overlying soft tissues appear unremarkable. IMPRESSION: No acute cardiopulmonary abnormality identified. Dictated by: Kerwin Allen M.D. on 09/06/2020 at 9:43 Approved by: Kerwin Allen M.D. on 09/06/2020 at 9:44
[2020-09-06 10:17] LABS: Add Manual Diff / Slide Review NO; Basophils Absolute Auto 0 /uL (0-100); Basophils Percent Auto 0.5 % (0-2); Eosinophils Absolute Auto 100 /uL (0-450); Eosinophils Percent Auto 1.8 % (2-4); Hematocrit 39.7 % (41-53); Hemoglobin 13.4 g/dL (13.5-17.5); Lymphocytes Absolute Auto 2100 /uL (1100-4500); Lymphocytes Percent Auto 26.3 % (25-40); Mean Corpuscular HGB Conc 33.7 % (30-36); Mean Corpuscular Hemoglobin 32.8 PG (26-34); Mean Corpuscular Volume 97.4 fL (80-100); Monocytes Absolute Auto 500 /uL (0-900); Monocytes Percent Auto 6.8 % (3-14); Neutrophils Absolute Auto 5100 /uL (1500-7000); Neutrophils Percent Auto 64.6 % (50-75); Platelet Count 185 X10^3/uL (150-400); Red Blood Cell Count 4.07 X10^6/uL (4.5-5.9); Red Cell Distribution Width 16.5 % (11.6-14.8); White Blood Cell Count 7.9 X10^3/uL (4.5-11.0)
[2020-09-06 10:18] LABS: Prothrombin Time 11.5 SECONDS (10.1-12.7)
--- NOTE | 2020-09-06 10:19 | DI.CT.S_ITS ---
PROCEDURE: CT HEAD/BRAIN WO CON INDICATIONS: dizziness TECHNIQUE: Noncontrast 4.5 mm thick angled axial sections acquired from the foramen magnum to the vertex, with coronal and sagittal reformats. For radiation dose reduction, the following was used: automated exposure control, adjustment of mA and/or kV according to patient size. COMPARISON: [facility], CT, CT HEAD/BRAIN WO CON, 09/26/2019, 9:45. [facility], CT, CT HEAD/BRAIN WO CON, 07/05/2020, 16:43. FINDINGS: Image quality: Excellent. CSF spaces: Basal cisterns are patent. No extra-axial fluid collections. Lateral ventricles are prominent, unchanged. Brain: No midline shift. No intracranial masses or hemorrhage. No area of hypodensity in a large vascular distribution to suggest acute infarction. Periventricular hypodensity consistent with chronic microvascular ischemic change. Age-related parenchymal loss. Skull and face: Calvarium and visualized facial bones are intact, without suspicious lesions. Sinuses: Opacification of the right maxillary sinus and sphenoid sinuses, unchanged. Question of a few right posterior mastoid air cells opacified. IMPRESSION: No acute intracranial abnormality. Right maxillary and sphenoid sinusitis. Dictated by: Kerwin Allen M.D. on 09/06/2020 at 10:05 Approved by: Kerwin Allen M.D. on 09/06/2020 at 10:10
[2020-09-06 10:21] LABS: PTT Partial Thromboplastin Tim 28 SECONDS (26.4-36.2)
[2020-09-06 10:24] LABS: Alanine Aminotransferase 18 IU/L (<50); Albumin 3.4 g/dL (3.5-5.0); Albumin Globulin Ratio 1.4 (1.0-2.8); Alkaline Phosphatase 44 U/L (38-126); Aspartate Aminotransferase 21 IU/L (17-59); BUN Creatinine Ratio 20.6 (6-22); Bilirubin Total 0.7 mg/dL (0.2-1.3); Blood Urea Nitrogen 20 mg/dL (9-20); Calcium 8.6 mg/dL (8.4-10.2); Carbon Dioxide 32 mmol/L (22-32); Chloride 104 mmol/L (98-107); Creatine Kinase 27 U/L (55-170); Estimated Glomerular Filt Rate > 60.0 mL/min (>60); Globulin 2.5 g/dL (1.7-4.1); Glucose 82 mg/dL (80-110); HEMOLYSIS 29 (0-50); Lipase 100 U/L (23-300); Potassium 3.8 mmol/L (3.4-5.1); Sodium 135 mmol/L (137-145); Total Protein 5.9 g/dL (6.3-8.2)
--- NOTE | 2020-09-06 10:25 | ED_ITS ---
HPI - Weakness <Kindra Santana SPANISH INSTRUCTOR-BC - Last Filed: 09/06/20 16:03> General Chief complaint: Weakness Stated complaint: Weakness/dizziness Time Seen by Provider: 09/06/20 10:03 Source: patient, family and EMS Mode of arrival: EMS Limitations: no limitations History of Present Illness HPI Narrative: The patient is an 84-year-old male nonsmoker with history of dizziness and multiple TIAs as well as paroxysmal atrial fibrillation who presents with a chief complaint of dizziness. He states this started yesterday, any felt like he was spinning. He states that this is worse than his baseline dizziness. He states that he has had multiple TIAs this year, but has never felt this dizzy before. He notes that he has had swelling in his lower extremities for the past month which is new for him. He denies any chest pain or shortness of breath. He complains of slight nausea, no vomiting diarrhea or abdominal pain. He denies any chest pain. His daughter needs met the emergency department states that his incontinence is getting much worse and that he is not changing his briefs so she is concerned about possible urinary tract infection. He denies any falls or trauma. EMS notes that they have had multiple visits CT in the past month or so for dizziness. Related Data Home Medications Medication Instructions Recorded Confirmed VITAMIN D (Vitamin D3) 1,000 unit PO QDAY #0 04/12/13 09/06/20 ascorbic acid (vitamin C) 500 mg 500 mg PO DAILY 04/21/20 09/06/20 tablet vitamins A,C,F-ziul-nmrkan 14,320 1 cap PO BID 04/21/20 09/06/20 unit-226 mg-200 unit capsule apixaban 2.5 mg tablet 2.5 mg PO BID 05/15/20 09/06/20 triamcinolone acetonide 0.025 % 1 applictn TOP DAILY 05/20/20 09/06/20 topical cream potassium chloride 10 mEq 10 meq PO DAILY tab 08/07/20 09/06/20 tablet,extended release colesevelam [WelChol] 625 mg PO BID 09/06/20 09/06/20 Previous Rx's Medication Instructions Recorded escitalopram oxalate 10 mg tablet 10 mg PO DAILY #30 tab 03/31/20 clotrimazole 1 % topical cream 1 applictn TOP TID #45 gram 04/21/20 levothyroxine 100 mcg tablet 100 mcg PO DAILY #90 tab 07/28/20 rosuvastatin 10 mg tablet 10 mg PO BEDTIME #30 tab 08/28/20 budesonide 3 mg 9 mg PO TID #270 each 09/01/20 capsule,delayed,extended release Allergies Allergy/AdvReac Type Severity Reaction Status Date / Time metoclopramide Allergy Unknown pt unsure Verified 08/07/20 14:13 [METOCLOPRAMIDE] Sulfa (Sulfonamide Allergy Unknown Verified 08/07/20 14:13 Antibiotics) [SULFA (SULFONAMIDE ANTIBIOTICS)] Review of Systems <ALECIA Pang - Last Filed: 09/06/20 16:03> Review of Systems Narrative: GENERAL: Denies chills, fatigue, malaise, fever, sweats. HEENT: Denies sinus pain, ear pain, sore throat, difficulty swallowing, dizziness. RESPIRATORY: Denies dyspnea, cough, wheezing, hemoptysis, sputum. CARDIOVASCULAR: See HPI GASTROINTESTINAL: See HPI : Denies dysuria, frequency, incontinence, hematuria, urinary retention. MUSCULOSKELETAL: denies weakness, joint pain, or bony pain SKIN: Denies rash, skin lesions, or other NEUROLOGIC: See HPI PSYCHIATRIC: No concerning psychosocial issues. 12 point review of systems is negative except for those stated above Patient History <ALECIA Pang - Last Filed: 09/06/20 16:03> Medical History Anosmia Benign prostate hyperplasia Cataracts, bilateral (~2018) Depression (~1960) Erectile dysfunction Family history of prostate cancer Fecal incontinence (~1958) H/O adenomatous polyp of colon Hearing loss (~1999) Hypothyroidism (~1995) Lymphocytic colitis Mild cognitive impairment Neuropathy Pacemaker (11/10/11) Paroxysmal atrial fibrillation Prostate cancer Sick sinus syndrome Sleep apnea (~1995) Urge incontinence Urinary incontinence, mixed Surgical History Anesthesia H/O cataract removal with insertion of prosthetic lens H/O colectomy History of appendectomy History of cholecystectomy History of tonsillectomy S/P cataract extraction (~2018) S/P cholecystectomy (~1996) S/P nasal polypectomy (~1989) S/P partial colectomy (~2003) S/P placement of cardiac pacemaker (~10/2011) S/P tonsillectomy S/P TURP (~2012) S/P vasectomy (~1972) Family History Father History of heart disease Mother History of heart disease Brother Diabetes mellitus History of heart disease Social History household members: spouse and family Smoking Status: Never smoker Smoking Status: Never smoker alcohol intake frequency: holidays/special occasions only Alcohol type: wine Substance Use Type: does not use Exam <SIM Pang - Last Filed: 09/06/20 16:03> Narrative Exam Narrative: GENERAL: This is a well-nourished, well-developed patient, in no acute distress HEAD: Atraumatic. Normocephalic. No temporal or scalp tenderness. EYES: Pupils equal round and reactive. Extraocular motions intact. No scleral icterus. No injection or drainage. No nystagmus noted ENT: Nose without bleeding, purulent drainage or septal hematoma. Wearing a mask. Airway patent. NECK: Trachea midline. No JVD or lymphadenopathy. Supple, nontender, no meninge al signs. CARDIOVASCULAR: Regular rate and rhythm RESPIRATORY: Clear to auscultation. Breath sounds equal bilaterally. No wheezes, rales, or rhonchi. GASTROINTESTINAL: Abdomen soft, non-tender, nondistended. No hepato- splenomegaly, or palpable masses. No guarding. EXTREMITIES: No clubbing, cyanosis, or edema. pitting edema with bilateral lower extremities, 2+. BACK: Nontender without deformity or crepitance. No flank tenderness. NEURO: AOx3. Clear speech. No gross cranial nerve deficit. SKIN: No rash or erythemaon visible skin Initial Vital Signs Initial Vital Signs: Vital Signs Pulse Rate 60 09/06/20 10:05 Blood Pressure 144/78 H 09/06/20 10:05 Pulse Oximetry 96 09/06/20 10:05 <Kindra Shannon DO - Last Filed: 09/06/20 19:54> Initial Vital Signs Initial Vital Signs: Vital Signs Pulse Rate 60 09/06/20 10:05 Blood Pressure 144/78 H 09/06/20 10:05 Pulse Oximetry 96 09/06/20 10:05 Scores <SIM Pang - Last Filed: 09/06/20 16:03> GCS [place] coma scale eye opening: Spontaneous [place] coma scale verbal response: Orientated [place] coma scale motor response: Obey commands [place] coma scale total score: 15 NIH Stroke Scale Level of Conciousness: Alert, keenly responsive Ask month/age: Answers both questions correctly. Open/close eyes, close hand: Performs both tasks correctly Best gaze horizontal: Normal Visual bueno: No visual loss Facial palsy: Normal symetrical movement Left arm drift: No drift for full 10 sec Right arm drift: No drift for full 10 sec Left leg drift: No drift for full 5 sec Right leg drift: No drift for full 5 sec Limb ataxia: Absent Sensory on face/arms/legs: Normal, no sensory loss Best language: No aphasia, normal Dysarthria: Normal Extinction or inattention: No abnormality Total NIH Stroke scale score: 0 Course <SIM Pang - Last Filed: 09/06/20 16:03> Orders Ordered: ED Orders 09/06/20 10:55 COVID19 Stat 09/06/20 12:23 Troponin & CK Cardiac Panel Stat Acetaminophen (Acetaminophen 325 Mg Tablet) 650 mg PO Q6HR PRN PRN Reason: Fever/Mild Pain (1-3) Apixaban (Apixaban 5 Mg Tablet) 2.5 mg PO BID [facility] Budesonide (Budesonide 3 Mg Cap) 9 mg PO TID [facility] Last Admin: 09/06/20 17:21 Dose: 9 mg Documented by: SOFIE Colesevelam HCl (Colesevelam 625 Mg Tablet) 1,875 mg PO TID [facility] Last Admin: 09/06/20 17:21 Dose: 1,875 mg Documented by: SOFIE Cyanocobalamin (Cyanocobalamin (Vitamin B-12) 500 Mcg Tablet) 1,000 mcg PO BID [facility] Escitalopram Oxalate (Escitalopram 10 Mg Tablet) 10 mg PO DAILY [facility] Ondansetron HCl (Ondansetron 4 Mg/2 Ml Inj) 4 mg IV Q8HR PRN PRN Reason: Nausea And Vomiting Rosuvastatin Calcium (Rosuvastatin 10 Mg Tablet) 10 mg PO BEDTIME [facility] Discontinued Medications Sodium Chloride (Normal Saline 0.9%) 1,000 mls @ 250 mls/hr IV CONT [facility] Last Infusion: 09/06/20 14:05 Dose: 0 mls/hr Documented by: Admin: 09/06/20 11:38 Dose: 250 mls/hr Documented by: EVANGELINA Sodium Chloride (Normal Saline 0.9%) 1,000 mls @ 70 mls/hr IV CONT [facility] Last Infusion: 09/06/20 18:00 Dose: 70 mls/hr Documented by: Admin: 09/06/20 17:21 Dose: 70 mls/hr Documented by: SOFIE Naloxone HCl (Naloxone 0.4 Mg/Ml Vial) 0.2 mg IV Q2MIN PRN PRN Reason: Opiate Reversal Vital Signs Vital signs: Vital Signs - 8 hr 09/06/20 12:00 09/06/20 12:30 09/06/20 13:00 Pulse Rate 64 60 64 Respiratory Rate 20 19 Blood Pressure 135/73 129/74 Pulse Oximetry 95 93 97 09/06/20 13:01 09/06/20 13:30 Pulse Rate 67 68 Respiratory Rate 23 22 Blood Pressure 129/72 116/65 Pulse Oximetry 93 <Kindra Shannon DO - Last Filed: 09/06/20 19:54> Orders Ordered: ED Orders 09/06/20 10:55 COVID19 Stat 09/06/20 12:23 Troponin & CK Cardiac Panel Stat Acetaminophen (Acetaminophen 325 Mg Tablet) 650 mg PO Q6HR PRN PRN Reason: Fever/Mild Pain (1-3) Apixaban (Apixaban 5 Mg Tablet) 2.5 mg PO BID [facility] Budesonide (Budesonide 3 Mg Cap) 9 mg PO TID [facility] Last Admin: 09/06/20 17:21 Dose: 9 mg Documented by: SOFIE Colesevelam HCl (Colesevelam 625 Mg Tablet) 1,875 mg PO TID [facility] Last Admin: 09/06/20 17:21 Dose: 1,875 mg Documented by: SOFIE Cyanocobalamin (Cyanocobalamin (Vitamin B-12) 500 Mcg Tablet) 1,000 mcg PO BID [facility] Escitalopram Oxalate (Escitalopram 10 Mg Tablet) 10 mg PO DAILY [facility] Ondansetron HCl (Ondansetron 4 Mg/2 Ml Inj) 4 mg IV Q8HR PRN PRN Reason: Nausea And Vomiting Rosuvastatin Calcium (Rosuvastatin 10 Mg Tablet) 10 mg PO BEDTIME [facility] Discontinued Medications Sodium Chloride (Normal Saline 0.9%) 1,000 mls @ 250 mls/hr IV CONT [facility] Last Infusion: 09/06/20 14:05 Dose: 0 mls/hr Documented by: Admin: 09/06/20 11:38 Dose: 250 mls/hr Documented by: EVANGELINA Sodium Chloride (Normal Saline 0.9%) 1,000 mls @ 70 mls/hr IV CONT [facility] Last Infusion: 09/06/20 18:00 Dose: 70 mls/hr Documented by: Admin: 09/06/20 17:21 Dose: 70 mls/hr Documented by: SOFIE Naloxone HCl (Naloxone 0.4 Mg/Ml Vial) 0.2 mg IV Q2MIN PRN PRN Reason: Opiate Reversal Vital Signs Vital signs: Vital Signs - 8 hr 09/06/20 12:00 09/06/20 12:30 09/06/20 13:00 Pulse Rate 64 60 64 Respiratory Rate 20 19 Blood Pressure 135/73 129/74 Pulse Oximetry 95 93 97 09/06/20 13:01 09/06/20 13:30 Pulse Rate 67 68 Respiratory Rate 23 22 Blood Pressure 129/72 116/65 Pulse Oximetry 93 MDM - Weakness <BRIDGER Pang- - Last Filed: 09/06/20 16:03> Lab Data Attestation: I reviewed the patient's lab results. Result diagrams: 09/06/20 09:55 09/06/20 09:55 Labs: Lab Results 09/06/20 09/06/20 09/06/20 Range/Units 09:55 09:55 09:55 WBC 7.9 (4.5-11.0) X10^3/uL RBC 4.07 L (4.5-5.9) X10^6/uL Hgb 13.4 L (13.5-17.5) g/dL Hct 39.7 L (41-53) % MCV 97.4 (80-100) fL MCH 32.8 (26-34) PG MCHC 33.7 (30-36) % RDW 16.5 H (11.6-14.8) % Plt Count 185 (150-400) X10^3/uL Neut % (Auto) 64.6 (50-75) % Lymph % (Auto) 26.3 (25-40) % Dale % (Auto) 6.8 (3-14) % Eos % (Auto) 1.8 L (2-4) % Baso % (Auto) 0.5 (0-2) % Neut # (Auto) 5100 (2848-6630) /uL Lymph # (Auto) 2100 (5594-8649) /uL Dale # (Auto) 500 (0-900) /uL Eos # (Auto) 100 (0-450) /uL Baso # (Auto) 0 (0-100) /uL PT 11.5 (10.1-12.7) SECONDS INR 1.0 (0.9-1.3) APTT 28 (26.4-36.2) SECONDS Sodium 135 L (137-145) mmol/L Potassium 3.8 (3.4-5.1) mmol/L Chloride 104 (98-107) mmol/L Carbon Dioxide 32 (22-32) mmol/L BUN 20 (9-20) mg/dL Creatinine 0.97 (0.66-1.25) mg/dL Estimated GFR > 60.0 (>60) mL/min BUN/Creatinine Ratio 20.6 (6-22) Glucose 82 (80-110) mg/dL Calcium 8.6 (8.4-10.2) mg/dL Magnesium (1.6-2.3) mg/dL Total Bilirubin 0.7 (0.2-1.3) mg/dL AST 21 (17-59) IU/L ALT 18 (<50) IU/L Alkaline Phosphatase 44 (38-126) U/L Total Creatine Kinase 27 L (55-170) U/L CK-MB (CK-2) TNP CK-MB (CK-2) Rel Index TNP Troponin I < 0.012 (0.01-0.034) ng/mL NT-Pro-B Natriuret Pep (<450) pg/mL Total Protein 5.9 L (6.3-8.2) g/dL Albumin 3.4 L (3.5-5.0) g/dL Globulin 2.5 (1.7-4.1) g/dL Albumin/Globulin Ratio 1.4 (1.0-2.8) Lipase 100 (23-300) U/L SARS-CoV-2 (PCR) (Negative) 09/06/20 09/06/20 09/06/20 Range/Units 09:55 10:55 12:23 WBC (4.5-11.0) X10^3/uL RBC (4.5-5.9) X10^6/uL Hgb (13.5-17.5) g/dL Hct (41-53) % MCV (80-100) fL MCH (26-34) PG MCHC (30-36) % RDW (11.6-14.8) % Plt Count (150-400) X10^3/uL Neut % (Auto) (50-75) % Lymph % (Auto) (25-40) % Dale % (Auto) (3-14) % Eos % (Auto) (2-4) % Baso % (Auto) (0-2) % Neut # (Auto) (9358-3507) /uL Lymph # (Auto) (2943-6020) /uL Dale # (Auto) (0-900) /uL Eos # (Auto) (0-450) /uL Baso # (Auto) (0-100) /uL PT (10.1-12.7) SECONDS INR (0.9-1.3) APTT (26.4-36.2) SECONDS Sodium (137-145) mmol/L Potassium (3.4-5.1) mmol/L Chloride (98-107) mmol/L Carbon Dioxide (22-32) mmol/L BUN (9-20) mg/dL Creatinine (0.66-1.25) mg/dL Estimated GFR (>60) mL/min BUN/Creatinine Ratio (6-22) Glucose (80-110) mg/dL Calcium (8.4-10.2) mg/dL Magnesium 2.1 (1.6-2.3) mg/dL Total Bilirubin (0.2-1.3) mg/dL AST (17-59) IU/L ALT (<50) IU/L Alkaline Phosphatase (38-126) U/L Total Creatine Kinase 24 L (55-170) U/L CK-MB (CK-2) TNP CK-MB (CK-2) Rel Index TNP Troponin I < 0.012 (0.01-0.034) ng/mL NT-Pro-B Natriuret Pep 134 (<450) pg/mL Total Protein (6.3-8.2) g/dL Albumin (3.5-5.0) g/dL Globulin (1.7-4.1) g/dL Albumin/Globulin Ratio (1.0-2.8) Lipase (23-300) U/L SARS-CoV-2 (PCR) Negative (Negative) Point of Care Testing Glucose POC 85 Urine Dip Bedside Urine Glucose Negative Bedside Urine Bilirubin - Negative Bedside Urine Ketone - Negative Urine Specific [place] 1.020 Bedside Urine Occult Blood - Negative Bedside Urine pH 6.0 Bedside Urine Protein - Negative Bedside Urine Urobilinogen - Negative Bedside Urine Nitrite - Negative Bedside Urine Leukocytes - Negative Esterase Imaging Data CT scan - head: Radiologist Impression: [address] [place] [id number] Scan ReportSigned Patient: Shelli Norman R#: [id number]: [id number]/Sex: 84 / MDate of Service: 09/06/20Loc: EDAccession Number: [id number] Procedure: CT head/brain wo con Ordering Provider: Kindra Santana PROCEDURE: CT HEAD/BRAIN WO CON INDICATIONS: dizziness TECHNIQUE: Noncontrast 4.5 mm thick angled axial sections acquired from the foramen magnum to the vertex, with coronal and sagittal reformats. For radiation dose reduction, the following was used: automated exposure control, adjustment of mA and/or kV according to patient size. COMPARISON: [facility], CT, CT HEAD/BRAIN WO CON, 09/26/2019, 9:45. [facility], CT, CT HEAD/BRAIN WO CON, 07/05/2020, 16:43. FINDINGS: Image quality: Excellent. CSF spaces: Basal cisterns are patent. No extra-axial fluid collections. Lateral ventricles are prominent, unchanged. Brain: No midline shift. No intracranial masses or hemorrhage. No area of hypodensity in a large vascular distribution to suggest acute infarction. Periventricular hypodensity consistent with chronic microvascular ischemic change. Age-related parenchymal loss. Skull and face: Calvarium and visualized facial bones are intact, without sherman spicious lesions. Sinuses: Opacification of the right maxillary sinus and sphenoid sinuses, unch anged. Question of a few right posterior mastoid air cells opacified. IMPRESSION: No acute intracranial abnormality. Right maxillary and sphenoid sinusitis. Dictated by: Kerwin Allen M.D. on 09/06/2020 at 10:05 Approved by: Kerwin Allen M.D. on 09/06/2020 at 10:10 Chest x-ray: Radiologist Impression: [address] [place] [id number] ReportSigned Patient: Shelli Norman HMR#: [id number]: 1935cct:[id number]/Sex: 84 / MDate of Service: 09/06/20Loc: EDAccession Number: [id number] Procedure: XR chest 1V Ordering Provider: Kindra Santana-JANE PROCEDURE: XR CHEST 1V INDICATIONS: chest pain TECHNIQUE: One view of the chest was acquired. COMPARISON: [facility], , CHEST 2 VIEW, 03/09/2012, 9:56. [facility], , CHEST 1 VIEW, 06/03/2011, 12:52. FINDINGS: Surgical changes and devices: Left pacemaker with right atrial and right ventricular leads. Lungs and pleura: Lungs are clear. No pleural effusions or pneumothorax. Mediastinum: Mediastinal contours appear normal. Heart size is at the upper limits of normal. Bones and chest wall: No suspicious bony lesions. Overlying soft tissues appear unremarkable. IMPRESSION: No acute cardiopulmonary abnormality identified. Dictated by: Kerwin Allen M.D. on 09/06/2020 at 9:43 Approved by: Kerwin Allen M.D. on 09/06/2020 at 9:44 ECG Data Attestation: I personally reviewed and interpreted this ECG as follows: Interpretation: Ventricular rate 60. Paste. P.r. interval 234. Viewed by Dr. Mirtha VITALE Narrative Medical decision making narrative: The patient is an 84-year-old male with a complicated medical history including multiple TIAs presents with a chief complaint of severe worsening dizziness that started yesterday. His head CT is negative,, initial troponin negative, repeat troponin is negative. No sign of urinary tract infection. Coronavirus is negative. Chest x-ray negative. No overt cause for dizziness. However the patient has called EMS reportedly 4 times this week for per medics, so it is concerning to send him home at this point. Discussed patient with Dr. Shannon who suggested observation for dizziness. Spoke with Dr. Chan who kindly accepted the patient for observation. Patient and daughter are in accordance and appreciate their care today. <Kindra Dmitry Shannon, DO - Last Filed: 09/06/20 19:54> Lab Data Labs: Lab Results 09/06/20 09/06/20 09/06/20 Range/Units 09:55 09:55 09:55 WBC 7.9 (4.5-11.0) X10^3/uL RBC 4.07 L (4.5-5.9) X10^6/uL Hgb 13.4 L (13.5-17.5) g/dL Hct 39.7 L (41-53) % MCV 97.4 (80-100) fL MCH 32.8 (26-34) PG MCHC 33.7 (30-36) % RDW 16.5 H (11.6-14.8) % Plt Count 185 (150-400) X10^3/uL Neut % (Auto) 64.6 (50-75) % Lymph % (Auto) 26.3 (25-40) % Dale % (Auto) 6.8 (3-14) % Eos % (Auto) 1.8 L (2-4) % Baso % (Auto) 0.5 (0-2) % Neut # (Auto) 5100 (4718-9697) /uL Lymph # (Auto) 2100 (3871-5053) /uL Dale # (Auto) 500 (0-900) /uL Eos # (Auto) 100 (0-450) /uL Baso # (Auto) 0 (0-100) /uL PT 11.5 (10.1-12.7) SECONDS INR 1.0 (0.9-1.3) APTT 28 (26.4-36.2) SECONDS Sodium 135 L (137-145) mmol/L Potassium 3.8 (3.4-5.1) mmol/L Chloride 104 (98-107) mmol/L Carbon Dioxide 32 (22-32) mmol/L BUN 20 (9-20) mg/dL Creatinine 0.97 (0.66-1.25) mg/dL Estimated GFR > 60.0 (>60) mL/min BUN/Creatinine Ratio 20.6 (6-22) Glucose 82 (80-110) mg/dL Calcium 8.6 (8.4-10.2) mg/dL Magnesium (1.6-2.3) mg/dL Total Bilirubin 0.7 (0.2-1.3) mg/dL AST 21 (17-59) IU/L ALT 18 (<50) IU/L Alkaline Phosphatase 44 (38-126) U/L Total Creatine Kinase 27 L (55-170) U/L CK-MB (CK-2) TNP CK-MB (CK-2) Rel Index TNP Troponin I < 0.012 (0.01-0.034) ng/mL NT-Pro-B Natriuret Pep (<450) pg/mL Total Protein 5.9 L (6.3-8.2) g/dL Albumin 3.4 L (3.5-5.0) g/dL Globulin 2.5 (1.7-4.1) g/dL Albumin/Globulin Ratio 1.4 (1.0-2.8) Lipase 100 (23-300) U/L SARS-CoV-2 (PCR) (Negative) 09/06/20 09/06/20 09/06/20 Range/Units 09:55 10:55 12:23 WBC (4.5-11.0) X10^3/uL RBC (4.5-5.9) X10^6/uL Hgb (13.5-17.5) g/dL Hct (41-53) % MCV (80-100) fL MCH (26-34) PG MCHC (30-36) % RDW (11.6-14.8) % Plt Count (150-400) X10^3/uL Neut % (Auto) (50-75) % Lymph % (Auto) (25-40) % Dale % (Auto) (3-14) % Eos % (Auto) (2-4) % Baso % (Auto) (0-2) % Neut # (Auto) (6493-9485) /uL Lymph # (Auto) (6777-6461) /uL Dale # (Auto) (0-900) /uL Eos # (Auto) (0-450) /uL Baso # (Auto) (0-100) /uL PT (10.1-12.7) SECONDS INR (0.9-1.3) APTT (26.4-36.2) SECONDS Sodium (137-145) mmol/L Potassium (3.4-5.1) mmol/L Chloride (98-107) mmol/L Carbon Dioxide (22-32) mmol/L BUN (9-20) mg/dL Creatinine (0.66-1.25) mg/dL Estimated GFR (>60) mL/min BUN/Creatinine Ratio (6-22) Glucose (80-110) mg/dL Calcium (8.4-10.2) mg/dL Magnesium 2.1 (1.6-2.3) mg/dL Total Bilirubin (0.2-1.3) mg/dL AST (17-59) IU/L ALT (<50) IU/L Alkaline Phosphatase (38-126) U/L Total Creatine Kinase 24 L (55-170) U/L CK-MB (CK-2) TNP CK-MB (CK-2) Rel Index TNP Troponin I < 0.012 (0.01-0.034) ng/mL NT-Pro-B Natriuret Pep 134 (<450) pg/mL Total Protein (6.3-8.2) g/dL Albumin (3.5-5.0) g/dL Globulin (1.7-4.1) g/dL Albumin/Globulin Ratio (1.0-2.8) Lipase (23-300) U/L SARS-CoV-2 (PCR) Negative (Negative) Point of Care Testing Glucose POC 85 Urine Dip Bedside Urine Glucose Negative Bedside Urine Bilirubin - Negative Bedside Urine Ketone - Negative Urine Specific [place] 1.020 Bedside Urine Occult Blood - Negative Bedside Urine pH 6.0 Bedside Urine Protein - Negative Bedside Urine Urobilinogen - Negative Bedside Urine Nitrite - Negative Bedside Urine Leukocytes - Negative Esterase Discharge Plan Departure Patient Disposition: Admitted as Observation Clinical Impression: Dizziness Admit Date/Time: 09/06/20 13:30 Admit Provider: Vince Chan <Kindra Shannon DO - Last Filed: 09/06/20 19:54> Cosign ED Attending Cosignature Attestation: I was immediately available in the department for consultation. Documentation has been reviewed. Case was disc ussed. Labs, imaging reviewed and plan for observation
[2020-09-06 10:35] LABS: Troponin I < 0.012 ng/mL (0.01-0.034)
[2020-09-06 10:51] LABS: Magnesium 2.1 mg/dL (1.6-2.3)
[2020-09-06 11:01] LABS: NT-proBNP (BNP-Adult 18+) 134 pg/mL (<450)
[2020-09-06 11:21] LABS: COVID19 -Nasal RAPID Negative (Negative)
[2020-09-06] MEDS: SODIUM CHLORIDE 0.9% 1,000 ML 250 ML IV (11:38)
[2020-09-06 12:35] LABS: Creatine Kinase 24 U/L (55-170)
[2020-09-06 12:48] LABS: Troponin I < 0.012 ng/mL (0.01-0.034)
--- NOTE | 2020-09-06 13:53 | P.HP_ITS ---
History of Present Illness History of Present Illness Date Patient Seen: 09/06/20 Time Patient Seen: 17:02 Chief complaint: Weakness/dizziness Narrative: 84-year-old male history of paroxysmal atrial fibrillation prostate cancer TIA mild cognitive impairment presents to the emergency department with increasing weakness and falls. Patient states he has had a TIA. Was started on anticoagulation number months ago. He has had some intermittent dizziness since then. Patient states for the past week or so his dizziness has gotten much worse. He has had for or 3 episodes of dizziness ataxia home and falls. This happened again today. Again cm mass in the fire department has been out to his house a number of times this week to help him get back up. He was convinced by his family in EMS to present to the emergency department today. Patient states he feels pretty well now. He has had some increasing weakness and difficulty with his balance. He feels unsteady and feels like he has weakness. Says he has no problem getting up out of the chair. Usually the fall happens when he is in the middle of room he just loses his balance. He is not complaining of any significant heart beat irregularities in fact he is wearing a hard or monitor from the chief building inspector during this time. Patient states she has no strength. He is not complaining of shortness of breath headache is not complaining of fevers or chills or cough. He does have some lower extremity edema which has been ongoing with this. He lives at home with his daughter and his who has some dementia. He has been diagnosed with lymphocytic colitis and he is on budesonide for this. He has been having increasing difficulty with loose stools lately. He has not noticed any blood or mucus. Patient History Medical History Anosmia Benign prostate hyperplasia Cataracts, bilateral (~2018) Depression (~1959) Erectile dysfunction Family history of prostate cancer Fecal incontinence (~1957) H/O adenomatous polyp of colon Hearing loss (~1999) Hypothyroidism (~1995) Lymphocytic colitis Mild cognitive impairment Neuropathy Pacemaker (11/10/11) Paroxysmal atrial fibrillation Prostate cancer Sick sinus syndrome Sleep apnea (~1995) Urge incontinence Urinary incontinence, mixed Surgical History Anesthesia H/O cataract removal with insertion of prosthetic lens H/O colectomy History of appendectomy History of cholecystectomy History of tonsillectomy S/P cataract extraction (~2018) S/P cholecystectomy (~1996) S/P nasal polypectomy (~1989) S/P partial colectomy (~2003) S/P placement of cardiac pacemaker (~10/2011) S/P tonsillectomy S/P TURP (~2012) S/P vasectomy (~1972) Family & Social History Family History Father History of heart disease Mother History of heart disease Brother Diabetes mellitus History of heart disease Social History: household members spouse,family Safety & Behavioral: Feels Safe in Current Yes Environment Been Physically Hurt or No Threatened By a Person Tobacco & Substance use: Smoking Status Never smoker alcohol intake frequency holiday/special occasion Substance Use Type does not use Meds Home Medications and Allergies Home Medications Medication Instructions Recorded Confirmed Type VITAMIN D (Vitamin D3) 1,000 unit PO QDAY #0 04/12/13 09/06/20 History escitalopram oxalate 10 mg tablet 10 mg PO DAILY #30 tab 03/31/20 09/06/20 Rx ascorbic acid (vitamin C) 500 mg 500 mg PO DAILY 04/21/20 09/06/20 History tablet clotrimazole 1 % topical cream 1 applictn TOP TID #45 gram 04/21/20 09/06/20 Rx vitamins A,C,R-[id number] 14,320 1 cap PO BID 04/21/20 09/06/20 History unit-226 mg-200 unit capsule apixaban 2.5 mg tablet 2.5 mg PO BID 05/15/20 09/06/20 History triamcinolone acetonide 0.025 % 1 applictn TOP DAILY 05/20/20 09/06/20 History topical cream levothyroxine 100 mcg tablet 100 mcg PO DAILY #90 tab 07/28/20 09/06/20 Rx potassium chloride 10 mEq 10 meq PO DAILY tab 08/07/20 09/06/20 History tablet,extended release rosuvastatin 10 mg tablet 10 mg PO BEDTIME #30 tab 08/28/20 09/06/20 Rx budesonide 3 mg 9 mg PO TID #270 each 09/01/20 09/06/20 Rx capsule,delayed,extended release colesevelam [WelChol] 625 mg PO BID 09/06/20 09/06/20 History Allergies Allergy/AdvReac Type Severity Reaction Status Date / Time metoclopramide Allergy Unknown pt unsure Verified 08/07/20 14:13 [METOCLOPRAMIDE] Sulfa (Sulfonamide Allergy Unknown Verified 08/07/20 14:13 Antibiotics) [SULFA (SULFONAMIDE ANTIBIOTICS)] Exam Vital Signs (past 8 hours): - 09/06/20 10:05 09/06/20 10:09 09/06/20 10:42 Temperature 98.1 F Pulse Rate 60 60 60 Respiratory Rate 16 Blood Pressure 144/78 H 144/78 H Pulse Oximetry 96 97 98 09/06/20 10:45 09/06/20 11:00 09/06/20 11:30 Temperature Pulse Rate 61 60 62 Respiratory Rate 20 18 22 Blood Pressure 142/75 H 139/75 136/72 Pulse Oximetry 97 93 94 09/06/20 12:00 09/06/20 12:30 Temperature Pulse Rate 64 60 Respiratory Rate 20 19 Blood Pressure 135/73 129/74 Pulse Oximetry 95 93 Oxygen Delivery Method Room Air Narrative Exam Narrative: Gen.: [facility]. Difficult historian as she has a hard time clarifying details and regards to his recent history. HEENT: Pupils equal round and reactive or mucosa is moist neck is supple Cardio: S1-S2 irregular rate and rhythm in Respiratory: Lungs are clear to auscultation no wheezes or crackles normal respiratory effort. Abdomen: Soft nontender no rebound or guarding no liver spleen enlargement no appreciable hernias Extremities: Some lower extremity edema. Neurologic: No cranial nerve deficits. Objective Labs Result Diagrams: 09/06/20 09:55 09/06/20 09:55 Labs: Laboratory Results - last 24 hr 09/06/20 09/06/20 09/06/20 09:55 09:55 09:55 WBC 7.9 RBC 4.07 L Hgb 13.4 L Hct 39.7 L MCV 97.4 MCH 32.8 MCHC 33.7 RDW 16.5 H Plt Count 185 Neut % (Auto) 64.6 Lymph % (Auto) 26.3 [place] % (Auto) 6.8 Eos % (Auto) 1.8 L Baso % (Auto) 0.5 Neut # (Auto) 5100 Lymph # (Auto) 2100 [place] # (Auto) 500 Eos # (Auto) 100 Baso # (Auto) 0 PT 11.5 INR 1.0 APTT 28 Sodium 135 L Potassium 3.8 Chloride 104 Carbon Dioxide 32 BUN 20 Creatinine 0.97 Estimated GFR > 60.0 BUN/Creatinine Ratio 20.6 Glucose 82 Calcium 8.6 Magnesium Total Bilirubin 0.7 AST 21 ALT 18 Alkaline Phosphatase 44 Total Creatine Kinase 27 L CK-MB (CK-2) TNP CK-MB (CK-2) Rel Index TNP Troponin I < 0.012 NT-Pro-B Natriuret Pep Total Protein 5.9 L Albumin 3.4 L Globulin 2.5 Albumin/Globulin Ratio 1.4 Lipase 100 SARS-CoV-2 (PCR) 09/06/20 09/06/20 09/06/20 09:55 10:55 12:23 WBC RBC Hgb Hct MCV MCH MCHC RDW Plt Count Neut % (Auto) Lymph % (Auto) [place] % (Auto) Eos % (Auto) Baso % (Auto) Neut # (Auto) Lymph # (Auto) [place] # (Auto) Eos # (Auto) Baso # (Auto) PT INR APTT Sodium Potassium Chloride Carbon Dioxide BUN Creatinine Estimated GFR BUN/Creatinine Ratio Glucose Calcium Magnesium 2.1 Total Bilirubin AST ALT Alkaline Phosphatase Total Creatine Kinase 24 L CK-MB (CK-2) TNP CK-MB (CK-2) Rel Index TNP Troponin I < 0.012 NT-Pro-B Natriuret Pep 134 Total Protein Albumin Globulin Albumin/Globulin Ratio Lipase SARS-CoV-2 (PCR) Negative Assessment & Plan Assessment & Plan narrative: Dizziness falls and weakness 84-year-old male. Differential possibilities include ongoing TIA versus CVA acute labyrinthitis and general progression of his underlying health diseases which include those stated above. Patient is admitted the hospital for ongoing weakness dizziness and inability to ambulate. Certainly could be a TIA. Or labyrinthitis although he has had some chronic dizziness. We were unable to do an MRI on the patient as he has a pacemaker in place. Patient had a CT scan is workup in the emergency department was negative. Patient had a CT angiogram approximately 3 months ago which showed no significant cerebral artery vascular disease. Patient has had a carotid ultrasound. Patient has also had an echocardiogram. Will have patient work with physical therapy occupational therapy and see if they can help with his dizziness. I am reluctant to use something like Valium her benzodiazepine to help with the dizziness. Will hold off on meclizine. Paroxysmal atrial fibrillation. Patient has a pacemaker in place. Cardiology is asked for him to have altered monitor which we took off here smith in the hospital will place him on telemetry monitoring. His heart rate and blood pressure well controlled. Will continue with his anticoagulation. Diarrhea. Patient has lymphocytic colitis he is on budesonide and Welchol. He is having increasing diarrhea an output. Will do stool culture and PCR to rule out C diff and other bacterial causes of his diarrhea other than has ongoing colitis. Hypothyroidism. Patient on replacement. Depression. Patient on antidepressants will continue this. Disposition plan. Patient will be admitted to the hospital for observation. W ork with physical therapy occupational therapy see if we can get improvement of his weakness and dizziness for him to be able to be discharged home.
[2020-09-06] MEDS: SODIUM CHLORIDE 0.9% 1,000 ML 70 ML IV (17:21)
[2020-09-06] MEDS: COLESEVELAM 625 MG TABLET 1875 MG PO ×2 (17:21→22:08)
[2020-09-06] MEDS: BUDESONIDE 3 MG CAP 9 MG PO ×2 (17:21→22:08)
[2020-09-06] MEDS: APIXABAN 5 MG TABLET 2.5 MG PO (22:06)
[2020-09-06] MEDS: ROSUVASTATIN 10 MG TABLET PO (22:07)
[2020-09-06] MEDS: CYANOCOBALAMIN (VITAMIN B-12) 500 MCG TABLET 1000 MCG PO (22:07)
[2020-09-07 00:20] VITALS: BP 135/78; PULSE 60; RESP 16; TEMP 36.3; O2SAT 95
[2020-09-07 04:00] VITALS: BP 132/73; PULSE 60; RESP 18; TEMP 36.5; O2SAT 96
[2020-09-07 06:09] LABS: Add Manual Diff / Slide Review NO; Basophils Absolute Auto 0 /uL (0-100); Basophils Percent Auto 0.3 % (0-2); Eosinophils Absolute Auto 100 /uL (0-450); Eosinophils Percent Auto 1.5 % (2-4); Hematocrit 38.1 % (41-53); Hemoglobin 13.1 g/dL (13.5-17.5); Lymphocytes Absolute Auto 1100 /uL (1100-4500); Lymphocytes Percent Auto 18.3 % (25-40); Mean Corpuscular HGB Conc 34.3 % (30-36); Mean Corpuscular Hemoglobin 33.2 PG (26-34); Mean Corpuscular Volume 96.9 fL (80-100); Monocytes Absolute Auto 400 /uL (0-900); Monocytes Percent Auto 6.6 % (3-14); Neutrophils Absolute Auto 4600 /uL (1500-7000); Neutrophils Percent Auto 73.3 % (50-75); Platelet Count 168 X10^3/uL (150-400); Red Blood Cell Count 3.93 X10^6/uL (4.5-5.9); Red Cell Distribution Width 16.4 % (11.6-14.8); White Blood Cell Count 6.3 X10^3/uL (4.5-11.0)
[2020-09-07 06:18] LABS: BUN Creatinine Ratio 19.6 (6-22); Blood Urea Nitrogen 18 mg/dL (9-20); Calcium 8.7 mg/dL (8.4-10.2); Carbon Dioxide 32 mmol/L (22-32); Chloride 104 mmol/L (98-107); Estimated Glomerular Filt Rate > 60.0 mL/min (>60); Glucose 99 mg/dL (80-110); HEMOLYSIS < 15 (0-50); Potassium 4.2 mmol/L (3.4-5.1); Sodium 137 mmol/L (137-145)
[2020-09-07 07:09] LABS: Prostate Specific Antigen 0.475 ng/mL (0.10-4.00)
[2020-09-07 07:22] VITALS: BP 134/79; PULSE 60; RESP 16; TEMP 36.3; O2SAT 97
--- NOTE | 2020-09-07 07:40 | PC.NURSE ---
Addendum entered by Lyndon Pollard R.N. 09/07/20 13:48: Pt d/c'd to care of daughter. Escorted to car via w/c and assisted into car. Addendum entered by Lyndon Pollard R.N. 09/07/20 10:41: Pt working with OT presently and then will be speaking with Care Management. Addendum entered by Lyndon Pollard R.N. 09/07/20 10:11: Pt cordial and conversant. Easily follows directions. Up with Natalie PT walking around the [facility]. Pt doing well. Original Note: Pt alert and oriented, offers no overt c/o. Continues to use CPAP presently. Spoke with Dr. Chan this morning re: plan for the day. Will engage Care Management and OT/PT to assess for in home assistanceand assessment.
--- NOTE | 2020-09-07 07:56 | P.DS_ITS ---
History of Present Illness History of Present Illness Chief complaint: Weakness/dizziness Narrative: 84-year-old male history of paroxysmal atrial fibrillation prostate cancer TIA mild cognitive impairment presents to the emergency department with increasing weakness and falls. Patient states he has had a TIA. Was started on anticoagulation number months ago. He has had some intermittent dizziness since then. Patient states for the past week or so his dizziness has gotten much worse. He has had for or 3 episodes of dizziness ataxia home and falls. This happened again today. Again cm mass in the fire department has been out to his house a number of times this week to help him get back up. He was convinced by his family in EMS to present to the emergency department today. Patient states he feels pretty well now. He has had some increasing weakness and difficulty with his balance. He feels unsteady and feels like he has weakness. Says he has no problem getting up out of the chair. Usually the fall happens when he is in the middle of room he just loses his balance. He is not complaining of any significant heart beat irregularities in fact he is wearing a hard or monitor from the informatica mdm developer during this time. Patient states she has no strength. He is not complaining of shortness of breath headache is not complaining of fevers or chills or cough. He does have some lower extremity edema which has been ongoing with this. He lives at home with his daughter and his who has some dementia. He has been diagnosed with lymphocytic colitis and he is on budesonide for this. He has been having increasing difficulty with loose stools lately. He has not noticed any blood or mucus. Discharge Providers Provider Date of admission: 09/06/20 13:30 Discharge Date: 09/07/20 Primary care physician: Azam Fuller MD Consults: 09/06/20 13:51 Consult to Occupational Therapy Evaluate & Treat Comment: Physician Instructions: Evaluate and treat Consult to Physical Therapy Evaluate & Treat Comment: Physician Instructions: Evaluate and Treat Discharge provider: Vince Chan MD Summary Hospital Course Discharge Diagnosis: Acute on chronic dizziness with fall Generalized weakness TIA remote history Intermittent atrial fibrillation on anticoagulation Hypothyroidism Hyperlipidemia Lymphocytic colitis Hospital Course: Patient was admitted to the hospital after numerous ambulance calls this week to his home because of weakness and dizziness. Patient has a history of TIA atrial fibrillation and chronic dizziness. Symptoms progressi vely worse over this week. After evaluation in the emergency department with laboratory testing and CT scans which were fairly unremarkable patient was admitted for further evaluation and workup. During the hospital stay patient had laboratory testing which were normal. Patient was placed back on his home medication. Patient had telemetry monitoring which showed normal sinus rhythm. Patient's vital signs remained stable throughout his hospital stay. Patient work with physical therapy and occupational therapy for balance training coordination. Patient was doing well to be discharged home. Discharge plan will be to resume home medication. Patient will have home health and home physical therapy to help with his weakness deconditioning and improvement of his balance. He will follow up with his primary care provider in 1 week. Exam Vital Signs (past 8 hours): - 09/07/20 00:20 09/07/20 04:00 09/07/20 07:22 Temperature 97.3 F L 97.7 F 97.4 F L Pulse Rate 60 60 60 Respiratory Rate 16 18 16 Blood Pressure 135/78 132/73 134/79 Pulse Oximetry 95 96 97 Oxygen Delivery Method CPAP Oxygen Flow Rate 0 Objective Labs Result Diagrams: 09/07/20 05:49 09/07/20 05:49 Labs: Laboratory Results - last 24 hr 09/06/20 09/06/20 09/06/20 09:55 09:55 09:55 WBC 7.9 RBC 4.07 L Hgb 13.4 L Hct 39.7 L MCV 97.4 MCH 32.8 MCHC 33.7 RDW 16.5 H Plt Count 185 Neut % (Auto) 64.6 Lymph % (Auto) 26.3 [place] % (Auto) 6.8 Eos % (Auto) 1.8 L Baso % (Auto) 0.5 Neut # (Auto) 5100 Lymph # (Auto) 2100 [place] # (Auto) 500 Eos # (Auto) 100 Baso # (Auto) 0 PT 11.5 INR 1.0 APTT 28 Sodium 135 L Potassium 3.8 Chloride 104 Carbon Dioxide 32 BUN 20 Creatinine 0.97 Estimated GFR > 60.0 BUN/Creatinine Ratio 20.6 Glucose 82 Calcium 8.6 Magnesium Total Bilirubin 0.7 AST 21 ALT 18 Alkaline Phosphatase 44 Total Creatine Kinase 27 L CK-MB (CK-2) TNP CK-MB (CK-2) Rel Index TNP Troponin I < 0.012 NT-Pro-B Natriuret Pep Total Protein 5.9 L Albumin 3.4 L Globulin 2.5 Albumin/Globulin Ratio 1.4 Lipase 100 SARS-CoV-2 (PCR) 09/06/20 09/06/20 09/06/20 09:55 10:55 12:23 WBC RBC Hgb Hct MCV MCH MCHC RDW Plt Count Neut % (Auto) Lymph % (Auto) [place] % (Auto) Eos % (Auto) Baso % (Auto) Neut # (Auto) Lymph # (Auto) [place] # (Auto) Eos # (Auto) Baso # (Auto) PT INR APTT Sodium Potassium Chloride Carbon Dioxide BUN Creatinine Estimated GFR BUN/Creatinine Ratio Glucose Calcium Magnesium 2.1 Total Bilirubin AST ALT Alkaline Phosphatase Total Creatine Kinase 24 L CK-MB (CK-2) TNP CK-MB (CK-2) Rel Index TNP Troponin I < 0.012 NT-Pro-B Natriuret Pep 134 Total Protein Albumin Globulin Albumin/Globulin Ratio Lipase SARS-CoV-2 (PCR) Negative 09/07/20 09/07/20 05:49 05:49 WBC 6.3 RBC 3.93 L Hgb 13.1 L Hct 38.1 L MCV 96.9 MCH 33.2 MCHC 34.3 RDW 16.4 H Plt Count 168 Neut % (Auto) 73.3 Lymph % (Auto) 18.3 L [place] % (Auto) 6.6 Eos % (Auto) 1.5 L Baso % (Auto) 0.3 Neut # (Auto) 4600 Lymph # (Auto) 1100 [place] # (Auto) 400 Eos # (Auto) 100 Baso # (Auto) 0 PT INR APTT Sodium 137 Potassium 4.2 Chloride 104 Carbon Dioxide 32 BUN 18 Creatinine 0.92 Estimated GFR > 60.0 BUN/Creatinine Ratio 19.6 Glucose 99 Calcium 8.7 Magnesium Total Bilirubin AST ALT Alkaline Phosphatase Total Creatine Kinase CK-MB (CK-2) CK-MB (CK-2) Rel Index Troponin I NT-Pro-B Natriuret Pep Total Protein Albumin Globulin Albumin/Globulin Ratio Lipase SARS-CoV-2 (PCR) [facility] Medical History Anosmia Benign prostate hyperplasia Cataracts, bilateral (~2019) Depression (~1960) Erectile dysfunction Family history of prostate cancer Fecal incontinence (~1958) H/O adenomatous polyp of colon Hearing loss (~1999) Hypothyroidism (~1995) Lymphocytic colitis Mild cognitive impairment Neuropathy Pacemaker (11/10/11) Paroxysmal atrial fibrillation Prostate cancer Sick sinus syndrome Sleep apnea (~1995) Urge incontinence Urinary incontinence, mixed Surgical History Anesthesia H/O cataract removal with insertion of prosthetic lens H/O colectomy History of appendectomy History of cholecystectomy History of tonsillectomy S/P cataract extraction (~2018) S/P cholecystectomy (~1996) S/P nasal polypectomy (~1989) S/P partial colectomy (~2003) S/P placement of cardiac pacemaker (~10/2011) S/P tonsillectomy S/P TURP (~2012) S/P vasectomy (~1972) Family History Father History of heart disease Mother History of heart disease Brother Diabetes mellitus History of heart disease Social History household members: spouse and family Smoking Status: Never smoker Discharge Plan Discharge Plan Patient Disposition: Home Discharge orders & Medications Prescriptions: Continued VITAMIN D (Vitamin D3) 1,000 unit PO QDAY Qty: 0 RF: 0 escitalopram oxalate 10 mg tablet 10 mg PO DAILY Qty: 30 RF: 0 levothyroxine 100 mcg tablet 100 mcg PO DAILY Qty: 90 RF: 1 rosuvastatin 10 mg tablet 10 mg PO BEDTIME Qty: 30 RF: 3 budesonide 3 mg capsule,delayed,extend.release 9 mg PO TID Qty: 270 RF: 3 PreserVision AREDS 14,320-226-200 [id number] capsule 1 cap PO BID RF: 0 ascorbic acid (vitamin C) 500 mg tablet 500 mg PO DAILY RF: 0 clotrimazole 1 % cream 1 applictn TOP TID Qty: 45 RF: 3 Eliquis 2.5 mg tablet 2.5 mg PO BID RF: 0 potassium chloride 10 mEq tablet extended release 10 meq PO DAILY RF: 0 colesevelam [WelChol] 625 mg Tablet 625 mg PO BID RF: 0 triamcinolone acetonide 0.025 % cream 1 applictn TOP DAILY RF: 0 Follow up/Referrals: Azam Fuller MD [Primary Care Provider] - Visit Report/Discharge Packet Visit Report Forms: Patient Portal/API, Stroke Signs & Symptoms Discharge Data Primary Care Provider: Azam Fuller Attending Provider: Vince Chan Admit Date/Time: 09/06/20 13:30 Quality VTE Deep Vein Thrombosis/Pulmonary Embolism Present on Admission: No
[2020-09-07 08:21] VITALS: O2SAT 97
[2020-09-07] MEDS: ESCITALOPRAM 10 MG TABLET PO (08:42)
[2020-09-07] MEDS: APIXABAN 5 MG TABLET 2.5 MG PO (08:42)
[2020-09-07] MEDS: COLESEVELAM 625 MG TABLET 1875 MG PO (08:42)
[2020-09-07] MEDS: BUDESONIDE 3 MG CAP 9 MG PO (08:42)
[2020-09-07] MEDS: CYANOCOBALAMIN (VITAMIN B-12) 500 MCG TABLET 1000 MCG PO (08:42)
--- NOTE | 2020-09-07 10:17 | PT.IIE ---
Surgical History (Last Reviewed 09/06/20 @ 18:06 by Vince Chan MD) Anesthesia H/O cataract removal with insertion of prosthetic lens H/O colectomy History of appendectomy History of cholecystectomy History of tonsillectomy S/P cataract extraction (~2018) S/P cholecystectomy (~1996) S/P nasal polypectomy (~1989) S/P partial colectomy (~2003) S/P placement of cardiac pacemaker (~10/2011) S/P tonsillectomy S/P TURP (~2012) S/P vasectomy (~1972) Medical History (Last Reviewed 09/06/20 @ 18:06 by Vince Chan MD) Anosmia Benign prostate hyperplasia Cataracts, bilateral (~2018) Depression (~1959) Erectile dysfunction Family history of prostate cancer Fecal incontinence (~1957) H/O adenomatous polyp of colon Hearing loss (~1999) Hypothyroidism (~1995) Lymphocytic colitis Mild cognitive impairment Neuropathy Pacemaker (11/10/11) Paroxysmal atrial fibrillation Prostate cancer Sick sinus syndrome Sleep apnea (~1995) Urge incontinence Urinary incontinence, mixed Physical Therapy Inpatient Evaluation/Re-Eval M1 PT/OT-IP Prior Functional Status Start: 09/07/20 08:59 Freq: NEEDED Status: Active Protocol: Document 09/07/20 10:17 AW (Rec: 09/07/20 11:29 AW [id number]) Medical Review Prior Functional Status Medical History Reviewed Yes Communication Pt is able to make his needs known. He has documented MCI and does repeat himself frequently during evaluation. Mobility and Gait Pt typically uses a 4WW for all household mobility and limited outdoor mobility. He has had at least three falls in the last one month. He has BLE neuropathy which affect strength, sensation, and gait. I tend to drag my right foot usually but since the TIA, my left side has been weaker. Activities of Daily Living and IADL's Pt is requiring some level of assist for LB dressing, especially with compression garments, pants, and shoes. He requires standby assist for showers. Urgency and mobility issues complicate toileting. Prior Functional Level (Other details) Pt has caregiver assist ~10 hours daily M- and up to 8 hours on Saturdays. His daughter provides assist when caregivers not present. Social History Household Members spouse,family Living Arrangements House Number of Stairs To Enter/Railing? 2 POLA without railing at front entrance. Pt now enters through the garage with one step up and grab bars on both sides Home Environment Standard Height Toilet,Walk in Shower Home Equipment Four Wheel Walker,Shower Seat with Backrest,Hand Held Shower ,Grab Bars In Shower Employment Status Retired Additional Social History Comment Pt has a toilet safety frame. 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 M2 PT-IP Current Condition Start: 09/07/20 08:59 Freq: NEEDED Status: Active Protocol: Document 09/07/20 10:17 AW (Rec: 09/07/20 11:29 AW [id number]) Physical Therapy Current Condition Current Condition Evaluation Date 09/07/20 Treatment Diagnosis weakness, dizziness, difficulty in walking Onset Date 08/31/20 Precautions Other Precautions high falls risk M3 PT-IP Subjective Start: 09/07/20 08:59 Freq: NEEDED Status: Active Protocol: Document 09/07/20 10:17 AW (Rec: 09/07/20 11:29 AW [id number]) Subjective Physical Therapy Visit Type Type Initial Evaluation Visit Start Time 09:36 Visit Stop Time 10:17 Total Visit Minutes 41 Notes Pt's daughter was present throughout evaluation. Physical Therapy Visit Comments Patient Comments Pt is willing to participate with PT Patient Goals Return home with caregiver support. Therapy Pain Assessment Pain When Pain Assessed During Mobility Pain Present Pain Present Denied Pain M4 PT-IP Mobility and Gait Start: 09/07/20 08:59 Freq: NEEDED Status: Active Protocol: Document 09/07/20 10:17 AW (Rec: 09/07/20 11:29 AW [id number]) PT-Bed Mobility Assessment Supine to Sit Supine to Sit Contact Guard Assistance Scooting Scooting to Edge of Bed Contact Guard Assistance PT-Transfer Assessment Sit to and From Stand Sit to and from Stand Contact Guard Assistance,1 Person Assistance,Use of Upper Extremities Equipment Transfer Assistive Device 4 Wheeled Walker Orthotic/Prosthetic Devices or Brace: No Transfers Transfer Destination Bed,Chair Transfer Technique Stand Step Pivot Transfer Ability Level of Assist Contact Guard Assistance Comments Mobility Comments Pt was lying in the bed as PT arrived. BP 124/80 HR 63 SpO2 95% on room air. With HOB flat , he completed supine to sit CGA due to unsteadiness and leftward lean. He was able to sit EOB with UE support and was able to correct his midline orientation in response to cues. Pt stood CGA and ambulated 220 feet with 4WW CGA. On return to the room , pt pulled down his briefs, sat EOB and changed briefs, stood to complete pericare CGA , and pulled up new briefs CGA . He then ambulated around the foot of the bed to the chair, requiring cues to keep the walker with him until ready to sit. Pt was positioned on the chair with call light and all needs within reach. Daughter remained in the room as PT left. Gait Assessment Gait Gait Assistance Required: Contact Guard Assist Distance (Feet) 220 Assistive Devices Assistive Device Gait Belt,4 Wheeled Walker Orthotic/Prosthetic Devices or Brace: No Gait Deviations General Gait Pattern Ataxic,Decreased Stride Length ,Decreased Feet Clearance, Flexed Trunk Factors Limiting Gait Function Factors Limiting Gait Function Decreased Activity Tolerance, Decreased Sensation,Decreased Strength,Incoordination,Poor Balance,Poor Safety Awareness Comments Gait Comments Pt ambulated with 4WW CGA. He tends to push the walker too far in front of himself. After brief education, pt demonstrated safe use of 4WW to sit requiring CGA during turns. Pt's left knee buckled three times during gait, necesitating CGA for recovery. Stair Climbing Assessment Comments Stair Climbing Comments Not assessed. PT-Balance Assessment Sitting Balance and Reactions Static Sitting Balance Ability Fair Dynamic Sitting Balance Ability Fair Standing Balance and Reactions Static Standing Balance Ability Fair Dynamic Standing Balance Ability Poor M5 PT-IP Objective Assessments Start: 09/07/20 08:59 Freq: NEEDED Status: Active Protocol: Document 09/07/20 10:17 AW (Rec: 09/07/20 11:35 AW [id number]) Orientation Orientation/Cognition Level of Alertness Alert Orientation Name,Month,Place,Situation Language Function Ability No Deficits Noted Safety Awareness Decreased Safety Awareness Memory Description Short Term Impaired Gross Range of Motion Lower Extremity ROM Assessment Within Functional Limits Strength Lower Extremity Strength Assessment Bilaterally Impaired Hip 4-/5 Knee 4/5 Ankle 4-/5 Coordination Assessment Gross Coordination Gross Coordination Impaired Assessment Finger to Nose Test Minimal Impairment Pronation/Supination Test Minimal Impairment Sensation Assessment Sensation Gross Sensation Right LE Impaired,Left LE Impaired Light Touch Impaired Proprioception (Position) Impaired M6 PT-IP Treatment Start: 09/07/20 08:59 Freq: NEEDED Status: Active Protocol: Document 09/07/20 10:17 AW (Rec: 09/07/20 11:35 AW [id number]) Physical Therapy Treatment Education Education Provided Precautions,Safety Other Treatments Other Treatment Performed Provided education on role of PT, plan of care, and need for increased level of assist from supervision to SBA/CGA at all times. M7 PT-IP Assessment and Plan Start: 09/07/20 08:59 Freq: NEEDED Status: Active Protocol: Document 09/07/20 10:17 AW (Rec: 09/07/20 11:35 AW [id number]) PT Summary Assessment and Plan Potential Rehabilitation Potential Good Status of Condition at Evaluation Stable Summary Impairments Strength,Balance,Coordination, Sensation,Cognition,Bed Mobility,Transfers,Gait Assessment Summary Boubacar is an 84 yo man seen for PT evaluation after being admitted with recent dizziness , weakness leading to increased falls. Pt uses a 4WW for modified independent mobiilty in the home and has 24/7 care at home between private caregivers and his daughter. Pt required CGA for all mobility on evaluation with unsteady gait and several observed losses of balance. Discussed levels of assist with pt's daughter, who agreed that pt is beyond need for supervisory assist and would benefit from SBA to CGA at all times. Pt would benefit from PT to improve strength and safety in the home. Goals Bed Mobility Goal Standby Assistance Transfer Goal Standby Assistance Gait Goal Standby Assistance,Four Wheel Walker Gait Distance 200 Days to Meet Goals 5 Frequency of Treatment Frequency Of Treatment Once a Day Treatment Plan Physical Therapy Treatment Plan Bed Mobility Training,Transfer Training,Gait Training, Therapeutic Exercise,Balance Retraining,Discharge Planning, Hot or Cold Pack,Neuromuscular Re-ed,Coordination Retraining Recommendations To Nursing Amount of Assist Needed 1 Person Assist Discharge Recommendations PT Discharge Recommendations Home with 24/7 Assist,Home Health Transportation Needs at Discharge Private Vehicle
--- NOTE | 2020-09-07 12:48 | CM.DANOTE ---
Discharge Planning/Care Management DCP: assessment: case received and discussed with Dr. Chan early this morning. He stated pt would see PT today and would d/c home with HH OT/PT. A dc order was noted. Met now in followup with pt and his daughter Adelaide Main (MECHANICAL LABORATORY TECHNICIAN). Pt and his (with dementia per family) lives with Adelaide and she watches over both and assists pt with his medications and other supportive care. Both report that pt has had good results with HH in the past and have uses [facility]. Wish this again. PT/OT is ordered and referral is in to [facility] via vm and fax. Face/Face completed. DC summary, orders and F/F are faxed. CM Discharge Assessment Start: 09/07/20 12:45 Freq: Status: Active Protocol: Document 09/07/20 12:45 ITV (Rec: 09/07/20 12:47 ITV [id number]) Discharge Planning Assessment Advance Directives? Yes Advance Directives on File Yes History Provided By Patient,Family Member,Medical Record Prior Living Arrangements House Household Members spouse,family Is patient alert and oriented? No: mild cognitive impairment dx Discharge Plan Home with Home Health Transportation Arrangement Dtr bedside and can provide transport home at d/c Referrals Initiated Home Health Medicare Choice List Provided No SNF/HH Preference [facility]. has had in past
--- NOTE | 2020-09-07 12:57 | OT.IP.EVAL ---
Past Medical History (Last Reviewed 09/06/20 @ 18:06 by Vince Chan MD) Anosmia Benign prostate hyperplasia Cataracts, bilateral (~2018) Depression (~1960) Erectile dysfunction Family history of prostate cancer Fecal incontinence (~1957) H/O adenomatous polyp of colon Hearing loss (~1999) Hypothyroidism (~1995) Lymphocytic colitis Mild cognitive impairment Neuropathy Pacemaker (11/10/11) Paroxysmal atrial fibrillation Prostate cancer Sick sinus syndrome Sleep apnea (~1995) Urge incontinence Urinary incontinence, mixed Surgical History (Last Reviewed 09/06/20 @ 18:06 by Vince Chan MD) Anesthesia H/O cataract removal with insertion of prosthetic lens H/O colectomy History of appendectomy History of cholecystectomy History of tonsillectomy S/P cataract extraction (~2018) S/P cholecystectomy (~1996) S/P nasal polypectomy (~1989) S/P partial colectomy (~2003) S/P placement of cardiac pacemaker (~10/2011) S/P tonsillectomy S/P TURP (~2012) S/P vasectomy (~1972) Occupational Therapy Inpatient Evaluation/Re-Eval M1 PT/OT-IP Prior Functional Status Start: 09/07/20 08:59 Freq: NEEDED Status: Active Protocol: Document 09/07/20 10:17 AW (Rec: 09/07/20 11:29 AW [id number]) Medical Review Prior Functional Status Medical History Reviewed Yes Communication Pt is able to make his needs known. He has documented MCI and does repeat himself frequently during evaluation. Mobility and Gait Pt typically uses a 4WW for all household mobility and limited outdoor mobility. He has had at least three falls in the last one month. He has BLE neuropathy which affect strength, sensation, and gait. I tend to drag my right foot usually but since the TIA, my left side has been weaker. Activities of Daily Living and IADL's Pt is requiring some level of assist for LB dressing, especially with compression garments, pants, and shoes. He requires standby assist for showers. Urgency and mobility issues complicate toileting. Prior Functional Level (Other details) Pt has caregiver assist ~10 hours daily - and up to 8 hours on Saturdays. His daughter provides assist when caregivers not present. Social History Household Members spouse,family Living Arrangements House Number of Stairs To Enter/Railing? 2 POLA without railing at front entrance. Pt now enters through the garage with one step up and grab bars on both sides Home Environment Standard Height Toilet,Walk in Shower Home Equipment Four Wheel Walker,Shower Seat with Backrest,Hand Held Shower ,Grab Bars In Shower Employment Status Retired Additional Social History Comment Pt has a toilet safety frame. 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 M1 PT/OT-IP Prior Functional Status Start: 09/07/20 12:27 Freq: NEEDED Status: Active Protocol: Document 09/07/20 12:28 RM (Rec: 09/07/20 12:56 RM [id number]) Medical Review Prior Functional Status Medical History Reviewed Yes Communication Pt is able to make his needs known. He has documented MCI and does repeat himself frequently during evaluation. Mobility and Gait Pt typically uses a 4WW for all household mobility and limited outdoor mobility. He has had at least three falls in the last one month. He has BLE neuropathy which affect strength, sensation, and gait. I tend to drag my right foot usually but since the TIA, my left side has been weaker. Activities of Daily Living and IADL's Pt is requiring some level of assist for LB dressing, especially with compression garments, pants, and shoes. He requires standby assist for showers. Urgency and mobility issues complicate toileting. Prior Functional Level (Other details) Pt has caregiver assist ~10 hours daily M- and up to 8 hours on Saturdays. His daughter provides assist when caregivers not present. Social History Household Members spouse,family Living Arrangements House Number of Stairs To Enter/Railing? 2 POLA without railing at front entrance. Pt now enters through the garage with one step up and grab bars on both sides Home Environment Standard Height Toilet,Walk in Shower Home Equipment Four Wheel Walker,Shower Seat with Backrest,Hand Held Shower ,Grab Bars In Shower Employment Status Retired Additional Social History Comment Pt has a toilet safety frame. 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 Caregivers 6x/wk 10h M-F. M2 OT-IP Current Condition Start: 09/07/20 12:27 Freq: Status: Active Protocol: Document 09/07/20 12:28 RM (Rec: 09/07/20 12:56 RM [id number]) Occupational Therapy Current Condition Current Condition Evaluation Date 09/07/20 Treatment Diagnosis falls and generalized weakness Diagnosis Onset Date 09/06/20 M3 OT- IP Subjective and Pain Start: 09/07/20 12:27 Freq: Status: Active Protocol: Document 09/07/20 12:28 RM (Rec: 09/07/20 12:56 RM [id number]) OT- Subjective Occupational Therapy Visit Type Type Initial Evaluation Visit Start Time 10:30 Visit Stop Time 11:30 Total Visit Minutes 60 Notes Daughter Adelaide present throughout session. Occupational Therapy Visit Comments Patient Comments I'm having problems with dizziness. Patient/Caregiver Goals Return home OT Pain Assessment Pain When Pain Assessed During Mobility Pain Present Pain Present Denied Pain M4 OT- IP ADL's Start: 09/07/20 12:27 Freq: Status: Active Protocol: Document 09/07/20 12:28 RM (Rec: 09/07/20 12:56 RM [id number]) OT ADL-Dressing General Eval Upper Body Dressing Ability Standby Assistance Lower Body Dressing Ability Minimal Assistance Areas Needing Assistance Retrieving/Set-up of Clothing Comments OT Dressing Comments LOB with standing for pant mngmt, discussed clothing modification with use of elastic waist vs zipper/clasp closure and suspends. Daughter also reports pt is frequently remaining in soiled brief d/t difficulty changing. Discussed options for tab style brief. OT ADL-Toileting General Evaluation Toileting Ability Contact Guard Assistance Devices Toileting Assistive Devices Grab Bars Comments OT Toileting Comments Trialled with 4ww w/ LOB maneuvering in small space. Trialled with FWW w/ improved stability but requires ongoing cues for safe positioning. Discussed recommendation for assist to ambulate with all self-care. Also discussed options for managing incontinence including use of a timed voiding schedule and options for urinal and BSC. Patient and daughter verbalized understanding and interested in trying. M5 OT- IP IADL's Start: 09/07/20 12:27 Freq: Status: Active Protocol: Document 09/07/20 12:28 RM (Rec: 09/07/20 12:56 RM [id number]) OT-Instrumental Activities of Daily Living Deficits IADL Deficits Identified Deficits Medication Management Medication Management Caregiver Administers Money Management Money Management Caregiver Provides Assistance Meal Preparation Meal Preparation Caregiver Provides Assist Meal Preparation Comments Patient reports some light meal prep for snacks/lunch but otherwise caregivers or daughter assist. Television Installer Helper Television Installer Helper Caregiver Provides Assist Driving Driving Caregiver Provides Assist M6 OT- IP Functional Cognition Start: 09/07/20 12:27 Freq: Status: Active Protocol: Document 09/07/20 12:28 RM (Rec: 09/07/20 12:56 RM [id number]) Cognitive Factors Limiting Selfcare Function Cognitive Ability Level of Alertness Alert Patient Orientation Name,Birthday,Month,Year,Day of Week,Place,Situation Attention Span Ability Capable of Focused Attention, Capable of Sustained Attention Ability to Follow Commands Able to Follow One Step Commands with Increased Time, Able to Follow One Step Commands with Repetition Memory Description Immediate Impaired,Short Term Impaired,Working Impaired Problem Solving Ability Unable to Identify Errors, Needs Assist to Identify Solutions Cognitive Tests SLUMS Cognitive Comments Cognitive Assessment Comments Discussed performance on SLUMS with patient and daughter with recommendation to follow- up further with PCP. OT- Vision and Hearing OT- Hearing Assessment OT- Hearing Assessment WFL,Hearing Impaired OT- Vision Assessment Vision History Blurred Vision Visual Acuity Glasses All The Time Vision Assessment Comments Patient reports fainter vision and increased difficulty with reading. He reports plan to follow-up futher with his eye doctor. M7 OT- IP Mobility and Balance Start: 09/07/20 12:27 Freq: Status: Active Protocol: Document 09/07/20 12:28 RM (Rec: 09/07/20 12:56 RM [id number]) OT-Transfer Assessment Sit to and From Stand Sit to and from Stand Contact Guard Assistance, Minimal Assistance,1 Person Assistance Transfers Transfer Ability Contact Guard Assistance, Minimal Assistance,1 Person Assistance Technique Transfer Destination Chair,Toilet Devices Transfer Assistive Devices Front Wheeled Walker,4 Wheeled Walker OT- Gait Assessment Gait Gait Assistance Required: Contact Guard Assist,Minimum Assistance Assistive Devices Assistive Device Front Wheeled Walker,4 Wheeled Walker Comments Gait Ability Comments Trialled FWW and 4WW. Improved stability with FWW, but still with several episodes of LOB and recommend assist with all ambulation at this time. M8 OT- IP Objective Assessments Start: 09/07/20 12:27 Freq: Status: Active Protocol: Document 09/07/20 12:28 RM (Rec: 09/07/20 12:56 RM [id number]) OT Gross Range of Motion Upper Extremity Range of Motion Assessment Within Functional Limits OT Strength Upper Extremity Strength Assessment Within Functional Limits M9 OT- IP Assessment and Plan Start: 09/07/20 12:27 Freq: Status: Active Protocol: Document 09/07/20 12:28 RM (Rec: 09/07/20 12:56 RM [id number]) OT Summary Assessment and Plan Potential Rehabilitation Potential Good Analytic Complexity at Evaluation Moderate Summary OT Impairments Strength,Balance,Functional Cognition,Functional Mobility, Dressing,Toileting,Bathing, Toilet Transfers,Shower Transfers,Activity Tolerance Assessment Summary Patient is an 84 year old male who presents with impaired strength in LEs, and balance . Also with history of mild cognitive impairment, however on SLUMS score today of 17/30 consistent with dementia with recommendation for follow-up with PCP. He also requires CGA-Sanna for sit>stand and functional mobility. Improved stability with FWW, but still recommend assist with all transfers and ambulation. Also provided education on management of urinary incontinence including options for clothing modifications and use of timed voiding schedule. Discussed recommendation for HH OT at discharge with patient agreeable. Frequency of Treatment Frequency Of Treatment Discharge Treatment Plan OT Treatment Plan ADL Training Discharge Recommendations OT Discharge Recommendations Home with 21/03 Assist Other Discharge Recommendations HH OT Trial timed voiding schedule and clothing modifications to improve performance with managing continence garments. Follow-up with PCP to discuss performance on SLUMS with score of 17/30 Transportation Needs at Discharge Private Vehicle
== END 2020-09-07 13:05 | disposition home or self-care (01) ==
LOC: ED 11:47 → AC 13:31
PROVIDERS: Admitting Provider Family Medicine; Emergency Provider Nurse Practitioner Family; PCP Internal Medicine; Visit Provider Family Medicine
DX: R42 Dizziness and giddiness (principal); R53.1 Weakness; R19.7 Diarrhea, unspecified; K52.832 Lymphocytic colitis; E03.9 Hypothyroidism, unspecified; Z91.81 History of falling; I48.0 Paroxysmal atrial fibrillation; E78.5 Hyperlipidemia, unspecified; Z86.73 Personal history of transient ischemic attack (TIA), and cerebral infarction without residual deficits; Z79.01 Long term (current) use of anticoagulants; Z95.0 Presence of cardiac pacemaker; F32.9 Major depressive disorder, single episode, unspecified; Z20.822 Contact with and (suspected) exposure to COVID-19
CPT/HCPCS: 36415; 70450; 71045; 80048; 80053; 81003; 82550; 82962; 83690; 83735; 83880; 84153; 84484; 85025; 85610; 85730; 87045; 87635; 87899; 93005; 96360; 96361; 97129; 97162; 97166; 97535; 99217; 99220; 99284; C9803; G0378

== ENCOUNTER 2020-10-14 08:57 | Observation (INO) | payer MEDICARE, SELFPAY ==
[2020-09-06 14:47] VITALS: BMI 27.2
[2020-10-14 09:08] VITALS: BP 155/70; PULSE 60; RESP 16; TEMP 36.8; O2SAT 98; BMI 28.3
--- NOTE | 2020-10-14 09:20 | ED_ITS ---
HPI - Neuro Symptoms/Deficit General Chief Complaint: Neuro Symptoms/Deficit Stated Complaint: Dizziness/unsteady X3 DAYS Time Seen by Provider: 10/14/20 09:19 Source: patient and family Mode of arrival: Wheelchair Limitations: no limitations History of Present Illness HPI Narrative: This is a pleasant 85-year-old male who comes to the emergency department with complaint of dizziness and feeling unsteady and having worsening weakness in his right lower extremity. Patient alludes to having had some weakness for the last several months but significantly worse over the last 3 days. He states he has also had some dizziness which he sometimes describes as feeling lightheaded but also sometimes as room spinning. Patient denies any headache, no acute vision changes, no difficulty with speech. No facial droop or weakness. Patient denies any chest pain or shortness of breath. No nausea, no vomiting. No urinary symptoms, he has had chronic diarrhea which has been long-term. No melena or hematochezia. He denies any numbness, tingling or weakness in his other extremities. He is not appreciate numbness or tingling in his right lower extremity only increased weakness for the past 3-4 days. Patient has had prior TIAs in the past but is unclear on what his deficits were at that time. He is accompanied by his son but he is not able to clarify. Patient patient was on Eliquis although it appears from his medication list that he is only on Plavix at this time as well as a statin. He does have caregivers from 9-7 p.m. for assistance and lives with his daughter. He does require 24 hour assistance and transfers to a wheelchair but does not ambulate. His caregivers have been unable to safely transfer him to a wheelchair today. On Anticoagulants: Yes (81 asa) Related Data Home Medications Medication Instructions Recorded Confirmed VITAMIN D (Vitamin D3) 1,000 unit PO QDAY #0 04/12/13 10/14/20 ascorbic acid (vitamin C) 500 mg 500 mg PO DAILY 04/21/20 10/14/20 tablet vitamins A,C,Q-jcox-izsoet 14,320 1 cap PO BID 04/21/20 10/14/20 unit-226 mg-200 unit capsule apixaban 2.5 mg tablet 2.5 mg PO BID 05/15/20 10/14/20 triamcinolone acetonide 0.025 % 1 applictn TOP DAILY 05/20/20 10/14/20 topical cream potassium chloride 10 mEq 10 meq PO DAILY tab 08/07/20 10/14/20 tablet,extended release colesevelam [WelChol] 625 mg PO BID 09/06/20 10/14/20 Previous Rx's Medication Instructions Recorded escitalopram oxalate 10 mg tablet 10 mg PO DAILY #30 tab 03/31/20 clotrimazole 1 % topical cream 1 applictn TOP TID #45 gram 04/21/20 levothyroxine 100 mcg tablet 100 mcg PO DAILY #90 tab 07/28/20 rosuvastatin 10 mg tablet 10 mg PO BEDTIME #30 tab 08/28/20 budesonide 3 mg 9 mg PO TID #270 each 09/01/20 capsule,delayed,extended release cholestyramine (with sugar) 4 gram 4 g PO DAILY #378 g 09/11/20 oral powder fluticasone propionate 50 2 spray INTRANASAL BEDTIME #16 g 09/11/20 mcg/actuation nasal spray,suspension Allergies Allergy/AdvReac Type Severity Reaction Status Date / Time metoclopramide Allergy Unknown pt unsure Verified 10/02/20 13:31 [METOCLOPRAMIDE] Sulfa (Sulfonamide Allergy Unknown Verified 10/02/20 13:31 Antibiotics) [SULFA (SULFONAMIDE ANTIBIOTICS)] Review of Systems Hematologic/Lymphatic On Anticoagulants: Yes (81 asa) Patient History Medical History (Updated 10/14/20 @ 15:22 by Azam Fuller MD) Anosmia Benign prostate hyperplasia Cataracts, bilateral (~2018) Depression (~1960) Erectile dysfunction Family history of prostate cancer Fecal incontinence (~195) H/O adenomatous polyp of colon Hearing loss (~1999) Hypothyroidism (~1995) Lymphocytic colitis Mild cognitive impairment Neuropathy Pacemaker (11/10/11) Paroxysmal atrial fibrillation Prostate cancer Sick sinus syndrome Sleep apnea (~1995) Urge incontinence Urinary incontinence, mixed Surgical History Anesthesia H/O cataract removal with insertion of prosthetic lens H/O colectomy History of appendectomy History of cholecystectomy History of tonsillectomy S/P cataract extraction (~2018) S/P cholecystectomy (~1996) S/P nasal polypectomy (~1989) S/P partial colectomy (~2003) S/P placement of cardiac pacemaker (~10/2011) S/P tonsillectomy S/P TURP (~2012) S/P vasectomy (~1972) Family History Father History of heart disease Mother History of heart disease Brother Diabetes mellitus History of heart disease Social History household members: spouse and family Smoking Status: Never smoker Smoking Status: Never smoker alcohol intake frequency: holidays/special occasions only Alcohol type: wine Substance Use Type: does not use Exam Narrative Exam Narrative: GEN: well nourished, well appearing male, alert and oriented x 3, patient appears to be in mild distress. HEENT: Atraumatic, pupils are equal round reactive to light, extraocular movements are intact, nares are clear. Throat is clear without any exudates, erythema, tonsillar enlargement or uvular deviation, no facial droop appreciated. HEART: Regular rate and rhythm without murmur, clicks, rubs. LUNGS:Lungs clear to auscultation, no wheezes, rales, crackles, chest moves symmetrically ABD:bowel sounds normal, soft, non-tender, no guarding, rebound, rigidity, no masses noted, no hepatosplenomegaly :No CVA tenderness MSCL: Non-tender, no muscle atrophy, muscles strength 5/5 upper and lower extremities except for mild drift in right lower extremity, gait not tested. NEURO:CN 2-12 intact, sensation normal, reflexes 2/4 upper and lower e xtremities. finger nose finger test normal, heel garcia test normal with left leg, patient has difficulty with the right leg but is able to perform heel-garcia Initial Vital Signs Initial Vital Signs: Vital Signs Temperature 98.2 F 10/14/20 09:08 Pulse Rate 60 10/14/20 09:08 Respiratory Rate 16 10/14/20 09:08 Blood Pressure 155/70 H 10/14/20 09:08 Pulse Oximetry 98 10/14/20 09:08 Scores GCS [place] coma scale eye opening: Spontaneous [place] coma scale verbal response: Orientated [place] coma scale motor response: Obey commands Jatin coma scale total score: 15 NIH Stroke Scale Level of Conciousness: Alert, keenly responsive Ask month/age: Answers both questions correctly. Open/close eyes, close hand: Performs both tasks correctly Best gaze horizontal: Normal Visual bueno: No visual loss Facial palsy: Normal symetrical movement Left arm drift: No drift for full 10 sec Right arm drift: No drift for full 10 sec Left leg drift: No drift for full 5 sec Right leg drift: Drifts down, not to bed Limb ataxia: Present in one limb Sensory on face/arms/legs: Normal, no sensory loss Best language: No aphasia, normal Dysarthria: Normal Extinction or inattention: No abnormality Total NIH Stroke scale score: 2 Course Orders Ordered: ED Orders 10/14/20 09:45 COVID19 Stat 10/14/20 09:58 [place] [facility] [place] [employer] [place] 10/14/20 10:45 XR chest 1V Stat 10/14/20 14:37 Urinalysis and Microscopic Stat Urine Drug Screen, Rapid Stat Acetaminophen (Acetaminophen 325 Mg Tablet) 650 mg PO Q6HR PRN PRN Reason: Fever/Mild Pain (1-3) Apixaban (Apixaban 5 Mg Tablet) 2.5 mg PO BID [facility] Aspirin (Aspirin Ec 81 Mg Tablet) 81 mg PO DAILY [facility] Budesonide (Budesonide 3 Mg Cap) 9 mg PO TID [facility] Last Admin: 10/14/20 14:58 Dose: 9 mg Documented by: HUONG Cholestyramine Resin (Cholestyramine/Aspartame 4 Gm Pack) 4 gm PO DAILY [facility] Colesevelam HCl (Colesevelam 625 Mg Tablet) 625 mg PO BID [facility] Escitalopram Oxalate (Escitalopram 10 Mg Tablet) 10 mg PO DAILY [facility] Levothyroxine Sodium (Levothyroxine 100 Mcg Tablet) 100 mcg PO DAILY@0600 [facility] Morphine Sulfate (Morphine 2 Mg/Ml Inj) 2 mg IV Q5MIN PRN PRN Reason: Chest Pain Naloxone HCl (Naloxone 0.4 Mg/Ml Vial) 0.2 mg IV Q2MIN PRN PRN Reason: Opiate Reversal Nitroglycerin (Nitroglycerin 0.4 Mg Sl Tab) 0.4 mg SL [id number] PRN PRN Reason: Chest Pain Potassium Chloride (Potassium Chloride 10 Meq Tab) 20 meq PO BIDWM [facility] Last Admin: 10/14/20 18:06 Dose: 20 meq Documented by: Admin: 10/14/20 14:19 Dose: 20 meq Documented by: HUONG Rosuvastatin Calcium (Rosuvastatin 10 Mg Tablet) 10 mg PO BEDTIME CINDI Vitamin D (Cholecalciferol (Vitamin D3) 1,000 Unit Tablet) 1,000 unit PO DAILY CINDI Discontinued Medications Aspirin (Aspirin 81 Mg Chew Tab) 324 mg PO NOW ONE Stop: 10/14/20 10:46 Last Admin: 10/14/20 11:55 Dose: 324 mg Documented by: ARI Eugene Consultation #1: Dr. Fuller, patient comes in for worsening right lower extremity weakness. He is unable to safely transfer at home. Troponin was positive with no clear EKG changes patient does not have any other clinical symptoms other than noting some slightly increased swelling in his lower extremities. We also discussed unclear if he is on Eliquis or Plavix at this time which Dr. Fuller will continue evaluate but he accepts patient for chest pain obs. Time: 11:42 Vital Signs Vital signs: Vital Signs - 8 hr 10/14/20 09:08 Temperature 98.2 F Pulse Rate 60 Respiratory Rate 16 Blood Pressure 155/70 H Pulse Oximetry 98 MDM - Neuro Symptoms/Deficit Lab Data Attestation: I reviewed the patient's lab results. Result diagrams: 10/14/20 09:20 10/14/20 09:20 Labs: Lab Results 10/14/20 10/14/20 10/14/20 Range/Units 09:20 09:20 09:20 WBC 6.0 (4.5-11.0) X10^3/uL RBC 4.15 L (4.5-5.9) X10^6/uL Hgb 13.4 L (13.5-17.5) g/dL Hct 40.1 L (41-53) % MCV 96.6 (80-100) fL MCH 32.3 (26-34) PG MCHC 33.4 (30-36) % RDW 16.5 H (11.6-14.8) % Plt Count 168 (150-400) X10^3/uL Neut % (Auto) 70.1 (50-75) % Lymph % (Auto) 23.2 L (25-40) % [place] % (Auto) 4.9 (3-14) % Eos % (Auto) 1.5 L (2-4) % Baso % (Auto) 0.3 (0-2) % Neut # (Auto) 4200 (4434-8339) /uL Lymph # (Auto) 1400 (8297-5810) /uL [place] # (Auto) 300 (0-900) /uL Eos # (Auto) 100 (0-450) /uL Baso # (Auto) 0 (0-100) /uL PT 12.8 H (10.1-12.7) SECONDS INR 1.1 (0.9-1.3) APTT 31 (26.4-36.2) SECONDS Sodium 139 (137-145) mmol/L Potassium 3.2 L (3.4-5.1) mmol/L Chloride 107 (98-107) mmol/L Carbon Dioxide 29 (22-32) mmol/L BUN 18 (9-20) mg/dL Creatinine 0.96 (0.66-1.25) mg/dL Estimated GFR > 60.0 (>60) mL/min BUN/Creatinine Ratio 18.8 (6-22) Glucose 124 H (80-110) mg/dL Calcium 8.9 (8.4-10.2) mg/dL Total Bilirubin 0.8 (0.2-1.3) mg/dL AST 20 (17-59) IU/L ALT 21 (<50) IU/L Alkaline Phosphatase 41 (38-126) U/L Total Creatine Kinase 31 L (55-170) U/L CK-MB (CK-2) TNP CK-MB (CK-2) Rel Index TNP Troponin I 0.145 H* (0.01-0.034) ng/mL NT-Pro-B Natriuret Pep (<450) pg/mL Total Protein 6.2 L (6.3-8.2) g/dL Albumin 3.7 (3.5-5.0) g/dL Globulin 2.5 (1.7-4.1) g/dL Albumin/Globulin Ratio 1.5 (1.0-2.8) TSH (0.47-4.68) uIU/mL Ethyl Alcohol < 10 ( - 10) mg/dL SARS-CoV-2 (PCR) (Negative) 10/14/20 10/14/20 10/14/20 Range/Units 09:20 09:20 09:45 WBC (4.5-11.0) X10^3/uL RBC (4.5-5.9) X10^6/uL Hgb (13.5-17.5) g/dL Hct (41-53) % MCV (80-100) fL MCH (26-34) PG MCHC (30-36) % RDW (11.6-14.8) % Plt Count (150-400) X10^3/uL Neut % (Auto) (50-75) % Lymph % (Auto) (25-40) % [place] % (Auto) (3-14) % Eos % (Auto) (2-4) % Baso % (Auto) (0-2) % Neut # (Auto) (7954-8437) /uL Lymph # (Auto) (2501-7902) /uL [place] # (Auto) (0-900) /uL Eos # (Auto) (0-450) /uL Baso # (Auto) (0-100) /uL PT (10.1-12.7) SECONDS INR (0.9-1.3) APTT (26.4-36.2) SECONDS Sodium (137-145) mmol/L Potassium (3.4-5.1) mmol/L Chloride (98-107) mmol/L Carbon Dioxide (22-32) mmol/L BUN (9-20) mg/dL Creatinine (0.66-1.25) mg/dL Estimated GFR (>60) mL/min BUN/Creatinine Ratio (6-22) Glucose (80-110) mg/dL Calcium (8.4-10.2) mg/dL Total Bilirubin (0.2-1.3) mg/dL AST (17-59) IU/L ALT (<50) IU/L Alkaline Phosphatase (38-126) U/L Total Creatine Kinase (55-170) U/L CK-MB (CK-2) CK-MB (CK-2) Rel Index Troponin I (0.01-0.034) ng/mL NT-Pro-B Natriuret Pep 253 (<450) pg/mL Total Protein (6.3-8.2) g/dL Albumin (3.5-5.0) g/dL Globulin (1.7-4.1) g/dL Albumin/Globulin Ratio (1.0-2.8) TSH 6.62 H (0.47-4.68) uIU/mL Ethyl Alcohol ( - 10) mg/dL SARS-CoV-2 (PCR) Negative (Negative) Point of Care Testing Glucose POC [address] scan - head: Radiologist's Impression: [place] [id number] [place] [id number] Scan ReportSigned Patient: Shelli Norman HMR#: [id number]: 1935cct:[id number]/Sex: 85 / MDate of Service: 10/14/20Loc: EDAccession Number: [id number] Procedure: CT head/brain wo con Ordering Provider: Kindra Shannon D.O. PROCEDURE: CT HEAD/BRAIN WO CON INDICATIONS: R leg weakness, balance issues, dizzy. Last known well 3 day TECHNIQUE: Noncontrast 4.5 mm thick angled axial sections acquired from the foramen magnum to the vertex, with coronal and sagittal reformats. For radiation dose reduction, the following was used: automated exposure control, adjustment of mA and/or kV according to patient size. COMPARISON: [facility], MR, BRAIN WITHOUT CONTRAST, 06/09/2010, 6:50. [facility], CT, CT HEAD/BRAIN WO CON, 05/02/2020, 10:28. [facility], CT, CT STROKE, 05/08/2020, 15:59. [facility], CT, CT ANGIO HEAD AND NECK, 05/08/2020, 16:05. [facility], CT, CT HEAD/BRAIN WO CON, 07/05/2020, 16:43. [facility], CT, CT HEAD/BRAIN WO CON, 09/06/2020, 10:23. FINDINGS: Image quality: Excellent. CSF spaces: Basal cisterns are patent. No extra-axial fluid collections. The ventricles are symmetric in size and shape. Brain: No intracranial bleeds or masses. There is cerebral volume loss for age, with resultant ventricular and sulcal prominence. There are periventricular and deep white matter chronic small vessel ischemic changes. There is intracranial internal carotid artery atherosclerosis. Skull and face: Calvarium and visualized facial bones appear intact, without suspicious lesions. Sinuses: Prominent mucosal thickening is seen within the right maxillary sinus and the sphenoid sinuses. Mild mucosal thickening is seen elsewhere. Postoperative change can be seen, with apparent bilateral antrectomy and removal of portions of the nasal turbinates. IMPRESSION: No definite, significant intracranial abnormality can be seen. If there is strong clinical suspicion for an acute stroke, please consider an MRI for further evaluation, as it is more sensitive (assuming that there is no contraindication to MRI). Note is made of age-appropriate brain parenchymal volume loss and chronic small vessel ischemic changes. Focal right maxillary sinus and sphenoid sinus disease is again seen. Dictated by: Nathan Wall M.D. on 10/14/2020 at 9:05 Approved by: Nathan Wall M.D. on 10/14/2020 at 9:08 ECG Data Attestation: I personally reviewed and interpreted this ECG as follows: Interpretation: atrial paced rhythm for part of EKG, 1st degree AV block, rate 63, pr 242, qrs of 88, qtc 399. EKG appears similar to prior from 09/06/20 with atrial paced rhythm and prolonged OH of 234. MDM Narrative Medical decision making narrative: 85-year-old male with complaint of dizziness, unsteadiness and right lower extremity weakness that is acute on chronic. Patient's CT does not show acute findings he did have a CTA in April that time was negative with no acute changes that would be change the trajectory of his care at this time was not repeated. Patient did have a positive troponin no clear EKG changes he has not appreciated any symptoms but does have some swe lling in his lower extremity so possibly may have some CHF although this is unlikely cause of his weakness. He and his family are both concerned about CT and transferring with his weakness in his right leg even with caregivers and extra assistance at home. Spoke with Dr. Fuller who accepts for observation. Stroke Core Measures Exclusion Criteria TPA in CVA: Symptom Onset >3 or 4.5 Hours Discharge Plan Departure Patient Disposition: Admitted as Observation Clinical Impression: Right leg weakness, Elevated troponin Admit Date/Time: 10/14/20 11:57 Admit Provider: Azam Fuller
--- NOTE | 2020-10-14 09:31 | DI.CT.S_ITS ---
PROCEDURE: CT HEAD/BRAIN WO CON INDICATIONS: R leg weakness, balance issues, dizzy. Last known well 3 day TECHNIQUE: Noncontrast 4.5 mm thick angled axial sections acquired from the foramen magnum to the vertex, with coronal and sagittal reformats. For radiation dose reduction, the following was used: automated exposure control, adjustment of mA and/or kV according to patient size. COMPARISON: [facility], MR, BRAIN WITHOUT CONTRAST, 06/09/2010, 6:50. [facility], CT, CT HEAD/BRAIN WO CON, 05/02/2020, 10:28. [facility], CT, CT STROKE, 05/08/2020, 15:59. [facility], CT, CT ANGIO HEAD AND NECK, 05/08/2020, 16:05. [facility], CT, CT HEAD/BRAIN WO CON, 07/05/2020, 16:43. [facility], CT, CT HEAD/BRAIN WO CON, 09/06/2020, 10:23. FINDINGS: Image quality: Excellent. CSF spaces: Basal cisterns are patent. No extra-axial fluid collections. The ventricles are symmetric in size and shape. Brain: No intracranial bleeds or masses. There is cerebral volume loss for age, with resultant ventricular and sulcal prominence. There are periventricular and deep white matter chronic small vessel ischemic changes. There is intracranial internal carotid artery atherosclerosis. Skull and face: Calvarium and visualized facial bones appear intact, without suspicious lesions. Sinuses: Prominent mucosal thickening is seen within the right maxillary sinus and the sphenoid sinuses. Mild mucosal thickening is seen elsewhere. Postoperative change can be seen, with apparent bilateral antrectomy and removal of portions of the nasal turbinates. IMPRESSION: No definite, significant intracranial abnormality can be seen. If there is strong clinical suspicion for an acute stroke, please consider an MRI for further evaluation, as it is more sensitive (assuming that there is no contraindication to MRI). Note is made of age-appropriate brain parenchymal volume loss and chronic small vessel ischemic changes. Focal right maxillary sinus and sphenoid sinus disease is again seen. Dictated by: Nathan Wall M.D. on 10/14/2020 at 9:05 Approved by: Nathan Wall M.D. on 10/14/2020 at 9:08
[2020-10-14 09:37] LABS: INR 1.1 (0.9-1.3); Prothrombin Time 12.8 SECONDS (10.1-12.7)
[2020-10-14 09:39] LABS: PTT Partial Thromboplastin Tim 31 SECONDS (26.4-36.2)
[2020-10-14 09:50] LABS: Alanine Aminotransferase 21 IU/L (<50); Albumin 3.7 g/dL (3.5-5.0); Albumin Globulin Ratio 1.5 (1.0-2.8); Alkaline Phosphatase 41 U/L (38-126); Aspartate Aminotransferase 20 IU/L (17-59); BUN Creatinine Ratio 18.8 (6-22); Bilirubin Total 0.8 mg/dL (0.2-1.3); Blood Urea Nitrogen 18 mg/dL (9-20); Calcium 8.9 mg/dL (8.4-10.2); Carbon Dioxide 29 mmol/L (22-32); Chloride 107 mmol/L (98-107); Creatine Kinase 31 U/L (55-170); Estimated Glomerular Filt Rate > 60.0 mL/min (>60); Ethanol (ETOH) < 10 mg/dL; Globulin 2.5 g/dL (1.7-4.1); Glucose 124 mg/dL (80-110); HEMOLYSIS < 15 (0-50); Potassium 3.2 mmol/L (3.4-5.1); Sodium 139 mmol/L (137-145); Total Protein 6.2 g/dL (6.3-8.2)
--- NOTE | 2020-10-14 09:58 | PC.NURSE ---
discussed home situation with salvatore. Patient says he needs more help at home. reprorts it is getting to be too much work for current in home care to provide the level of care needed. HALLE Garcia is in the patient's [place] of care/support and has advised the family and patient she feels they need more intensive in home care or [facility] facility. Patient thanked staff for the referal to HALLE
[2020-10-14 09:59] LABS: Add Manual Diff / Slide Review NO; Basophils Absolute Auto 0 /uL (0-100); Basophils Percent Auto 0.3 % (0-2); Eosinophils Absolute Auto 100 /uL (0-450); Eosinophils Percent Auto 1.5 % (2-4); Hematocrit 40.1 % (41-53); Hemoglobin 13.4 g/dL (13.5-17.5); Lymphocytes Absolute Auto 1400 /uL (1100-4500); Lymphocytes Percent Auto 23.2 % (25-40); Mean Corpuscular HGB Conc 33.4 % (30-36); Mean Corpuscular Hemoglobin 32.3 PG (26-34); Mean Corpuscular Volume 96.6 fL (80-100); Monocytes Absolute Auto 300 /uL (0-900); Monocytes Percent Auto 4.9 % (3-14); Neutrophils Absolute Auto 4200 /uL (1500-7000); Neutrophils Percent Auto 70.1 % (50-75); Platelet Count 168 X10^3/uL (150-400); Red Blood Cell Count 4.15 X10^6/uL (4.5-5.9); Red Cell Distribution Width 16.5 % (11.6-14.8)
[2020-10-14 10:22] LABS: Troponin I 0.145 ng/mL (0.01-0.034)
[2020-10-14 10:23] LABS: NT-proBNP (BNP-Adult 18+) 253 pg/mL (<450)
[2020-10-14 10:41] LABS: COVID19 -Nasal RAPID Negative (Negative)
--- NOTE | 2020-10-14 10:45 | DI.RAD.S_ITS ---
PROCEDURE: XR CHEST 1V INDICATIONS: elevated trop, weakness right leg TECHNIQUE: One view of the chest was acquired. COMPARISON: [facility], [place], CHEST 2 VIEW, 03/09/2012, 9:56. [facility], [place], XR CHEST 1V, 09/06/2020, 10:14. FINDINGS: Surgical changes and devices: There is a cardiac pacemaker with leads in stable position. Lungs and pleura: Lungs are clear. No pleural effusions or pneumothorax. Mediastinum: Mediastinal contours appear normal. Heart size is normal. Bones and chest wall: No suspicious bony lesions. Overlying soft tissues appear unremarkable. IMPRESSION: No acute cardiopulmonary disease. Dictated by: Blade Alanis M.D. on 10/14/2020 at 11:45 Approved by: Blade Alanis M.D. on 10/14/2020 at 11:46
[2020-10-14] MEDS: ASPIRIN 81 MG CHEW TAB 324 MG PO (11:55)
[2020-10-14 12:03] VITALS: PULSE 60; RESP 28; O2SAT 98
--- NOTE | 2020-10-14 12:18 | PM.HP.1 ---
History of Present Illness History of Present Illness Date Patient Seen: 10/14/20 Chief complaint: Dizziness/Unsteady x3 days Narrative: 85-year-old male last seen in the clinic on the 02 of October and admitted because of increased weakness particularly right leg weakness. Patient with longstanding issues with his gait in weakness with multiple falls. Was hospitalized in early August because of multiple falls due to nonspecific weakness. Patient has had a neurologic workup prior to his previous hospitalization and following that. Unable to perform MRI because of his pacemaker. No evidence of any new neurologic issues over time. Has been maintained on Eliquis because of his history of paroxysmal atrial fibrillation. Plavix was discontinued in July because of lack evidence of acute vascular issue that would benefit from anti-platelet therapy. Patient was increasingly weak with less than usual ability to even stand and assist with transfers over the last several days. Denies any other specific symptoms. Patient and family do report that he has had increased swelling of both lower extremities over the last several weeks and patient is reporting that his right leg just feels heavy year and indeed they think perhaps his right leg is more swollen than the left History of of course the paroxysmal atrial fibrillation, as well as some cognitive impairment and lymphocytic colitis causing persistent diarrhea. In the ER he was evaluated head CT was unremarkable as it has been previously. Difficult to ascertain whether not there is any new weakness given his underlying baseline neurologic issues and weakness specially with his gait and standing. Patient's laboratory evaluation was remarkable for a elevated troponin. Patient did have a normal myocardial perfusion scan done in 2019 of note. EKGs without change Patient History Medical History (Updated 10/14/20 @ 15:22 by Azam Fuller MD) Anosmia Benign prostate hyperplasia Cataracts, bilateral (~2018) Depression (~1959) Erectile dysfunction Family history of prostate cancer Fecal incontinence (~1957) H/O adenomatous polyp of colon Hearing loss (~1999) Hypothyroidism (~1995) Lymphocytic colitis Mild cognitive impairment Neuropathy Pacemaker (11/10/11) Paroxysmal atrial fibrillation Prostate cancer Sick sinus syndrome Sleep apnea (~1995) Urge incontinence Urinary incontinence, mixed Surgical History Anesthesia H/O cataract removal with insertion of prosthetic lens H/O colectomy History of appendectomy History of cholecystectomy History of tonsillectomy S/P cataract extraction (~2018) S/P cholecystectomy (~1996) S/P nasal polypectomy (~1989) S/P partial colectomy (~2003) S/P placement of cardiac pacemaker (~10/2011) S/P tonsillectomy S/P TURP (~2012) S/P vasectomy (~1972) Family & Social History Family History Father History of heart disease Mother History of heart disease Brother Diabetes mellitus History of heart disease Social History: household members spouse,family Safety & Behavioral: Feels Safe in Current Yes Environment Been Physically Hurt or No Threatened By a Person Tobacco & Substance use: Smoking Status Never smoker alcohol intake frequency holiday/special occasion Substance Use Type does not use Meds Home Medications and Allergies Home Medications Medication Instructions Recorded Confirmed Type VITAMIN D (Vitamin D3) 1,000 unit PO QDAY #0 04/12/13 10/14/20 History escitalopram oxalate 10 mg tablet 10 mg PO DAILY #30 tab 03/31/20 10/14/20 Rx ascorbic acid (vitamin C) 500 mg 500 mg PO DAILY 04/21/20 10/14/20 History tablet clotrimazole 1 % topical cream 1 applictn TOP TID #45 gram 04/21/20 10/14/20 Rx vitamins A,C,[id number]-xzfc-evnxlp 14,320 1 cap PO BID 04/21/20 10/14/20 History unit-226 mg-200 unit capsule apixaban 2.5 mg tablet 2.5 mg PO BID 05/15/20 10/14/20 History triamcinolone acetonide 0.025 % 1 applictn TOP DAILY 05/20/20 10/14/20 History topical cream levothyroxine 100 mcg tablet 100 mcg PO DAILY #90 tab 07/28/20 10/14/20 Rx potassium chloride 10 mEq 10 meq PO DAILY tab 08/07/20 10/14/20 History tablet,extended release rosuvastatin 10 mg tablet 10 mg PO BEDTIME #30 tab 08/28/20 10/14/20 Rx budesonide 3 mg 9 mg PO TID #270 each 09/01/20 10/14/20 Rx capsule,delayed,extended release colesevelam [WelChol] 625 mg PO BID 09/06/20 10/14/20 History cholestyramine (with sugar) 4 gram 4 g PO DAILY #378 g 09/11/20 10/14/20 Rx oral powder fluticasone propionate 50 2 spray INTRANASAL BEDTIME #16 g 09/11/20 10/14/20 Rx mcg/actuation nasal spray,suspension Allergies Allergy/AdvReac Type Severity Reaction Status Date / Time metoclopramide Allergy Unknown pt unsure Verified 10/02/20 13:31 [METOCLOPRAMIDE] Sulfa (Sulfonamide Allergy Unknown Verified 10/02/20 13:31 Antibiotics) [SULFA (SULFONAMIDE ANTIBIOTICS)] Review of Systems Constitutional Constitutional: Denies excessive sweating, Denies fever(s), Denies headache(s), Reports weakness, Denies weight gain and Denies weight loss Eyes Eyes: Denies change in vision, Denies itchy eyes, Denies loss of vision and Denies other visual disturbances ENT Ears, Nose, Mouth, and Throat: No change in voice, No dysphagia, Yes dizziness (Chronic perhaps contributing to falls), No otalgia, No headache(s), No hoarseness, No lip swelling, No neck pain, No sore throat, No throat swelling and No tongue swelling Cardiovascular Cardiovascular: Denies chest pain, Denies syncope, Denies rapid heart rate, Denies irregular heart rhythm, Denies palpitations, Denies dyspnea, Denies dyspnea on exertion and Denies slow heart rate Respiratory Respiratory: Denies chest congestion, Denies cough, Denies hemoptysis, Denies dyspnea, Denies dyspnea on exertion, Denies stridor and Denies wheezing Gastrointestinal Gastrointestinal: Denies abdominal pain, Denies bloating, Denies change in bowel habits, Denies change in stool character, Denies dysphagia, Denies nausea, Denies vomiting and Denies hematemesis Genitourinary Genitourinary: Denies hematuria, Denies difficulty urinating and Denies urinary frequency Musculoskeletal Musculoskeletal: Reports abnormal gait (Chronic with multiple falls chronically), Denies myalgias, Denies arthralgias, Denies limited range of motion and Denies neck pain Integumentary/Breasts Skin/Breast: Denies bleeding lesions, Denies change in pigmentation, Denies changing lesions, Denies new lesions, Denies rash, Denies skin swelling, Denies sores and Denies jaundice Neurologic Neurologic: Denies abnormal speech, Reports abnormal gait (Chronic with multiple falls chronically), Denies behavioral changes, Denies confusion, Reports dizziness (Chronic perhaps contributing to falls), Denies syncope, Denies headache(s), Denies loss of vision, Reports memory loss (Chronic and unchanged), Denies seizure-like activity, Denies paresthesias and Reports weakness Psychiatric Psychiatric: Denies behavioral changes, Denies change in appetite, Denies confusion, Denies difficulty concentrating, Denies auditory hallucinations, Reports memory loss (Chronic and unchanged), Denies mood swings and Denies suicidal ideation Endocrine Endocrine: Denies excessive sweating, Denies flushing, Denies polyuria and Denies palpitations Hematologic/Lymphatic Hematologic/Lymphatic: Denies easy bleeding, Denies easy bruising and Denies lymphadenopathy Allergic/Immunologic Allergic/Immunologic: Denies urticaria, Denies itchy eyes, Denies lip swelling, Denies throat swelling, Denies tongue swelling and Denies wheezing Exam Vital Signs (past 8 hours): - 10/14/20 09:08 Temperature 98.2 F Pulse Rate 60 Respiratory Rate 16 Blood Pressure 155/70 H Pulse Oximetry 98 Oxygen Delivery Method Room Air Narrative Exam Narrative: Elderly male in no obvious distress sitting in his bed in his hospital room HEENT-unremarkable Neck-no lymphadenopathy no bruits Lungs-clear anteriorly and posteriorly no wheezes or crackles Heart-regular rate and rhythm no murmur Abdomen-benign Extremities-2+ edema at the left ankle 2-3+ edema at the right ankle right clearly more swollen than left but only minimally Neuro-alert orient x3 no focal findings gait not tested Objective Labs Result Diagrams: 10/14/20 09:20 10/14/20 09:20 Labs: Laboratory Results - last 24 hr 10/14/20 10/14/20 10/14/20 09:20 09:20 09:20 WBC 6.0 RBC 4.15 L Hgb 13.4 L Hct 40.1 L MCV 96.6 MCH 32.3 MCHC 33.4 RDW 16.5 H Plt Count 168 Neut % (Auto) 70.1 Lymph % (Auto) 23.2 L Sebastian % (Auto) 4.9 Eos % (Auto) 1.5 L Baso % (Auto) 0.3 Neut # (Auto) 4200 Lymph # (Auto) 1400 Sebastian # (Auto) 300 Eos # (Auto) 100 Baso # (Auto) 0 PT 12.8 H INR 1.1 APTT 31 Sodium 139 Potassium 3.2 L Chloride 107 Carbon Dioxide 29 BUN 18 Creatinine 0.96 Estimated GFR > 60.0 BUN/Creatinine Ratio 18.8 Glucose 124 H Calcium 8.9 Total Bilirubin 0.8 AST 20 ALT 21 Alkaline Phosphatase 41 Total Creatine Kinase 31 L CK-MB (CK-2) TNP CK-MB (CK-2) Rel Index TNP Troponin I 0.145 H* NT-Pro-B Natriuret Pep Total Protein 6.2 L Albumin 3.7 Globulin 2.5 Albumin/Globulin Ratio 1.5 Ethyl Alcohol < 10 SARS-CoV-2 (PCR) 10/14/20 10/14/20 09:20 09:45 WBC RBC Hgb Hct MCV MCH MCHC RDW Plt Count Neut % (Auto) Lymph % (Auto) Sebastian % (Auto) Eos % (Auto) Baso % (Auto) Neut # (Auto) Lymph # (Auto) Sebastian # (Auto) Eos # (Auto) Baso # (Auto) PT INR APTT Sodium Potassium Chloride Carbon Dioxide BUN Creatinine Estimated GFR BUN/Creatinine Ratio Glucose Calcium Total Bilirubin AST ALT Alkaline Phosphatase Total Creatine Kinase CK-MB (CK-2) CK-MB (CK-2) Rel Index Troponin I NT-Pro-B Natriuret Pep 253 Total Protein Albumin Globulin Albumin/Globulin Ratio Ethyl Alcohol SARS-CoV-2 (PCR) Negative Assessment & Plan Assessment & Plan narrative: 1. Weakness-no clear evidence of new neurologic event. Very difficult to ascertain in this patient with chronic weakness dizziness and gait disorder. Continue to monitor for more dramatic neurologic changes. Patient is chronically anticoagulated has been given an aspirin in the ED and I would continue that for now. No indication for advanced imaging such as repeat CT angiography etc. given his previous unremarkable findings and lack of specific findings on exam today. Unable to perform MRI because of his pacemaker. Even if he has had a new acute/subacute stroke there is no additional therapy available given the time course and or his other comorbidities. I will add anti-platelet therapy in the form of an aspirin a day Will need physical therapy and occupational therapy evaluation and may need placement in an alternate living facility depending on outcomes. Also will need continued evaluation for possible infectious etiology such as UTI for his weakness although at this point there is no evidence of same. Perhaps his lower extremity edema is a contributing factor here just pushing him over the edge with his ability to move and stand because of the extra weight do the water weight. I will prescribe additional diuretics once we correct his electrolyte disturbances 2. Elevated troponin-unclear what the etiology of this is at this point. No evidence of actual ischemia no symptoms no changes on ECG. Normal myocardial perfusion imaging in 2019. Continue to trend this number over time and if rises will need to consult Cardiology and consider evaluation including angiography. Had echo done in April 2020 which was essentially normal normal left ventricular and right ventricular function, without change from November 2018. Overall depending on outcomes with serial troponins etc. I am not convinced there is any active cardiac issue here. Would continue on aspirin day in addition to his Eliquis for his paroxysmal atrial fibrillation. 3. Paroxysmal atrial fibrillation-patient with atrial pacing on EKG today. No evidence of active atrial fibrillation. Continue with cardiac cath technologist for now 4. Hypokalemia-replace with oral potassium. Plan to repeat this as well plan to check magnesium as well 5. Hypothyroidism-last thyroid blood tests were in December of 2019 and were perfectly fine. Not convinced this or any of patient's presenting symptoms could be related to thyroid disease but probably would benefit from retesting during this hospitalization 6. VTE prophylaxis-continue with sequential compression devices and patient's chronic fully anticoagulated anyway for other reasons. 7. Code status-patient has previously signed a do not resuscitate order and I confirmed with him today that this is still how he feels and therefore he has made a do not resuscitate status in the event of a sudden cardiac or respiratory arrest Overall patient with progression of underlying weakness without in my mind anyway evidence of an acute event. Need to continue monitoring cardiac status given minimally elevated troponin and trend this over time however past history of normal perfusion imaging is somewhat reassuring in this regard. Patient need to be seen by skilled therapies and may well require placement in alternate living facility given his chronic issues at home with multiple hospitalizations now for weakness and falls etc.
[2020-10-14 12:30] VITALS: BP 156/84; PULSE 60; RESP 22; O2SAT 99
[2020-10-14 13:30] VITALS: BP 156/81; PULSE 59; RESP 16; TEMP 36.7; O2SAT 98
[2020-10-14] MEDS: POTASSIUM CHLORIDE 10 MEQ TAB 20 MEQ PO ×2 (14:19→18:06)
[2020-10-14 14:21] VITALS: BMI 28.3
--- NOTE | 2020-10-14 14:30 | CM.DANOTE ---
Met with patient and son in the ED. Patient was A&Ox3 and very cheerful as he explained that he was too weak to get around by himself anymore and needed our assistance locating caregivers in the home. I brought them [employer], recommended they reach out to [facility] for any information about local assistance. I also they reach out to their [facility] Power Operator to ask for any resources they can offer. While in ED I was informed that the patient was going to be admitted to due to an elevated traponin. I told him that CM will follow up with him tomorrow after they have a chance to review the books I provided today.
[2020-10-14 14:48] LABS: UR Morphine/Opiate cutoff 300 Negative (Negative); Ur Creatinine Normal (Normal); Ur Specific Gravity Normal (Normal); Urine Amphetamines Negative (Negative); Urine Barbiturates Negative (Negative); Urine Benzodiazepines Negative (Negative); Urine Cocaine Negative (Negative); Urine MDMA Negative (Negative); Urine Methadone Negative (Negative); Urine Methamphetamines Negative (Negative); Urine Oxycodone Negative (Negative); Urine Phencyclidine Negative (Negative); Urine Tetrahydrocannabinol Negative (Negative); Urine Tricyclic Antidepressant Negative (Negative); Urine pH Normal (Normal)
[2020-10-14] MEDS: BUDESONIDE 3 MG CAP 9 MG PO ×2 (14:58→21:34)
[2020-10-14 15:08] LABS: RBC Urine None Seen (0-5/HPF)
[2020-10-14 15:10] LABS: Appearance Urine UA CLEAR; Bilirubin Urine UA NEGATIVE (NEGATIVE); Color Urine UA YELLOW; Glucose Urine UA NEGATIVE (Negative); Ketones Urine UA NEGATIVE (NEGATIVE); Leukocyte Esterase Urine UA NEGATIVE (NEGATIVE); Nitrite Urine UA NEGATIVE (Negative); Occult Blood Urine UA NEGATIVE (Negative); Protein Urine UA NEGATIVE (Negative); Specific Gravity Urine UA 1.015 (1.000-1.035); Urobilinogen Urine UA 0.2 E.U./dL (0.2); pH Urine UA 5.5 (4.5-8.0)
[2020-10-14 15:21] LABS: WBC Urine 1-5/HPF (0-5/HPF)
[2020-10-14 15:22] LABS: Amorphous Sediment Urine 1+; Bacteria Urine Occasional (0-1); Culture Indicated Urine Cult Not Indicated; Squamous Epithelial Cell Urine 0-1 /HPF (0-5/HPF)
[2020-10-14 16:02] VITALS: BP 120/71; PULSE 67; RESP 20; TEMP 36.9; O2SAT 95
--- NOTE | 2020-10-14 16:12 | PT-IP ANOTE ---
Received PT orders and reviewed chart. Due to elevated troponin, will hold PT evaluation and look for serial draws to trend down or get ok from hospitalist in the morning to mobilize this pt.
[2020-10-14 16:46] LABS: Troponin I 0.111 ng/mL (0.01-0.034)
--- NOTE | 2020-10-14 16:56 | ST.IPIE ---
Visit Care Team Role Provider Type Kindra Shannon DO Emergency Provider Physician Referring Provider Specialty: Emergency Medicine Address: [address] [place] [address], [id number] Email: [email or web address] Admit Provider Physician Attending Provider Primary Care Provider Specialty: Internal Medicine Address: [address] [place] [address], [address], [place], [address] Email: [email or web address] Past Medical History (Last Updated 10/14/20 @ 15:22 by Azam Fuller MD) Anosmia (Medical) since nasal polypectomy Benign prostate hyperplasia (Medical) Cataracts, bilateral (Medical ~2018) Depression (Medical ~1959) Erectile dysfunction (Medical) Family history of prostate cancer (Medical) Fecal incontinence (Medical ~1957) H/O adenomatous polyp of colon (Medical) tubulovillous, req'd right hemicolectomy Hearing loss (Medical ~1999) Hearing aids Hypothyroidism (Medical ~1995) Lymphocytic colitis (Medical) Mild cognitive impairment (Medical) Neuropathy (Medical) B-12 def related? Pacemaker (Medical 11/10/11) Dual Chamber [facility] [place] Paroxysmal atrial fibrillation (Medical) Per Cardiology/pacer check Prostate cancer (Medical) on TURP chips Sick sinus syndrome (Medical) Sleep apnea (Medical ~1995) on CPAP/BiPAP Urge incontinence (Medical) Urinary incontinence, mixed (Medical) ST IP Initial Evaluation Report MEDICAL RECORD SPECIALIST Clinical Swallow Evaluation Start: 10/14/20 16:38 Freq: Status: Active Protocol: Document 10/14/20 16:38 KERVIN (Rec: 10/14/20 16:55 KERVIN [id number]) Clinical Swallow Evaluation Session Time Visit Start Time 15:40 Visit Stop Time 16:15 Total Visit Minutes [address] Azam Fuller Reason for Referral Dysphagia Setting Assessment Location Acute Care Visit Type Note Type Initial evaluation Next Note Type Next Note Type Treatment Note Patient Information Identification Type Name,ID Card History Per H&P: 85-year-old male last seen in the clinic on the 02 of October and admitted because of increased weakness particularly right leg weakness. Patient with longstanding issues with his gait in weakness with multiple falls. Was hospitalized in early August because of multiple falls due to nonspecific weakness. Patient has had a neurologic workup prior to his previous hospitalization and following that. Unable to perform MRI because of his pacemaker. No evidence of any new neurologic issues over time. Patient was increasingly weak with less than usual ability to even stand and assist with transfers over the last several days. Denies any other specific symptoms. History of of course the paroxysmal atrial fibrillation , as well as some cognitive impairment and lymphocytic colitis causing persistent diarrhea. In the ER he was evaluated head CT was unremarkable as it has been previously. Difficult to ascertain whether not there is any new weakness given his underlying baseline neurologic issues and weakness specially with his gait and standing. Subjective Observations The pt was awake in bed with dtr present. He was alert, pleasant and familiar with MEDICAL RECORD SPECIALIST services. He reported prior dysphagia and has been seen in outpatient clinic in past and last week was starting with MEDICAL RECORD SPECIALIST, who recommended [facility] soft diet, thin liquids, small bites/sips at slow rate with use of chin tuck. The pt reported increasing memory challenges. Dtr reported recent SLUMS with as , which was improved from after prior hospitalization. Pt and family report that the pt follows a FODMAP diet and is gluten and dairy intolerant . Objective Assessment Mental Status Alert,Responsive,Cooperative Oral Integrity WFL Dentition Missing teeth Lip Function Within normal limits Observation of Lips at Rest Symmetrical Pucker Within normal limits Lip Retraction Within normal limits Alternating Pucker/Lip Retraction Within normal limits Tongue Function Within normal limits Observations of Tongue at Rest Within normal limits Tongue Protrusion Within normal limits Tongue Retraction Within normal limits Tongue Lateralization Within normal limits Jaw Function Within normal limits Observations of Jaw at Rest Within normal limits Jaw Opening Within normal limits Jaw Closing Within normal limits Jaw Lateralization Within normal limits Hard/Soft Palate Function Within normal limits Observations of Hard/Soft Palate Within normal limits Nasality Within normal limits Phonation Within normal limits Respiratory Sufficiency Within normal limits Comment The pt is missing lower right molars. He has a bridge for this that has not come to the hospital with him. His dtr stated she would bring. The pt reports missing teeth do impact mastication. Food and Liquid Trials Position During Assessment Upright (90 degrees) Liquids Trialed Thin Solids Trialed Mechanical Soft Administration Type Straw,Self-feeding Oral Impairment Within functional limits Oral Phase Comments Mildly extended mastication without use of lower right side bridge; however, he has been instructed to chew well, so this is appropriate. A/P propulsion and swallow trigger appear timely, no abnormal residue. Pharyngeal Impairment Mildly impaired Pharyngeal Phase Comments No overt s/sx of aspiration were observed with limited trials. Pt requiring occ cuing for chin tuck. Pt/family report occ coughing with solids and liquids at baseline . Fatigue/Endurance Endurance WNL Comment No fatigue with limited trials . PT FOLLOWS FODMAP DIET AND IS GLUTEN AND DAIRY INTOLERANT Strategies Attempted Chin tuck Response/Comments Improved safety. Findings Swallowing Function Oropharyngeal phase dysphagia Severity of Swallow Impairment Mildly impaired Contributing Factors to Swallow Mastication inefficiency, Impairment Impaired airway protection Prognosis Good Based on Cognitive status,Family support,History of aspiration/ aspiration pneumonia, Comorbidities Comment Pt is familiar with aspiration risks/precautions and MEDICAL RECORD SPECIALIST services. Impact on Safety and Functioning Risk for aspiration Recommendations Instrumental Assessment No Swallowing Treatment Yes Frequency daily Duration over hospital stay Recommended Solids Mechanical Soft Recommended Liquids Thin Other Recommendations Medical team to provide in writing any information that the pt needs to remember. Pt may benefit from cog assessment and treatment. Safety Precautions/Swallowing Reduce distractions,Remain Recommendations upright (90 degrees) during all oral intake,Needs verbal cues to use recommended strategies,Upright position at least 30 minutes after meals, Small bites and sips when eating,Slow rate; swallow between bites Medication Recommendations As Tolerated Discharge Recommendations Home,Home with Home Health Education Patient/Caregiver Education Described results of evaluation,Patient expressed understanding of evaluation, Patient expressed agreement with goals & treatment plans, Family/caregivers expressed understanding of evaluation, Family/caregivers expressed agreement with goals & treatment plans,Patient expressed understanding of safety precautions,Patient expressed understanding of feeding recommendations,Family /caregivers expressed understanding of safety precautions,Family/caregivers expressed understanding of feeding recommendations Goals Short-term Goals 1. The pt will use safe swallow strategies with written cues to reduce risk of aspiration. 2. The pt will perform exercises to improve strength, coordination and ROM of swallow musculature and reduce risk of aspiration. Long-term Goals 1. The pt will tolerate least restrictive diet to meet his nutrition and hydration needs.
--- NOTE | 2020-10-14 17:32 | DIET.PN ---
Dietary Progress Note RD alerted to pt c low FODMAP diet restrictions who generally avoids gluten and dairy to manage his IBS. RD very familiar c FODMAPs. Discussed c pt over phone his preferred menu. B: GF oatmeal prepared c water, black coffee, banana, hb egg L: GF bread toasted cheese sandwich-cheddar (pt does not eat dairy but does eat small amounts of cheddar cheese).
[2020-10-14 18:25] LABS: TSH w/ Reflex to FT4 6.62 uIU/mL (0.47-4.68)
[2020-10-14 18:56] LABS: Free T4, Direct Thyroxine 0.68 ng/dL (0.78-2.19)
[2020-10-14 19:42] VITALS: BP 116/65; PULSE 71; RESP 18; TEMP 36.8; O2SAT 96
[2020-10-14] MEDS: ROSUVASTATIN 10 MG TABLET PO (21:34)
[2020-10-14] MEDS: COLESEVELAM 625 MG TABLET PO (21:34)
[2020-10-14] MEDS: APIXABAN 5 MG TABLET 2.5 MG PO (21:34)
[2020-10-15] VITALS (9 sets, daily range): BP systolic 106–136; BP diastolic 59–80; PULSE 62–80; RESP 15–19; TEMP 36.1–37.1; O2SAT 94–99
[2020-10-15] MEDS: LEVOTHYROXINE 100 MCG TABLET PO (05:27)
--- NOTE | 2020-10-15 08:02 | PM.PN.1 ---
Subjective Subjective Date Patient Seen: 10/15/20 Time Patient Seen: 08:02 Interval history: Patient with an uneventful day/evening yesterday Troponin is trended down Physical therapy has held off on evaluation due to borderline troponin Exam Vital Signs (past 8 hours): - 10/15/20 04:00 Temperature 97.3 F L Pulse Rate 68 Respiratory Rate 18 Blood Pressure 123/68 Pulse Oximetry 99 Oxygen Delivery Method Room Air Oxygen Flow Rate 0 Objective Labs Result Diagrams: 10/14/20 09:20 10/14/20 09:20 Labs: Laboratory Results - last 24 hr 10/14/20 10/14/20 10/14/20 09:20 09:20 09:20 WBC 6.0 RBC 4.15 L Hgb 13.4 L Hct 40.1 L MCV 96.6 MCH 32.3 MCHC 33.4 RDW 16.5 H Plt Count 168 Neut % (Auto) 70.1 Lymph % (Auto) 23.2 L [place] % (Auto) 4.9 Eos % (Auto) 1.5 L Baso % (Auto) 0.3 Neut # (Auto) 4200 Lymph # (Auto) 1400 [place] # (Auto) 300 Eos # (Auto) 100 Baso # (Auto) 0 PT 12.8 H INR 1.1 APTT 31 Sodium 139 Potassium 3.2 L Chloride 107 Carbon Dioxide 29 BUN 18 Creatinine 0.96 Estimated GFR > 60.0 BUN/Creatinine Ratio 18.8 Glucose 124 H Calcium 8.9 Total Bilirubin 0.8 AST 20 ALT 21 Alkaline Phosphatase 41 Total Creatine Kinase 31 L CK-MB (CK-2) TNP CK-MB (CK-2) Rel Index TNP Troponin I 0.145 H* NT-Pro-B Natriuret Pep Total Protein 6.2 L Albumin 3.7 Globulin 2.5 Albumin/Globulin Ratio 1.5 TSH Free T4 Urine Color Urine Appearance Urine pH Ur Specific [place] Urine Protein Urine Glucose (UA) Urine Ketones Urine Occult Blood Urine Nitrate Urine Bilirubin Urine Urobilinogen Ur Leukocyte Esterase Urine RBC Urine WBC Ur Squamous Epith Cells Amorphous Sediment Urine Bacteria Ur Culture Indicated? U Opiates 300ng/mL cut Ur Oxycodone Screen Urine Methadone Screen Ur Barbiturates Screen U Tricyclic Antidepress Ur Phencyclidine Scrn Ur Amphetamines Screen U Methamphetamines Scrn Ur MDMA Scrn (Ecstasy) U Benzodiazepines Scrn Urine Cocaine Screen U Marijuana (THC) Screen Ethyl Alcohol < 10 SARS-CoV-2 (PCR) 10/14/20 10/14/20 10/14/20 09:20 09:20 09:45 WBC RBC Hgb Hct MCV MCH MCHC RDW Plt Count Neut % (Auto) Lymph % (Auto) [place] % (Auto) Eos % (Auto) Baso % (Auto) Neut # (Auto) Lymph # (Auto) [place] # (Auto) Eos # (Auto) Baso # (Auto) PT INR APTT Sodium Potassium Chloride Carbon Dioxide BUN Creatinine Estimated GFR BUN/Creatinine Ratio Glucose Calcium Total Bilirubin AST ALT Alkaline Phosphatase Total Creatine Kinase CK-MB (CK-2) CK-MB (CK-2) Rel Index Troponin I NT-Pro-B Natriuret Pep 253 Total Protein Albumin Globulin Albumin/Globulin Ratio TSH 6.62 H Free T4 0.68 L Urine Color Urine Appearance Urine pH Ur Specific [place] Urine Protein Urine Glucose (UA) Urine Ketones Urine Occult Blood Urine Nitrate Urine Bilirubin Urine Urobilinogen Ur Leukocyte Esterase Urine RBC Urine WBC Ur Squamous Epith Cells Amorphous Sediment Urine Bacteria Ur Culture Indicated? U Opiates 300ng/mL cut Ur Oxycodone Screen Urine Methadone Screen Ur Barbiturates Screen U Tricyclic Antidepress Ur Phencyclidine Scrn Ur Amphetamines Screen U Methamphetamines Scrn Ur MDMA Scrn (Ecstasy) U Benzodiazepines Scrn Urine Cocaine Screen U Marijuana (THC) Screen Ethyl Alcohol SARS-CoV-2 (PCR) Negative 10/14/20 10/14/20 10/14/20 14:37 14:37 16:17 WBC RBC Hgb Hct MCV MCH MCHC RDW Plt Count Neut % (Auto) Lymph % (Auto) [place] % (Auto) Eos % (Auto) Baso % (Auto) Neut # (Auto) Lymph # (Auto) [place] # (Auto) Eos # (Auto) Baso # (Auto) PT INR APTT Sodium Potassium Chloride Carbon Dioxide BUN Creatinine Estimated GFR BUN/Creatinine Ratio Glucose Calcium Total Bilirubin AST ALT Alkaline Phosphatase Total Creatine Kinase CK-MB (CK-2) CK-MB (CK-2) Rel Index Troponin I 0.111 H NT-Pro-B Natriuret Pep Total Protein Albumin Globulin Albumin/Globulin Ratio TSH Free T4 Urine Color Yellow Urine Appearance Clear Urine pH 5.5 Ur Specific [place] 1.015 Urine Protein Negative Urine Glucose (UA) Negative Urine Ketones Negative Urine Occult Blood Negative Urine Nitrate Negative Urine Bilirubin Negative Urine Urobilinogen 0.2 Ur Leukocyte Esterase Negative Urine RBC None seen Urine WBC 1-5/hpf Ur Squamous Epith Cells 0-1 /hpf Amorphous Sediment 1+ Urine Bacteria Occasional (0-1) Ur Culture Indicated? Cult not indicated U Opiates 300ng/mL cut Negative Ur Oxycodone Screen Negative Urine Methadone Screen Negative Ur Barbiturates Screen Negative U Tricyclic Antidepress Negative Ur Phencyclidine Scrn Negative Ur Amphetamines Screen Negative U Methamphetamines Scrn Negative Ur MDMA Scrn (Ecstasy) Negative U Benzodiazepines Scrn Negative Urine Cocaine Screen Negative U Marijuana (THC) Screen Negative Ethyl Alcohol SARS-CoV-2 (PCR) 10/14/20 23:20 WBC RBC Hgb Hct MCV MCH MCHC RDW Plt Count Neut % (Auto) Lymph % (Auto) [place] % (Auto) Eos % (Auto) Baso % (Auto) Neut # (Auto) Lymph # (Auto) [place] # (Auto) Eos # (Auto) Baso # (Auto) PT INR APTT Sodium Potassium Chloride Carbon Dioxide BUN Creatinine Estimated GFR BUN/Creatinine Ratio Glucose Calcium Total Bilirubin AST ALT Alkaline Phosphatase Total Creatine Kinase CK-MB (CK-2) CK-MB (CK-2) Rel Index Troponin I 0.070 H NT-Pro-B Natriuret Pep Total Protein Albumin Globulin Albumin/Globulin Ratio TSH Free T4 Urine Color Urine Appearance Urine pH Ur Specific [place] Urine Protein Urine Glucose (UA) Urine Ketones Urine Occult Blood Urine Nitrate Urine Bilirubin Urine Urobilinogen Ur Leukocyte Esterase Urine RBC Urine WBC Ur Squamous Epith Cells Amorphous Sediment Urine Bacteria Ur Culture Indicated? U Opiates 300ng/mL cut Ur Oxycodone Screen Urine Methadone Screen Ur Barbiturates Screen U Tricyclic Antidepress Ur Phencyclidine Scrn Ur Amphetamines Screen U Methamphetamines Scrn Ur MDMA Scrn (Ecstasy) U Benzodiazepines Scrn Urine Cocaine Screen U Marijuana (THC) Screen Ethyl Alcohol SARS-CoV-2 (PCR) [facility] Medical History (Updated 10/14/20 @ 15:22 by Azam Fuller MD) Anosmia Benign prostate hyperplasia Cataracts, bilateral (~2018) Depression (~1960) Erectile dysfunction Family history of prostate cancer Fecal incontinence (~1957) H/O adenomatous polyp of colon Hearing loss (~1999) Hypothyroidism (~1995) Lymphocytic colitis Mild cognitive impairment Neuropathy Pacemaker (11/10/11) Paroxysmal atrial fibrillation Prostate cancer Sick sinus syndrome Sleep apnea (~1995) Urge incontinence Urinary incontinence, mixed Surgical History Anesthesia H/O cataract removal with insertion of prosthetic lens H/O colectomy History of appendectomy History of cholecystectomy History of tonsillectomy S/P cataract extraction (~2018) S/P cholecystectomy (~1996) S/P nasal polypectomy (~1989) S/P partial colectomy (~2003) S/P placement of cardiac pacemaker (~10/2011) S/P tonsillectomy S/P TURP (~2012) S/P vasectomy (~1972) Family History Father History of heart disease Mother History of heart disease Brother Diabetes mellitus History of heart disease Social History household members: spouse and family Smoking Status: Never smoker Assessment & Plan Assessment & Plan narrative: 1. Weakness-we will initiate skilled therapies today. I do not believe there is any cardiac issue here and he is safe to participate in physical therapy whatever level he is able to. This will help determine whether not he will be able to return to his previous care setting or require placement in some other facility with more availability of assistance/skilled therapies etc. No evidence of neurologic progression to suggest an acute neurologic event etcperiod. Will continue with anti-platelet therapy however with an aspirin a day in addition to his Eliquis 2. Lower extremity edema/hypokalemia-will initiate low-dose diuretic therapy today to see if that will improve his strength inability to move his lower extremities etc.. Continue to monitor electrolytes and replace as necessary. 3. Paroxysmal atrial fibrillation-vital signs are stable. Continue on Eliquis. Pacemaker continues to function. Will discontinue telemetry given lack of findings 4. Placement-unclear whether patient be able to return to previous living environment as above. Note: Greater than 20 minutes was spent evaluating the patient on the floor, including examining the patient, discussing clinical course with clinical and nursing staff, reviewing clinical course in the computer, preparing documentation and writing orders for continued management of care, discussing status with family as appropriate, reviewing plans for the next 24 hours with both patient/family and nursing staff as appropriate.
[2020-10-15 08:10] LABS: Magnesium 1.9 mg/dL (1.6-2.3)
[2020-10-15 08:11] LABS: BUN Creatinine Ratio 19.8 (6-22); Blood Urea Nitrogen 17 mg/dL (9-20); Calcium 8.3 mg/dL (8.4-10.2); Carbon Dioxide 31 mmol/L (22-32); Chloride 106 mmol/L (98-107); Estimated Glomerular Filt Rate > 60.0 mL/min (>60); Glucose 90 mg/dL (80-110); HEMOLYSIS < 15 (0-50); Potassium 3.9 mmol/L (3.4-5.1); Sodium 137 mmol/L (137-145)
[2020-10-15] MEDS: ESCITALOPRAM 10 MG TABLET PO (08:50)
[2020-10-15] MEDS: ASPIRIN EC 81 MG TABLET PO (08:51)
[2020-10-15] MEDS: POTASSIUM CHLORIDE 10 MEQ TAB 20 MEQ PO ×3 (08:51→20:29)
[2020-10-15] MEDS: FUROSEMIDE 40 MG TABLET PO (08:51)
[2020-10-15] MEDS: CHOLECALCIFEROL (VITAMIN D3) 1,000 UNIT TABLET 1000 UNIT PO (08:51)
[2020-10-15] MEDS: BUDESONIDE 3 MG CAP 9 MG PO ×3 (08:52→20:30)
[2020-10-15] MEDS: COLESEVELAM 625 MG TABLET PO ×2 (08:52→20:30)
[2020-10-15] MEDS: APIXABAN 5 MG TABLET 2.5 MG PO ×2 (08:52→20:29)
[2020-10-15] MEDS: SODIUM CHLORIDE 0.9% FLUSH 10 ML IV ×2 (08:53→20:31)
[2020-10-15 09:00] LABS: Troponin I 0.056 ng/mL (0.01-0.034)
--- NOTE | 2020-10-15 11:07 | OT.IP.EVAL ---
Past Medical History (Last Updated 10/14/20 @ 15:22 by Azam Fuller MD) Anosmia Benign prostate hyperplasia Cataracts, bilateral (~2018) Depression (~1960) Erectile dysfunction Family history of prostate cancer Fecal incontinence (~1957) H/O adenomatous polyp of colon Hearing loss (~1999) Hypothyroidism (~1995) Lymphocytic colitis Mild cognitive impairment Neuropathy Pacemaker (11/10/11) Paroxysmal atrial fibrillation Prostate cancer Sick sinus syndrome Sleep apnea (~1995) Urge incontinence Urinary incontinence, mixed Surgical History (Last Reviewed 10/14/20 @ 12:27 by Azam Fuller MD) Anesthesia H/O cataract removal with insertion of prosthetic lens H/O colectomy History of appendectomy History of cholecystectomy History of tonsillectomy S/P cataract extraction (~2018) S/P cholecystectomy (~1996) S/P nasal polypectomy (~1989) S/P partial colectomy (~2003) S/P placement of cardiac pacemaker (~10/2011) S/P tonsillectomy S/P TURP (~2012) S/P vasectomy (~1972) Occupational Therapy Inpatient Evaluation/Re-Eval M1 PT/OT-IP Prior Functional Status Start: 10/15/20 11:39 Freq: NEEDED Status: Active Protocol: Document 10/15/20 10:07 [facility] (Rec: 10/15/20 12:14 [facility] [id number]) Medical Review Prior Functional Status Medical History Reviewed Yes Communication Independent. Mobility and Gait Pt able to use 4ww to get around the house but as of Tuesday pt's daughter was needing extensive assist to transfer the pt to a . Activities of Daily Living and IADL's Pt needing assist with buttons for shirts and MAX A for LB dressing needs- compression garments, socks, pants and shoes. Pt's daughter assist with medications and now looking to take over paying the bills from the pt's . Per daughter, her mom has dementia. Prior Functional Level (Other details) Pt's daughter lives upstairs and use of monitor at night to know when to come and assist pt at night. Pt's daughter looking into getting increased care to include nights as well. Currently pt has caregivers to assist 10 hours during the day -, and 8 hours on Tuesday. Otherwise pt's daughter assist when caregivers at not around. Social History Household Members spouse,family Living Arrangements House Number of Floors (Floors) Two Floors Number of Stairs To Enter/Railing? Pt enters thru the garage with one step and grab bars to use on both sides. Home Environment High Toilet,Walk in Shower Home Equipment Front Wheel Walker,Four Wheel Walker,Manual Wheelchair, Bedside Commode,Shower Seat with Backrest,Grab Bars Near Toilet,Grab Bars In Shower Additional Social History Comment Pt's daughter looking into getting bed rail for the bed. M2 OT-IP Current Condition Start: 10/15/20 11:39 Freq: Status: Active Protocol: Document 10/15/20 10:07 [facility] (Rec: 10/15/20 12:14 [facility] [id number]) Occupational Therapy Current Condition Current Condition Evaluation Date 10/15/20 Treatment Diagnosis Weakness, decreased balance Diagnosis Onset Date 10/14/20 M3 OT- IP Subjective and Pain Start: 10/15/20 11:39 Freq: Status: Active Protocol: Document 10/15/20 10:07 [facility] (Rec: 10/15/20 12:14 [facility] [id number]) OT- Subjective Occupational Therapy Visit Type Type Initial Evaluation Visit Start Time 10:07 Visit Stop Time 11:07 Total Visit Minutes 60 Occupational Therapy Visit Comments Patient Comments Pt agreed to get up and pt's daughter present for OT eval. Patient/Caregiver Goals To go home. OT Pain Assessment Pain When Pain Assessed At Rest Pain Present Pain Present Denied Pain M4 OT- IP ADL's Start: 10/15/20 11:39 Freq: Status: Active Protocol: Document 10/15/20 10:07 [facility] (Rec: 10/15/20 12:14 [facility] [id number]) OT [id number] Comments OT Self-Feeding Comments NOt at meal time, pt's daughter states pt needs assist for set-up for the meal . OT ADL-Grooming General Evaluation Grooming Ability Standby Assistance Areas Needing Assistance Retrieving/Set-up of Grooming Items Comments OT Grooming Comments Pt able to do while seated from the recliner. OT ADL-Oral Care General Eval Oral Care Ability Independent OT ADL-Dressing General Eval Lower Body Dressing Ability Maximum Assistance Areas Needing Assistance Underpants/Brief,Socks Comments OT Dressing Comments MAX A for LB dressing needs. OT ADL-Toileting General Evaluation Toileting Ability Moderate Assistance Areas Needing Assistance Manage Clothing,Perform Perineal Hygiene Comments OT Toileting Comments VC to wipe for completeness, MODA for balance as pt able to assist to pull up the brief up over his hips. OT ADL-Bathing Comments OT Bathing Comments Not performed. M5 OT- IP IADL's Start: 10/15/20 11:39 Freq: Status: Active Protocol: Document 10/15/20 10:07 [facility] (Rec: 10/15/20 12:14 [facility] [id number]) OT-Instrumental Activities of Daily Living Home Safety Awareness Awareness of Need for Assistance at Home Good Awareness Medication Management Medication Management Caregiver Administers Money Management Money Management Caregiver Provides Assistance Meal Preparation Meal Preparation Caregiver Provides Assist Process Safety Management Engineer Process Safety Management Engineer Caregiver Provides Assist Driving Driving Caregiver Provides Assist M6 OT- IP Functional Cognition Start: 10/15/20 11:39 Freq: Status: Active Protocol: Document 10/15/20 10:07 [facility] (Rec: 10/15/20 12:14 [facility] [id number]) Cognitive Factors Limiting Selfcare Function Cognitive Ability Level of Alertness Alert Patient Orientation Name,Situation Attention Span Ability Capable of Focused Attention, Capable of Sustained Attention Ability to Follow Commands Able to Follow One Step Commands Safety Awareness Underestimates Need for Assistance Cognitive Comments Cognitive Assessment Comments Pt needing reminders to keep FWW close, to back up all the way before with the FWW before sitting down as pt tends to want to grab for the grab bars . Pt also needing reminders not to lean, pt tends to lean to the left. OT- Vision and Hearing OT- Hearing Assessment OT- Hearing Assessment Hearing Impaired,Use of Hearing Aids OT- Vision Assessment Visual Acuity Glasses All The Time Occular Pursuits WFL Visual Convergence WFL Visual [place] Impaired Visual Spacial Neglect Left Vision Assessment Comments Pt inconsistent for peripheral vision, pt having a hard time keeping his eyes open and tends to squint his eyes. Pt able to track and read the clock appropriately. On the way back from the bathroom, pt tend to runs into object on the left side. M7 OT- IP Mobility and Balance Start: 10/15/20 11:39 Freq: Status: Active Protocol: Document 10/15/20 10:07 [facility] (Rec: 10/15/20 12:14 [facility] [id number]) OT- Bed Mobility Assessment Rolling Type of Rolling Roll to Right Level of Assistance Standby Assistance,Bedrails Supine to Sit Supine to Sit Assist Standby Assistance,Bedrails Scooting Scooting to Edge of Bed Contact Guard Assistance OT-Transfer Assessment Sit to and From Stand Sit to and from Stand Minimal Assistance,Moderate Assistance Transfers Transfer Ability Moderate Assistance,1 Person Assistance,2 Person Assistance Technique Transfer Destination Bed,Chair,Toilet Transfer Technique Stand Step Pivot Devices Transfer Assistive Devices Gait Belt,Front Wheeled Walker Comments Mobility Comments Pt heavy use of bedrail to assist to get up from the bed. Pt's daughter looking into getting a bed rail for the bed . Also spoke of possible use of transfer pole as pt heavily relies on his arms for mobility and to talk to home health therapist if it may be a good option for the pt at home. Pt MODA 1-2 persons asisst with FWW. Pt's daughter able to assist pt for toileting needs and to walk back to sit to the recliner. Therapist present for safety as assisting CGA. Pt's daughter felt that he is closer to his baseline for mobility needs. OT- Balance Assessment Sitting Balance and Reactions Static Sitting Balance Ability Fair Dynamic Sitting Balance Ability Fair Standing Balance and Reactions Static Standing Balance Ability Poor Comments Other Balance Tests/Deviations/Treatment Pt tends to sit into lateral : tilt to the left. Pt needing cues to fix his posture while seated. When standing pt heavily leans the the left and hips rotates left. As pt tires, pt needing more assist for the FWW control and balance. M8 OT- IP Objective Assessments Start: 10/15/20 11:39 Freq: Status: Active Protocol: Document 10/15/20 10:07 [facility] (Rec: 10/15/20 12:14 [facility] [id number]) OT Gross Range of Motion Upper Extremity Range of Motion Assessment Left Impaired ROM Impairments Decreased at end range for LUE . OT Strength Upper Extremity Strength Assessment Left Impaired Shoulder 4/5 Elbow 4/5 Forearm 4-/5 Wrist 3+/5 Hand 3+/5 OT- Coordination Assessment Upper Extremity Finger to Nose Test Left UE Impaired OT-Muscle Tone Assessment Muscle Tone WNL No Comments Muscle Tone Comments Noted while pt sitting in the recliner at rest, increased tone with left arm and had his left arm flexed at elbow and wrist. Pt had no awareness that he was resting his left arm on his chest. OT Sensation Assessment Comments Summary Comments Decreased proprioception and kinesthesia at left wrist and hand. Edema Edema Absent M9 OT- IP Assessment and Plan Start: 10/15/20 11:39 Freq: Status: Active Protocol: Document 10/15/20 10:07 [facility] (Rec: 10/15/20 12:14 [facility] [id number]) OT Summary Assessment and Plan Potential Rehabilitation Potential Good Analytic Complexity at Evaluation Low Summary OT Impairments Strength,Balance,Coordination, Tone,Functional Cognition, Functional Mobility,Self- Feeding,Grooming,Toileting, Bathing,Toilet Transfers, Shower Transfers,Activity Tolerance Progress Towards Goals Slow Progress due to Medical Issues,Slow Progress due to Activity Tolerance,Slow Progress due to Cognition Assessment Summary Pt low complexity and here due to weakness. Pt's daughter has initiated caregiver training with OT for transfer and ADl needs. Pt's daughter feels that he is close to baseline for mobility needs. Pt's daughter also looking into getting more care at nights for the pt. Suggest home with assist during waking hours and home health. Goals Self-Feeding Goal Standby Assistance Grooming Goal Independent Dressing Goal Moderate Assistance Toileting Goal Minimal Assistance Bathing Goal Minimal Assistance Toilet Transfer Goal Standby Assistance Shower Transfer Goal Contact Guard Assistance Patient/Caregiver Education Goal Caregiver Independent Assisting Patient Days to Meet Goals 5 Frequency of Treatment Frequency Of Treatment Once a Day Treatment Plan OT Treatment Plan ADL Training,Functional Cognition Training,Functional Mobility,Neuromuscular Re- education,Vision Retraining, Patient/Family Education Other Treatment Recommendations and Next Shower abd caregiver training Treatment Focus if stil here. Discharge Recommendations OT Discharge Recommendations Home with 24/7 Assist Available,Home Health Home Equipment Needs bed rail Transportation Needs at Discharge Private Vehicle
--- NOTE | 2020-10-15 11:19 | PT.IIE ---
Surgical History (Last Reviewed 10/14/20 @ 12:27 by Azam Fuller MD) Anesthesia H/O cataract removal with insertion of prosthetic lens H/O colectomy History of appendectomy History of cholecystectomy History of tonsillectomy S/P cataract extraction (~2018) S/P cholecystectomy (~1996) S/P nasal polypectomy (~1989) S/P partial colectomy (~2003) S/P placement of cardiac pacemaker (~10/2011) S/P tonsillectomy S/P TURP (~2012) S/P vasectomy (~1972) Medical History (Last Updated 10/14/20 @ 15:22 by Azam Fuller MD) Anosmia Benign prostate hyperplasia Cataracts, bilateral (~2018) Depression (~1959) Erectile dysfunction Family history of prostate cancer Fecal incontinence (~1957) H/O adenomatous polyp of colon Hearing loss (~1999) Hypothyroidism (~1995) Lymphocytic colitis Mild cognitive impairment Neuropathy Pacemaker (11/10/11) Paroxysmal atrial fibrillation Prostate cancer Sick sinus syndrome Sleep apnea (~1995) Urge incontinence Urinary incontinence, mixed Physical Therapy Inpatient Evaluation/Re-Eval M1 PT/OT-IP Prior Functional Status Start: 10/15/20 11:39 Freq: NEEDED Status: Active Protocol: Document 10/15/20 10:07 [facility] (Rec: 10/15/20 12:14 [facility] [id number]) Medical Review Prior Functional Status Medical History Reviewed Yes Communication Independent. Mobility and Gait Pt able to use 4ww to get around the house but as of Tuesday pt's daughter was needing extensive assist to transfer the pt to a . Activities of Daily Living and IADL's Pt needing assist with buttons for shirts and MAX A for LB dressing needs- complression garments, socks, pants and shoes. Pt's daughter assist with medications and now looking to take over paying the bills from the pt's . Per daughter, her mom has dementia. Prior Functional Level (Other details) Pt's daughter lives upstairs and use of monitor at night to know when to come and assist pt at night. Pt's daughter looking into getting increased care to include nights as well. Currently pt has caregivers to assist 10 hours during the day -, and 8 hours on Tuesday. Otherwise pt's daughter assist when caregivers at not around. Social History Household Members spouse,family Living Arrangements House Number of Floors (Floors) Two Floors Number of Stairs To Enter/Railing? Pt enters thru the garage with one step and grab bars to use on both sides. Home Environment High Toilet,Walk in Shower Home Equipment Front Wheel Walker,Four Wheel Walker,Manual Wheelchair, Bedside Commode,Shower Seat with Backrest,Grab Bars Near Toilet,Grab Bars In Shower Additional Social History Comment Pt's daughter looking into getting bed rail for the bed. M1 PT/OT-IP Prior Functional Status Start: 10/15/20 13:21 Freq: NEEDED Status: Active Protocol: Document 10/15/20 11:19 AB (Rec: 10/15/20 13:53 AB [id number]) Medical Review Prior Functional Status Medical History Reviewed Yes Communication able to make needs known Mobility and Gait daughter stated that pt got weaker last tuesday and was needing 2 person assist with mobility and has just been using a W/C. prior to tuesday, pt requires one person assist of SBA to CGA and ambule to ambulate using 4WW. Activities of Daily Living and IADL's per OT's note: Pt needing assist with buttons for shirts and MAX A for LB dressing needs- complression garments, socks, pants and shoes. Pt's daughter assist with medications and now looking to take over paying the bills from the pt's . Per daughter, her mom has dementia . Prior Functional Level (Other details) Pt's daughter lives upstairs and use of monitor at night to know when to come and assist pt at night. Pt's daughter looking into getting increased care to include nights as well. Currently pt has caregivers to assist 10 hours during the day -, and 8 hours on Tuesday. Otherwise pt's daughter assist when caregivers at not around. Social History Household Members spouse,family Living Arrangements House Number of Floors (Floors) Two Floors Number of Stairs To Enter/Railing? one step and B grab/handle bars on sides of the door to enter from the garage Home Environment High Toilet,Walk in Shower Home Equipment Four Wheel Walker,Manual Wheelchair,Shower Seat with Backrest,Hand Held Shower,Grab Bars In Shower Additional Social History Comment has a lift chair has 2 w/c has a safety frame around th toilet M2 PT-IP Current Condition Start: 10/15/20 13:21 Freq: NEEDED Status: Active Protocol: Document 10/15/20 11:19 AB (Rec: 10/15/20 13:53 AB [id number]) Physical Therapy Current Condition Current Condition Evaluation Date 10/15/20 Treatment Diagnosis dizziness; generalized weakness Onset Date 10/14/20 Precautions Other Precautions falls M3 PT-IP Subjective Start: 10/15/20 13:21 Freq: NEEDED Status: Active Protocol: Document 10/15/20 11:19 AB (Rec: 10/15/20 13:53 AB [id number]) Subjective Physical Therapy Visit Type Type Initial Evaluation Visit Start Time 11:19 Visit Stop Time 11:44 Total Visit Minutes 25 Number of HR BUSINESS PARTNER CONSULTANT Visits 0 Physical Therapy Visit Comments Patient Comments pt is agreeable to do PT Therapy Pain Assessment Pain Present Pain Present Denied Pain M4 PT-IP Mobility and Gait Start: 10/15/20 13:21 Freq: NEEDED Status: Active Protocol: Document 10/15/20 11:19 AB (Rec: 10/15/20 13:53 AB [id number]) PT-Bed Mobility Assessment Supine to Sit Supine to Sit Standby Assistance Sit to Supine Sit to Supine Standby Assistance PT-Transfer Assessment Sit to and From Stand Sit to and from Stand Moderate Assistance,1 Person Assistance,Use of Upper Extremities Equipment Transfer Assistive Device Gait Belt,Front Wheeled Walker Orthotic/Prosthetic Devices or Brace: No Transfers Transfer Destination Bed,Chair Transfer Technique ambulated using FWW Transfer Ability Level of Assist Moderate Assistance,1 Person Assistance,Use of Upper Extremities Comments Mobility Comments pt sitting on chair. daughter in room with pt. pt completed sit to stand mod A and cues. increase lateral trunk leaning on the L. cued and required mod A for centering trunk. ambulated in room ~ 20 ft using FWW. presents with increase lateral L trunk leanin and increase L knee flexion during standing and activation. required assist with weight shifting. pt ambulated to EOB and completed sit<>supine SBA but required repositioning. pt can be impulsive. pt agreed to get up and sit on the chair again and completed mod A using FWW for transfer. positioned on chair. call light and table placed within reach. Daughter is agreeable to do caregiver training and stated that she will be here in the hospital while pt is here and will come in tomorrow at ~ 8am . Gait Assessment Gait Gait Assistance Required: Moderate Assistance Distance (Feet) 20 Able to Maintain Weight Bearing Status Yes During Gait Assistive Devices Assistive Device Gait Belt,Front Wheeled Walker Orthotic/Prosthetic Devices or Brace: No Gait Deviations General Gait Pattern Decreased Stride Length, Decreased Feet Clearance, Lateral Trunk Lean,Step-to Gait Factors Limiting Gait Function Factors Limiting Gait Function Difficulty Following Directions,Poor Balance,Poor Safety Awareness PT-Balance Assessment Sitting Balance and Reactions Static Sitting Balance Ability Good Dynamic Sitting Balance Ability Good Standing Balance and Reactions Static Standing Balance Ability Fair Dynamic Standing Balance Ability Fair Device Used FWW M5 PT-IP Objective Assessments Start: 10/15/20 13:21 Freq: NEEDED Status: Active Protocol: Document 10/15/20 11:19 AB (Rec: 10/15/20 13:53 AB [id number]) Orientation Orientation/Cognition Level of Alertness Alert Orientation Name Safety Awareness Decreased Safety Awareness Gross Range of Motion Lower Extremity ROM Assessment Within Functional Limits Strength Lower Extremity Strength Assessment Left Impaired Hip 3+/5 Knee 3+/5 M6 PT-IP Treatment Start: 10/15/20 13:21 Freq: NEEDED Status: Active Protocol: Document 10/15/20 11:19 AB (Rec: 10/15/20 13:53 AB [id number]) Physical Therapy Treatment Education Education Provided Safety M7 PT-IP Assessment and Plan Start: 10/15/20 13:21 Freq: NEEDED Status: Active Protocol: Document 10/15/20 11:19 AB (Rec: 10/15/20 13:53 AB [id number]) PT Summary Assessment and Plan Potential Rehabilitation Potential Good Status of Condition at Evaluation Stable Summary Impairments Pain,ROM,Strength,Balance, Coordination,Sensation,Tone, Cognition,Bed Mobility, Transfers,Gait,Activity Tolerance Assessment Summary pt requiring mod A with mobility and will have caregivers to assist him at home. Will conduct caregiver training with pt's daughter. noted increase lateral trunk lean to the L , L sided weakness affecting mobility and independence. stair cimbing training also has to be completed prior to d/c. Pt will benefit from homehealth PT. Goals Bed Mobility Goal Independent Transfer Goal Standby Assistance,Front Wheeled Walker Gait Goal Standby Assistance,Front Wheel Walker Gait Distance 100 Other Goals improve ambulation using 4WW 125 ft SBA up/down 1 step B grab bar SBA Days to Meet Goals 5 Frequency of Treatment Frequency Of Treatment Once a Day Treatment Plan Physical Therapy Treatment Plan Bed Mobility Training,Transfer Training,Gait Training, Therapeutic Exercise,Balance Retraining,Post Op Education, Discharge Planning,Hot or Cold Pack,Neuromuscular Re-ed, Coordination Retraining,Manual Therapy Recommendations To Nursing Amount of Assist Needed 1 Person Assist Discharge Recommendations PT Discharge Recommendations Home with 21/03 Assist Available,Home Health Transportation Needs at Discharge Private Vehicle
[2020-10-15] MEDS: CHOLESTYRAMINE/ASPARTAME 4 GM PACK PO (12:20)
--- NOTE | 2020-10-15 14:04 | PC.NURSE ---
Read Dr. Fuller's report from this am, noticed a comment mentioning DC telemetry, without order to DC. Called office at ext: [phone], informed nurse of statement noted in report, she states she will pass it on to pedodontist provider as Dr. Fuller is not on for the rest of the day.
--- NOTE | 2020-10-15 14:37 | DIET.PN ---
Dietary Progress Note Pt is assigned Mechanical Soft diet per BENEFITS ANALYST, not Dysphagia Mechanical Soft. Adjusted diet order as General with Mechanical Soft in modifier.
--- NOTE | 2020-10-15 14:49 | ST.IPDYTX ---
Visit Care Team Role Provider Type Kindra Shannon DO Emergency Provider Physician Referring Provider Specialty: Emergency Medicine Address: [address] [place] [address], [place], [address] Email: [email or web address] Azam Fuller MD Admit Provider Physician Attending Provider Primary Care Provider Specialty: Internal Medicine Address: [address] [place] [address], [address], [place], [address] Email: [email or web address] DESIGN VERIFICATION ENGINEER Dysphagia Treatment DESIGN VERIFICATION ENGINEER Dysphagia Treatment Start: 10/14/20 16:38 Freq: Status: Active Protocol: Document 10/15/20 13:22 LNK (Rec: 10/15/20 13:39 LNK [id number]) Dysphagia Treatment Session Time Visit Start Time 12:45 Visit Stop Time 13:00 Total Visit Minutes 15 Setting Assessment Location Acute Care Visit Type Note Type Treatment Note Next Note Type Next Note Type Treatment Note Patient Information Identification Type Name,ID Wristband Subjective Observations Pt alberto seated in bedside chair with his in attendance. Treatment Treatment Activities Pt c/o meal and asked COMMUNICATIONS AND SIGNALS SUPERVISOR for a cheese sandwich. At that time I entered the room and asked the COMMUNICATIONS AND SIGNALS SUPERVISOR to wait before calling the kitchen. The tray that the pt received was a dysphagia mechanical. Reviewed swallow evaluation , which stated mechanical soft. Green sheet above the bed stated mechanical soft. Spoke with elevator runner about the confusion, Reviewed need for chin tuck with the pt and his . They noted that pt needs cuing in order to remember to tuck chin when eating. Suggested a sign at the dinner table as a reminder when they get home. both were in agreement Assessment Patient Response to Treatment Excellent Diet Recommendations Recommendations Continue Current Diet Liquids Order Thin Diet Order Mechanical Soft Medication Recommendations As Tolerated Aspiration Precautions Recommended Precautions Upright at 90 Degrees,Frequent Rest Periods,Small Bites/Sips ,Chin Tuck,Check for Pocketing ,Liquids from Cup Treatment Plan Placement Recommendation after Discharge Home Appropriate for Continued Therapy Yes: while inpatient. Home Health recommended Dysphagia Goals 1. The pt will use safe swallow strategies with written cues to reduce risk of aspiration. 2. The pt will perform exercises to improve strength, coordination and ROM of swallow musculature and reduce risk of aspiration. Follow Up Plan out patient swallow therapy
--- NOTE | 2020-10-15 15:29 | CM.DANOTE ---
DCP/Assessment: Reviewed chart. Patient is a 85yr old male admitted to [facility] with dizziness x3dys. PCP is Dr. Fuller. Primary payor is 1)Medicare 2)HEALTH SYSTEM. Met with patient and daughter/Deloris at bedside explained role. Daughter reports that patient resides with family. Prior to admit patient did use FWW. Patient currently on service with [facility] for therapy. Daughter and patient requesting those services resume upon d/c. Patient seen by avis and current recommendation is home with assist. Patient receives daily visits from [facility]. Per daughter they come 6dys per week 10hrs per day. P: Anticipate home when stable. Order to resume HH for therapy will need to be obtained. [facility] to be notified of d/c date. HALLE Garcia Discharge Planning/Care Management CM Discharge Assessment Start: 10/15/20 15:24 Freq: Status: Active Protocol: Document 10/15/20 15:24 KJS (Rec: 10/15/20 15:29 KJS [id number]) Discharge Planning Assessment Assigned Compliance Spec HALLE Garcia Contact Information Adelaide Main (daughter ) ph# [phone] Advance Directives? Yes Advance Directives on File Yes History Provided By Patient,Family Member,Medical Record Prior Living Arrangements House Household Members spouse,family Type of transporation used prior to Relies on Others admit Independent with ADL's No Is patient alert and oriented? Yes Needs Assistance With Meal Prep,Managing Medications ,Home Chores / Shopping Caregiver for Another No Community Services used prior to Physical Therapy admission: DME Already Rented / Owned FWW / Walker Patient/Family Preference Home with Home Health Barriers to Discharge No Discharge Plan Home with Home Health Transportation Arrangement Dtr bedside and can provide transport home at d/c Referrals Initiated Home Health SNF/HH Preference [facility] Has Agency SNF been contacted No Whiteboard Updated in Patient Room with Yes name and ext. # of Compliance Spec Review Status In Process Next Review Type Continued Stay Review
--- NOTE | 2020-10-15 15:30 | SLP.IPNOTE ---
Attempted to see pt but he was in bathroom, then with Nsg. Spoke with dtr who reported he is tolerating current diet and improving with chin tuck use. Written reminder is beneficial. Will f/u again tmw.
[2020-10-15] MEDS: ROSUVASTATIN 10 MG TABLET PO (20:29)
[2020-10-16] VITALS (8 sets, daily range): BP systolic 111–148; BP diastolic 56–90; PULSE 63–83; RESP 16–19; TEMP 36.3–37.1; O2SAT 94–97
[2020-10-16] MEDS: LEVOTHYROXINE 100 MCG TABLET PO (06:09)
--- NOTE | 2020-10-16 08:07 | P.PN_ITS ---
Subjective Subjective Date Patient Seen: 10/16/20 Time Patient Seen: 08:07 Interval history: Patient had a reasonably good day yesterday Was up with physical therapy and felt like he was stronger than he was when he came to the hospital. Actually felt stronger than he has over maybe the last couple of weeks Discussion regarding his care at home. He is concerned about over taxing his daughter in particular. Does have privately hired caregivers but of course they are not there 21/03. Has considered assisted living as way to take the burden off of his family and that would be the primary reason for him agreeing to go there. Does not have any particular facility in mind however. Also looking to perhaps higher more hours from the caregivers as well Had a large formed bowel movement yesterday Exam Vital Signs (past 8 hours): - 10/16/20 04:00 Temperature 97.4 F L Pulse Rate 83 Respiratory Rate 18 Blood Pressure 146/90 H Pulse Oximetry 95 Oxygen Delivery Method Room Air,CPAP Oxygen Flow Rate 0 Objective Labs Result Diagrams: 10/14/20 09:20 10/15/20 07:49 Labs: Laboratory Results - last 24 hr 10/15/20 10/15/20 10/15/20 07:49 07:49 07:49 Sodium 137 Potassium 3.9 Chloride 106 Carbon Dioxide 31 BUN 17 Creatinine 0.86 Estimated GFR > 60.0 BUN/Creatinine Ratio 19.8 Glucose 90 Calcium 8.3 L Magnesium 1.9 Troponin I 0.056 H [facility] Medical History (Updated 10/14/20 @ 15:22 by Azam Fuller MD) Anosmia Benign prostate hyperplasia Cataracts, bilateral (~2018) Depression (~1960) Erectile dysfunction Family history of prostate cancer Fecal incontinence (~1957) H/O adenomatous polyp of colon Hearing loss (~1999) Hypothyroidism (~1995) Lymphocytic colitis Mild cognitive impairment Neuropathy Pacemaker (11/10/11) Paroxysmal atrial fibrillation Prostate cancer Sick sinus syndrome Sleep apnea (~1995) Urge incontinence Urinary incontinence, mixed Surgical History Anesthesia H/O cataract removal with insertion of prosthetic lens H/O colectomy History of appendectomy History of cholecystectomy History of tonsillectomy S/P cataract extraction (~2018) S/P cholecystectomy (~1996) S/P nasal polypectomy (~1989) S/P partial colectomy (~2003) S/P placement of cardiac pacemaker (~10/2011) S/P tonsillectomy S/P TURP (~2012) S/P vasectomy (~1972) Family History Father History of heart disease Mother History of heart disease Brother Diabetes mellitus History of heart disease Social History household members: spouse and family Smoking Status: Never smoker Assessment & Plan Assessment & Plan narrative: 1. Weakness-no clear etiology for this is been determined this time as before. Continue with skilled therapies now and will plan to continue with home PT upon discharge home. This is very similar to his presentation in August. At this point I think he should strongly consider placement in an alternative assisted living type of facility that can provide 24/7 caregiving support at a cost that is more reasonable than privately hiring 1-1 caregivers for a 24 hour 7 day a week period. At this point however nothing has been arranged and he is stable enough to return home probably by tomorrow. Will re-initiate home health services at that point etcetera 2. Hypokalemia-potassium normal yesterday did receive a dose of furosemide which she will get again today. His low potassium almost certainly due to his persistent diarrhea as suggested yesterday. Plan to recheck electrolytes this morning. Upon discharge he will likely continue on low-dose furosemide but I will give him the higher dose here today while is in the hospital. 3. Cardiac-no rhythm issues in again troponin trended back to normal. Do not believe there was an active cardiac issue upon admission. This is because of the borderline elevated troponin with rapid return to normal as well as a prior myocardial perfusion scan that was entirely normal within the last 2 years. 4. Chronic colitis-patient's symptoms maybe somewhat better here today. His symptoms certainly wax and wane. Is now on 3 different medications for his colitis and these will continue here in the hospital as well upon discharge home 5. Hypothyroidism-patient's TSH slightly elevated and slightly decreased T4. Maybe this is a contributing factor to his overall weakness and his edema. I am going to bump up the dose of thyroid replacement and plan to recheck that in approximately 2-3 months Overall because of need to continue with low-grade diuresis and monitor e lectrolytes in that setting I believe patient would benefit from additional day in the hospital. Plan however for discharge home with home health services tomorrow the 17 of October Note: Greater than 20 minutes was spent evaluating the patient on the floor, including examining the patient, discussing clinical course with clinical and nursing staff, reviewing clinical course in the computer, preparing documentation and writing orders for continued management of care, discussing status with family as appropriate, reviewing plans for the next 24 hours with both patient/family and nursing staff as appropriate.
--- NOTE | 2020-10-16 08:07 | CM.DPNOTE ---
Silvia from [facility] called and said pt. has been utilizing services with them. Please call [facility] for any updates. Latrice Bell CM Asst.
[2020-10-16] MEDS: APIXABAN 5 MG TABLET 2.5 MG PO ×2 (08:53→21:30)
[2020-10-16] MEDS: FUROSEMIDE 40 MG TABLET PO (08:54)
[2020-10-16] MEDS: ESCITALOPRAM 10 MG TABLET PO (08:54)
[2020-10-16] MEDS: BUDESONIDE 3 MG CAP 9 MG PO ×3 (08:54→21:26)
[2020-10-16] MEDS: ASPIRIN EC 81 MG TABLET PO (08:54)
[2020-10-16] MEDS: COLESEVELAM 625 MG TABLET PO ×2 (08:54→21:26)
[2020-10-16] MEDS: CHOLECALCIFEROL (VITAMIN D3) 1,000 UNIT TABLET 1000 UNIT PO (08:54)
[2020-10-16] MEDS: SODIUM CHLORIDE 0.9% FLUSH 10 ML IV ×2 (08:55→21:26)
[2020-10-16] MEDS: POTASSIUM CHLORIDE 10 MEQ TAB 20 MEQ PO ×3 (08:58→21:30)
[2020-10-16 09:12] LABS: BUN Creatinine Ratio 20.5 (6-22); Blood Urea Nitrogen 17 mg/dL (9-20); Calcium 8.5 mg/dL (8.4-10.2); Carbon Dioxide 32 mmol/L (22-32); Chloride 104 mmol/L (98-107); Estimated Glomerular Filt Rate > 60.0 mL/min (>60); Glucose 129 mg/dL (80-110); HEMOLYSIS < 15 (0-50); Potassium 3.8 mmol/L (3.4-5.1); Sodium 137 mmol/L (137-145)
--- NOTE | 2020-10-16 10:50 | ST.IPDYTX ---
Visit Care Team Role Provider Type Kindra Shannon DO Emergency Provider Physician Referring Provider Specialty: Emergency Medicine Address: [address] [place] [address], [id number] Email: [email or web address] Azam Fuller MD Admit Provider Physician Attending Provider Primary Care Provider Specialty: Internal Medicine Address: [address] [place] [address], [address], [place], [address] Email: [email or web address] NAMED ACCOUNT EXECUTIVE Dysphagia Treatment NAMED ACCOUNT EXECUTIVE Dysphagia Treatment Start: 10/14/20 16:38 Freq: Status: Active Protocol: Document 10/16/20 11:18 TLC (Rec: 10/16/20 11:24 TLC [id number]) Dysphagia Treatment Session Time Visit Start Time 10:30 Visit Stop Time 10:50 Total Visit Minutes 20 Setting Assessment Location Acute Care Visit Type Note Type Treatment Note Patient Information Identification Type Name Subjective Observations Patient was up in chair with his daughter present in the room. Treatment Treatment Activities No trials presented. Patient was able to recall swallow strategies of chin tuck slow rate and small bites/sips independently. He verbalized understanding of aspiration risks. We discussed importance of oral hygiene in reducing risk of developing aspiration pneumonia. I provided the patient and his daughter a handout on proper oral hygiene . We discussed recommendations for ongoing speech HH for both dysphagia and cognition including implementation of memory aids as needed to promote safety in the home. Assessment Patient Response to Treatment Excellent Assessment of Improvement Patient has chin tuck visual aid on table in his room and is implementing strategies with occasional reminders from family and staff. Diet Recommendations Recommendations Continue Current Diet Liquids Order Thin Diet Order Mechanical Soft Medication Recommendations As Tolerated Aspiration Precautions Recommended Precautions Upright at 90 Degrees,Frequent Rest Periods,Small Bites/Sips ,Chin Tuck,Check for Pocketing ,Liquids from Cup Treatment Plan Placement Recommendation after Discharge Home Appropriate for Continued Therapy Yes: Home Health recommended at d/c to include cognitive dx & tx Dysphagia Goals 1. The pt will use safe swallow strategies with written cues to reduce risk of aspiration. - GOAL MET
--- NOTE | 2020-10-16 11:09 | OT.IP.TRT ---
Occupational Therapy Treatment Note M2 OT-IP Current Condition Start: 10/15/20 11:39 Freq: Status: Active Protocol: Document 10/15/20 10:07 [facility] (Rec: 10/15/20 12:14 [facility] [id number]) Occupational Therapy Current Condition Current Condition Evaluation Date 10/15/20 Treatment Diagnosis Weakness, decreased balance Diagnosis Onset Date 10/14/20 M3 OT- IP Subjective and Pain Start: 10/15/20 11:39 Freq: Status: Active Protocol: Document 10/16/20 11:15 [facility] (Rec: 10/16/20 11:29 [facility] [id number]) OT- Subjective Occupational Therapy Visit Type Type Treatment Note Visit Start Time 10:42 Visit Stop Time 11:09 Total Visit Minutes 27 Occupational Therapy Visit Comments Patient Comments Pt having to use the bathroom and pt's daughter present for caregiver training. Patient/Caregiver Goals To be able to use the urinal independently so not having to wake up his daughter to assist at night. OT Pain Assessment Pain When Pain Assessed At Rest Pain Present Pain Present Denied Pain M4 OT- IP ADL's Start: 10/15/20 11:39 Freq: Status: Active Protocol: Document 10/16/20 11:15 [facility] (Rec: 10/16/20 11:29 [facility] [id number]) OT [id number] Comments OT Self-Feeding Comments NOt at meal time. OT ADL-Grooming Comments OT Grooming Comments NOt performed. OT ADL-Dressing General Eval Lower Body Dressing Ability Maximum Assistance Areas Needing Assistance Underpants/Brief Comments OT Dressing Comments Pt's daughter able to assist with brief management needs. OT ADL-Toileting General Evaluation Toileting Ability Moderate Assistance Areas Needing Assistance Manage Clothing,Perform Perineal Hygiene Comments OT Toileting Comments Pt needing cues to get closer to the toilet with FWW to be able to urinate into the toilet. Pt's daughter able to assist pt with good safety for his balance and pants management needs. OT ADL-Bathing Comments OT Bathing Comments Pt showered earlier with nursing aid. M5 OT- IP IADL's Start: 10/15/20 11:39 Freq: Status: Active Protocol: Document 10/15/20 10:07 [facility] (Rec: 10/15/20 12:14 [facility] [id number]) OT-Instrumental Activities of Daily Living Home Safety Awareness Awareness of Need for Assistance at Home Good Awareness Medication Management Medication Management Caregiver Administers Money Management Money Management Caregiver Provides Assistance Meal Preparation Meal Preparation Caregiver Provides Assist Hydrochloric Manufacturing Supervisor Hydrochloric Manufacturing Supervisor Caregiver Provides Assist Driving Driving Caregiver Provides Assist M6 OT- IP Functional Cognition Start: 10/15/20 11:39 Freq: Status: Active Protocol: Document 10/16/20 11:15 [facility] (Rec: 10/16/20 11:29 [facility] [id number]) Cognitive Factors Limiting Selfcare Function Cognitive Ability Level of Alertness Alert Patient Orientation Name,Situation Attention Span Ability Capable of Focused Attention, Capable of Sustained Attention Ability to Follow Commands Able to Follow One Step Commands Safety Awareness Underestimates Need for Assistance Cognitive Comments Cognitive Assessment Comments Pt still needing safety cues for FWW management and cues to use his arms on the armrests to help push up with to stand. VC to not lean to the left and keep his feet apart more when walking with FWW. M7 OT- IP Mobility and Balance Start: 10/15/20 11:39 Freq: Status: Active Protocol: Document 10/16/20 11:15 [facility] (Rec: 10/16/20 11:29 [facility] [id number]) OT-Transfer Assessment Sit to and From Stand Sit to and from Stand Minimal Assistance,Moderate Assistance Transfers Transfer Ability Minimal Assistance,Moderate Assistance,1 Person Assistance Technique Transfer Destination Bed,Chair,Toilet Transfer Technique Stand Step Pivot Devices Transfer Assistive Devices Gait Belt,Front Wheeled Walker Comments Mobility Comments Pt's daughter present for caregiver training to be able to assist to andrez/doff the gait belt and how to assist for transfer needs with good safety and demonstration. OT- Balance Assessment Sitting Balance and Reactions Static Sitting Balance Ability Good Dynamic Sitting Balance Ability Fair Standing Balance and Reactions Static Standing Balance Ability Poor Comments Other Balance Tests/Deviations/Treatment Pt still leans to the left and : hyper extends his left knee when walking with FWW especially when he tires. M9 OT- IP Assessment and Plan Start: 10/15/20 11:39 Freq: Status: Active Protocol: Document 10/16/20 11:15 [facility] (Rec: 10/16/20 11:29 [facility] [id number]) OT Summary Assessment and Plan Potential Rehabilitation Potential Good Analytic Complexity at Evaluation Low Summary OT Impairments Strength,Balance,Coordination, Tone,Functional Cognition, Functional Mobility,Self- Feeding,Grooming,Toileting, Bathing,Toilet Transfers, Shower Transfers,Activity Tolerance Progress Towards Goals Progressing Toward Goals Assessment Summary Pt's daughter has good understanding and safety to assist pt for all ADL needs and for transfers. Spoke on possible use of transfer pole at home for toileting needs and to have home health therapists assess. In addition would be beneficial for pt to have a bed rail to increased independence with bed mobility needs. Pt will benefit home health at home and assist during waking hours when up on his feet. Goals Self-Feeding Goal Standby Assistance Grooming Goal Independent Dressing Goal Moderate Assistance Toileting Goal Minimal Assistance Bathing Goal Minimal Assistance Toilet Transfer Goal Standby Assistance Shower Transfer Goal Contact Guard Assistance Patient/Caregiver Education Goal Caregiver Independent Assisting Patient Days to Meet Goals 4 Frequency of Treatment Frequency Of Treatment Once a Day Treatment Plan OT Treatment Plan ADL Training,Functional Cognition Training,Functional Mobility,Neuromuscular Re- education,Vision Retraining, Patient/Family Education Discharge Recommendations OT Discharge Recommendations Home with 24/ Assist Available,Home Health Home Equipment Needs bed rail Transportation Needs at Discharge Private Vehicle
[2020-10-16] MEDS: CHOLESTYRAMINE/ASPARTAME 4 GM PACK PO (12:21)
--- NOTE | 2020-10-16 13:11 | PC.NURSE ---
Pt denies pain; 1-asst to bathroom with fww, needs cues and gait belt; ls clear, RA; 1+ edema to BL ankles; daughter, Adelaide in room; eating and drinking water, sitting up in chair for most of the shift; call light within reaching
--- NOTE | 2020-10-16 14:52 | PT.IPTN ---
Physical Therapy Treatment Note M2 PT-IP Current Condition Start: 10/15/20 13:21 Freq: NEEDED Status: Active Protocol: Document 10/15/20 11:19 [facility] (Rec: 10/15/20 13:53 [facility] [id number]) Physical Therapy Current Condition Current Condition Evaluation Date 10/15/20 Treatment Diagnosis dizziness; generalized weakness Onset Date 10/14/20 Precautions Other Precautions falls M3 PT-IP Subjective Start: 10/15/20 13:21 Freq: NEEDED Status: Active Protocol: Document 10/16/20 14:20 [facility] (Rec: 10/16/20 15:44 [facility] [id number]) Subjective Physical Therapy Visit Type Type Treatment Note Visit Start Time 14:30 Visit Stop Time 14:52 Total Visit Minutes 22 Notes Daughter present for CG training on stairs. Number of LAMINATING MACHINE FEEDER Visits 1 Physical Therapy Visit Comments Patient Comments pt is agreeable to do PT Therapy Pain Assessment Pain Present Pain Present Denied Pain M4 PT-IP Mobility and Gait Start: 10/15/20 13:21 Freq: NEEDED Status: Active Protocol: Document 10/16/20 14:20 [facility] (Rec: 10/16/20 15:44 [facility] [id number]) PT-Transfer Assessment Sit to and From Stand Sit to and from Stand Minimal Assistance,1 Person Assistance,Use of Upper Extremities Equipment Transfer Assistive Device Gait Belt,Front Wheeled Walker Orthotic/Prosthetic Devices or Brace: No Transfers Transfer Destination Chair,Wheelchair Transfer Technique ambulated using FWW Transfer Ability Level of Assist Minimal Assistance,1 Person Assistance,Use of Upper Extremities Comments Mobility Comments Pt in chair upon arrival and daughter present. Pt able to scoot to [facility] and stand Min A while pushing up from arms of chair. Pt ambulated to WC ~ 20ft w/FWW/Min A and cues to stay inside walker. Pt sat in WC CGA with decreased eccentric control. Pt then climbed stairs with daughter assisting CGA. Pt returned to room in WC standing and ambulating to chair. Left pt in chair with all needs within reach daughter present. Gait Assessment Gait Gait Assistance Required: Minimum Assistance,1 Person Assist Distance (Feet) 40 Able to Maintain Weight Bearing Status Yes During Gait Assistive Devices Assistive Device Gait Belt,Front Wheeled Walker Orthotic/Prosthetic Devices or Brace: No Gait Deviations General Gait Pattern Decreased Stride Length, Decreased Feet Clearance, Lateral Trunk Lean,Step-to Gait Factors Limiting Gait Function Factors Limiting Gait Function Difficulty Following Directions,Poor Balance,Poor Safety Awareness Comments Gait Comments Pt ambulated 20ft w/FWW/Min A x2. Pt required cues to stay inside walker and posture. Walker adjusted improving posture. Stair Climbing Assessment Evaluation Level of Assist On Stairs Contact Guard Assistance,1 Person Assistance Devices Stair Climbing Assistive Devices Left Railing,Right Railing Technique/Endurance Stair Climbing Direction Ascend and Descend Stair Climbing Technique Step Over Step,Step to Step Number of Steps Climbed 3 Stair Climbing Set # Repetitions (reps) 2 Comments Stair Climbing Comments Pt climbed stair step over step then climbed a second set of stairs step to step. Daughter able to assist pt with climbing steps CGA. PT-Balance Assessment Sitting Balance and Reactions Static Sitting Balance Ability Good Dynamic Sitting Balance Ability Good Standing Balance and Reactions Static Standing Balance Ability Fair Dynamic Standing Balance Ability Fair Device Used FWW M5 PT-IP Objective Assessments Start: 10/15/20 13:21 Freq: NEEDED Status: Active Protocol: Document 10/15/20 11:19 [facility] (Rec: 10/15/20 13:53 [facility] [id number]) Orientation Orientation/Cognition Level of Alertness Alert Orientation Name Safety Awareness Decreased Safety Awareness Gross Range of Motion Lower Extremity ROM Assessment Within Functional Limits Strength Lower Extremity Strength Assessment Left Impaired Hip 3+/5 Knee 3+/5 M6 PT-IP Treatment Start: 10/15/20 13:21 Freq: NEEDED Status: Active Protocol: Document 10/15/20 11:19 [facility] (Rec: 10/15/20 13:53 [facility] [id number]) Physical Therapy Treatment Education Education Provided Safety M7 PT-IP Assessment and Plan Start: 10/15/20 13:21 Freq: NEEDED Status: Active Protocol: Document 10/16/20 14:20 [facility] (Rec: 10/16/20 15:44 [facility] [id number]) PT Summary Assessment and Plan Potential Rehabilitation Potential Good Status of Condition at Evaluation Stable Summary Impairments Pain,ROM,Strength,Balance, Coordination,Sensation,Tone, Cognition,Bed Mobility, Transfers,Gait,Activity Tolerance Assessment Summary Pt improving with all mobility , pt is able to perform sit- stand Min A from chair and ambulate Min A 20ft x2. Pt was able to climb three steps x2 with daughter's assisting pt CGA and bilateral rails. Pt will benefit from homehealth PT. Goals Bed Mobility Goal Independent Transfer Goal Standby Assistance,Front Wheeled Walker Gait Goal Standby Assistance,Front Wheel Walker Gait Distance 100 Other Goals improve ambulation using 4WW 125 ft SBA up/down 1 step B grab bar SBA Days to Meet Goals 5 Frequency of Treatment Frequency Of Treatment Once a Day Treatment Plan Physical Therapy Treatment Plan Bed Mobility Training,Transfer Training,Gait Training, Therapeutic Exercise,Balance Retraining,Post Op Education, Discharge Planning,Hot or Cold Pack,Neuromuscular Re-ed, Coordination Retraining,Manual Therapy Recommendations To Nursing Amount of Assist Needed 1 Person Assist Discharge Recommendations PT Discharge Recommendations Home with 21/03 Assist Available,Home Health Transportation Needs at Discharge Private Vehicle
[2020-10-16] MEDS: ROSUVASTATIN 10 MG TABLET PO (21:30)
--- NOTE | 2020-10-17 01:01 | PC.NURSE ---
0004: patient is alert and oriented. Breath sounds CTA with RA sat of 96%; using home CPAP. HRR. Denies nausea. BT present and states he had a BM yesterday. Denies dysuria, frequency or urgency with urination but does have some incontinence so wearing a brief. Is able to move self in bed. Stood at bedside with walker to use urinal and SHIPPING & RECEIVING LEAD reports bilateral LE weakness. Denies pain. 1+ bilateral LE edema foot to above ankle. Wearing bilateral calf SCD's. Fall risk score is high and bed alarm is activated.
[2020-10-17 05:54] VITALS: BP 134/95; PULSE 65; RESP 16; TEMP 36.3; O2SAT 96
[2020-10-17] MEDS: LEVOTHYROXINE 125 MCG TABLET PO (05:54)
--- NOTE | 2020-10-17 07:56 | PM.DS.1 ---
History of Present Illness History of Present Illness Chief complaint: Dizziness/Unsteady x3 days Narrative: 85-year-old male last seen in the clinic on the 02 of October and admitted because of increased weakness particularly right leg weakness. Patient with longstanding issues with his gait in weakness with multiple falls. Was hospitalized in early August because of multiple falls due to nonspecific weakness. Patient has had a neurologic workup prior to his previous hospitalization and following that. Unable to perform MRI because of his pacemaker. No evidence of any new neurologic issues over time. Has been maintained on Eliquis because of his history of paroxysmal atrial fibrillation. Plavix was discontinued in July because of lack evidence of acute vascular issue that would benefit from anti-platelet therapy. Patient was increasingly weak with less than usual ability to even stand and assist with transfers over the last several days. Denies any other specific symptoms. Patient and family do report that he has had increased swelling of both lower extremities over the last several weeks and patient is reporting that his right leg just feels heavy year and indeed they think perhaps his right leg is more swollen than the left History of of course the paroxysmal atrial fibrillation, as well as some cognitive impairment and lymphocytic colitis causing persistent diarrhea. In the ER he was evaluated head CT was unremarkable as it has been previously. Difficult to ascertain whether not there is any new weakness given his underlying baseline neurologic issues and weakness specially with his gait and standing. Patient's laboratory evaluation was remarkable for a elevated troponin. Patient did have a normal myocardial perfusion scan done in 2019 of note. EKGs without change Discharge Providers Provider Date of admission: 10/14/20 11:57 Discharge Date: 10/17/20 Primary care physician: Azam Garcia MD Consults: 10/14/20 09:58 Consult to CARDIOLOGY PHYSICIAN ASSISTANT - Calciner Feeder Stat Comment: 10/14/20 14:03 Consult to Discharge Planning Routine Comment: Consult to Discharge Planning Routine Comment: Consult to Occupational Therapy Evaluate & Treat Comment: Physician Instructions: Evaluate and treat Consult to Physical Therapy Evaluate & Treat Comment: Physician Instructions: Evaluate and Treat Consult to Speech Therapy Evaluate & Treat Comment: Physician Instructions: Evaluate and treat Discharge provider: Azam Garcia MD Summary Hospital Course Discharge Diagnosis: 1. Elevated troponin without evidence of myocardial infarction or cardiac disease 2. Hypokalemia, resolved 3. Peripheral edema, improving at discharge 4. Generalized weakness without evidence of specific neurologic event 5. Gait disorder, improved 6. Hypothyroidism, under medicated, dose changed this admission 7. Paroxysmal atrial fibrillation, not active this hospitalization 8. Status post pacemaker placement with atrial pacing continuously this hospitalization 9. Mild cognitive impairment, unchanged from previous 10. Distant history of prostate cancer, not active this hospitalization Hospital Course: Patient was admitted to the hospital because of weakness inability to be cared for at home. ER evaluation revealed mild hypokalemia lower extremity edema and elevated troponin. Patient denied any sort of cardiac symptoms. During this hospitalization he had serial troponins performed as well as serial ECGs and there is no evidence of actual myocardial event. Troponins return to more normal number , and continued monitoring was discontinued. Patient's hypokalemia was resolved by increasing oral medication. He was also started on low-dose furosemide because of his lower extremity edema which was felt to be a possible contributing factor to his inability to ambulate etcperiod. He did improve with ambulation and his edema improved slightly during this hospitalization. Outpatient doses of potassium have been adjusted. His potassium was followed during this hospitalization and remained normal once corrected on increased oral doses Patient was also found to be somewhat hypothyroid with slightly elevated TSH and slightly decreased free T4. His thyroid replacement dose was slightly increased from 100 mcg to 125 mcg. This will need to be followed up as an outpatient Patient was seen in consultation by Physical therapy and Occupational therapy. He was felt to be safe to return home with the assistance of home health services including skilled therapies. He was safe with a walker including limited ability to navigate stairways. This was patient's 2nd admission in the last 3 months for generalized weakness and inability to be cared for at home. In neither case was a specific etiology identified. Discussions were held with patient and family regarding the possible future need for additional assistance at home either in the form of 24/7 caregivers or perhaps an alternative living facility that can more economically provide 24/7 support. For the moment he will return home in family is considering increasing caregiving support at home for now. Exam Vital Signs (past 8 hours): - 10/16/20 23:58 10/17/20 05:54 Temperature 97.6 F 97.4 F L Pulse Rate 63 65 Respiratory Rate 16 16 Blood Pressure 127/68 134/95 H Pulse Oximetry 96 96 Oxygen Delivery Method Room Air,CPAP Oxygen Flow Rate 0 Objective Labs Result Diagrams: 10/14/20 09:20 10/16/20 08:52 Labs: Laboratory Results - last 24 hr 10/16/20 08:52 Sodium 137 Potassium 3.8 Chloride 104 Carbon Dioxide 32 BUN 17 Creatinine 0.83 Estimated GFR > 60.0 BUN/Creatinine Ratio 20.5 Glucose 129 H Calcium 8.5 PFSH Medical History (Updated 10/14/20 @ 15:22 by Azam Garcia MD) Anosmia Benign prostate hyperplasia Cataracts, bilateral (~2018) Depression (~1959) Erectile dysfunction Family history of prostate cancer Fecal incontinence (~1957) H/O adenomatous polyp of colon Hearing loss (~1999) Hypothyroidism (~1995) Lymphocytic colitis Mild cognitive impairment Neuropathy Pacemaker (11/10/11) Paroxysmal atrial fibrillation Prostate cancer Sick sinus syndrome Sleep apnea (~1995) Urge incontinence Urinary incontinence, mixed Surgical History Anesthesia H/O cataract removal with insertion of prosthetic lens H/O colectomy History of appendectomy History of cholecystectomy History of tonsillectomy S/P cataract extraction (~2018) S/P cholecystectomy (~1996) S/P nasal polypectomy (~1989) S/P partial colectomy (~2003) S/P placement of cardiac pacemaker (~10/2011) S/P tonsillectomy S/P TURP (~2012) S/P vasectomy (~1972) Family History Father History of heart disease Mother History of heart disease Brother Diabetes mellitus History of heart disease Social History household members: spouse and family Smoking Status: Never smoker Discharge Assessment & Plan Assessment and Plan Plan of Treatment: Patient had furosemide 20 mg daily added to his outpatient medication regimen. Potassium was also increased because of presenting hypokalemia as well as this new addition of the loop diuretic. Patient's thyroid dose was increased to 125 mcg and will need to be followed as an outpatient Patient will continue with home health services by [facility] including PT OT and limited visiting nurse services. Patient will be seen in the outpatient clinic by his PCP in approximately 2 weeks. Discharge Plan Discharge Plan Patient Disposition: Home Health Service Transfer to: [facility] Discharge orders & Medications Prescriptions: New furosemide 20 mg tablet 20 mg PO DAILY Qty: 90 RF: 3 Continued VITAMIN D (Vitamin D3) 1,000 units capsule 1,000 unit PO QDAY Qty: 0 RF: 0 escitalopram oxalate 10 mg tablet 10 mg PO DAILY Qty: 30 RF: 0 rosuvastatin 10 mg tablet 10 mg PO BEDTIME Qty: 30 RF: 3 budesonide 3 mg capsule,delayed,extend.release 9 mg PO TID Qty: 270 RF: 3 cholestyramine (with sugar) 4 gram powder 4 g PO DAILY Qty: 378 RF: 4 fluticasone propionate 50 mcg/actuation spray,suspension 2 spray intranasal BEDTIME Qty: 16 RF: 0 PreserVision AREDS [id number] [id number] capsule 1 cap PO BID RF: 0 ascorbic acid (vitamin C) [Vitamin C] 500 mg tablet 500 mg PO DAILY RF: 0 clotrimazole 1 % cream 1 applictn TOP TID Qty: 45 RF: 3 Eliquis 2.5 mg tablet 2.5 mg PO BID RF: 0 colesevelam [WelChol] 625 mg Tablet 625 mg PO BID RF: 0 triamcinolone acetonide 0.025 % cream 1 applictn TOP DAILY RF: 0 Discontinued levothyroxine 100 mcg tablet 100 mcg PO DAILY Qty: 90 RF: 1 potassium chloride 10 mEq tablet extended release 10 meq PO DAILY RF: 0 No Action levothyroxine [Synthroid] 125 mcg tablet 125 mcg PO 0600 Qty: 90 RF: 3 potassium chloride [Klor-Con M10] 10 mEq tablet,ER particles/crystals 20 meq PO BID Qty: 180 RF: 3 Follow up/Referrals: Azam Garcia MD [Primary Care Provider] - 10/31/20 10:30 am (appt:10/31 @ 10:[address] garcia please arrive 15 minutes prior to your scheduled appointment time) Diet/Activity/Treatments Diet: Diet as Tolerated Discharge Data Primary Care Provider: Azam Garcia Attending Provider: Azam Garcia
[2020-10-17 08:20] VITALS: BP 140/94; PULSE 78; RESP 22; TEMP 36.7; O2SAT 94
--- NOTE | 2020-10-17 08:38 | OT.IP.TRT ---
Occupational Therapy Treatment Note M2 OT-IP Current Condition Start: 10/15/20 11:39 Freq: Status: Active Protocol: Document 10/15/20 10:07 [facility] (Rec: 10/15/20 12:14 [facility] [id number]) Occupational Therapy Current Condition Current Condition Evaluation Date 10/15/20 Treatment Diagnosis Weakness, decreased balance Diagnosis Onset Date 10/14/20 M3 OT- IP Subjective and Pain Start: 10/15/20 11:39 Freq: Status: Active Protocol: Document 10/17/20 11:54 [facility] (Rec: 10/17/20 11:54 [facility] [id number]) OT- Subjective Occupational Therapy Visit Type Type Administrative Note Notes Attempted to see pt for OT services. Pt and family state they feel safe with all needs for d/c home and declined any further activity at this time time. M4 OT- IP ADL's Start: 10/15/20 11:39 Freq: Status: Active Protocol: Document 10/16/20 11:15 [facility] (Rec: 10/16/20 11:29 [facility] [id number]) OT HWB-Uscs-Uzqkwgd Comments OT Self-Feeding Comments NOt at meal time. OT ADL-Grooming Comments OT Grooming Comments NOt performed. OT ADL-Dressing General Eval Lower Body Dressing Ability Maximum Assistance Areas Needing Assistance Underpants/Brief Comments OT Dressing Comments Pt's daughter able to assist with brief management needs. OT ADL-Toileting General Evaluation Toileting Ability Moderate Assistance Areas Needing Assistance Manage Clothing,Perform Perineal Hygiene Comments OT Toileting Comments Pt needing cues to get closer to the toilet with FWW to be able to urinate into the toilet. Pt's daughter able to assist pt with good safety for his balance and pants management needs. OT ADL-Bathing Comments OT Bathing Comments Pt showered earlier with nursing aid. M5 OT- IP IADL's Start: 10/15/20 11:39 Freq: Status: Active Protocol: Document 10/15/20 10:07 [facility] (Rec: 10/15/20 12:14 [facility] [id number]) OT-Instrumental Activities of Daily Living Home Safety Awareness Awareness of Need for Assistance at Home Good Awareness Medication Management Medication Management Caregiver Administers Money Management Money Management Caregiver Provides Assistance Meal Preparation Meal Preparation Caregiver Provides Assist Extension Service Specialist Extension Service Specialist Caregiver Provides Assist Driving Driving Caregiver Provides Assist M6 OT- IP Functional Cognition Start: 10/15/20 11:39 Freq: Status: Active Protocol: Document 10/16/20 11:15 [facility] (Rec: 10/16/20 11:29 [facility] [id number]) Cognitive Factors Limiting Selfcare Function Cognitive Ability Level of Alertness Alert Patient Orientation Name,Situation Attention Span Ability Capable of Focused Attention, Capable of Sustained Attention Ability to Follow Commands Able to Follow One Step Commands Safety Awareness Underestimates Need for Assistance Cognitive Comments Cognitive Assessment Comments Pt still needing safety cues for FWW management and cues to use his arms on the rarmrest to help push up with to stand. VC to not lean to the left and keep his feet apart more when wwalking with FWW. M7 OT- IP Mobility and Balance Start: 10/15/20 11:39 Freq: Status: Active Protocol: Document 10/16/20 11:15 [facility] (Rec: 10/16/20 11:29 [facility] [id number]) OT-Transfer Assessment Sit to and From Stand Sit to and from Stand Minimal Assistance,Moderate Assistance Transfers Transfer Ability Minimal Assistance,Moderate Assistance,1 Person Assistance Technique Transfer Destination Bed,Chair,Toilet Transfer Technique Stand Step Pivot Devices Transfer Assistive Devices Gait Belt,Front Wheeled Walker Comments Mobility Comments Pt's daughter present for caregiver training to be able to assist to andrez/doff the gait belt and how to assist for transfer needs with good safety and demonstration. OT- Balance Assessment Sitting Balance and Reactions Static Sitting Balance Ability Good Dynamic Sitting Balance Ability Fair Standing Balance and Reactions Static Standing Balance Ability Poor Comments Other Balance Tests/Deviations/Treatment Pt still leans to the left and : hyperextends his left knee when walking with FWW especially when he tires. M8 OT- IP Objective Assessments Start: 10/15/20 11:39 Freq: Status: Active Protocol: Document 10/15/20 10:07 [facility] (Rec: 10/15/20 12:14 [facility] [id number]) OT Gross Range of Motion Upper Extremity Range of Motion Assessment Left Impaired ROM Impairments Decreased at end range for LUE . OT Strength Upper Extremity Strength Assessment Left Impaired Shoulder 4/5 Elbow 4/5 Forearm 4-/5 Wrist 3+/5 Hand 3+/5 OT- Coordination Assessment Upper Extremity Finger to Nose Test Left UE Impaired OT-Muscle Tone Assessment Muscle Tone WNL No Comments Muscle Tone Comments Noted while pt sitting in the recliner at rest, increased tone with left arm and had his left arm flexed at elbow and wrist. Pt had no awareness that he was resting his left arm on his chest. OT Sensation Assessment Comments Summary Comments Decreased propriocption and kinesthesia at left wrist and hand. Edema Edema Absent M9 OT- IP Assessment and Plan Start: 10/15/20 11:39 Freq: Status: Active Protocol: Document 10/16/20 11:15 [facility] (Rec: 10/16/20 11:29 [facility] [id number]) OT Summary Assessment and Plan Potential Rehabilitation Potential Good Analytic Complexity at Evaluation Low Summary OT Impairments Strength,Balance,Coordination, Tone,Functional Cognition, Functional Mobility,Self- Feeding,Grooming,Toileting, Bathing,Toilet Transfers, Shower Transfers,Activity Tolerance Progress Towards Goals Progressing Toward Goals Assessment Summary Pt's daughter has good understanding and safety to assist pt for all ADL needs and for transfers. Spoke on possible use of transfer pole at home for toileting needs and to have home health therapists assess. In addition would be beneficial for pt to have a bed rail to increased independence with bed mobility needs. Pt will benefit home health at home and assist durign waking hours when up on his feet. Goals Self-Feeding Goal Standby Assistance Grooming Goal Independent Dressing Goal Moderate Assistance Toileting Goal Minimal Assistance Bathing Goal Minimal Assistance Toilet Transfer Goal Standby Assistance Shower Transfer Goal Contact Guard Assistance Patient/Caregiver Education Goal Caregiver Independent Assisting Patient Days to Meet Goals 4 Frequency of Treatment Frequency Of Treatment Once a Day Treatment Plan OT Treatment Plan ADL Training,Functional Cognition Training,Functional Mobility,Neuromuscular Re- education,Vision Retraining, Patient/Family Education Discharge Recommendations OT Discharge Recommendations Home with 21/03 Assist Available,Home Health Home Equipment Needs bed rail Transportation Needs at Discharge Private Vehicle
[2020-10-17] MEDS: APIXABAN 5 MG TABLET 2.5 MG PO (09:00)
[2020-10-17] MEDS: BUDESONIDE 3 MG CAP 9 MG PO (09:01)
[2020-10-17] MEDS: CHOLECALCIFEROL (VITAMIN D3) 1,000 UNIT TABLET 1000 UNIT PO (09:01)
[2020-10-17] MEDS: ASPIRIN EC 81 MG TABLET PO (09:01)
[2020-10-17] MEDS: ESCITALOPRAM 10 MG TABLET PO (09:01)
[2020-10-17] MEDS: COLESEVELAM 625 MG TABLET PO (09:02)
[2020-10-17] MEDS: SODIUM CHLORIDE 0.9% FLUSH 10 ML IV (09:02)
[2020-10-17] MEDS: FUROSEMIDE 40 MG TABLET PO (09:02)
[2020-10-17] MEDS: POTASSIUM CHLORIDE 10 MEQ TAB 20 MEQ PO (09:02)
--- NOTE | 2020-10-17 09:15 | ST.IPDYTX ---
Visit Care Team Role Provider Type Kindra Shannon DO Emergency Provider Physician Referring Provider Specialty: Emergency Medicine Address: [address] [place] [address], [address] Email: [email or web address] Admit Provider Physician Attending Provider Primary Care Provider Specialty: Internal Medicine Address: [address] [place] [address], [address], [place], [address] Email: [email or web address] RETAIL EVENT COORDINATOR Dysphagia Treatment RETAIL EVENT COORDINATOR Dysphagia Treatment Start: 10/14/20 16:38 Freq: Status: Active Protocol: Document 10/17/20 09:04 [facility] (Rec: 10/17/20 09:08 [facility] [id number]) Dysphagia Treatment Session Time Visit Start Time 08:05 Visit Stop Time 08:20 Total Visit Minutes 15 Setting Assessment Location Acute Care Visit Type Note Type Treatment Note Next Note Type Next Note Type Treatment Note Patient Information Identification Type Name Subjective Observations Patient was up in chair with his present in the room. Treatment Liquids Trialed Thin Solids Trialed Mechanical Soft Administration Type Cup Single Sip,Cup Consecutive Sips,Self-Feeding Oral Strategies Upright at 90 degrees,Lingual Sweep,Controlled Bite/Sip Size Pharyngeal Strategies Sitting Upright (90 deg),Small Bites and Sips Treatment Activities Shelli was eating breakfast. e will be going home today with HH. Shelli was able to recall swallow strategies of chin tuck slow rate and small bites/sips independently. He verbalized understanding of aspiration risks. Reviewed the importance of oral hygiene in reducing risk of developing aspiration pneumonia. Assessment Patient Response to Treatment Excellent Rehab Potential Excellent Assessment of Improvement Patient has chin tuck visual aid on table in his room and is implementing strategies with occasional reminders from family and staff. Diet Recommendations Recommendations Continue Current Diet Liquids Order Thin Diet Order Mechanical Soft Medication Recommendations As Tolerated Additional Dietary Needs Single Sips,Controlled Sips,No Straws Aspiration Precautions Recommended Precautions Upright at 90 Degrees,Frequent Rest Periods,Small Bites/Sips ,Chin Tuck,Check for Pocketing ,Liquids from Cup Treatment Plan Placement Recommendation after Discharge Home Appropriate for Continued Therapy Yes: Home Health recommended at d/c Therapy Recommendations Verbal education was provided to Shelli, his , and their caregiver to review recommended compensatory swallow strategies (e.g., upright at 90 degrees, small bites/sips, check for pocketing, lingual sweep, and liquid wash to clear oral residues). Discussed recommendations for ENT consult with to include laryngoscopy to determine cause of dysphonia and potential need for voice therapy. Further therapy recommendations will be made pending modified barium swallow study results. Dysphagia Goals 1. The pt will use safe swallow strategies with written cues to reduce risk of aspiration. - GOAL MET Follow Up Plan out patient swallow therapy Referrals/Other Recommended Referrals ENT Consult
--- NOTE | 2020-10-17 11:41 | PT-IP ANOTE ---
Pt refused therapy session. Pt awaiting his ride home. Pt states he wants to call it good.
--- NOTE | 2020-10-17 12:32 | PC.NURSE ---
Patient A/O x 4. Up to chair for breakfast and lunch. Ambulating with SBA. Denies SOB or increased WOB with activity. VS WNL. 3+ pitting edema noted bilateral ankles. Lungs CTA. Pulses regularly irregular. Patient denies pain. Discharge instructions given regarding new prescriptions, weight gain, activity, and follow up appointments. Patient verbalized understanding. IV removed. Patient tolerated. Patient discharged via wheelchair with aide assist.
--- NOTE | 2020-10-18 11:19 | CM.DPNOTE ---
Late Entry DC Note Met w/patient and his dtr Aime on the day of patient's DC, reviewed DCP. Patient eager to return home, dtr explains her brother and a cg will be transporting and helping patient get back into his home. Patient and dtr request resumption of HH services, PT/OT/VISUAL MERCHANDISING SPECIALIST through [facility]. No additional resource needs at this time. Discussed adjunct faculty for medical terminology care plan since dtr discussed patient's needs have been increasing at home and patient has a tendency to get up in the evenings, dtr considering an adult family home ? This NATURAL RESOURCE SPECIALIST suggested getting list of AF[facility] in this area from Medicare.gov website and place calls to vet ? Placed call to Silvia at [facility] to alert that patient was returning home. No new HH order required. Plan: DC back home w/assist from family, in home care givers and [facility] services JW
== END 2020-10-17 12:31 | disposition home health service (06) ==
LOC: ED 11:48 → AC 11:57
PROVIDERS: Admitting Provider Internal Medicine; Emergency Provider Emergency Medicine; PCP Internal Medicine; Referring Provider Emergency Medicine; Visit Provider Internal Medicine
DX: R77.8 Other specified abnormalities of plasma proteins (principal); R42 Dizziness and giddiness; R26.81 Unsteadiness on feet; I48.0 Paroxysmal atrial fibrillation; G31.84 Mild cognitive impairment of uncertain or unknown etiology; K52.832 Lymphocytic colitis; Z95.0 Presence of cardiac pacemaker; E87.6 Hypokalemia; E03.9 Hypothyroidism, unspecified; R60.0 Localized edema; Z20.822 Contact with and (suspected) exposure to COVID-19
CPT/HCPCS: 36415; 70450; 71045; 80048; 80053; 80305; 80320; 81001; 82550; 82962; 83735; 83880; 84439; 84443; 84484; 85025; 85610; 85730; 87635; 92526; 92610; 93005; 93010; 97116; 97161; 97165; 97530; 97535; 99217; 99219; 99224; 99284; C9803; G0378

== ENCOUNTER → 2020-10-31 11:07 | Outpatient (CLI) | payer MEDICARE, SELFPAY ==
[2020-10-14 14:21] VITALS: BMI 28.3
[2020-10-31 12:45] LABS: BUN Creatinine Ratio 20.6 (6-22); Blood Urea Nitrogen 21 mg/dL (9-20); Calcium 8.8 mg/dL (8.4-10.2); Carbon Dioxide 27 mmol/L (22-32); Chloride 104 mmol/L (98-107); Estimated Glomerular Filt Rate > 60.0 mL/min (>60); Glucose 108 mg/dL (80-110); HEMOLYSIS < 15 (0-50); Magnesium 1.8 mg/dL (1.6-2.3); Potassium 4.2 mmol/L (3.4-5.1); Sodium 136 mmol/L (137-145)
== END ==
PROVIDERS: PCP Internal Medicine; Referring Provider Internal Medicine; Visit Provider Internal Medicine
DX: R29.6 Repeated falls (principal); R60.9 Edema, unspecified
CPT/HCPCS: 36415; 80048; 83735

== ENCOUNTER 2020-11-05 15:33 | Observation (INO) | payer MEDICARE, SELFPAY ==
[2020-11-05] VITALS (11 sets, daily range): BP systolic 120–148; BP diastolic 63–81; PULSE 66–84; RESP 20–24; TEMP 36.6–36.7; O2SAT 93–100; BMI 26.8
--- NOTE | 2020-11-05 15:47 | DI.CT.S_ITS ---
PROCEDURE: CT ANGIO HEAD AND NECK INDICATIONS: stroke TECHNIQUE: After the administration of intravenous contrast, 1 mm thick sections acquired from the aortic arch through the [place]. Post-contrast 4.5 mm thick sections then re-acquired from the foramen magnum to the vertex. 3-dimensional acrangn-xvbyvgcdi-opowgypyix (MIP) and/or volume rendering reformats were acquired of the central intracranial vasculature and neck separately. COMPARISON: [facility], CT, CT ANGIO HEAD AND NECK, 05/08/2020, 16:05. FINDINGS: Image quality: Excellent. BRAIN: CSF spaces: Ventricles are normal in size and shape. Basal cisterns are patent. No extra-axial fluid collections. Brain: No midline shift. No intracranial bleeds or masses. Wyatt-white matter interface appears intact. Skull and face: Calvarium and facial bones appear intact, without suspicious lesions. Orbits appear normal. Sinuses: There is opacification of the right maxillary sinus with reactive bony thickening consistent with chronic sinusitis. HEAD CT ANGIOGRAPHY: Anterior circulation: Intracranial internal carotid arteries have mild atherosclerotic calcifications but are normal in size and flow. The flow within the paired anterior cerebral arteries is normal and symmetric. The flow within the middle cerebral arteries is normal and symmetric. The anterior communicating artery is seen. No aneurysms are seen. Posterior circulation: Visualized portions of the vertebral arteries demonstrate normal caliber, and join to form a normal appearing basilar artery. Flow within the posterior cerebral arteries is normal and symmetric. No aneurysms are seen. NECK CT ANGIOGRAPHY: Carotid system: The great vessels demonstrate a conventional anatomy as they arise from the aortic arch. The origins of the common carotid arteries appear patent. The common carotid arteries demonstrate normal caliber and courses. The bifurcation regions are both widely patent. The left common carotid artery has a few punctate atherosclerotic calcifications. The internal carotid arteries demonstrate normal calibers and courses. Posterior circulation: The origins of the vertebral arteries both appear widely patent. The more superior extracranial portions of both vertebral arteries also demonstrate normal courses and calibers. They join to form a normal appearing basilar artery. Soft tissues: Visualized neck soft tissues demonstrate no suspicious abnormalities. Bones: No suspicious bony lesions. Visualized cervical spine appears normally aligned. IMPRESSION: 1. CTA of the head demonstrates atherosclerotic disease with no significant stenosis. 2. CTA of the neck demonstrates minimal left carotid bulb atherosclerotic disease with no significant stenosis. 3. Chronic right maxillary sinusitis. Any quantitative measurements of stenosis were performed using NASCET criteria. Dictated by: Ildefonso Chang M.D. on 11/05/2020 at 16:19 Approved by: Ildefonso Chang M.D. on 11/05/2020 at 16:27
[2020-11-05 15:54] LABS: Add Manual Diff / Slide Review NO; Basophils Absolute Auto 0 /uL (0-100); Basophils Percent Auto 0.4 % (0-2); Eosinophils Absolute Auto 100 /uL (0-450); Eosinophils Percent Auto 0.5 % (2-4); Hematocrit 39.7 % (41-53); Hemoglobin 13.3 g/dL (13.5-17.5); Lymphocytes Absolute Auto 1500 /uL (1100-4500); Lymphocytes Percent Auto 15.8 % (25-40); Mean Corpuscular HGB Conc 33.4 % (30-36); Mean Corpuscular Hemoglobin 32.3 PG (26-34); Mean Corpuscular Volume 96.9 fL (80-100); Monocytes Absolute Auto 600 /uL (0-900); Monocytes Percent Auto 6.7 % (3-14); Neutrophils Absolute Auto 7400 /uL (1500-7000); Neutrophils Percent Auto 76.6 % (50-75); Platelet Count 183 X10^3/uL (150-400); Red Cell Distribution Width 16.3 % (11.6-14.8); White Blood Cell Count 9.6 X10^3/uL (4.5-11.0)
--- NOTE | 2020-11-05 16:00 | DI.CT.S_ITS ---
PROCEDURE: CT STROKE INDICATIONS: stroke TECHNIQUE: Noncontrast 4.5 mm thick angled axial sections acquired from the foramen magnum to the vertex, with coronal reformats. For radiation dose reduction, the following was used: automated exposure control, adjustment of mA and/or kV according to patient size. COMPARISON: [facility], CT, CT HEAD/BRAIN WO CON, 10/14/2020, 9:37. [facility], CT, CT HEAD/BRAIN WO CON, 09/06/2020, 10:23. [facility], CT, CT HEAD/BRAIN WO CON, 07/05/2020, 16:43. [facility], CT, CT STROKE, 05/08/2020, 15:59. FINDINGS: Image quality: Excellent. CSF spaces: Basal cisterns are patent. No extra-axial fluid collections. The ventricles are symmetric in size and shape. Brain: No intracranial bleeds or masses. Hypodensities involving the left caudate and right basal ganglia are compatible with old lacunar infarcts. There is skofonxt-iq-[id number] cerebral volume loss for age, with resultant ventricular and sulcal prominence. There are moderate periventricular and deep white matter chronic small vessel ischemic changes. There is intracranial internal carotid artery atherosclerosis. Skull and face: Calvarium and visualized facial bones appear intact, without suspicious lesions. Sinuses: There is opacification of the right maxillary sinus and sphenoid sinuses bilaterally. Mastoids are clear. IMPRESSION: 1. No acute intracranial abnormalities. 2. Cerebral volume loss and chronic microvascular ischemic changes. 3. Suspect old lacunar infarcts. 4. Bilateral sphenoid and right maxillary sinusitis. The result was discussed with Dr. Kaufman on 11/05/2020 at 1602 hours. This study fulfills neurological imaging criteria for inclusion or exclusion of acute stroke therapies based on available published neurological guidelines. Dictated by: Blade Alanis M.D. on 11/05/2020 at 16:02 Approved by: Blade Alanis M.D. on 11/05/2020 at 16:07
[2020-11-05 16:02] LABS: INR 1.2 (0.9-1.3); Prothrombin Time 13.1 SECONDS (10.1-12.7)
--- NOTE | 2020-11-05 16:03 | ED.NEUROSD ---
HPI - Neuro Symptoms/Deficit General Chief Complaint: Neuro Symptoms/Deficit Stated Complaint: possible TIA Time Seen by Provider: 11/05/20 15:35 Source: patient Mode of arrival: Wheelchair Limitations: no limitations History of Present Illness HPI Narrative: 85-year-old male never smoker with history of hypertension, AFib on Eliquis presents with and caregiver and chief complaint of sudden onset stroke-like symptoms that started at 3:15 p.m.. Prior to this he was in his normal state of health and while driving they noticed a sudden onset left facial droop, slurred speech and trouble ambulating. Patient denies any blurred vision or upper extremity trouble but states he was having difficulty walking. He normally ambulates with a walker but states his difficulties walking into the emergency department were worse than normal. He has had no recent trauma and denies any bleeding diatheses. Patient activated as code stroke On Anticoagulants: Yes Related Data Home Medications Medication Instructions Recorded Confirmed VITAMIN D (Vitamin D3) 1,000 unit PO QDAY #0 04/12/13 11/05/20 ascorbic acid (vitamin C) 500 mg 500 mg PO DAILY 04/21/20 11/05/20 tablet vitamins A,C,L-rtcd-jgsjtm 14,320 1 cap PO BID 04/21/20 11/05/20 unit-226 mg-200 unit capsule colesevelam [WelChol] 625 mg PO BID 09/06/20 11/05/20 clopidogrel 75 mg PO DAILY 11/05/20 11/05/20 levothyroxine 100 mcg PO DAILY 11/05/20 11/05/20 Previous Rx's Medication Instructions Recorded escitalopram oxalate 10 mg tablet 10 mg PO DAILY #30 tab 03/31/20 clotrimazole 1 % topical cream 1 applictn TOP TID #45 gram 04/21/20 rosuvastatin 10 mg tablet 10 mg PO BEDTIME #30 tab 08/28/20 budesonide 3 mg 9 mg PO TID #270 each 09/01/20 capsule,delayed,extended release Allergies Allergy/AdvReac Type Severity Reaction Status Date / Time metoclopramide Allergy Unknown pt unsure Verified 11/05/20 15:55 [METOCLOPRAMIDE] Sulfa (Sulfonamide Allergy Unknown Verified 11/05/20 15:55 Antibiotics) [SULFA (SULFONAMIDE ANTIBIOTICS)] Review of Systems Constitutional Constitutional: Denies chills, Denies fatigue, Denies fever(s), Denies frequent falls, Denies lethargy and Reports weakness Eyes Eyes: Denies change in vision, Denies eye discharge, Denies irritation and Denies loss of vision ENT Ears, Nose, Mouth, and Throat: Denies change in voice, Denies dizziness, Denies neck pain, Denies sore throat and Denies throat swelling Cardiovascular Cardiovascular: Denies chest pain, Denies irregular heart rhythm, Denies lightheadedness, Denies palpitations, Denies dyspnea, Denies dyspnea on exertion and Denies orthopnea Respiratory Respiratory: Denies cough, Denies dyspnea, Denies dyspnea on exertion and Denies wheezing Gastrointestinal Gastrointestinal: Denies abdominal pain, Denies change in bowel habits, Denies diarrhea, Denies nausea and Denies vomiting Musculoskeletal Musculoskeletal: Denies neck pain and Denies numbness Integumentary/Breasts Skin/Breast: Denies pruritus, Denies erythema, Denies rash and Denies wounds Neurologic Neurologic: Reports abnormal speech, Denies behavioral changes, Denies confusion, Denies dizziness, Denies frequent falls, Denies loss of vision, Denies numbness and Reports weakness Psychiatric Psychiatric: Denies anxiety, Denies behavioral changes, Denies confusion, Denies depression, Denies homicidal ideation and Denies suicidal ideation Endocrine Endocrine: Denies fatigue, Denies flushing and Denies palpitations Hematologic/Lymphatic Hematologic/Lymphatic: Denies easy bruising On Anticoagulants: Yes Allergic/Immunologic Allergic/Immunologic: Denies urticaria, Denies throat swelling and Denies wheezing Patient History Medical History Anosmia Benign prostate hyperplasia Cataracts, bilateral (~2018) Depression (~1960) Erectile dysfunction Family history of prostate cancer Fecal incontinence (~195) H/O adenomatous polyp of colon Hearing loss (~1999) Hypothyroidism (~1995) Lymphocytic colitis Mild cognitive impairment Multiple falls Neuropathy Pacemaker (11/10/11) Paroxysmal atrial fibrillation Peripheral edema Prostate cancer Sick sinus syndrome Sleep apnea (~1995) Urge incontinence Urinary incontinence, mixed Surgical History Anesthesia H/O cataract removal with insertion of prosthetic lens H/O colectomy History of appendectomy History of cholecystectomy History of tonsillectomy S/P cataract extraction (~2018) S/P cholecystectomy (~1996) S/P nasal polypectomy (~1989) S/P partial colectomy (~2003) S/P placement of cardiac pacemaker (~10/2011) S/P tonsillectomy S/P TURP (~2012) S/P vasectomy (~1972) Family History Father History of heart disease Mother History of heart disease Brother Diabetes mellitus History of heart disease Social History household members: spouse and family Smoking Status: Never smoker Smoking Status: Never smoker alcohol intake frequency: holidays/special occasions only Alcohol type: wine Substance Use Type: does not use Exam Narrative Exam Narrative: GENERAL: [85] year old patient appears stated age. Well-nourished, well-developed patient, in mild distress. GCS 15 HEAD: Atraumatic. Normocephalic. EYES: Pupils equal round and reactive. Extraocular motions intact. No scleral icterus. No injection or drainage. ENT: Nose without bleeding, purulent drainage. Throat without erythema, tonsillar hypertrophy or exudate. Airway patent. NECK: Trachea midline. Non tender CARDIOVASCULAR: Regular rate and rhythm without murmurs, gallops, or rubs. RESPIRATORY: Clear to auscultation. Breath sounds equal bilaterally. No wheezes, rales, or rhonchi. GASTROINTESTINAL: Abdomen soft, non-tender, nondistended. EXTREMITIES: No edema or joint tenderness. BACK: Nontender without deformity or crepitance. No flank tenderness. NEURO: AOx3. SKIN: No rash or erythema of visible areas Initial Vital Signs Initial Vital Signs: Vital Signs Temperature 97.8 F 11/05/20 15:35 Pulse Rate 84 11/05/20 15:35 Respiratory Rate 22 11/05/20 15:35 Blood Pressure 131/81 11/05/20 15:35 Pulse Oximetry 99 11/05/20 15:35 Scores NIH Stroke Scale Level of Conciousness: Alert, keenly responsive Ask month/age: Answers both questions correctly. Open/close eyes, close hand: Performs both tasks correctly Best gaze horizontal: Normal Visual bueno: No visual loss Facial palsy: Minor paralysis, flattened nasolabial fold, asymmetry on smiling Left arm drift: No drift for full 10 sec Right arm drift: No drift for full 10 sec Left leg drift: Drifts down, not to bed Right leg drift: No drift for full 5 sec Limb ataxia: Absent Sensory on face/arms/legs: Normal, no sensory loss Best language: No aphasia, normal Dysarthria: Mild to mod,some slurring Extinction or inattention: No abnormality Total NIH Stroke scale score: 3 Course Orders Ordered: ED Orders 11/05/20 15:40 Basic Metabolic Panel Stat Complete Blood Count AUTO DIFF Stat Partial Thromboplastin Time Stat Prothrombin Time INR Stat Troponin & CK Cardiac Panel Stat Urine Drug Screen, Rapid Stat EKG-12 Lead Stat 11/05/20 15:47 CT angio head and neck Stat 11/05/20 16:00 CT Stroke Stat 11/05/20 16:40 COVID19 Stat Sodium Chloride (Normal Saline 0.9%) 1,000 mls @ 150 mls/hr IV CONT CINDI Last Admin: 11/05/20 16:21 Dose: 150 mls/hr Documented by: NANCY Discontinued Medications Aspirin (Aspirin 81 Mg Chew Tab) 324 mg PO NOW ONE Stop: 11/05/20 16:37 Last Admin: 11/05/20 16:40 Dose: 324 mg Documented by: NANCY Reevaluation(s) Reevaluation #1: symptoms improving, speech and facial weakness Time: 16:00 Consultations Consultation #1: discussed with [facility] (Dr. Castillo). Not TPA candidate given use of eliquis. No findings consistent with large vessel occlusion Vital Signs Vital signs: Vital Signs - 8 hr 11/05/20 15:35 11/05/20 15:42 11/05/20 16:00 Temperature 97.8 F Pulse Rate 84 74 69 Respiratory Rate 22 20 Blood Pressure 131/81 133/81 141/70 H Pulse Oximetry 99 100 11/05/20 16:01 11/05/20 16:07 11/05/20 16:15 Temperature Pulse Rate 66 73 66 Respiratory Rate 24 Blood Pressure 138/73 148/65 H 131/64 Pulse Oximetry 100 98 97 11/05/20 16:30 11/05/20 16:45 11/05/20 17:00 Temperature Pulse Rate 68 73 66 Respiratory Rate 20 20 22 Blood Pressure 126/64 120/66 121/65 Pulse Oximetry 96 97 95 MDM - Neuro Symptoms/Deficit Lab Data Result diagrams: 11/05/20 15:40 11/05/20 15:40 Labs: Lab Results 11/05/20 11/05/20 11/05/20 Range/Units 15:40 15:40 15:40 WBC 9.6 (4.5-11.0) X10^3/uL RBC 4.10 L (4.5-5.9) X10^6/uL Hgb 13.3 L (13.5-17.5) g/dL Hct 39.7 L (41-53) % MCV 96.9 (80-100) fL MCH 32.3 (26-34) PG MCHC 33.4 (30-36) % RDW 16.3 H (11.6-14.8) % Plt Count 183 (150-400) X10^3/uL Neut % (Auto) 76.6 H (50-75) % Lymph % (Auto) 15.8 L (25-40) % [place] % (Auto) 6.7 (3-14) % Eos % (Auto) 0.5 L (2-4) % Baso % (Auto) 0.4 (0-2) % Neut # (Auto) 7400 H (4547-2074) /uL Lymph # (Auto) 1500 (1144-3011) /uL [place] # (Auto) 600 (0-900) /uL Eos # (Auto) 100 (0-450) /uL Baso # (Auto) 0 (0-100) /uL PT 13.1 H (10.1-12.7) SECONDS INR 1.2 (0.9-1.3) APTT 32 (26.4-36.2) SECONDS Sodium (137-145) mmol/L Potassium (3.4-5.1) mmol/L Chloride (98-107) mmol/L Carbon Dioxide (22-32) mmol/L BUN (9-20) mg/dL Creatinine (0.66-1.25) mg/dL Estimated GFR (>60) mL/min BUN/Creatinine Ratio (6-22) Glucose (80-110) mg/dL Calcium (8.4-10.2) mg/dL Total Creatine Kinase 23 L (55-170) U/L CK-MB (CK-2) TNP CK-MB (CK-2) Rel Index TNP Troponin I < 0.012 (0.01-0.034) ng/mL SARS-CoV-2 (PCR) (Negative) 11/05/20 11/05/20 Range/Units 15:40 16:40 WBC (4.5-11.0) X10^3/uL RBC (4.5-5.9) X10^6/uL Hgb (13.5-17.5) g/dL Hct (41-53) % MCV (80-100) fL MCH (26-34) PG MCHC (30-36) % RDW (11.6-14.8) % Plt Count (150-400) X10^3/uL Neut % (Auto) (50-75) % Lymph % (Auto) (25-40) % [place] % (Auto) (3-14) % Eos % (Auto) (2-4) % Baso % (Auto) (0-2) % Neut # (Auto) (2983-8905) /uL Lymph # (Auto) (3493-0349) /uL [place] # (Auto) (0-900) /uL Eos # (Auto) (0-450) /uL Baso # (Auto) (0-100) /uL PT (10.1-12.7) SECONDS INR (0.9-1.3) APTT (26.4-36.2) SECONDS Sodium 137 (137-145) mmol/L Potassium 3.9 (3.4-5.1) mmol/L Chloride 104 (98-107) mmol/L Carbon Dioxide 29 (22-32) mmol/L BUN 22 H (9-20) mg/dL Creatinine 1.05 (0.66-1.25) mg/dL Estimated GFR > 60.0 (>60) mL/min BUN/Creatinine Ratio 21.0 (6-22) Glucose 92 (80-110) mg/dL Calcium 9.2 (8.4-10.2) mg/dL Total Creatine Kinase (55-170) U/L CK-MB (CK-2) CK-MB (CK-2) Rel Index Troponin I (0.01-0.034) ng/mL SARS-CoV-2 (PCR) Negative (Negative) Point of Care Testing Glucose POC [address] scan - head: Radiologist's Impression: [facility] [place] [id number] Scan ReportSigned Patient: Shelli Norman HMR#: [id number]: 7Acct:[id number]/Sex: 85 / MDate of Service: 11/05/20Loc: EDAccession Number: [id number] Procedure: CT Stroke Ordering Provider: Ramseh Kaufman D.O. PROCEDURE: CT STROKE INDICATIONS: stroke TECHNIQUE: Noncontrast 4.5 mm thick angled axial sections acquired from the foramen magnum to the vertex, with coronal reformats. For radiation dose reduction, the following was used: automated exposure control, adjustment of mA and/or kV according to patient size. COMPARISON: [facility], CT, CT HEAD/BRAIN WO CON, 10/14/2020, 9:37. [facility], CT, CT HEAD/BRAIN WO CON, 09/06/2020, 10:23. [facility], CT, CT HEAD/BRAIN WO CON, 07/05/2020, 16:43. [facility], CT, CT STROKE, 05/08/2020, 15:59. FINDINGS: Image quality: Excellent. CSF spaces: Basal cisterns are patent. No extra-axial fluid collections. The ventricles are symmetric in size and shape. Brain: No intracranial bleeds or masses. Hypodensities involving the left caudate and right basal ganglia are compatible with old lacunar infarcts. There is zltdbbey-[id number] cerebral volume loss for age, with resultant ventricular and sulcal prominence. There are moderate periventricular and deep white matter chronic small vessel ischemic changes. There is intracranial internal carotid artery atherosclerosis. Skull and face: Calvarium and visualized facial bones appear intact, without suspicious lesions. Sinuses: There is opacification of the right maxillary sinus and sphenoid sinuses bilaterally. Mastoids are clear. IMPRESSION: 1. No acute intracranial abnormalities. 2. Cerebral volume loss and chronic microvascular ischemic changes. 3. Suspect old lacunar infarcts. 4. Bilateral sphenoid and right maxillary sinusitis. The result was discussed with Dr. Kaufman on 11/05/2020 at 1602 hours. This study fulfills neurological imaging criteria for inclusion or exclusion of acute stroke therapies based on available published neurological guidelines. Dictated by: Blade Alanis M.D. on 11/05/2020 at 16:02 Approved by: Blade Alanis M.D. on 11/05/2020 at 16:07 CTA Head/Neck: Radiologist's Impression: [address] [id number] Scan ReportSigned Patient: Shelli Norman HMR#: [id number]: 7Acct:[id number]/Sex: 85 / MDate of Service: 11/05/20Loc: EDAccession Number: [id number] Procedure: CT angio head and neck Ordering Provider: Ramesh Kaufman D.O. PROCEDURE: CT ANGIO HEAD AND NECK INDICATIONS: stroke TECHNIQUE: After the administration of intravenous contrast, 1 mm thick sections acquired from the aortic arch through the [place] of [place]. Post-contrast 4.5 mm thick sections then re-acquired from the foramen magnum to the vertex. 3-dimensional behuyfq-iwfsytomr-pfyupxudav (MIP) and/or volume rendering reformats were acquired of the central intracranial vasculature and neck separately. COMPARISON: [facility], CT, CT ANGIO HEAD AND NECK, 05/08/2020, 16:05. FINDINGS: Image quality: Excellent. BRAIN: CSF spaces: Ventricles are normal in size and shape. Basal cisterns are patent. No extra-axial fluid collections. Brain: No midline shift. No intracranial bleeds or masses. [place]-white matter interface appears intact. Skull and face: Calvarium and facial bones appear intact, without suspicious lesions. Orbits appear normal. Sinuses: There is opacification of the right maxillary sinus with reactive bony thickening consistent with chronic sinusitis. HEAD CT ANGIOGRAPHY: Anterior circulation: Intracranial internal carotid arteries have mild atherosclerotic calcifications but are normal in size and flow. The flow within the paired anterior cerebral arteries is normal and symmetric. The flow within the middle cerebral arteries is normal and symmetric. The anterior communicating artery is seen. No aneurysms are seen. Posterior circulation: Visualized portions of the vertebral arteries demonstrate normal caliber, and join to form a normal appearing basilar artery. Flow within the posterior cerebral arteries is normal and symmetric. No aneurysms are seen. NECK CT ANGIOGRAPHY: Carotid system: The great vessels demonstrate a conventional anatomy as they arise from the aortic arch. The origins of the common carotid arteries appear patent. The common carotid arteries demonstrate normal caliber and courses. The bifurcation regions are both widely patent. The left common carotid artery has a few punctate atherosclerotic calcifications. The internal carotid arteries demonstrate normal calibers and courses. Posterior circulation: The origins of the vertebral arteries both appear widely patent. The more superior extracranial portions of both vertebral arteries also demonstrate normal courses and calibers. They join to form a normal appearing basilar artery. Soft tissues: Visualized neck soft tissues demonstrate no suspicious abnormalities. Bones: No suspicious bony lesions. Visualized cervical spine appears normally aligned. IMPRESSION: 1. CTA of the head demonstrates atherosclerotic disease with no significant stenosis. 2. CTA of the neck demonstrates minimal left carotid bulb atherosclerotic disease with no significant stenosis. 3. Chronic right maxillary sinusitis. Any quantitative measurements of stenosis were performed using NASCET criteria. Dictated by: Ildefonso Chang M.D. on 11/05/2020 at 16:19 Approved by: Ildefonso Chang M.D. on 11/05/2020 at 16:27 MDM Narrative Medical decision making narrative: 85M with aFib on eliquis and neuro symptoms starting 45 minutes prior to arrival. Though he was within TPA window and has CVA findings he is not candidate given use of eliquis. Furthermore his symptoms are beginning to improve. He will need hospitalization for further chracterization and treatment Discharge Plan Departure Patient Disposition: Admitted As Inpatient Clinical Impression: Stroke Qualifiers: CVA mechanism: unspecified Qualified Code(s): I63.9 - Cerebral infarction, unspecified Admit Date/Time: 11/05/20 17:00 Admit Provider: Hannah Barahona
[2020-11-05 16:05] LABS: PTT Partial Thromboplastin Tim 32 SECONDS (26.4-36.2)
[2020-11-05 16:09] LABS: Creatine Kinase 23 U/L (55-170)
[2020-11-05 16:10] LABS: Blood Urea Nitrogen 22 mg/dL (9-20); Calcium 9.2 mg/dL (8.4-10.2); Carbon Dioxide 29 mmol/L (22-32); Chloride 104 mmol/L (98-107); Estimated Glomerular Filt Rate > 60.0 mL/min (>60); Glucose 92 mg/dL (80-110); HEMOLYSIS < 15 (0-50); Potassium 3.9 mmol/L (3.4-5.1); Sodium 137 mmol/L (137-145)
--- NOTE | 2020-11-05 16:11 | PC.NURSE ---
informs pt that he is not a TPA candidate
[2020-11-05 16:21] LABS: Troponin I < 0.012 ng/mL (0.01-0.034)
[2020-11-05] MEDS: SODIUM CHLORIDE 0.9% 1,000 ML 150 ML IV (16:21)
[2020-11-05] MEDS: ASPIRIN 81 MG CHEW TAB 324 MG PO (16:40)
[2020-11-05 17:13] LABS: COVID19 -Nasal RAPID Negative (Negative)
--- NOTE | 2020-11-05 17:30 | P.HP_ITS ---
History of Present Illness History of Present Illness Date Patient Seen: 11/05/20 Time Patient Seen: 17:30 Chief complaint: possible TIA Narrative: Pt is a very pleasant 85yo man with paroxysmal atrial fibrillation with pacemaker, hypothyroidism, lymphocytic colitis, prostate cancer, and depression who presented with left-sided facial droop, slurred speech, and lower extremity weakness. The pt has chronic lower extremity weakness, but is usually weaker on the right side. Today, he felt weaker than usual on the left. He first noticed the symptoms around 3:15pm today. He denies any chest pain, SOB, upper extremity weakness, change in vision. He walks with a walker at baseline, but was having a more difficult time with ambulation. He states that prior to this occurring, he felt normal. The pt has had multiple recent hospitalizations for weakness, the most recent being 10/14-10/17. No neurological cause has been found. In the ED, code stroke was initiated. Head CT and CTA were completed without significant abnormalities seen. Lab work was also unrevealing. The pts symptoms initially persisted, however he was not a candidate for tPA due to his home Eliquis use. After being in the ED for over an hour, his symptoms did start to improve gradually. At the time of our encounter, the pt was feeling significantly improved. His speech was much more clear, and nearly back to baseline. He also had much improved use of his left leg. He was jokingly asking to return home. Patient History Medical History Anosmia Benign prostate hyperplasia Cataracts, bilateral (~2018) Depression (~1960) Erectile dysfunction Family history of prostate cancer Fecal incontinence (~195) H/O adenomatous polyp of colon Hearing loss (~1999) Hypothyroidism (~1995) Lymphocytic colitis Mild cognitive impairment Multiple falls Neuropathy Pacemaker (11/10/11) Paroxysmal atrial fibrillation Peripheral edema Prostate cancer Sick sinus syndrome Sleep apnea (~1995) Urge incontinence Urinary incontinence, mixed Surgical History Anesthesia H/O cataract removal with insertion of prosthetic lens H/O colectomy History of appendectomy History of cholecystectomy History of tonsillectomy S/P cataract extraction (~2018) S/P cholecystectomy (~1996) S/P nasal polypectomy (~1989) S/P partial colectomy (~2003) S/P placement of cardiac pacemaker (~10/2011) S/P tonsillectomy S/P TURP (~2012) S/P vasectomy (~1972) Family & Social History Family History Father History of heart disease Mother History of heart disease Brother Diabetes mellitus History of heart disease Social History: household members spouse,family Safety & Behavioral: Feels Safe in Current Yes Environment Been Physically Hurt or No Threatened By a Person Tobacco & Substance use: Smoking Status Never smoker alcohol intake frequency holiday/special occasion Substance Use Type does not use Meds Home Medications and Allergies Home Medications Medication Instructions Recorded Confirmed Type VITAMIN D (Vitamin D3) 1,000 unit PO QDAY #0 04/12/13 11/05/20 History escitalopram oxalate 10 mg tablet 10 mg PO DAILY #30 tab 03/31/20 11/05/20 Rx ascorbic acid (vitamin C) 500 mg 500 mg PO DAILY 04/21/20 11/05/20 History tablet clotrimazole 1 % topical cream 1 applictn TOP TID #45 gram 04/21/20 11/05/20 Rx vitamins A,C,H-pzqq-tykytp 14,320 1 cap PO BID 04/21/20 11/05/20 History unit-226 mg-200 unit capsule rosuvastatin 10 mg tablet 10 mg PO BEDTIME #30 tab 08/28/20 11/05/20 Rx budesonide 3 mg 9 mg PO TID #270 each 09/01/20 11/05/20 Rx capsule,delayed,extended release colesevelam [WelChol] 625 mg PO BID 09/06/20 11/05/20 History clopidogrel 75 mg PO DAILY 11/05/20 11/05/20 History levothyroxine 100 mcg PO DAILY 11/05/20 11/05/20 History Allergies Allergy/AdvReac Type Severity Reaction Status Date / Time metoclopramide Allergy Unknown pt unsure Verified 11/05/20 15:55 [METOCLOPRAMIDE] Sulfa (Sulfonamide Allergy Unknown Verified 11/05/20 15:55 Antibiotics) [SULFA (SULFONAMIDE ANTIBIOTICS)] Exam Vital Signs (past 8 hours): - 11/05/20 15:35 11/05/20 15:42 11/05/20 16:00 Temperature 97.8 F Pulse Rate 84 74 69 Respiratory Rate 22 20 Blood Pressure 131/81 133/81 141/70 H Pulse Oximetry 99 100 11/05/20 16:01 11/05/20 16:07 11/05/20 16:15 Temperature Pulse Rate 66 73 66 Respiratory Rate 24 Blood Pressure 138/73 148/65 H 131/64 Pulse Oximetry 100 98 97 11/05/20 16:30 11/05/20 16:45 11/05/20 17:00 Temperature Pulse Rate 68 73 66 Respiratory Rate 20 20 22 Blood Pressure 126/64 120/66 121/65 Pulse Oximetry 96 97 95 11/05/20 17:15 Temperature Pulse Rate 66 Respiratory Rate 23 Blood Pressure 125/79 Pulse Oximetry 96 Oxygen Delivery Method Room Air Narrative Exam Narrative: GEN - alert, cooperative and no distress HEENT - normocephalic and atraumatic, sclera white, moist mucus membranes NECK - FROM, no adenopathy, no JVD HEART - RRR, S1, S2 normal, no S3 or S4, no murmurs LUNGS - symmetric chest rise, no accessory muscles, clear to auscultation bilaterally ABD - flat, nondistended, normal bowel sounds, soft, nontender and no hepatomegaly, splenomegaly or masses EXT - 1+ pitting edema bilateral LE that pt states is baseline SKIN - no rashes or suspicious lesions NEURO - alert and and oriented to person, place and situation, very mild left facial droop when at rest, otherwise cranial nerves intact, Muscle strength is 5/5 UE and LE, Sensation to light touch present bilaterally, gait not assessed Objective Labs Result Diagrams: 11/05/20 15:40 11/05/20 15:40 Labs: Laboratory Results - last 24 hr 11/05/20 11/05/20 11/05/20 15:40 15:40 15:40 WBC 9.6 RBC 4.10 L Hgb 13.3 L Hct 39.7 L MCV 96.9 MCH 32.3 MCHC 33.4 RDW 16.3 H Plt Count 183 Neut % (Auto) 76.6 H Lymph % (Auto) 15.8 L [place]offey % (Auto) 6.7 Eos % (Auto) 0.5 L Baso % (Auto) 0.4 Neut # (Auto) 7400 H Lymph # (Auto) 1500 [place] # (Auto) 600 Eos # (Auto) 100 Baso # (Auto) 0 PT 13.1 H INR 1.2 APTT 32 Sodium Potassium Chloride Carbon Dioxide BUN Creatinine Estimated GFR BUN/Creatinine Ratio Glucose Calcium Total Creatine Kinase 23 L CK-MB (CK-2) TNP CK-MB (CK-2) Rel Index TNP Troponin I < 0.012 SARS-CoV-2 (PCR) 11/05/20 11/05/20 15:40 16:40 WBC RBC Hgb Hct MCV MCH MCHC RDW Plt Count Neut % (Auto) Lymph % (Auto) [place]offey % (Auto) Eos % (Auto) Baso % (Auto) Neut # (Auto) Lymph # (Auto) [place]y # (Auto) Eos # (Auto) Baso # (Auto) PT INR APTT Sodium 137 Potassium 3.9 Chloride 104 Carbon Dioxide 29 BUN 22 H Creatinine 1.05 Estimated GFR > 60.0 BUN/Creatinine Ratio 21.0 Glucose 92 Calcium 9.2 Total Creatine Kinase CK-MB (CK-2) CK-MB (CK-2) Rel Index Troponin I SARS-CoV-2 (PCR) Negative Assessment & Plan Assessment & Plan narrative: Pt is a very pleasant 85yo man with paroxysmal atrial fibrillation with pacemaker, hypothyroidism, lymphocytic colitis, and depression who presented with left-sided facial droop, slurred speech, and lower extremity weakness. 1) CVA: Possibly TIA with symptoms seeming to resolve rapidly now. Head CT an d CTA negative. - Cannot complete MRI due to pacemaker in place - Carotid dopplers - Echocardiogram ordered, however last completed 04/2020 with ZOILA recommended by Cardiology 05/2020 (results not available for review today). May be unnecessary to complete this hospitalization, but will leave this decision to the pts primary provider. - PT/OT consulted - Speech consulted to clear for normal diet due to facial droop - Daily Aspirin - Continue home Rosuvastatin - Telemetry 2) Paroxysmal atrial fibrillation: In and out of a-fib in the ED. Rate controlled. - Continue home Eliquis 3) Hypothyroidism: TSH quite elevated last hospitalization with increase in Levothyroxine dosing at that time - Continue Levothyroxine 125mcg daily 4) Lymphocytic colitis: Stable - Continue Budesonide 5) Depression: - Continue Lexapro Code: DNR, confirmed today DVT: On Eliquis, SCDs Diet: Regular diet, dysphagia until cleared Dispo: Pending completion of above work-up, ensuring stable symptoms. Possible d/c tomorrow if all negative. Pt to be seen by Dr Fuller, primary provider, tomorrow morning.
--- NOTE | 2020-11-05 17:46 | DI.US.S_ITS ---
PROCEDURE: US CAROTID DOPPLER BI INDICATIONS: CVA TECHNIQUE: Color and pulse Doppler interrogation was performed of both carotid systems, with image documentation and velocity measurements. COMPARISON: [facility], CT, CT ANGIO HEAD AND NECK, 11/05/2020, 15:42. [facility], US, CAROTID ARTERY DOPPLER BILAT, 12/13/2011, 10:56. FINDINGS: Stenosis calculations are based on SRU (Society of Radiologists in Ultrasound) criteria. Right side: Brachial blood pressure: 125/79 mm Hg. Common carotid artery peak systolic velocity: 85 cm/sec. Internal carotid artery peak systolic velocity: 49 cm/sec. Internal carotid artery end diastolic velocity: 15 cm/sec. External carotid artery peak systolic velocity: 69 cm/sec. ICA/CCA peak systolic ratio: 0.59 . Wyatt scale imaging description: Mild calcific plaque at the bifurcation Percent internal carotid artery stenosis: Less than 50% . Vertebral artery: Flow direction is antegrade. Left side: Brachial blood pressure: 125/79 mm Hg. Common carotid artery peak systolic velocity: 88 cm/sec. Internal carotid artery peak systolic velocity: 55 cm/sec. Internal carotid artery end diastolic velocity: 19 cm/sec. External carotid artery peak systolic velocity: 74 cm/sec. ICA/CCA peak systolic ratio: 0.62 . Wyatt scale imaging description: Mild calcific plaque at the bifurcation Percent internal carotid artery stenosis: Less than 50% . Vertebral artery: Flow direction is antegrade. IMPRESSION: 1. Less than 50% bilateral internal carotid artery stenosis. No evidence of new onset stenosis compared to CT angiography examination performed on 11/05/2020 at 15:42 hours. 2. Antegrade vertebral artery flow. No evidence of new onset stenosis compared to CT angiography examination performed on 11/05/2020 at 15:42 hours. Dictated by: Juno Kathleen M.D. on 11/05/2020 at 18:46 Approved by: Juno Kathleen M.D. on 11/05/2020 at 18:49
[2020-11-05 21:32] LABS: UR Morphine/Opiate cutoff 300 Negative (Negative); Ur Creatinine Normal (Normal); Ur Specific Gravity Normal (Normal); Urine Amphetamines Negative (Negative); Urine Barbiturates Negative (Negative); Urine Benzodiazepines Negative (Negative); Urine Cocaine Negative (Negative); Urine MDMA Negative (Negative); Urine Methadone Negative (Negative); Urine Methamphetamines Negative (Negative); Urine Oxycodone Negative (Negative); Urine Phencyclidine Negative (Negative); Urine Tetrahydrocannabinol Negative (Negative); Urine Tricyclic Antidepressant Negative (Negative); Urine pH Normal (Normal)
[2020-11-05] MEDS: APIXABAN 5 MG TABLET 2.5 MG PO (21:54)
[2020-11-05] MEDS: VIT C/E/ZN/COPPR/LUTEIN/ZEAXAN CAPSULE 1 CAP PO (21:56)
[2020-11-05] MEDS: BUDESONIDE 3 MG CAP 9 MG PO (21:56)
[2020-11-05] MEDS: COLESEVELAM 625 MG TABLET PO (21:56)
[2020-11-05] MEDS: ROSUVASTATIN 10 MG TABLET PO (21:57)
[2020-11-05] MEDS: SODIUM CHLORIDE 0.9% FLUSH 10 ML IV (22:01)
[2020-11-06 00:33] VITALS: BP 110/72; PULSE 67; RESP 18; TEMP 36.6; O2SAT 98
[2020-11-06 04:05] VITALS: BP 123/74; PULSE 61; RESP 16; TEMP 36.3; O2SAT 96
[2020-11-06] MEDS: LEVOTHYROXINE 100 MCG TABLET 125 MCG PO (05:46)
[2020-11-06 06:05] LABS: INR 1.2 (0.9-1.3); Prothrombin Time 13.6 SECONDS (10.1-12.7)
[2020-11-06 06:08] LABS: PTT Partial Thromboplastin Tim 31 SECONDS (26.4-36.2)
[2020-11-06 06:10] LABS: BUN Creatinine Ratio 25.9 (6-22); Blood Urea Nitrogen 22 mg/dL (9-20); Calcium 8.6 mg/dL (8.4-10.2); Carbon Dioxide 26 mmol/L (22-32); Chloride 106 mmol/L (98-107); Estimated Glomerular Filt Rate > 60.0 mL/min (>60); Glucose 84 mg/dL (80-110); HEMOLYSIS < 15 (0-50); Potassium 3.7 mmol/L (3.4-5.1); Sodium 135 mmol/L (137-145)
[2020-11-06 07:00] VITALS: BP 124/78; PULSE 61; RESP 16; TEMP 36.3; O2SAT 99
--- NOTE | 2020-11-06 08:25 | P.PN_ITS ---
Subjective Subjective Date Patient Seen: 11/06/20 Time Patient Seen: 08:26 Interval history: Patient's admission yesterday reviewed in the computer and briefly with Dr. Barahona. Patient feels like his neurologic symptoms resolved completely by mid afternoon yesterday. He has had no further symptoms that he is aware of although he has not been up out out of bed yet this morning Family confirms his speech seems to be back to normal and no evidence of facial drooping at this time certainly nothing like yesterday Findings yesterday quite unremarkable, no new evidence of any new neurologic intracranial vascular changes etcetera. Has been worked up pretty completely over the last several months as noted in the chart Exam Vital Signs (past 8 hours): - 11/06/20 00:33 11/06/20 04:05 Temperature 97.8 F 97.4 F L Pulse Rate 67 61 Respiratory Rate 18 16 Blood Pressure 110/72 123/74 Pulse Oximetry 98 96 Oxygen Delivery Method Room Air Oxygen Flow Rate 0 Objective Labs Result Diagrams: 11/05/20 15:40 11/06/20 05:44 Labs: Laboratory Results - last 24 hr 11/05/20 11/05/20 11/05/20 15:40 15:40 15:40 WBC 9.6 RBC 4.10 L Hgb 13.3 L Hct 39.7 L MCV 96.9 MCH 32.3 MCHC 33.4 RDW 16.3 H Plt Count 183 Neut % (Auto) 76.6 H Lymph % (Auto) 15.8 L [place] % (Auto) 6.7 Eos % (Auto) 0.5 L Baso % (Auto) 0.4 Neut # (Auto) 7400 H Lymph # (Auto) 1500 [place] # (Auto) 600 Eos # (Auto) 100 Baso # (Auto) 0 PT 13.1 H INR 1.2 APTT 32 Sodium Potassium Chloride Carbon Dioxide BUN Creatinine Estimated GFR BUN/Creatinine Ratio Glucose Calcium Total Creatine Kinase 23 L CK-MB (CK-2) TNP CK-MB (CK-2) Rel Index TNP Troponin I < 0.012 U Opiates 300ng/mL cut Ur Oxycodone Screen Urine Methadone Screen Ur Barbiturates Screen U Tricyclic Antidepress Ur Phencyclidine Scrn Ur Amphetamines Screen U Methamphetamines Scrn Ur MDMA Scrn (Ecstasy) U Benzodiazepines Scrn Urine Cocaine Screen U Marijuana (THC) Screen SARS-CoV-2 (PCR) 11/05/20 11/05/20 11/05/20 15:40 16:40 21:23 WBC RBC Hgb Hct MCV MCH MCHC RDW Plt Count Neut % (Auto) Lymph % (Auto) [place] % (Auto) Eos % (Auto) Baso % (Auto) Neut # (Auto) Lymph # (Auto) [place] # (Auto) Eos # (Auto) Baso # (Auto) PT INR APTT Sodium 137 Potassium 3.9 Chloride 104 Carbon Dioxide 29 BUN 22 H Creatinine 1.05 Estimated GFR > 60.0 BUN/Creatinine Ratio 21.0 Glucose 92 Calcium 9.2 Total Creatine Kinase CK-MB (CK-2) CK-MB (CK-2) Rel Index Troponin I U Opiates 300ng/mL cut Negative Ur Oxycodone Screen Negative Urine Methadone Screen Negative Ur Barbiturates Screen Negative U Tricyclic Antidepress Negative Ur Phencyclidine Scrn Negative Ur Amphetamines Screen Negative U Methamphetamines Scrn Negative Ur MDMA Scrn (Ecstasy) Negative U Benzodiazepines Scrn Negative Urine Cocaine Screen Negative U Marijuana (THC) Screen Negative SARS-CoV-2 (PCR) Negative 11/06/20 11/06/20 05:44 05:44 WBC RBC Hgb Hct MCV MCH MCHC RDW Plt Count Neut % (Auto) Lymph % (Auto) [place] % (Auto) Eos % (Auto) Baso % (Auto) Neut # (Auto) Lymph # (Auto) [place] # (Auto) Eos # (Auto) Baso # (Auto) PT 13.6 H INR 1.2 APTT 31 Sodium 135 L Potassium 3.7 Chloride 106 Carbon Dioxide 26 BUN 22 H Creatinine 0.85 Estimated GFR > 60.0 BUN/Creatinine Ratio 25.9 H Glucose 84 Calcium 8.6 Total Creatine Kinase CK-MB (CK-2) CK-MB (CK-2) Rel Index Troponin I U Opiates 300ng/mL cut Ur Oxycodone Screen Urine Methadone Screen Ur Barbiturates Screen U Tricyclic Antidepress Ur Phencyclidine Scrn Ur Amphetamines Screen U Methamphetamines Scrn Ur MDMA Scrn (Ecstasy) U Benzodiazepines Scrn Urine Cocaine Screen U Marijuana (THC) Screen SARS-CoV-2 (PCR) [facility] Medical History Anosmia Benign prostate hyperplasia Cataracts, bilateral (~2018) Depression (~1959) Erectile dysfunction Family history of prostate cancer Fecal incontinence (~1957) H/O adenomatous polyp of colon Hearing loss (~1999) Hypothyroidism (~1995) Lymphocytic colitis Mild cognitive impairment Multiple falls Neuropathy Pacemaker (11/10/11) Paroxysmal atrial fibrillation Peripheral edema Prostate cancer Sick sinus syndrome Sleep apnea (~1995) Urge incontinence Urinary incontinence, mixed Surgical History Anesthesia H/O cataract removal with insertion of prosthetic lens H/O colectomy History of appendectomy History of cholecystectomy History of tonsillectomy S/P cataract extraction (~2018) S/P cholecystectomy (~1996) S/P nasal polypectomy (~1989) S/P partial colectomy (~2003) S/P placement of cardiac pacemaker (~10/2011) S/P tonsillectomy S/P TURP (~2012) S/P vasectomy (~1972) Family History Father History of heart disease Mother History of heart disease Brother Diabetes mellitus History of heart disease Social History household members: spouse and family Smoking Status: Never smoker Assessment & Plan Assessment & Plan narrative: 1. Neurologic symptoms-I wonder whether this is a TIA or does this represent some borderline ischemia in a marginal zone related to a prior CVA the patient is having symptoms on and off based on blood flow. I am not finding anything new or different that would require different treatment. Patient should continue on full-dose anticoagulation with his Eliquis. I have considered adding an anti-platelet agent either low-dose aspirin or clopidogrel to his regimen but he has had multiple falls I think would be at very high risk of intracranial hemorrhage with this combination and think it would be likely to cause more trouble than improve things therefore I am not going to add any anti- platelet agents back to his regimen 2. Patient's other medical problems are relatively stable and controlled. Patient is on usual medications. Overall patient does appear to be back to baseline. Given lack of findings and lack of any safe intervention that would make anything at all better I think he can likely be discharged home later today. I would like him to get up had breakfast and complete more than morning before making final decision regarding that however. Note: Greater than 20 minutes was spent evaluating the patient on the floor, including examining the patient, discussing clinical course with clinical and nursing staff, reviewing clinical course in the computer, preparing documentation and writing orders for continued management of care, discussing status with family as appropriate, reviewing plans for the next 24 hours with both patient/family and nursing staff as appropriate.
[2020-11-06] MEDS: APIXABAN 5 MG TABLET 2.5 MG PO (08:57)
[2020-11-06] MEDS: COLESEVELAM 625 MG TABLET PO (08:57)
[2020-11-06] MEDS: CHOLECALCIFEROL (VITAMIN D3) 1,000 UNIT TABLET 1000 UNIT PO (08:58)
[2020-11-06] MEDS: VIT C/E/ZN/COPPR/LUTEIN/ZEAXAN CAPSULE 1 CAP PO (08:58)
[2020-11-06] MEDS: BUDESONIDE 3 MG CAP 9 MG PO (08:58)
[2020-11-06] MEDS: ASPIRIN EC 81 MG TABLET PO (08:58)
[2020-11-06] MEDS: ESCITALOPRAM 10 MG TABLET PO (08:58)
[2020-11-06] MEDS: POTASSIUM CHLORIDE 20 MEQ TAB PO (08:58)
[2020-11-06] MEDS: ASCORBIC ACID 500 MG TABLET PO (08:58)
[2020-11-06] MEDS: SODIUM CHLORIDE 0.9% FLUSH 10 ML IV (08:59)
[2020-11-06] MEDS: FUROSEMIDE 20 MG TABLET PO (08:59)
--- NOTE | 2020-11-06 09:35 | OT.IP.EVAL ---
Past Medical History (Last Reviewed 11/05/20 @ 16:32 by Ramesh Kaufman DO) Anosmia Benign prostate hyperplasia Cataracts, bilateral (~2018) Depression (~1960) Erectile dysfunction Family history of prostate cancer Fecal incontinence (~1957) H/O adenomatous polyp of colon Hearing loss (~1999) Hypothyroidism (~1995) Lymphocytic colitis Mild cognitive impairment Multiple falls Neuropathy Pacemaker (11/10/11) Paroxysmal atrial fibrillation Peripheral edema Prostate cancer Sick sinus syndrome Sleep apnea (~1995) Urge incontinence Urinary incontinence, mixed Surgical History (Last Reviewed 11/05/20 @ 16:32 by Ramesh Kaufman DO) Anesthesia H/O cataract removal with insertion of prosthetic lens H/O colectomy History of appendectomy History of cholecystectomy History of tonsillectomy S/P cataract extraction (~2018) S/P cholecystectomy (~1996) S/P nasal polypectomy (~1989) S/P partial colectomy (~2003) S/P placement of cardiac pacemaker (~10/2011) S/P tonsillectomy S/P TURP (~2012) S/P vasectomy (~1972) Occupational Therapy Inpatient Evaluation/Re-Eval M1 PT/OT-IP Prior Functional Status Start: 11/06/20 09:37 Freq: NEEDED Status: Active Protocol: Document 11/06/20 09:37 [facility] (Rec: 11/06/20 09:55 [facility] [id number]) Medical Review Prior Functional Status Communication Pt independent to state his needs. Mobility and Gait Use of 4WW in the house and outside and someone present to assist him, hang onto him, per pt. Activities of Daily Living and IADL's Pt able to eat and do grooming on his own after set-up and otherwise gets assist with buttons and LB dressing on compression socks, brief and pants. Prior Functional Level (Other details) Pt has hired caregivers around the clock except for Tuesday in which his daughter assists with his needs. Social History Household Members spouse,family Living Arrangements House Number of Floors (Floors) Two Floors Number of Stairs To Enter/Railing? 1 step from the garage. Home Environment High Toilet,Walk in Shower Home Equipment Front Wheel Walker,Four Wheel Walker,Manual Wheelchair, Bedside Commode,Shower Seat with Backrest,Grab Bars Near Toilet,Grab Bars In Shower Additional Social History Comment Pt also has a transfer pole by the bed and fitted urinal he uses at night. Pt's daughter has a monitor to help monitor her dad at night as well as caregivers at night to assist. M2 OT-IP Current Condition Start: 11/06/20 09:37 Freq: Status: Active Protocol: Document 11/06/20 09:37 [facility] (Rec: 11/06/20 09:55 [facility] [id number]) Occupational Therapy Current Condition Current Condition Evaluation Date 11/06/20 Treatment Diagnosis Neurological symptoms Diagnosis Onset Date 11/05/20 M3 OT- IP Subjective and Pain Start: 11/06/20 09:37 Freq: Status: Active Protocol: Document 11/06/20 09:37 [facility] (Rec: 11/06/20 09:55 [facility] [id number]) OT- Subjective Occupational Therapy Visit Type Type Initial Evaluation Visit Start Time 09:07 Visit Stop Time 09:35 Total Visit Minutes 28 Occupational Therapy Visit Comments Patient Comments Pt feel that he is back to baseline, pt's daughter present in the room for OT eval. Patient/Caregiver Goals TO go home. OT Pain Assessment Pain When Pain Assessed At Rest Pain Present Pain Present Denied Pain M4 OT- IP ADL's Start: 11/06/20 09:37 Freq: Status: Active Protocol: Document 11/06/20 09:37 [facility] (Rec: 11/06/20 09:55 [facility] [id number]) OT [id number] Comments OT Self-Feeding Comments NOt at meal time. OT ADL-Grooming General Evaluation Grooming Ability Standby Assistance Areas Needing Assistance Retrieving/Set-up of Grooming Items Comments OT Grooming Comments Able to do after set-up while seated. OT ADL-Oral Care General Eval Oral Care Ability Independent OT ADL-Dressing General Eval Lower Body Dressing Ability Maximum Assistance Areas Needing Assistance Socks,Support Stockings OT ADL-Toileting Comments OT Toileting Comments Pt not having to go at this time. OT ADL-Bathing Comments OT Bathing Comments NOt performed. M5 OT- IP IADL's Start: 11/06/20 09:37 Freq: Status: Active Protocol: Document 11/06/20 09:37 [facility] (Rec: 11/06/20 09:55 [facility] [id number]) OT-Instrumental Activities of Daily Living Home Safety Awareness Awareness of Need for Assistance at Home Good Awareness Medication Management Medication Management Caregiver Administers Money Management Money Management Caregiver Provides Assistance Meal Preparation Meal Preparation Caregiver Provides Assist Care Program Director Care Program Director Caregiver Provides Assist Driving Driving Caregiver Provides Assist M6 OT- IP Functional Cognition Start: 11/06/20 09:37 Freq: Status: Active Protocol: Document 11/06/20 09:37 [facility] (Rec: 11/06/20 09:55 [facility] [id number]) Cognitive Factors Limiting Selfcare Function Cognitive Ability Level of Alertness Alert Patient Orientation Name,Age,Place,Situation Attention Span Ability Capable of Focused Attention, Capable of Sustained Attention Ability to Follow Commands Able to Follow One Step Commands Safety Awareness Underestimates Need for Assistance Cognitive Comments Cognitive Assessment Comments Pt able to follow commands for FWW use and bed mobility. Pt 's daughter having to give his safety cues for FWW use and hand placement during transfer . OT- Vision and Hearing OT- Hearing Assessment OT- Hearing Assessment WFL OT- Vision Assessment Visual Acuity Glasses All The Time M7 OT- IP Mobility and Balance Start: 11/06/20 09:37 Freq: Status: Active Protocol: Document 11/06/20 09:37 [facility] (Rec: 11/06/20 09:55 [facility] [id number]) OT- Bed Mobility Assessment Rolling Type of Rolling Roll to Right Supine to Sit Supine to Sit Assist Minimal Assistance Scooting Scooting to Edge of Bed Standby Assistance OT-Transfer Assessment Sit to and From Stand Sit to and from Stand Minimal Assistance,Moderate Assistance Transfers Transfer Ability Minimal Assistance Technique Transfer Destination Bed,Chair Transfer Technique Stand Step Pivot Devices Transfer Assistive Devices Gait Belt,Front Wheeled Walker Comments Mobility Comments Pt's daughter able to safety andrez/doff gait belt and also assist with bed mobilty and transfer for pt with good safety. Pt's daughter feels that pt is back to baseline for all needs at this time. BP after up on his feeet 94/55 and then after reclined 133/54, nursing notified. Pt aware to call for nursing if as needs arise and not to get up on his own. OT- Gait Assessment Gait Gait Assistance Required: Minimum Assistance Comments Gait Ability Comments CGAto MARCE with FWW of level surfaces. OT- Balance Assessment Sitting Balance and Reactions Static Sitting Balance Ability Normal Dynamic Sitting Balance Ability Good Standing Balance and Reactions Static Standing Balance Ability Fair M8 OT- IP Objective Assessments Start: 11/06/20 09:37 Freq: Status: Active Protocol: Document 11/06/20 09:37 [facility] (Rec: 11/06/20 09:55 [facility] [id number]) OT Gross Range of Motion Upper Extremity Range of Motion ROM Impairments grossly WFL OT Strength Upper Extremity Strength Assessment Within Functional Limits OT- Coordination Assessment Comments Coordination Comments Assist for set-up for grooming needs. OT-Muscle Tone Assessment Muscle Tone WNL Yes M9 OT- IP Assessment and Plan Start: 11/06/20 09:37 Freq: Status: Active Protocol: Document 11/06/20 09:37 [facility] (Rec: 11/06/20 09:55 [facility] [id number]) OT Summary Assessment and Plan Potential Rehabilitation Potential Good Analytic Complexity at Evaluation Low Summary OT Impairments Balance,Coordination, Functional Mobility,Dressing, Toileting,Bathing,Toilet Transfers,Shower Transfers, Activity Tolerance Progress Towards Goals Progressing Toward Goals Assessment Summary Pt low complexity and here due to neurological symptoms per pt has mostly resolved. Pt's daughter able to part take in caregiver training and able to demonstrate good safety for all bed mobility and transfer needs. Suggest pt to resume home health and continue having 24/7 available assist at home. Goals Dressing Goal Moderate Assistance Toileting Goal Moderate Assistance Bathing Goal Moderate Assistance Toilet Transfer Goal Standby Assistance Shower Transfer Goal Contact Guard Assistance Days to Meet Goals 2 Frequency of Treatment Frequency Of Treatment Once a Day Treatment Plan OT Treatment Plan ADL Training,Functional Cognition Training,Functional Mobility,Patient/Family Education,Discharge Planning Other Treatment Recommendations and Next shower if still here Treatment Focus Discharge Recommendations OT Discharge Recommendations Home with 24/7 Assist Available,Home Health Home Equipment Needs Pt has all equipment needs. Transportation Needs at Discharge Private Vehicle
--- NOTE | 2020-11-06 09:39 | SLP.IPNOTE ---
Received order. Review of chart notes and reports indicate pt's status has returned to baseline. Spoke with Dr. Fuller, who confirmed pt status and cancelled ST orders.
--- NOTE | 2020-11-06 10:35 | PT.IIE ---
Surgical History (Last Reviewed 11/05/20 @ 16:32 by Ramesh Kaufman DO) Anesthesia H/O cataract removal with insertion of prosthetic lens H/O colectomy History of appendectomy History of cholecystectomy History of tonsillectomy S/P cataract extraction (~2018) S/P cholecystectomy (~1996) S/P nasal polypectomy (~1989) S/P partial colectomy (~2003) S/P placement of cardiac pacemaker (~10/2011) S/P tonsillectomy S/P TURP (~2012) S/P vasectomy (~1972) Medical History (Last Reviewed 11/05/20 @ 16:32 by Ramesh Kaufman DO) Anosmia Benign prostate hyperplasia Cataracts, bilateral (~2018) Depression (~1959) Erectile dysfunction Family history of prostate cancer Fecal incontinence (~1957) H/O adenomatous polyp of colon Hearing loss (~1999) Hypothyroidism (~1995) Lymphocytic colitis Mild cognitive impairment Multiple falls Neuropathy Pacemaker (11/10/11) Paroxysmal atrial fibrillation Peripheral edema Prostate cancer Sick sinus syndrome Sleep apnea (~1995) Urge incontinence Urinary incontinence, mixed Physical Therapy Inpatient Evaluation/Re-Eval M1 PT/OT-IP Prior Functional Status Start: 11/06/20 09:37 Freq: NEEDED Status: Active Protocol: Document 11/06/20 09:37 [facility] (Rec: 11/06/20 09:55 [facility] [id number]) Medical Review Prior Functional Status Communication Pt indepedent to state his needs. Mobility and Gait Use of 4WW in the house and outside and someone present to assist and and hang onto him per pt. Activities of Daily Living and IADL's Pt able to eat and do grooming on his own after set-up and otherwise gets assist with buttons and LB dressing on compression socks, brief and pants. Prior Functional Level (Other details) Pt has hired caregivers around the clock except for Tuesday in which his daughter assists with his needs. Social History Household Members spouse,family Living Arrangements House Number of Floors (Floors) Two Floors Number of Stairs To Enter/Railing? 1 step from the garage. Home Environment High Toilet,Walk in Shower Home Equipment Front Wheel Walker,Four Wheel Walker,Manual Wheelchair, Bedside Commode,Shower Seat with Backrest,Grab Bars Near Toilet,Grab Bars In Shower Additional Social History Comment Pt also has a transfer pole by the bed and fitted urinal he uses at night. Pt's daughter has a monitor to help monitor her dad at night as well as caregivers at night to assist. M1 PT/OT-IP Prior Functional Status Start: 11/06/20 11:53 Freq: NEEDED Status: Active Protocol: Document 11/06/20 10:35 [facility] (Rec: 11/06/20 12:16 AB [id number]) Medical Review Prior Functional Status Medical History Reviewed Yes Communication able to make needs known Mobility and Gait pt stated that he is able to perform all mobilities and ambulates using 4WW indoors but has a caregiver that provides SBA/ assistance as needed. uses a manual w/c for outdoor mobility. Activities of Daily Living and IADL's per OT notes: Pt able to eat and do grooming on his own after set-up and otherwise gets assist with buttons and LB dressing on compression socks, brief and pants. Social History Household Members children Living Arrangements House Number of Floors (Floors) Two Floors Number of Stairs To Enter/Railing? 1 step with bilateral grab bar on sides of the door Home Environment High Toilet,Walk in Shower Home Equipment Front Wheel Walker,Four Wheel Walker,Manual Wheelchair, Shower Seat with Backrest,Hand Held Shower,Lift Recliner, Grab Bars In Shower Additional Social History Comment pt has a safety frame around the toilet pt has a transfer pole next to the bed to assist him with getting out of the bed. pt stated that he has caregivers for 7 days a week for more than 10 hours and when caregivers are not around , daughter is available to assist pt. pt's daughter lives upstairs to pt. 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 Visits 0 Physical Therapy Visit Comments Patient Comments pt is agreeable to do PT Therapy Pain Assessment Pain Present Pain Present Denied Pain M4 PT-IP Mobility and Gait Start: 11/06/20 11:53 Freq: NEEDED Status: Active Protocol: Document 11/06/20 10:35 [facility] (Rec: 11/06/20 12:16 AB [id number]) PT-Bed Mobility Assessment Supine to Sit Supine to Sit Standby Assistance Sit to Supine Sit to Supine Standby Assistance PT-Transfer Assessment Sit to and From Stand Sit to and from Stand Standby Assistance,Contact Guard Assistance,1 Person Assistance,Use of Upper Extremities Equipment Transfer Assistive Device Gait Belt,Front Wheeled Walker Orthotic/Prosthetic Devices or Brace: No Transfers Transfer Destination Toilet Transfer Technique ambulated using FWW Transfer Ability Level of Assist Standby Assistance,Contact Guard Assistance,1 Person Assistance Comments Mobility Comments pt sitting on chair. completed sit to stand CGA and ambulated in room using FWW. stated that he has to use the urinal . pt was able to maintain standing balance CGA while using the urinal. pt ambulated towards the bed using FWW SBA to CGA. completed sit<>supine SBA. requested to use the toilet and ambulated to the toilet using FWW SBA to CGA. placed call light next to pt and instructed to call for assistance after toilet use. NAC informed. pt ambulated out of the toilet using FWW SBA. assisted with brief and gown change and was able to maintain standing balance using FWW for support SBA. pt completed up/down step stool holding on to sides of door for support simulating step into the house and pt completed with SBA to CGA. pt requested to stay up on chair. positioned on chair. call light and table placed within reach. Gait Assessment Gait Gait Assistance Required: Standby Assistance,Contact Guard Assist Distance (Feet) 35 Able to Maintain Weight Bearing Status Yes During Gait Assistive Devices Assistive Device Gait Belt,Front Wheeled Walker Orthotic/Prosthetic Devices or Brace: No Gait Deviations General Gait Pattern Decreased Stride Length, Decreased Feet Clearance Factors Limiting Gait Function Factors Limiting Gait Function Decreased Activity Tolerance, Decreased Strength,Poor Balance,Poor Safety Awareness Stair Climbing Assessment Evaluation Level of Assist On Stairs Standby Assistance,Contact Guard Assistance Technique/Endurance Stair Climbing Direction Ascend and Descend Stair Climbing Technique Step to Step Number of Steps Climbed 1 Query Text: Comments Stair Climbing Comments up/down step stool with pt holding on to sides of door for support/ balance SBA to CGA PT-Balance Assessment Sitting Balance and Reactions Static Sitting Balance Ability Good Dynamic Sitting Balance Ability Good Standing Balance and Reactions Static Standing Balance Ability Fair Dynamic Standing Balance Ability Fair Device Used FWW M5 PT-IP Objective Assessments Start: 11/06/20 11:53 Freq: NEEDED Status: Active Protocol: Document 11/06/20 10:35 [facility] (Rec: 11/06/20 12:16 [facility] [id number]) Orientation Orientation/Cognition Level of Alertness Alert Orientation Name,Place,Situation Safety Awareness Decreased Safety Awareness Gross Range of Motion Lower Extremity ROM Assessment Within Functional Limits Strength Lower Extremity Strength Assessment Right Impaired Hip 4-/5 Knee 3+/5 Muscle Tone Muscle Tone WNL Yes M6 PT-IP Treatment Start: 11/06/20 11:53 Freq: NEEDED Status: Active Protocol: Document 11/06/20 10:35 [facility] (Rec: 11/06/20 12:16 AB [id number]) Physical Therapy Treatment Education Education Provided Safety M7 PT-IP Assessment and Plan Start: 11/06/20 11:53 Freq: NEEDED Status: Active Protocol: Document 11/06/20 10:35 [facility] (Rec: 11/06/20 12:16 [facility] [id number]) PT Summary Assessment and Plan Potential Rehabilitation Potential Good Status of Condition at Evaluation Stable Summary Impairments Strength,Balance,Coordination, Sensation,Cognition,Bed Mobility,Transfers,Gait, Activity Tolerance Assessment Summary pt requiring SBA to CGA with mobility using FWW and has caregiver availability 7 days a week for >10 hours daily and daughter assists when caregivers are not around. pt may go home when medically stable. Goals Bed Mobility Goal Independent Transfer Goal Independent,Four Wheeled Walker Gait Goal Standby Assistance,Four Wheel Walker Gait Distance 100 Other Goals up/down 1 steps using FWW SBA Days to Meet Goals 5 Frequency of Treatment Frequency Of Treatment Once a Day Treatment Plan Physical Therapy Treatment Plan Bed Mobility Training,Transfer Training,Gait Training, Therapeutic Exercise,Balance Retraining,Discharge Planning, Hot or Cold Pack,Neuromuscular Re-ed,Coordination Retraining Recommendations To Nursing Amount of Assist Needed 1 Person Assist Discharge Recommendations PT Discharge Recommendations Home with Assistance Transportation Needs at Discharge Private Vehicle
--- NOTE | 2020-11-06 10:42 | PC.NURSE ---
Patients NIH stroke scale a 1. He has an asymmtrical smile and droopy on the left side. Speech is clear, no drift with arms and legs and vision wnl. He is a 1 person assist to get up to chair. Resting comfortably at this time. Daughter will be back around 1100 to check on him, she works here at the hospital.
[2020-11-06 11:10] VITALS: BP 108/67; PULSE 73; RESP 16; TEMP 36.5; O2SAT 97
--- NOTE | 2020-11-06 14:25 | CM.DPNOTE ---
Called [facility] to let them know patient will be discharged today and if they needed any other information. They said someone will reach out to us if needed. Latrice Bell CM Asst.
--- NOTE | 2020-11-06 14:27 | CM.IDA ---
Initial DCP Assessment Note Patient is an 85 yo male, resident of [place]. Patient presents w/symptoms of TIA vs CVA, patient w/ h/o CVA and according to Dr Fuller's prog note today: Overall patient does appear to be back to baseline. Given lack of findings and lack of any safe intervention that would make anything at all better I think he can likely be discharged home later today. PCP is Dr. Fuller. Primary payor is 1)Medicare 2)[facility]. 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 Met w/patient and his dtr Adelaide at bedside, reviewed DCP. Patient is hopeful to return home later today; as we discussed assisted planning (?) patient states he hopes to remain home w/his spouse of 61 years (who has dementia) for as long as possible and does not want to be from her. Patient currently on service with [facility] for therapy. Daughter and patient requesting those services resume upon d/c. Patient receives daily visits from [facility]. Per daughter they come 6dys per week 10hrs per day. Plan: Patient expected to DC home this afternoon, w/family and privately paid caregivers to assist, w/resumption of [facility], home via family auto. Requested that PRESTON Pollard call [facility] to update on patient's return home today HALLE Hebert
--- NOTE | 2020-11-06 16:52 | PM.DS.1 ---
History of Present Illness History of Present Illness Date Patient Seen: 11/06/20 Chief complaint: possible TIA Narrative: Pt is a very pleasant 85yo man with paroxysmal atrial fibrillation with pacemaker, hypothyroidism, lymphocytic colitis, prostate cancer, and depression who presented with left-sided facial droop, slurred speech, and lower extremity weakness. The pt has chronic lower extremity weakness, but is usually weaker on the right side. Today, he felt weaker than usual on the left. He first noticed the symptoms around 3:15pm today. He denies any chest pain, SOB, upper extremity weakness, change in vision. He walks with a walker at baseline, but was having a more difficult time with ambulation. He states that prior to this occurring, he felt normal. The pt has had multiple recent hospitalizations for weakness, the most recent being 10/14-10/17. No neurological cause has been found. In the ED, code stroke was initiated. Head CT and CTA were completed without significant abnormalities seen. Lab work was also unrevealing. The pts symptoms initially persisted, however he was not a candidate for tPA due to his home Eliquis use. After being in the ED for over an hour, his symptoms did start to improve gradually. At the time of our encounter, the pt was feeling significantly improved. His speech was much more clear, and nearly back to baseline. He also had much improved use of his left leg. He was jokingly asking to return home. {from Dr. Barahona's H&P} Discharge Providers Provider Date of admission: 11/05/20 17:00 Discharge Date: 11/06/20 Primary care physician: Azam Fuller MD Consults: 11/05/20 17:46 Consult to Discharge Planning Routine Comment: Consult to Occupational Therapy Evaluate & Treat Comment: Physician Instructions: Evaluate and treat Consult to Physical Therapy Evaluate & Treat Comment: Physician Instructions: Evaluate and Treat Consult to Speech Therapy Evaluate & Treat Comment: Physician Instructions: Evaluate and treat Discharge provider: Azam Fuller MD Summary Hospital Course Discharge Diagnosis: 1. TIA 2. Personal history stroke with residual symptoms 3. Paroxysmal atrial fibrillation 4. Mild cognitive impairment 5. Lymphocytic colitis 6. Prostate cancer Hospital Course: Patient was admitted to the hospital. Symptoms had mostly resolved by the time he reached the hospital floor. He had no additional neurologic symptoms of any sort. Given recent evaluations as it was not felt necessary to repeat any additional imaging beyond was performed in the emergency department. Echocardiography was therefore not performed. Patient continues on Eliquis at time of discharge and was felt to be too high risk to add anti-platelet therapy to that given his history of multiple falls. Had long discussion with patient and daughter regarding possibility of recurrence symptoms. Symptoms may well be due to borderline ischemic areas of the brain from prior strokes rather than some new event which means symptoms may continue wax and wane for some time. Patient's other medical problems are stable and he was felt to be okay for discharge home given lack of additional symptoms occurring overnight Patient will be seen in close follow-up in the outpatient clinic Exam Vital Signs (past 8 hours): - 11/06/20 11:10 Temperature 97.7 F Pulse Rate 73 Respiratory Rate 16 Blood Pressure 108/67 Pulse Oximetry 97 Oxygen Delivery Method Room Air Oxygen Flow Rate 0 Objective Labs Result Diagrams: 11/05/20 15:40 11/06/20 05:44 Labs: Laboratory Results - last 24 hr 11/05/20 11/05/20 11/06/20 16:40 21:23 05:44 PT 13.6 H INR 1.2 APTT 31 Sodium Potassium Chloride Carbon Dioxide BUN Creatinine Estimated GFR BUN/Creatinine Ratio Glucose Calcium U Opiates 300ng/mL cut Negative Ur Oxycodone Screen Negative Urine Methadone Screen Negative Ur Barbiturates Screen Negative U Tricyclic Antidepress Negative Ur Phencyclidine Scrn Negative Ur Amphetamines Screen Negative U Methamphetamines Scrn Negative Ur MDMA Scrn (Ecstasy) Negative U Benzodiazepines Scrn Negative Urine Cocaine Screen Negative U Marijuana (THC) Screen Negative SARS-CoV-2 (PCR) Negative 11/06/20 05:44 PT INR APTT Sodium 135 L Potassium 3.7 Chloride 106 Carbon Dioxide 26 BUN 22 H Creatinine 0.85 Estimated GFR > 60.0 BUN/Creatinine Ratio 25.9 H Glucose 84 Calcium 8.6 U Opiates 300ng/mL cut Ur Oxycodone Screen Urine Methadone Screen Ur Barbiturates Screen U Tricyclic Antidepress Ur Phencyclidine Scrn Ur Amphetamines Screen U Methamphetamines Scrn Ur MDMA Scrn (Ecstasy) U Benzodiazepines Scrn Urine Cocaine Screen U Marijuana (THC) Screen SARS-CoV-2 (PCR) [facility] Medical History Anosmia Benign prostate hyperplasia Cataracts, bilateral (~2019) Depression (~1959) Erectile dysfunction Family history of prostate cancer Fecal incontinence (~1957) H/O adenomatous polyp of colon Hearing loss (~1999) Hypothyroidism (~1995) Lymphocytic colitis Mild cognitive impairment Multiple falls Neuropathy Pacemaker (11/10/11) Paroxysmal atrial fibrillation Peripheral edema Prostate cancer Sick sinus syndrome Sleep apnea (~1995) Urge incontinence Urinary incontinence, mixed Surgical History Anesthesia H/O cataract removal with insertion of prosthetic lens H/O colectomy History of appendectomy History of cholecystectomy History of tonsillectomy S/P cataract extraction (~2018) S/P cholecystectomy (~1996) S/P nasal polypectomy (~1989) S/P partial colectomy (~2003) S/P placement of cardiac pacemaker (~10/2011) S/P tonsillectomy S/P TURP (~2012) S/P vasectomy (~1972) Family History Father History of heart disease Mother History of heart disease Brother Diabetes mellitus History of heart disease Social History household members: children Smoking Status: Never smoker Discharge Plan Discharge Plan Patient Disposition: Home Discharge orders & Medications Prescriptions: New potassium chloride [Klor-Con M20] 20 mEq Tablet,Er Particles/Crystals 20 meq PO DAILY Qty: 60 RF: 13 Eliquis 5 mg Tablet 2.5 mg PO BID Qty: 60 RF: 13 Continued VITAMIN D (Vitamin D3) 1,000 units capsule 1,000 unit PO QDAY Qty: 0 RF: 0 escitalopram oxalate 10 mg tablet 10 mg PO DAILY Qty: 30 RF: 0 rosuvastatin 10 mg tablet 10 mg PO BEDTIME Qty: 30 RF: 3 budesonide 3 mg capsule,delayed,extend.release 9 mg PO TID Qty: 270 RF: 3 PreserVision AREDS [id number] [id number]-[id number] capsule 1 cap PO BID RF: 0 ascorbic acid (vitamin C) [Vitamin C] 500 mg tablet 500 mg PO DAILY RF: 0 clotrimazole 1 % cream 1 applictn TOP TID Qty: 45 RF: 3 colesevelam [WelChol] 625 mg Tablet 625 mg PO BID RF: 0 levothyroxine 100 mcg tablet 100 mcg PO DAILY RF: 0 Discontinued clopidogrel 75 mg tablet 75 mg PO DAILY RF: 0 Follow up/Referrals: Azam Fuller MD [Primary Care Provider] - Visit Report/Discharge Packet Instructions: Potassium, Stroke (Alternative Therapy), Strokes: Prevention (Alternative Therapy), Apixaban Discharge Data Primary Care Provider: Azam Fuller Attending Provider: Azam Fuller
== END 2020-11-06 14:27 | disposition home or self-care (01) ==
LOC: ED 16:41 → AC 18:13
PROVIDERS: Admitting Provider Family Medicine; Emergency Provider Emergency Medicine; PCP Internal Medicine; Referring Provider Emergency Medicine; Visit Provider Internal Medicine
DX: G45.9 Transient cerebral ischemic attack, unspecified (principal); I48.0 Paroxysmal atrial fibrillation; G31.84 Mild cognitive impairment of uncertain or unknown etiology; C61 Malignant neoplasm of prostate; K52.832 Lymphocytic colitis; Z95.0 Presence of cardiac pacemaker; E03.9 Hypothyroidism, unspecified; Z79.01 Long term (current) use of anticoagulants; Z91.81 History of falling; I69.354 Hemiplegia and hemiparesis following cerebral infarction affecting left non-dominant side; R26.2 Difficulty in walking, not elsewhere classified; Z20.822 Contact with and (suspected) exposure to COVID-19
CPT/HCPCS: 36415; 70450; 70496; 70498; 80048; 80305; 82550; 82962; 84484; 85025; 85610; 85730; 87635; 93005; 93880; 97161; 97165; 97530; 99220; 99225; 99283; 99284; C9803; G0378; Q9967

== ENCOUNTER → 2020-11-17 13:11 | Outpatient (CLI) | payer MEDICARE, SELFPAY ==
[2020-11-05 19:25] VITALS: BMI 26.8
[2020-11-17 14:08] LABS: BUN Creatinine Ratio 23.2 (6-22); Blood Urea Nitrogen 23 mg/dL (9-20); Calcium 8.8 mg/dL (8.4-10.2); Carbon Dioxide 29 mmol/L (22-32); Chloride 100 mmol/L (98-107); Estimated Glomerular Filt Rate > 60.0 mL/min (>60); Glucose 95 mg/dL (80-110); HEMOLYSIS < 15 (0-50); Magnesium 1.7 mg/dL (1.6-2.3); Potassium 3.6 mmol/L (3.4-5.1); Sodium 136 mmol/L (137-145)
[2020-11-17 15:20] LABS: Thyroid Stimulating Hormone 4.75 uIU/mL (0.47-4.68)
== END ==
PROVIDERS: PCP Internal Medicine; Referring Provider Internal Medicine Cardiovascular Disease; Visit Provider Internal Medicine Cardiovascular Disease
DX: I47.1 Supraventricular tachycardia (principal)
CPT/HCPCS: 36415; 80048; 83735; 84443

== ENCOUNTER → 2021-01-16 11:50 | Outpatient (CLI) | payer MEDICARE, SELFPAY ==
[2020-11-05 19:25] VITALS: BMI 26.8
[2021-01-16 12:37] LABS: Hematocrit 34.7 % (41-53); Hemoglobin 11.6 g/dL (13.5-17.5); Mean Corpuscular HGB Conc 33.4 % (30-36); Mean Corpuscular Hemoglobin 32.7 PG (26-34); Platelet Count 171 X10^3/uL (150-400); Red Blood Cell Count 3.54 X10^6/uL (4.5-5.9); Red Cell Distribution Width 16.7 % (11.6-14.8); White Blood Cell Count 6.2 X10^3/uL (4.5-11.0)
[2021-01-16 12:49] LABS: Alanine Aminotransferase 27 IU/L (<50); Albumin 2.9 g/dL (3.5-5.0); Albumin Globulin Ratio 1.2 (1.0-2.8); Alkaline Phosphatase 40 U/L (38-126); Aspartate Aminotransferase 21 IU/L (17-59); BUN Creatinine Ratio 23.8 (6-22); Bilirubin Total 0.5 mg/dL (0.2-1.3); Blood Urea Nitrogen 19 mg/dL (9-20); Calcium 8.5 mg/dL (8.4-10.2); Carbon Dioxide 28 mmol/L (22-32); Chloride 104 mmol/L (98-107); Estimated Glomerular Filt Rate > 60.0 mL/min (>60); Globulin 2.4 g/dL (1.7-4.1); Glucose 99 mg/dL (80-110); HEMOLYSIS < 15 (0-50); Potassium 3.5 mmol/L (3.4-5.1); Sodium 136 mmol/L (137-145); Total Protein 5.3 g/dL (6.3-8.2)
[2021-01-16 13:07] LABS: Free T4, Direct Thyroxine 0.84 ng/dL (0.78-2.19)
[2021-01-16 13:21] LABS: Thyroid Stimulating Hormone 1.35 uIU/mL (0.47-4.68)
== END ==
PROVIDERS: PCP Internal Medicine; Referring Provider Internal Medicine; Visit Provider Internal Medicine
DX: E03.9 Hypothyroidism, unspecified (principal); I48.0 Paroxysmal atrial fibrillation; R60.9 Edema, unspecified
CPT/HCPCS: 36415; 80053; 84439; 84443; 85027

== ENCOUNTER 2021-01-23 16:03 | Observation (INO) | payer MEDICARE, SELFPAY ==
[2020-11-05 19:25] VITALS: BMI 26.8
[2021-01-23] VITALS (7 sets, daily range): BP systolic 120–134; BP diastolic 57–99; PULSE 60–86; RESP 17–24; TEMP 36.2–37; O2SAT 92–100; BMI 28.5
--- NOTE | 2021-01-23 16:03 | DI.CT.S_ITS ---
PROCEDURE: CT STROKE INDICATIONS: stroke, left sided symptoms TECHNIQUE: Noncontrast 4.5 mm thick angled axial sections acquired from the foramen magnum to the vertex, with coronal reformats. For radiation dose reduction, the following was used: automated exposure control, adjustment of mA and/or kV according to patient size. COMPARISON: [facility], CT, CT STROKE, 11/05/2020, 15:42. [facility], CT, CT HEAD/BRAIN WO CON, 10/14/2020, 9:37. [facility], CT, CT HEAD/BRAIN WO CON, 09/06/2020, 10:23. [facility], CT, CT HEAD/BRAIN WO CON, 07/05/2020, 16:43. [facility], CT, CT ANGIO HEAD AND NECK, 05/08/2020, 16:05. [facility], CT, CT STROKE, 05/08/2020, 15:59. [facility], CT, CT HEAD/BRAIN WO CON, 05/02/2020, 10:28. [facility], CT, CT HEAD/BRAIN WO CON, 09/26/2019, 9:45. CT, HEAD WITHOUT CONTRAST, 11/10/2017, 9:04. CT, HEAD WITHOUT CONTRAST, 11/05/2017, 5:30. [facility], CT, CT ANGIO HEAD AND NECK, 11/05/2020, 15:42. FINDINGS: Image quality: Excellent. CSF spaces: Basal cisterns are patent. No extra-axial fluid collections. The ventricles are symmetric in size and shape. Brain: No intracranial bleeds or masses. There is cerebral volume loss for age, with resultant ventricular and sulcal prominence. There are periventricular and deep white matter chronic small vessel ischemic changes. There is intracranial internal carotid artery atherosclerosis. Skull and face: Calvarium and visualized facial bones appear intact, without suspicious lesions. Sinuses: Prior functional endoscopic sinus surgery. Mucosal thickening causes complete opacification of the right maxillary sinus and the bilateral sphenoid sinuses. Small air-fluid level noted in left sphenoid sinus. The mastoids are clear. IMPRESSION: 1. No acute intracranial disease process. 2. Findings telephoned to Dr. Kaufman on September 25, 2020 at 4:31 p.m.. This study fulfills neurological imaging criteria for inclusion or exclusion of acute stroke therapies based on available published neurological guidelines. Dictated by: Mindi Malik MD, PhD on 01/23/2021 at 16:30 Approved by: Mindi Malik MD, PhD on 01/23/2021 at 16:35
--- NOTE | 2021-01-23 16:03 | DI.CT.S_ITS ---
PROCEDURE: CT ANGIO HEAD AND NECK INDICATIONS: stroke, left sided symptoms TECHNIQUE: After the administration of intravenous contrast, 1 mm thick sections acquired from the aortic arch through the [place] of [place]. Post-contrast 4.5 mm thick sections then re-acquired from the foramen magnum to the vertex. 3-dimensional zdbilhv-laxxclljh-ytpoaldnom (MIP) and/or volume rendering reformats were acquired of the central intracranial vasculature and neck separately. COMPARISON: [facility], CT, CT ANGIO HEAD AND NECK, 11/05/2020, 15:42. [facility], CT, CT STROKE, 11/05/2020, 15:42. FINDINGS: Image quality: Excellent. BRAIN: CSF spaces: Ventricles are normal in size and shape. Basal cisterns are patent. No extra-axial fluid collections. Brain: No midline shift. No intracranial bleeds or masses. There is diffuse cerebral volume loss. There are periventricular and subcortical white matter chronic microvascular ischemic changes. Wyatt-white matter interface appears intact. Skull and face: Calvarium and facial bones appear intact, without suspicious lesions. Orbits appear normal. Sinuses: Mucosal thickening noted in the right maxillary sinus and the bilateral sphenoid sinuses. Small air-fluid level noted in the left sphenoid sinus. The mastoids are clear. HEAD CT ANGIOGRAPHY: Anterior circulation: Intracranial internal carotid arteries are normal in flow. Atherosclerotic calcifications noted in the cavernous and clinoid segments of the internal carotid arteries bilaterally which causes mild stenosis of the vessels. The flow within the paired anterior cerebral arteries is normal and symmetric. The flow within the middle cerebral arteries is normal and symmetric. The anterior communicating artery is seen. No aneurysms are seen. Posterior circulation: Visualized portions of the vertebral arteries demonstrate normal caliber, and join to form a normal appearing basilar artery. Flow within the posterior cerebral arteries is normal and symmetric. No aneurysms are seen. Dural sinuses demonstrate normal postcontrast enhancement. NECK CT ANGIOGRAPHY: Carotid system: The great vessels demonstrate a conventional anatomy as they arise from the aortic arch. The origins of the common carotid arteries appear patent. The common carotid arteries demonstrate normal caliber and courses origin of the right internal carotid artery is fully patent. Atherosclerotic calcification noted in the origin of the left internal carotid artery which causes less than 50% stenosis of the vessel. Posterior circulation: The origins of the vertebral arteries both appear widely patent. The more superior extracranial portions of both vertebral arteries also demonstrate normal courses and calibers. They join to form a normal appearing basilar artery. Soft tissues: Visualized neck soft tissues demonstrate no suspicious abnormalities. Left chest wall cardiac pacer. Bones: No suspicious bony lesions. Spine degenerative disc disease and facet arthropathy. Visualized cervical spine appears normally aligned. IMPRESSION: 1. No acute intracranial disease process. 2. No large vessel occlusion, hemodynamically significant vascular stenosis, vascular dissection or aneurysm. Any quantitative measurements of stenosis were performed using NASCET criteria. Dictated by: Mindi Malik MD, PhD on 01/23/2021 at 16:36 Approved by: Mindi Malik MD, PhD on 01/23/2021 at 16:43
--- NOTE | 2021-01-23 16:12 | ED_ITS ---
HPI - Skin/Abscess/Foreign Bdy General Chief complaint: Neuro Symptoms/Deficit Stated complaint: Post TIA Time Seen by Provider: 01/23/21 16:15 Source: EMS Mode of arrival: EMS Limitations: no limitations History of Present Illness HPI narrative: 85-year-old male nonsmoker with history of hypertension, TIA on Eliquis presents by EMS for evaluation of stroke-like symptoms that likely started somewhere between noon and 1400. He is activated as a code stroke and taken directly to CT scan. His symptoms include confusion, at trouble with speech, possibly some facial droop as well as left upper extremity weakness. He did have a stroke years ago Related Data Home Medications Medication Instructions Recorded Confirmed VITAMIN D (Vitamin D3) 1,000 unit PO QDAY #0 04/12/13 01/21/21 ascorbic acid (vitamin C) 500 mg 500 mg PO DAILY 04/21/20 01/21/21 tablet vitamins A,C,Q-ncsi-cmbbcp 14,320 1 cap PO BID 04/21/20 01/21/21 unit-226 mg-200 unit capsule Cholestyramine 4 g PO DAILY 01/16/21 01/21/21 levothyroxine 125 mcg tablet 125 mcg PO DAILY 01/16/21 01/21/21 mecobalamin (vitamin B12) 1,000 1,000 mcg SUBLINGUAL DAILY 01/16/21 01/21/21 mcg disintegrating tablet,sublingual metoprolol succinate 25 mg 25 mg PO DAILY 01/16/21 01/21/21 tablet,extended release 24 hr cetirizine 10 mg capsule 10 mg PO DAILY PRN 01/21/21 01/21/21 fluticasone propionate 50 1 spray INTRANASAL DAILY 01/21/21 01/21/21 mcg/actuation nasal spray,suspension omega-3 fatty acids 1,000 mg 1,000 mg PO BID cap 01/21/21 01/21/21 capsule potassium chloride 20 mEq 20 meq PO BID tab 01/21/21 tablet,extended release(part/cryst) Previous Rx's Medication Instructions Recorded apixaban [Eliquis] 2.5 mg PO BID #60 tab 11/06/20 colesevelam 625 mg tablet 625 mg PO BID #180 tab 12/08/20 escitalopram oxalate 10 mg tablet 10 mg PO DAILY #90 tab 12/08/20 [id number]-wx-Erksv Device #1 ea 12/31/20 rosuvastatin 10 mg tablet 10 mg PO BEDTIME #90 tab 01/02/21 budesonide 3 mg 9 mg PO TID #270 each 01/05/21 capsule,delayed,extended release furosemide 20 mg tablet 20 mg PO QAM #30 tab 01/16/21 hydraulic 'Luli' Lift #1 ea 01/21/21 Allergies Allergy/AdvReac Type Severity Reaction Status Date / Time metoclopramide Allergy Unknown pt unsure Verified 01/23/21 16:06 [METOCLOPRAMIDE] Sulfa (Sulfonamide Allergy Unknown Verified 01/23/21 16:06 Antibiotics) [SULFA (SULFONAMIDE ANTIBIOTICS)] Review of Systems Constitutional Constitutional: Denies chills, Denies fatigue, Denies fever(s), Denies frequent falls, Denies lethargy and Denies weakness Eyes Eyes: Denies change in vision, Denies eye discharge, Denies irritation and Denies loss of vision ENT Ears, Nose, Mouth, and Throat: Denies change in voice, Denies dizziness, Denies neck pain, Denies sore throat and Denies throat swelling Cardiovascular Cardiovascular: Denies chest pain, Denies irregular heart rhythm, Denies lightheadedness, Denies palpitations, Denies dyspnea, Denies dyspnea on exertion and Denies orthopnea Respiratory Respiratory: Denies cough, Denies dyspnea, Denies dyspnea on exertion and Denies wheezing Gastrointestinal Gastrointestinal: Denies abdominal pain, Denies change in bowel habits, Denies diarrhea, Denies nausea and Denies vomiting Musculoskeletal Musculoskeletal: Denies neck pain and Denies numbness Integumentary/Breasts Skin/Breast: Denies pruritus, Denies erythema, Denies rash and Denies wounds Neurologic Neurologic: Denies behavioral changes, Denies confusion, Denies dizziness, Denies frequent falls, Denies loss of vision, Denies numbness and Denies weakness Psychiatric Psychiatric: Denies anxiety, Denies behavioral changes, Denies confusion, Denies depression, Denies homicidal ideation and Denies suicidal ideation Endocrine Endocrine: Denies fatigue, Denies flushing and Denies palpitations Hematologic/Lymphatic Hematologic/Lymphatic: Denies easy bruising Allergic/Immunologic Allergic/Immunologic: Denies urticaria, Denies throat swelling and Denies wheezing Patient History Medical History Anosmia Benign prostate hyperplasia Cataracts, bilateral (~2018) Depression (~1959) Erectile dysfunction Family history of prostate cancer Fecal incontinence (~1957) H/O adenomatous polyp of colon Hearing loss (~1999) Hypothyroidism (~1995) Lymphocytic colitis Mild cognitive impairment Multiple falls Neuropathy Pacemaker (11/10/11) Paroxysmal atrial fibrillation Peripheral edema Prostate cancer Sick sinus syndrome Sleep apnea (~1995) Urge incontinence Urinary incontinence, mixed Surgical History Anesthesia H/O cataract removal with insertion of prosthetic lens H/O colectomy History of appendectomy History of cholecystectomy History of tonsillectomy S/P cataract extraction (~2018) S/P cholecystectomy (~1996) S/P nasal polypectomy (~1989) S/P partial colectomy (~2003) S/P placement of cardiac pacemaker (~10/2011) S/P tonsillectomy S/P TURP (~2012) S/P vasectomy (~1972) Family History Father History of heart disease Mother History of heart disease Brother Diabetes mellitus History of heart disease Family/Other Stroke Social History household members: children Smoking Status: Never smoker Smoking Status: Never smoker alcohol intake frequency: holidays/special occasions only Alcohol type: wine Substance Use Type: does not use Exam Narrative Exam Narrative: GENERAL: [85] year old patient appears stated age. Well- nourished, well-developed patient, in mild distress. HEAD: Atraumatic. Normocephalic. EYES: Pupils equal round and reactive. Extraocular motions intact. No scleral icterus. No injection or drainage. ENT: Nose without bleeding, purulent drainage. Throat without erythema, tonsillar hypertrophy or exudate. Airway patent. NECK: Trachea midline. Non tender CARDIOVASCULAR: Regular rate and rhythm without murmurs, gallops, or rubs. RESPIRATORY: Clear to auscultation. Breath sounds equal bilaterally. No wheezes, rales, or rhonchi. GASTROINTESTINAL: Abdomen soft, non-tender, nondistended. EXTREMITIES: No edema or joint tenderness. BACK: Nontender without deformity or crepitance. No flank tenderness. NEURO: AOx2, confused about month. SKIN: No rash or erythema of visible areas NIH Stroke Scale 1a. LOC: Patient is alert and keenly responsive (0) 1b. LOC Questions: Patient answers both LOC questions accurately (1) confused about a month 1c. LOC Commands: Patient performs both tasks correctly (0) 2. Best Gaze: Normal (0) 3. Visual: No visual loss (0) 4. Facial palsy: Normal symmetrical movements (0) 5. Motor arm: No drift (0) 6. Motor leg: No drift (0) 7. Limb ataxia: Absent (0) 8. Sensory: Normal (0) 9. Best language: No aphasia; normal (0) 10. Dysarthria: Normal (0) 11. Extinction and inattention: No abnormality (0) NIHSS: 1 Initial Vital Signs Initial Vital Signs: Vital Signs Temperature 98.6 F 01/23/21 16:06 Pulse Rate 86 01/23/21 16:06 Respiratory Rate 17 01/23/21 16:06 Blood Pressure 122/86 01/23/21 16:06 Pulse Oximetry 100 01/23/21 16:06 Course Orders Ordered: ED Orders 01/23/21 16:00 Basic Metabolic Panel Stat Complete Blood Count AUTO DIFF Stat Partial Thromboplastin Time Stat Prothrombin Time INR Stat 01/23/21 16:[address] angio head and neck Stat Urine Drug Screen, Rapid Stat EKG-12 Lead Stat 01/23/21 16:36 COVID19 - ADMIT (LEGAL EXECUTIVE ASSISTANT swab/PCR) Stat Sodium Chloride (Normal Saline 0.9%) 1,000 mls @ 150 mls/hr IV CONT CINDI Consultations Consultation #1: Dr. Chan happy to accept on behalf of Dr. Fuller Vital Signs Vital signs: Vital Signs - 8 hr 01/23/21 16:06 01/23/21 16:14 Temperature 98.6 F Pulse Rate 86 78 Respiratory Rate 17 24 Blood Pressure 122/86 134/99 H Pulse Oximetry 100 95 MDM - Skin/Abscess/Foreign Bdy Lab Data Result diagrams: 01/23/21 16:00 01/23/21 16:00 Labs: Lab Results 01/23/21 01/23/21 01/23/21 Range/Units 16:00 16:00 16:00 WBC 8.2 (4.5-11.0) X10^3/uL RBC 4.03 L (4.5-5.9) X10^6/uL Hgb 13.2 L (13.5-17.5) g/dL Hct 39.2 L (41-53) % MCV 97.1 (80-100) fL MCH 32.7 (26-34) PG MCHC 33.6 (30-36) % RDW 16.6 H (11.6-14.8) % Plt Count 198 (150-400) X10^3/uL Neut % (Auto) 73.5 (50-75) % Lymph % (Auto) 18.6 L (25-40) % [place]eman % (Auto) 6.7 (3-14) % Eos % (Auto) 1.0 L (2-4) % Baso % (Auto) 0.2 (0-2) % Neut # (Auto) 6000 (6200-4279) /uL Lymph # (Auto) 1500 (5915-4832) /uL Hardeman # (Auto) 500 (0-900) /uL Eos # (Auto) 100 (0-450) /uL Baso # (Auto) 0 (0-100) /uL PT 12.1 (10.1-12.7) SECONDS INR 1.1 (0.9-1.3) APTT 29 (26.4-36.2) SECONDS Sodium 138 (137-145) mmol/L Potassium 3.8 (3.4-5.1) mmol/L Chloride 101 (98-107) mmol/L Carbon Dioxide 29 (22-32) mmol/L BUN 19 (9-20) mg/dL Creatinine 0.94 (0.66-1.25) mg/dL Estimated GFR > 60.0 (>60) mL/min BUN/Creatinine Ratio 20.2 (6-22) Glucose 115 H (80-110) mg/dL Calcium 8.6 (8.4-10.2) mg/dL Imaging Data CT scan - head: Radiologist's Impression: Shelli Norman H 85 M [address] [address] Scan ReportSigned Patient: Shelli Norman R#: [id number]: 1935cct:[id number]/Sex: 85 / MDate of Service: 01/23/21Loc: EDAccession Number: [id number] Procedure: CT Stroke Ordering Provider: Ramesh Kaufman D.O. PROCEDURE: CT STROKE INDICATIONS: stroke, left sided symptoms TECHNIQUE: Noncontrast 4.5 mm thick angled axial sections acquired from the foramen magnum to the vertex, with coronal reformats. For radiation dose reduction, the following was used: automated exposure control, adjustment of mA and/or kV according to patient size. COMPARISON: [facility], CT, CT STROKE, 11/05/2020, 15:42. [facility], CT, CT HEAD/BRAIN WO CON, 10/14/2020, 9:37. [facility], CT, CT HEAD/BRAIN WO CON, 09/06/2020, 10:23. [facility], CT, CT HEAD/BRAIN WO CON, 07/05/2020, 16:43. [facility], CT, CT ANGIO HEAD AND NECK, 05/08/2020, 16:05. [facility], CT, CT STROKE, 05/08/2020, 15:59. [facility], CT, CT HEAD/BRAIN WO CON, 05/02/2020, 10:28. [facility], CT, CT HEAD/BRAIN WO CON, 09/26/2019, 9:45. CT, HEAD WITHOUT CONTRAST, 11/10/2017, 9:04. CT, HEAD WITHOUT CONTRAST, 11/05/2017, 5:30. [facility], CT, CT ANGIO HEAD AND NECK, 11/05/2020, 15:42. FINDINGS: Image quality: Excellent. CSF spaces: Basal cisterns are patent. No extra-axial fluid collections. The ventricles are symmetric in size and shape. Brain: No intracranial bleeds or masses. There is cerebral volume loss for age, with resultant ventricular and sulcal prominence. There are periventricular and deep white matter chronic small vessel ischemic changes. There is intracranial internal carotid artery atherosclerosis. Skull and face: Calvarium and visualized facial bones appear intact, without suspicious lesions. Sinuses: Prior functional endoscopic sinus surgery. Mucosal thickening causes complete opacification of the right maxillary sinus and the bilateral sphenoid sinuses. Small air-fluid level noted in left sphenoid sinus. The mastoids are clear. IMPRESSION: 1. No acute intracranial disease process. 2. Findings telephoned to Dr. Kaufman on September 25, 2020 at 4:31 p.m.. This study fulfills neurological imaging criteria for inclusion or exclusion of acute stroke therapies based on available published neurological guidelines. Dictated by: Mindi Malik MD, PhD on 01/23/2021 at 16:30 Approved by: Mindi Malik MD, PhD on 01/23/2021 at 16:35 CTA Head/Neck: Radiologist's Impression: Chart Viewer Diagnostics DATE TYPE STATUS REF RANGE/AUTHOR Hx Today 16:03 Mindi Malik Today 16:03 Mindi Malik 11/05/20 17:46 KathleenAdolfo byrdrosy 11/05/20 17:00 11/05/20 16:00 Arvind Alanis 11/05/20 15:47 Ildefonso Chang 10/14/20 11:57 10/14/20 10:45 AnnabelleArvind gonzalez 10/14/20 09:31 MatamorasNathan pichardo 09/06/20 13:30 09/06/20 10:19 Call,Kerwin 09/06/20 10:11 Call,Kerwin 07/05/20 16:27 Kiran Gr 05/09/20 13:31 ZoraidaBrett baird 05/08/20 18:45 05/08/20 15:59 Shaheen Houston 05/08/20 15:59 Karthikeyan Lopez 05/02/20 10:26 Mae,Nathan 02/04/20 00:00 Mindi Malik 09/26/19 09:38 Richard Benson 11/27/18 00:00 GhOracio funk 11/27/18 00:00 PaliwalVidhu 03/27/18 00:00 KiviMadisyn neely 11/10/17 08:28 11/10/17 00:00 11/05/17 05:28 Shelli Norman 85, M0 1935 REG ER, [facility] [place] Neuro Symptoms/Deficit Search Chart Preferred Name NonFormulary Not Included in Conflicts pt unsure ONSET ~199506/09/11 ~1995 ~1999 ~2018 ~195711/10/11 Today 16:14 Shelli Norman 85 M [address], [place] [address]CF Scan ReportSigned Patient: Shelli Norman R#: [id number]: 7Acct:[id number]/Sex: 85 / MDate of Service: 01/23/21Loc: EDAccession Number: [id number] Procedure: CT angio head and neck Ordering Provider: Ramesh Kaufman D.O. PROCEDURE: CT ANGIO HEAD AND NECK INDICATIONS: stroke, left sided symptoms TECHNIQUE: After the administration of intravenous contrast, 1 mm thick sections acquired from the aortic arch through the [place]. Post-contrast 4.5 mm thick sections then re-acquired from the foramen magnum to the vertex. 3-dimensional xcsybap-teaxmpzjv-yhfensvgve (MIP) and/or volume rendering reformats were acquired of the central intracranial vasculature and neck separately. COMPARISON: [facility], CT, CT ANGIO HEAD AND NECK, 11/05/2020, 15:42. [facility], CT, CT STROKE, 11/05/2020, 15:42. FINDINGS: Image quality: Excellent. BRAIN: CSF spaces: Ventricles are normal in size and shape. Basal cisterns are patent. No extra-axial fluid collections. Brain: No midline shift. No intracranial bleeds or masses. There is diffuse cerebral volume loss. There are periventricular and subcortical white matter chronic microvascular ischemic changes. Wyatt-white matter interface appears intact. Skull and face: Calvarium and facial bones appear intact, without suspicious lesions. Orbits appear normal. Sinuses: Mucosal thickening noted in the right maxillary sinus and the bilateral sphenoid sinuses. Small air-fluid level noted in the left sphenoid sinus. The mastoids are clear. HEAD CT ANGIOGRAPHY: Anterior circulation: Intracranial internal carotid arteries are normal in flow. Atherosclerotic calcifications noted in the cavernous and clinoid segments of the internal carotid arteries bilaterally which causes mild stenosis of the vessels. The flow within the paired anterior cerebral arteries is normal and symmetric. The flow within the middle cerebral arteries is normal and symmetric. The anterior communicating artery is seen. No aneurysms are seen. Posterior circulation: Visualized portions of the vertebral arteries demonstrate normal caliber, and join to form a normal appearing basilar artery. Flow within the posterior cerebral arteries is normal and symmetric. No aneurysms are seen. Dural sinuses demonstrate normal postcontrast enhancement. NECK CT ANGIOGRAPHY: Carotid system: The great vessels demonstrate a conventional anatomy as they arise from the aortic arch. The origins of the common carotid arteries appear patent. The common carotid arteries demonstrate normal caliber and courses origin of the right internal carotid artery is fully patent. Atherosclerotic calcification noted in the origin of the left internal carotid artery which causes less than 50% stenosis of the vessel. Posterior circulation: The origins of the vertebral arteries both appear widely patent. The more superior extracranial portions of both vertebral arteries also demonstrate normal courses and calibers. They join to form a normal appearing basilar artery. Soft tissues: Visualized neck soft tissues demonstrate no suspicious abnormalities. Left chest wall cardiac pacer. Bones: No suspicious bony lesions. Spine degenerative disc disease and facet arthropathy. Visualized cervical spine appears normally aligned. IMPRESSION: 1. No acute intracranial disease process. 2. No large vessel occlusion, hemodynamically significant vascular stenosis, vascular dissection or aneurysm. Any quantitative measurements of stenosis were performed using NASCET criteria. Dictated by: Mindi Malik MD, PhD on 01/23/2021 at 16:36 Approved by: Mindi Malik MD, PhD on 01/23/2021 at 16:43 ECG Data Interpretation: EKG is normal sinus rhythm rate [66 ] and free of any signs of ischemia or ectopy. No ST segmental elevation or depression. No T wave inversions Discharge Plan Departure Patient Disposition: Admitted as Observation Clinical Impression: Transient cerebral ischemia Prescriptions: No Action VITAMIN D (Vitamin D3) 1,000 units capsule 1,000 unit PO QDAY Qty: 0 RF: 0 escitalopram oxalate 10 mg tablet 10 mg PO DAILY Qty: 90 RF: 3 colesevelam [WelChol] 625 mg tablet 625 mg PO BID Qty: 180 RF: 3 (DME) Nnt-ct-Gzhen Device See Rx Instructions .Route .MEDSUPPLY Qty: 1 RF: 0 rosuvastatin 10 mg tablet 10 mg PO BEDTIME Qty: 90 RF: 3 budesonide 3 mg capsule,delayed,extend.release 9 mg PO TID Qty: 270 RF: 3 (DME) hydraulic 'Luli' Lift See Rx Instructions .Route .MEDSUPPLY Qty: 1 RF: 0 levothyroxine 125 mcg tablet 125 mcg PO DAILY RF: 0 mecobalamin (vitamin B12) 1,000 mcg tablet,disintegrating 1,000 mcg sublingual DAILY RF: 0 metoprolol succinate 25 mg tablet extended release 24 hr 25 mg PO DAILY RF: 0 Cholestyramine 4 g PO DAILY RF: 0 furosemide 20 mg tablet 20 mg PO QAM Qty: 30 RF: 8 omega-3 fatty acids [Fish Oil Concentrate] 1,000 mg capsule 1,000 mg PO BID RF: 0 PreserVision AREDS 14320-226-200 phcv-lw-paes capsule 1 cap PO BID RF: 0 ascorbic acid (vitamin C) [Vitamin C] 500 mg tablet 500 mg PO DAILY RF: 0 Eliquis 5 mg Tablet 2.5 mg PO BID Qty: 60 RF: 13 potassium chloride [Klor-Con M20] 20 mEq tablet,ER particles/crystals 20 meq PO BID RF: 0 Zyrtec 10 mg capsule 10 mg PO DAILY PRNRF: 0 fluticasone propionate 50 mcg/actuation spray,suspension 1 spray intranasal DAILY RF: 0 Referrals: Azam Fuller MD [Primary Care Provider] -
[2021-01-23 16:13] LABS: Add Manual Diff / Slide Review NO; Basophils Absolute Auto 0 /uL (0-100); Basophils Percent Auto 0.2 % (0-2); Eosinophils Absolute Auto 100 /uL (0-450); Hematocrit 39.2 % (41-53); Hemoglobin 13.2 g/dL (13.5-17.5); Lymphocytes Absolute Auto 1500 /uL (1100-4500); Lymphocytes Percent Auto 18.6 % (25-40); Mean Corpuscular HGB Conc 33.6 % (30-36); Mean Corpuscular Hemoglobin 32.7 PG (26-34); Mean Corpuscular Volume 97.1 fL (80-100); Monocytes Absolute Auto 500 /uL (0-900); Monocytes Percent Auto 6.7 % (3-14); Neutrophils Absolute Auto 6000 /uL (1500-7000); Neutrophils Percent Auto 73.5 % (50-75); Platelet Count 198 X10^3/uL (150-400); Red Blood Cell Count 4.03 X10^6/uL (4.5-5.9); Red Cell Distribution Width 16.6 % (11.6-14.8); White Blood Cell Count 8.2 X10^3/uL (4.5-11.0)
[2021-01-23 16:21] LABS: INR 1.1 (0.9-1.3); Prothrombin Time 12.1 SECONDS (10.1-12.7)
[2021-01-23 16:23] LABS: PTT Partial Thromboplastin Tim 29 SECONDS (26.4-36.2)
[2021-01-23 16:28] LABS: BUN Creatinine Ratio 20.2 (6-22); Blood Urea Nitrogen 19 mg/dL (9-20); Calcium 8.6 mg/dL (8.4-10.2); Carbon Dioxide 29 mmol/L (22-32); Chloride 101 mmol/L (98-107); Estimated Glomerular Filt Rate > 60.0 mL/min (>60); Glucose 115 mg/dL (80-110); HEMOLYSIS < 15 (0-50); Potassium 3.8 mmol/L (3.4-5.1); Sodium 138 mmol/L (137-145)
--- NOTE | 2021-01-23 16:31 | PC.NURSE ---
Pt told me it was September when asked what month we were currenlty in. Pt had slurred speech,confusion left arm weakness at home per medics. Pt was LKW at 1200 when sitting with family. Family noticed sx at 1400. Pt does not appear to have slurred speech at triage and does not appear to have any left arm weakness at triage.
[2021-01-23] MEDS: SODIUM CHLORIDE 0.9% 1,000 ML 150 ML IV (17:58)
[2021-01-23 18:56] LABS: COVID19 - ADMIT (NP swab/PCR) Negative (Negative)
--- NOTE | 2021-01-23 19:00 | PM.HP.1 ---
History of Present Illness History of Present Illness Date Patient Seen: 01/23/21 Time Patient Seen: 19:07 Chief complaint: Post TIA Narrative: 85-year-old male with a history of cerebrovascular accident hypertension hyperlipidemia he lives at home with his and caregivers. Patient has been admitted to the hospital 3 times already this year for concerns about stroke-like symptoms. I reviewed those hospital evaluations through the record today. Patient's history is obtained from patient and family. And also review of emergency department physician's note as well as a discussion with him. Patient symptoms began between 12 into today. There was some speech differences. Patient had some confusion. There was concern about right upper extremity weakness. And potentially some facial drooping. Patient's and family became concerned and was evaluated in the emergency department this afternoon. On arrival to the emergency department patient apparently was back to baseline. Code stroke was initiated patient took into the emergency room for CT scan and CT angiogram. Those reviewed and showed no acute bleeds. No acute intravascular findings or problems. In addition patient had laboratory test which are reviewed. On previous hospitalizations patient has had an echocardiogram which shows normal ejection fraction without significant valvular heart disease patient has had a carotid artery ultrasound. NIH stroke scale was performed. Patient had a hard time with the correct month. As far as can be evaluated patient appears to be heading back towards his normal baseline. Patient has a guess a history of atrial fibrillation. His current EKG shows sinus arrhythmia heart rate 66 with first-degree heart block. No atrial fibrillation. Patient is currently on Eliquis for anticoagulation. His primary physician has been considering starting him on anti-platelet therapy but is concerned because of his high risk nature and frequent falls. Patient after discussion with the emergency department of felt like it was best to have him evaluated further overnight. Patient History Medical History Anosmia Benign prostate hyperplasia Cataracts, bilateral (~2018) Depression (~1959) Erectile dysfunction Family history of prostate cancer Fecal incontinence (~1957) H/O adenomatous polyp of colon Hearing loss (~1999) Hypothyroidism (~1995) Lymphocytic colitis Mild cognitive impairment Multiple falls Neuropathy Pacemaker (11/10/11) Paroxysmal atrial fibrillation Peripheral edema Prostate cancer Sick sinus syndrome Sleep apnea (~1995) Urge incontinence Urinary incontinence, mixed Surgical History Anesthesia H/O cataract removal with insertion of prosthetic lens H/O colectomy History of appendectomy History of cholecystectomy History of tonsillectomy S/P cataract extraction (~2018) S/P cholecystectomy (~1996) S/P nasal polypectomy (~1989) S/P partial colectomy (~2003) S/P placement of cardiac pacemaker (~10/2011) S/P tonsillectomy S/P TURP (~2012) S/P vasectomy (~1972) Family & Social History Family History Father History of heart disease Mother History of heart disease Brother Diabetes mellitus History of heart disease Family/Other Stroke Social History: household members children Safety & Behavioral: Feels Safe in Current Yes Environment Been Physically Hurt or No Threatened By a Person Tobacco & Substance use: Smoking Status Never smoker alcohol intake frequency holiday/special occasion Substance Use Type does not use Meds Home Medications and Allergies Home Medications Medication Instructions Recorded Confirmed Type VITAMIN D (Vitamin D3) 1,000 unit PO QDAY #0 04/12/13 01/21/21 History ascorbic acid (vitamin C) 500 mg 500 mg PO DAILY 04/21/20 01/21/21 History tablet vitamins A,C,J-lxfj-ezvwap 14,320 1 cap PO BID 04/21/20 01/21/21 History unit-226 mg-200 unit capsule apixaban [Eliquis] 2.5 mg PO BID #60 tab 11/06/20 01/21/21 Rx colesevelam 625 mg tablet 625 mg PO BID #180 tab 12/08/20 01/21/21 Rx escitalopram oxalate 10 mg tablet 10 mg PO DAILY #90 tab 12/08/20 01/21/21 Rx Sdo-rl-Odflo Device #1 ea 12/31/20 01/21/21 Rx rosuvastatin 10 mg tablet 10 mg PO BEDTIME #90 tab 01/02/21 01/21/21 Rx budesonide 3 mg 9 mg PO TID #270 each 01/05/21 01/21/21 Rx capsule,delayed,extended release Cholestyramine 4 g PO DAILY 01/16/21 01/21/21 History furosemide 20 mg tablet 20 mg PO QAM #30 tab 01/16/21 01/21/21 Rx levothyroxine 125 mcg tablet 125 mcg PO DAILY 01/16/21 01/21/21 History mecobalamin (vitamin B12) 1,000 1,000 mcg SUBLINGUAL DAILY 01/16/21 01/21/21 History mcg disintegrating tablet,sublingual metoprolol succinate 25 mg 25 mg PO DAILY 01/16/21 01/21/21 History tablet,extended release 24 hr cetirizine 10 mg capsule 10 mg PO DAILY PRN 01/21/21 01/21/21 History fluticasone propionate 50 1 spray INTRANASAL DAILY 01/21/21 01/21/21 History mcg/actuation nasal spray,suspension hydraulic 'Luli' Lift #1 ea 01/21/21 01/21/21 Rx omega-3 fatty acids 1,000 mg 1,000 mg PO BID cap 01/21/21 01/21/21 History capsule potassium chloride 20 mEq 20 meq PO BID tab 01/21/21 History tablet,extended release(part/cryst) Allergies Allergy/AdvReac Type Severity Reaction Status Date / Time metoclopramide Allergy Unknown pt unsure Verified 01/23/21 16:06 [METOCLOPRAMIDE] Sulfa (Sulfonamide Allergy Unknown Verified 01/23/21 16:06 Antibiotics) [SULFA (SULFONAMIDE ANTIBIOTICS)] Exam Vital Signs (past 8 hours): - 01/23/21 16:06 01/23/21 16:14 01/23/21 17:48 Temperature 98.6 F Pulse Rate 86 78 61 Respiratory Rate 17 24 Blood Pressure 122/86 134/99 H Pulse Oximetry 100 95 95 01/23/21 17:49 01/23/21 18:00 01/23/21 18:01 Temperature Pulse Rate 61 60 67 Respiratory Rate Blood Pressure 128/57 L 120/61 Pulse Oximetry 92 95 92 Oxygen Delivery Method Room Air Narrative Exam Narrative: Gen.: Patient is alert speech is clear fairly reliable historian HEENT: NCAT PERRLA tympanic membranes are clear nares are patent oral mucosa is moist no tonsillar hypertrophy neck is supple without lymphadenopathy no thyroid enlargement. Cardio: S1-S2 regular rate and rhythm no murmurs appreciated. Respiratory: Lungs are clear to auscultation no wheezes or crackles normal respiratory effort. Abdomen: Soft nontender no rebound or guarding no liver spleen enlargement no appreciable hernias Extremities: Full range of motion no appreciable weakness no cyanosis or edema. Neurologic: Grossly intact. Objective Imaging Echo: Radiologist's impression: Echocardiogram Report + + :Name: SADIA MATHUR Study Date: 05/09/2020 Height: 72 in : :[facility] Weight: 205 lb : : Gender: Male BSA: 2.2 m2 : :: 1935 Age: 84 yrs BP: 131/77 mmHg: :Reason For Study: TIA : :Ordering Physician: Morenita : :Hospitalist Performed By: Maty Collado : :Referring: AIDEN CASILLAS R : + + Interpretation Summary 1) Normal left ventricular size, thickness, wall motion, and systolic function (EF 60-65%). 2) The right ventricle is normal in size and function. There is a pacemaker lead in the right ventricle. 3) There is mild aortic regurgitation. 4) Compared to the Echo done 11/27/2018, no significant change. CT scan - head: Radiologist's impression: [address] [id number] Scan ReportSigned Patient: Sadia Mathur R#: [id number]: [id number]:[id number]/Sex: 85 / MDate of Service: 01/23/21Loc: EDAccession Number: [id number] Procedure: CT angio head and neck Ordering Provider: Ramesh Kaufman D.O. PROCEDURE: CT ANGIO HEAD AND NECK INDICATIONS: stroke, left sided symptoms TECHNIQUE: After the administration of intravenous contrast, 1 mm thick sections acquired from the aortic arch through the [place] of [place]. Post-contrast 4.5 mm thick sections then re-acquired from the foramen magnum to the vertex. 3-dimensional zrnllvs-zgjxghmyg-gijyjyyboh (MIP) and/or volume rendering reformats were acquired of the central intracranial vasculature and neck separately. COMPARISON: [facility], CT, CT ANGIO HEAD AND NECK, 11/05/2020, 15:42. [facility], CT, CT STROKE, 11/05/2020, 15:42. FINDINGS: Image quality: Excellent. BRAIN: CSF spaces: Ventricles are normal in size and shape. Basal cisterns are patent. No extra-axial fluid collections. Brain: No midline shift. No intracranial bleeds or masses. There is diffuse cerebral volume loss. There are periventricular and subcortical white matter chronic microvascular ischemic changes. Wyatt-white matter interface appears intact. Skull and face: Calvarium and facial bones appear intact, without suspicious lesions. Orbits appear normal. Sinuses: Mucosal thickening noted in the right maxillary sinus and the bilateral sphenoid sinuses. Small air-fluid level noted in the left sphenoid sinus. The mastoids are clear. HEAD CT ANGIOGRAPHY: Anterior circulation: Intracranial internal carotid arteries are normal in flow. Atherosclerotic calcifications noted in the cavernous and clinoid segments of the internal carotid arteries bilaterally which causes mild stenosis of the vessels. The flow within the paired anterior cerebral arteries is normal and symmetric. The flow within the middle cerebral arteries is normal and symmetric. The anterior communicating artery is seen. No aneurysms are seen. Posterior circulation: Visualized portions of the vertebral arteries demonstrate normal caliber, and join to form a normal appearing basilar artery. Flow within the posterior cerebral arteries is normal and symmetric. No aneurysms are seen. Dural sinuses demonstrate normal postcontrast enhancement. NECK CT ANGIOGRAPHY: Carotid system: The great vessels demonstrate a conventional anatomy as they arise from the aortic arch. The origins of the common carotid arteries appear patent. The common carotid arteries demonstrate normal caliber and courses origin of the right internal carotid artery is fully patent. Atherosclerotic calcification noted in the origin of the left internal carotid artery which causes less than 50% stenosis of the vessel. Posterior circulation: The origins of the vertebral arteries both appear widely patent. The more superior extracranial portions of both vertebral arteries also demonstrate normal courses and calibers. They join to form a normal appearing basilar artery. Soft tissues: Visualized neck soft tissues demonstrate no suspicious abnormalities. Left chest wall cardiac pacer. Bones: No suspicious bony lesions. Spine degenerative disc disease and facet arthropathy. Visualized cervical spine appears normally aligned. IMPRESSION: 1. No acute intracranial disease process. 2. No large vessel occlusion, hemodynamically significant vascular stenosis, vascular dissection or aneurysm. Any quantitative measurements of stenosis were performed using NASCET criteria. Dictated by: Mindi Malik MD, PhD on 01/23/2021 at 16:36 Approved by: Mindi Malik MD, PhD on 01/23/2021 at 16:[address] [id number] Scan ReportSigned Patient: Sadia Mathur HMR#: [id number]: [id number]:[id number]/Sex: 85 / MDate of Service: 01/23/21Loc: EDAccession Number: [id number] Procedure: CT Stroke Ordering Provider: Ramesh Kaufman D.O. PROCEDURE: CT STROKE INDICATIONS: stroke, left sided symptoms TECHNIQUE: Noncontrast 4.5 mm thick angled axial sections acquired from the foramen magnum to the vertex, with coronal reformats. For radiation dose reduction, the following was used: automated exposure control, adjustment of mA and/or kV according to patient size. COMPARISON: [facility], CT, CT STROKE, 11/05/2020, 15:42. [facility], CT, CT HEAD/BRAIN WO CON, 10/14/2020, 9:37. [facility], CT, CT HEAD/BRAIN WO CON, 09/06/2020, 10:23. [facility], CT, CT HEAD/BRAIN WO CON, 07/05/2020, 16:43. [facility], CT, CT ANGIO HEAD AND NECK, 05/08/2020, 16:05. [facility], CT, CT STROKE, 05/08/2020, 15:59. [facility], CT, CT HEAD/BRAIN WO CON, 05/02/2020, 10:28. [facility], CT, CT HEAD/BRAIN WO CON, 09/26/2019, 9:45. CT, HEAD WITHOUT CONTRAST, 11/10/2017, 9:04. CT, HEAD WITHOUT CONTRAST, 11/05/2017, 5:30. [facility], CT, CT ANGIO HEAD AND NECK, 11/05/2020, 15:42. FINDINGS: Image quality: Excellent. CSF spaces: Basal cisterns are patent. No extra-axial fluid collections. The ventricles are symmetric in size and shape. Brain: No intracranial bleeds or masses. There is cerebral volume loss for age, with resultant ventricular and sulcal prominence. There are periventricular and deep white matter chronic small vessel ischemic changes. There is intracranial internal carotid artery atherosclerosis. Skull and face: Calvarium and visualized facial bones appear intact, without suspicious lesions. Sinuses: Prior functional endoscopic sinus surgery. Mucosal thickening causes complete opacification of the right maxillary sinus and the bilateral sphenoid sinuses. Small air-fluid level noted in left sphenoid sinus. The mastoids are clear. IMPRESSION: 1. No acute intracranial disease process. 2. Findings telephoned to Dr. Kaufman on September 25, 2020 at 4:31 p.m.. This study fulfills neurological imaging criteria for inclusion or exclusion of acute stroke therapies based on available published neurological guidelines. Dictated by: Mindi Malik MD, PhD on 01/23/2021 at 16:30 Approved by: Mindi Malik MD, PhD on 01/23/2021 at 16:35 US neck: Radiologist's impression: ocedure: US carotid doppler BI Ordering Provider: Hannah Barahona MD PROCEDURE: US CAROTID DOPPLER BI INDICATIONS: CVA TECHNIQUE: Color and pulse Doppler interrogation was performed of both carotid systems, with image documentation and velocity measurements. COMPARISON: [facility], CT, CT ANGIO HEAD AND NECK, 11/05/2020, 15:42. [facility], US, CAROTID ARTERY DOPPLER BILAT, 12/13/2011, 10:56. FINDINGS: Stenosis calculations are based on SRU (Society of Radiologists in Ultrasound) criteria. Right side: Brachial blood pressure: 125/79 mm Hg. Common carotid artery peak systolic velocity: 85 cm/sec. Internal carotid artery peak systolic velocity: 49 cm/sec. Internal carotid artery end diastolic velocity: 15 cm/sec. External carotid artery peak systolic velocity: 69 cm/sec. ICA/CCA peak systolic ratio: 0.59 . Wyatt scale imaging description: Mild calcific plaque at the bifurcation Percent internal carotid artery stenosis: Less than 50% . Vertebral artery: Flow direction is antegrade. Left side: Brachial blood pressure: 125/79 mm Hg. Common carotid artery peak systolic velocity: 88 cm/sec. Internal carotid artery peak systolic velocity: 55 cm/sec. Internal carotid artery end diastolic velocity: 19 cm/sec. External carotid artery peak systolic velocity: 74 cm/sec. ICA/CCA peak systolic ratio: 0.62 . Wyatt scale imaging description: Mild calcific plaque at the bifurcation Percent internal carotid artery stenosis: Less than 50% . Vertebral artery: Flow direction is antegrade. IMPRESSION: 1. Less than 50% bilateral internal carotid artery stenosis. No evidence of new onset stenosis compared to CT angiography examination performed on 11/05/2020 at 15:42 hours. 2. Antegrade vertebral artery flow. No evidence of new onset stenosis compared to CT angiography examination performed on 11/05/2020 at 15:42 hours. Dictated by: Juno Kathleen M.D. on 11/05/2020 at 18:46 Approved by: Juno Kathleen M.D. on 11/05/2020 at 18:49 Labs Result Diagrams: 01/23/21 16:00 01/23/21 20:56 Labs: Laboratory Results - last 24 hr 01/23/21 01/23/21 01/23/21 16:00 16:00 16:00 WBC 8.2 RBC 4.03 L Hgb 13.2 L Hct 39.2 L MCV 97.1 MCH 32.7 MCHC 33.6 RDW 16.6 H Plt Count 198 Neut % (Auto) 73.5 Lymph % (Auto) 18.6 L [place] % (Auto) 6.7 Eos % (Auto) 1.0 L Baso % (Auto) 0.2 Neut # (Auto) 6000 Lymph # (Auto) 1500 [place] # (Auto) 500 Eos # (Auto) 100 Baso # (Auto) 0 PT 12.1 INR 1.1 APTT 29 Sodium 138 Potassium 3.8 Chloride 101 Carbon Dioxide 29 BUN 19 Creatinine 0.94 Estimated GFR > 60.0 BUN/Creatinine Ratio 20.2 Glucose 115 H Calcium 8.6 SARS-CoV-2 (PCR) 01/23/21 17:50 WBC RBC Hgb Hct MCV MCH MCHC RDW Plt Count Neut % (Auto) Lymph % (Auto) [place] % (Auto) Eos % (Auto) Baso % (Auto) Neut # (Auto) Lymph # (Auto) [place] # (Auto) Eos # (Auto) Baso # (Auto) PT INR APTT Sodium Potassium Chloride Carbon Dioxide BUN Creatinine Estimated GFR BUN/Creatinine Ratio Glucose Calcium SARS-CoV-2 (PCR) Negative Assessment & Plan Assessment & Plan narrative: TIA versus CVA. Patient will be admitted to the hospital for further evaluation and workup current NIH stroke scale is 1. Patient will be admitted with telemetry monitoring nursing vitals per protocol. He will have speech therapy occupational therapy and physical therapy consultation. He is speaking clearly and swallowing fine he will be provided a general diet. Will have light hydration. He will be continued on his Eliquis and we will hold off on anti-platelet therapy as per recommendations of his primary care physician. Patient will be placed back on a statin. Patient will have an NIH stroke scale if symptoms worsen or once daily. Patient will have discharge planning of. Patient is currently on appropriate medication and treatment for strokes including blood pressure control anti cholesterol medication. He is fully anticoagulated but not on an anti-platelet but I guess high risk. Patient has had 3 previous admissions already this year for similar concerning symptoms. I am going to hold off on scanning further per doing more ultrasounds and echocardiogram he is all had these recently done. Will monitor his neurological status and keep him on telemetry monitoring. Intermittent atrial fibrillation patient is in normal sinus rhythm at this time telemetry monitoring recent fairly normal echocardiogram without significant valvular heart disease or systolic dysfunction. Patient's heart rate is good and he is on a beta-tolu. Essential hypertension. Blood pressure is well controlled place him on his home antihypertensive medications Hyperlipidemia. Patient is on a statin and also Welchol. His last cholesterol done 6 months ago shows an LDL of 50. Diarrhea. Chronic with lymphocytic colitis. Will continue his home budesonide dosing Hypothyroidism. Patient on replacement continue his home dosing Depression. Patient on antidepressants will continue this. Disposition plan. Patient will be admitted to the hospital for observation. Work with physical therapy occupational therapy monitor for further decline or worsening of stroke symptoms.. Scores NIHSS Level of Conciousness: Alert, keenly responsive Ask month/age: Answers one question correctly, intubated follow commands Open/close eyes, close hand: Performs both tasks correctly Best gaze horizontal: Normal Visual bueno: No visual loss Facial palsy: Normal symetrical movement Left arm drift: No drift for full 10 sec Right arm drift: No drift for full 10 sec Left leg drift: No drift for full 5 sec Right leg drift: No drift for full 5 sec Limb ataxia: Absent Sensory on face/arms/legs: Normal, no sensory loss Best language: No aphasia, normal Dysarthria: Normal Extinction or inattention: No abnormality Total NIH Stroke scale score: 1
[2021-01-23 21:11] LABS: Blood Urea Nitrogen 18 mg/dL (9-20); Calcium 8.2 mg/dL (8.4-10.2); Carbon Dioxide 30 mmol/L (22-32); Chloride 101 mmol/L (98-107); Estimated Glomerular Filt Rate > 60.0 mL/min (>60); Glucose 116 mg/dL (80-110); HEMOLYSIS < 15 (0-50); Potassium 3.5 mmol/L (3.4-5.1); Sodium 136 mmol/L (137-145)
[2021-01-23] MEDS: APIXABAN 5 MG TABLET 2.5 MG PO (21:29)
[2021-01-23] MEDS: NYSTATIN POWDER 15GM 1 APPLIC TOP (21:30)
[2021-01-24] VITALS (9 sets, daily range): BP systolic 107–131; BP diastolic 51–77; PULSE 61–103; RESP 14–20; TEMP 35.8–36.7; O2SAT 93–96
--- NOTE | 2021-01-24 06:53 | P.DS_ITS ---
History of Present Illness History of Present Illness Chief complaint: Post TIA Narrative: 85-year-old male with a history of cerebrovascular accident hypertension hyperlipidemia he lives at home with his and caregivers. Patient has been admitted to the hospital 3 times already this year for concerns about stroke-like symptoms. I reviewed those hospital evaluations through the record today. Patient's history is obtained from patient and family. And also review of emergency department physician's note as well as a discussion with him. Patient symptoms began between 12 into today. There was some speech differences. Patient had some confusion. There was concern about right upper extremity weakness. And potentially some facial drooping. Patient's and family became concerned and was evaluated in the emergency department this afternoon. On arrival to the emergency department patient apparently was back to baseline. Code stroke was initiated patient took into the emergency room for CT scan and CT angiogram. Those reviewed and showed no acute bleeds. No acute intravascular findings or problems. In addition patient had laboratory test which are reviewed. On previous hospitalizations patient has had an echocardiogram which shows normal ejection fraction without significant valvular heart disease patient has had a carotid artery ultrasound. NIH stroke scale was performed. Patient had a hard time with the correct month. As far as can be evaluated patient appears to be heading back towards his normal baseline. Patient has a guess a history of atrial fibrillation. His current EKG shows sinus arrhythmia heart rate 66 with first-degree heart block. No atrial fibrillation. Patient is currently on Eliquis for anticoagulation. His primary physician has been considering st arting him on anti-platelet therapy but is concerned because of his high risk nature and frequent falls. Patient after discussion with the emergency department of felt like it was best to have him evaluated further overnight. Discharge Providers Provider Date of admission: 01/23/21 17:56 Discharge Date: 01/24/21 Primary care physician: Azam Fuller MD Consults: 01/23/21 19:30 Consult to Discharge Planning Routine Comment: Consult to Discharge Planning Routine Comment: Consult to Occupational Therapy Evaluate & Treat Comment: Physician Instructions: Evaluate and treat Consult to Physical Therapy Evaluate & Treat Comment: Physician Instructions: Evaluate and Treat Discharge provider: Vince Chan MD Summary Hospital Course Discharge Diagnosis: Transient neurological symptoms TIA versus CVA. Patient unable to do MRI due to pacemaker. Intermittent atrial fibrillation in normal sinus rhythm throughout hospital stay on chronic anticoagulation Hypertension Hyperlipidemia Hypothyroidism Chronic diarrhea Hospital Course: Please see admission note for admission history of present illness. Patient's evaluation in the hospital showed that by the time he arrived to the floor his neurological symptoms had resolved. Had a little diff iculty time with month. Patient during hospital stay had no significant irregularities of heartbeat. Had a little confusion at night thought he was in [place]. Patient ambulating freely. Without neurological deficits. Did fine with bedside swallow study was eating what well. And patient states she has no current complaints. Discharge plan. Patient will be discharged home with his daughter and caregivers. He is on full anticoagulation. Have a discussion with his primary care physician about starting anti-platelet I guess there was concerns that he was high risk for this. Although he continues to be admitted with these transient neurological symptoms. Exam Vital Signs (past 8 hours): - 01/24/21 00:00 01/24/21 00:58 Temperature 97.9 F Pulse Rate 61 Respiratory Rate 20 Blood Pressure 115/66 Pulse Oximetry 93 93 Oxygen Delivery Method Room Air Oxygen Flow Rate 0 Objective Labs Result Diagrams: 01/23/21 16:00 01/23/21 20:56 Labs: Laboratory Results - last 24 hr 01/23/21 01/23/21 01/23/21 16:00 16:00 16:00 WBC 8.2 RBC 4.03 L Hgb 13.2 L Hct 39.2 L MCV 97.1 MCH 32.7 MCHC 33.6 RDW 16.6 H Plt Count 198 Neut % (Auto) 73.5 Lymph % (Auto) 18.6 L [place] % (Auto) 6.7 Eos % (Auto) 1.0 L Baso % (Auto) 0.2 Neut # (Auto) 6000 Lymph # (Auto) 1500 [place] # (Auto) 500 Eos # (Auto) 100 Baso # (Auto) 0 PT 12.1 INR 1.1 APTT 29 Sodium 138 Potassium 3.8 Chloride 101 Carbon Dioxide 29 BUN 19 Creatinine 0.94 Estimated GFR > 60.0 BUN/Creatinine Ratio 20.2 Glucose 115 H Calcium 8.6 SARS-CoV-2 (PCR) 01/23/21 01/23/21 17:50 20:56 WBC RBC Hgb Hct MCV MCH MCHC RDW Plt Count Neut % (Auto) Lymph % (Auto) [place] % (Auto) Eos % (Auto) Baso % (Auto) Neut # (Auto) Lymph # (Auto) [place] # (Auto) Eos # (Auto) Baso # (Auto) PT INR APTT Sodium 136 L Potassium 3.5 Chloride 101 Carbon Dioxide 30 BUN 18 Creatinine 0.90 Estimated GFR > 60.0 BUN/Creatinine Ratio 20.0 Glucose 116 H Calcium 8.2 L SARS-CoV-2 (PCR) Negative [facility] Medical History Anosmia Benign prostate hyperplasia Cataracts, bilateral (~2018) Depression (~1959) Erectile dysfunction Family history of prostate cancer Fecal incontinence (~1957) H/O adenomatous polyp of colon Hearing loss (~1999) Hypothyroidism (~1995) Lymphocytic colitis Mild cognitive impairment Multiple falls Neuropathy Pacemaker (11/10/11) Paroxysmal atrial fibrillation Peripheral edema Prostate cancer Sick sinus syndrome Sleep apnea (~1995) Urge incontinence Urinary incontinence, mixed Surgical History Anesthesia H/O cataract removal with insertion of prosthetic lens H/O colectomy History of appendectomy History of cholecystectomy History of tonsillectomy S/P cataract extraction (~2018) S/P cholecystectomy (~1996) S/P nasal polypectomy (~1989) S/P partial colectomy (~2003) S/P placement of cardiac pacemaker (~10/2011) S/P tonsillectomy S/P TURP (~2012) S/P vasectomy (~1972) Family History Father History of heart disease Mother History of heart disease Brother Diabetes mellitus History of heart disease Family/Other Stroke Social History household members: children Smoking Status: Never smoker Discharge Plan Discharge Plan Patient Disposition: Home Discharge orders & Medications Prescriptions: Continued VITAMIN D (Vitamin D3) 1,000 units capsule 1,000 unit PO QDAY Qty: 0 RF: 0 escitalopram oxalate 10 mg tablet 10 mg PO DAILY Qty: 90 RF: 3 colesevelam [WelChol] 625 mg tablet 625 mg PO BID Qty: 180 RF: 3 (DME) [id number] Device See Rx Instructions .Route .MEDSUPPLY Qty: 1 RF: 0 rosuvastatin 10 mg tablet 10 mg PO BEDTIME Qty: 90 RF: 3 budesonide 3 mg capsule,delayed,extend.release 9 mg PO TID Qty: 270 RF: 3 (DME) hydraulic 'Luli' Lift See Rx Instructions .Route .MEDSUPPLY Qty: 1 RF: 0 levothyroxine 125 mcg tablet 125 mcg PO DAILY RF: 0 mecobalamin (vitamin B12) 1,000 mcg tablet,disintegrating 1,000 mcg sublingual DAILY RF: 0 metoprolol succinate 25 mg tablet extended release 24 hr 25 mg PO DAILY RF: 0 Cholestyramine 4 g PO DAILY RF: 0 furosemide 20 mg tablet 20 mg PO QAM Qty: 30 RF: 8 omega-3 fatty acids [Fish Oil Concentrate] 1,000 mg capsule 1,000 mg PO BID RF: 0 PreserVision AREDS [id number] capsule 1 cap PO BID RF: 0 ascorbic acid (vitamin C) [Vitamin C] 500 mg tablet 500 mg PO DAILY RF: 0 Eliquis 5 mg Tablet 2.5 mg PO BID Qty: 60 RF: 13 potassium chloride [Klor-Con M20] 20 mEq tablet,ER particles/crystals 20 meq PO BID RF: 0 Zyrtec 10 mg capsule 10 mg PO DAILY PRNRF: 0 fluticasone propionate 50 mcg/actuation spray,suspension 1 spray intranasal DAILY RF: 0 Follow up/Referrals: Azam Fuller MD [Primary Care Provider] - Discharge Health Status Health Concerns: Patient is to follow up with Dr. Fuller in 7-10 days. Consider anti-platelet therapy although he is currently fully anticoagulated with Eliquis concerns about fall. CT head and angiogram shows no new intracranial deficits. No signs of atrial fibrillation. Visit Report/Discharge Packet Visit Report Forms: Patient Portal/API, Stroke Signs & Symptoms Discharge Data Primary Care Provider: Azam Fuller Attending Provider: Vince Chan Admit Date/Time: 01/23/21 17:56 Quality VTE Deep Vein Thrombosis/Pulmonary Embolism Present on Admission: No
--- NOTE | 2021-01-24 08:47 | OT.IP.EVAL ---
Past Medical History (Last Reviewed 01/21/21 @ 13:26 by Brian Mora MD) Anosmia Benign prostate hyperplasia Cataracts, bilateral (~2018) Depression (~1959) Erectile dysfunction Family history of prostate cancer Fecal incontinence (~1957) H/O adenomatous polyp of colon Hearing loss (~1999) Hypothyroidism (~1995) Lymphocytic colitis Mild cognitive impairment Multiple falls Neuropathy Pacemaker (11/10/11) Paroxysmal atrial fibrillation Peripheral edema Prostate cancer Sick sinus syndrome Sleep apnea (~1995) Urge incontinence Urinary incontinence, mixed Surgical History (Last Reviewed 01/21/21 @ 13:26 by Brian Mora MD) Anesthesia H/O cataract removal with insertion of prosthetic lens H/O colectomy History of appendectomy History of cholecystectomy History of tonsillectomy S/P cataract extraction (~2018) S/P cholecystectomy (~1996) S/P nasal polypectomy (~1989) S/P partial colectomy (~2003) S/P placement of cardiac pacemaker (~10/2011) S/P tonsillectomy S/P TURP (~2012) S/P vasectomy (~1972) Occupational Therapy Inpatient Evaluation/Re-Eval M1 PT/OT-IP Prior Functional Status Start: 01/24/21 10:24 Freq: NEEDED Status: Active Protocol: Document 01/24/21 10:24 CGR (Rec: 01/24/21 10:52 CGR [id number]) Medical Review Prior Functional Status Medical History Reviewed Yes Communication Pt is an effective verbal communicator Mobility and Gait Pt has needed more assist recently for all transfers. Pt was using the w/c for most of his mobility. Pt uses a 4ww and assist for stand pivot transfer. Activities of Daily Living and IADL's Pt needed assist for LB dressing, bathing, and set up of simple ADLs. Prior Functional Level (Other details) PT's family has recently moved to 24 hour caregivers and pt has needed increased physical assist since he stopped therapy in late 2019. Social History Household Members children Living Arrangements House Number of Floors (Floors) Two Floors Number of Stairs To Enter/Railing? 1 step from garage Home Equipment Front Wheel Walker,Four Wheel Walker,Manual Wheelchair, Bedside Commode,Shower Seat with Backrest,Lift Recliner, Grab Bars Near Toilet,Grab Bars In Shower Employment Status Retired Additional Social History Comment Pt has a flat bed with transfer pole at bedside and use of urinal for nights. M2 OT-IP Current Condition Start: 01/24/21 10:24 Freq: Status: Active Protocol: Document 01/24/21 10:24 CGR (Rec: 01/24/21 10:52 CGR [id number]) Occupational Therapy Current Condition Current Condition Evaluation Date 01/24/21 Treatment Diagnosis TIA with L sided weakness, confusion, and decreased speech. Diagnosis Onset Date 01/23/21 M3 OT- IP Subjective and Pain Start: 01/24/21 10:24 Freq: Status: Active Protocol: Document 01/24/21 10:24 CGR (Rec: 01/24/21 10:52 CGR [id number]) OT- Subjective Occupational Therapy Visit Type Type Initial Evaluation Visit Start Time 08:09 Visit Stop Time 08:47 Total Visit Minutes 38 Occupational Therapy Visit Comments Patient Comments I can't remember why I stopped having therapy come to the house. OT Pain Assessment Pain When Pain Assessed During Mobility Pain Present Pain Present Denied Pain M4 OT- IP ADL's Start: 01/24/21 10:24 Freq: Status: Active Protocol: Document 01/24/21 10:24 CGR (Rec: 01/24/21 10:52 CGR [id number]) OT [id number] General Evaluation Self-Feeding Ability Independent Comments OT Self-Feeding Comments breakfast seated in chair. OT ADL-Grooming Comments OT Grooming Comments Pt declined to perform as he wanted to eat breakfast OT ADL-Oral Care Comments Oral Care Comments Pt declined to perform as he wanted to eat breakfast OT ADL-Dressing General Eval Lower Body Dressing Ability Total Assistance Areas Needing Assistance Socks OT ADL-Toileting Comments OT Toileting Comments not performed OT ADL-Bathing Comments OT Bathing Comments not performed M5 OT- IP IADL's Start: 01/24/21 10:24 Freq: Status: Active Protocol: Document 01/24/21 10:24 CGR (Rec: 01/24/21 10:52 CGR [id number]) OT-Instrumental Activities of Daily Living Deficits IADL Deficits Identified Deficits Home Safety Awareness Awareness of Need for Assistance at Home Good Awareness Ability to Problem Solve Emergency Unable to Problem Solve Situations Medication Management Medication Management Caregiver Administers Money Management Money Management Caregiver Provides Assistance Meal Preparation Meal Preparation Caregiver Provides Assist Cloth Printing Back Tender Cloth Printing Back Tender Caregiver Provides Assist Driving Driving Comments Pt no longer drives M6 OT- IP Functional Cognition Start: 01/24/21 10:24 Freq: Status: Active Protocol: Document 01/24/21 10:24 CGR (Rec: 01/24/21 10:52 CGR [id number]) Cognitive Factors Limiting Selfcare Function Cognitive Ability Level of Alertness Alert Patient Orientation Name,Place,Situation Attention Span Ability Capable of Focused Attention, Capable of Sustained Attention Ability to Follow Commands Able to Follow One Step Commands with Increased Time, Able to Follow One Step Commands with Repetition Memory Description Immediate Intact,Short Term Impaired Cognitive Comments Cognitive Assessment Comments Pt states memory trouble. Would benefit from formal cog assessment OT- Vision and Hearing OT- Hearing Assessment OT- Hearing Assessment WFL OT- Vision Assessment Visual Acuity Glasses All The Time Visual Attentiveness WFL Occular Pursuits WFL Vision Assessment Comments Pt wears bifocals M7 OT- IP Mobility and Balance Start: 01/24/21 10:24 Freq: Status: Active Protocol: Document 01/24/21 10:24 CGR (Rec: 01/24/21 10:52 CGR [id number]) OT- Bed Mobility Assessment Rolling Type of Rolling Roll to Right Level of Assistance Standby Assistance,Bedrails Supine to Sit Supine to Sit Assist Moderate Assistance,Bedrails Scooting Scooting to Edge of Bed Maximum Assistance OT-Transfer Assessment Sit to and From Stand Sit to and from Stand Maximum Assistance,2 Person Assistance Transfers Transfer Ability Maximum Assistance,2 Person Assistance Technique Transfer Destination Bed,Chair Transfer Technique Stand Step Pivot Devices Transfer Assistive Devices Gait Belt,Front Wheeled Walker Comments Mobility Comments Pt was unable to take steps with 1 person assist safely. Pt was able to stand with heavy 2 person assist and lifts feet but does not move them for steps. Pt needed extra time for transfer and max a for sit to supine. OT- Gait Assessment Comments Gait Ability Comments Does not occur OT- Balance Assessment Sitting Balance and Reactions Static Sitting Balance Ability Poor Dynamic Sitting Balance Ability Poor Comments Other Balance Tests/Deviations/Treatment Pt leans posteriorly with : sitting and initial standing, also to the L more than the right. M8 OT- IP Objective Assessments Start: 01/24/21 10:24 Freq: Status: Active Protocol: Document 01/24/21 10:24 CGR (Rec: 01/24/21 10:52 CGR [id number]) OT Gross Range of Motion Upper Extremity Range of Motion Assessment Within Functional Limits OT Strength Upper Extremity Strength Assessment Within Functional Limits Comments Strength Comments grossly 4/5 OT- Coordination Assessment Upper Extremity Finger to Nose Test Within Functional Limits Finger Tapping Test Within Functional Limits OT-Muscle Tone Assessment Muscle Tone WNL Yes OT Sensation Assessment Edema Edema Absent M9 OT- IP Assessment and Plan Start: 01/24/21 10:24 Freq: Status: Active Protocol: Document 01/24/21 10:24 CGR (Rec: 01/24/21 10:52 CGR [id number]) OT Summary Assessment and Plan Potential Rehabilitation Potential Good Analytic Complexity at Evaluation Moderate Summary OT Impairments Strength,Balance,Functional Cognition,Functional Mobility, Grooming,Dressing,Toileting, Bathing,Toilet Transfers, Shower Transfers,Activity Tolerance Progress Towards Goals Slow Progress due to Medical Issues,Slow Progress due to Activity Tolerance,Slow Progress due to Cognition Assessment Summary Pt presents as a moderate complexity evaluation s/p admit for TIA with symptoms resolved at time of this eval, although pt leaning heavily to the L. Pt is requiring a 2 person assist for safety of transfers and needs significant assist. Per daughter, caretakers are requesting a ranjeet lift for transfers at home. Pt will benefit from OT services while hospitalized and may benefit from SNF upon discharge. Goals Grooming Goal Independent Dressing Goal Independent Toileting Goal Standby Assistance Bathing Goal Minimal Assistance Toilet Transfer Goal Minimal Assistance Shower Transfer Goal Minimal Assistance Days to Meet Goals 45 Frequency of Treatment Frequency Of Treatment Once a Day Treatment Plan OT Treatment Plan ADL Training,Functional Cognition Training,Functional Mobility,Patient/Family Education,Discharge Planning Other Treatment Recommendations and Next ADLs seated, functional Treatment Focus transfers, cog assessment. Discharge Recommendations OT Discharge Recommendations SNF Rehab Other Discharge Recommendations recommend d/c to SNF vs home with caregivers Transportation Needs at Discharge Wheelchair/Cabulance
--- NOTE | 2021-01-24 10:00 | PT.IIE ---
Surgical History (Last Reviewed 01/21/21 @ 13:26 by Brian Mora MD) Anesthesia H/O cataract removal with insertion of prosthetic lens H/O colectomy History of appendectomy History of cholecystectomy History of tonsillectomy S/P cataract extraction (~2018) S/P cholecystectomy (~1996) S/P nasal polypectomy (~1989) S/P partial colectomy (~2003) S/P placement of cardiac pacemaker (~10/2011) S/P tonsillectomy S/P TURP (~2012) S/P vasectomy (~1972) Medical History (Last Reviewed 01/21/21 @ 13:26 by Brian Mora MD) Anosmia Benign prostate hyperplasia Cataracts, bilateral (~2018) Depression (~1959) Erectile dysfunction Family history of prostate cancer Fecal incontinence (~1957) H/O adenomatous polyp of colon Hearing loss (~1999) Hypothyroidism (~1995) Lymphocytic colitis Mild cognitive impairment Multiple falls Neuropathy Pacemaker (11/10/11) Paroxysmal atrial fibrillation Peripheral edema Prostate cancer Sick sinus syndrome Sleep apnea (~1995) Urge incontinence Urinary incontinence, mixed Physical Therapy Inpatient Evaluation/Re-Eval M1 PT/OT-IP Prior Functional Status Start: 01/24/21 10:24 Freq: NEEDED Status: Active Protocol: Document 01/24/21 10:24 CGR (Rec: 01/24/21 10:52 CGR [id number]) Medical Review Prior Functional Status Medical History Reviewed Yes Communication Pt is an effective verbal communicator Mobility and Gait Pt has needed more assist recently for all transfers. Pt was using the w/c for most of his mobility. Pt uses a 4ww and assist for stand pivot transfer. Activities of Daily Living and IADL's Pt needed assist for LB dressing, bathing, and set up of simple ADLs. Prior Functional Level (Other details) PT's family has recently moved to 24 hour caregivers and pt has needed increased physical assist since he stopped therapy in late 2019. Social History Household Members children Living Arrangements House Number of Floors (Floors) Two Floors Number of Stairs To Enter/Railing? 1 step from garage Home Equipment Front Wheel Walker,Four Wheel Walker,Manual Wheelchair, Bedside Commode,Shower Seat with Backrest,Lift Recliner, Grab Bars Near Toilet,Grab Bars In Shower Employment Status Retired Additional Social History Comment Pt has a flat bed with transfer pole at bedside and use of urinal for nights. M2 PT-IP Current Condition Start: 01/24/21 11:51 Freq: NEEDED Status: Active Protocol: Document 01/24/21 10:00 AB (Rec: 01/24/21 12:03 AB [id number]) Physical Therapy Current Condition Current Condition Evaluation Date 01/24/21 Treatment Diagnosis TIA; difficulty in walking Onset Date Precautions Other Precautions falls M3 PT-IP Subjective Start: 01/24/21 11:51 Freq: NEEDED Status: Active Protocol: Document 01/24/21 10:00 AB (Rec: 01/24/21 12:03 AB [id number]) Subjective Physical Therapy Visit Type Type Initial Evaluation Visit Start Time 10:00 Visit Stop Time 10:25 Total Visit Minutes 25 Number of INFORMATICS CONSULTANT Visits 0 Physical Therapy Visit Comments Patient Comments pt agreeable to do PT M4 PT-IP Mobility and Gait Start: 01/24/21 11:51 Freq: NEEDED Status: Active Protocol: Document 01/24/21 10:00 AB (Rec: 01/24/21 12:03 AB [id number]) PT-Transfer Assessment Sit to and From Stand Sit to and from Stand Maximum Assistance,2 Person Assistance,Use of Upper Extremities Equipment Transfer Assistive Device Gait Belt,Front Wheeled Walker Orthotic/Prosthetic Devices or Brace: No Transfers Transfer Destination Chair Transfer Technique Stand Pivot Transfer Ability Level of Assist Maximum Assistance,2 Person Assistance,Use of Upper Extremities Comments Mobility Comments pt sitting on bedside commode. NACs in room. Pt agreed to do PT. pt completed sit to stand from bedside commode max A x 1-2 and max cues. (+) BLE instability and shaking. pt only tolerated ~ 8 sec of standing and has to sit down. attempted sit to stand again x 2 reps max A x 2 but pt unable to stand upright. completed squat pivot max A x 2 with PT in front and NAC assisting pt from bed hind. positioned pt on chair. call light and table placed within reach. pt just wanted to rest on the chair. Gait Assessment Comments Gait Comments unable at this time PT-Balance Assessment Sitting Balance and Reactions Static Sitting Balance Ability Fair Dynamic Sitting Balance Ability Fair Standing Balance and Reactions Static Standing Balance Ability Poor Dynamic Standing Balance Ability Poor Device Used FWW M5 PT-IP Objective Assessments Start: 01/24/21 11:51 Freq: NEEDED Status: Active Protocol: Document 01/24/21 10:00 AB (Rec: 01/24/21 12:03 AB [id number]) Orientation Orientation/Cognition Level of Alertness Alert Orientation Name Safety Awareness Decreased Safety Awareness Memory Description No Deficits Noted Gross Range of Motion Lower Extremity ROM Assessment Within Functional Limits Strength Lower Extremity Strength Assessment Bilaterally Impaired Hip 3-/5 Knee 3-/5 M6 PT-IP Treatment Start: 01/24/21 11:51 Freq: NEEDED Status: Active Protocol: Document 01/24/21 10:00 AB (Rec: 01/24/21 12:03 AB [id number]) Physical Therapy Treatment Education Education Provided Safety M7 PT-IP Assessment and Plan Start: 01/24/21 11:51 Freq: NEEDED Status: Active Protocol: Document 01/24/21 10:00 AB (Rec: 01/24/21 12:03 AB [id number]) PT Summary Assessment and Plan Potential Rehabilitation Potential Fair Status of Condition at Evaluation Evolving Summary Impairments Pain,ROM,Strength,Balance, Coordination,Sensation,Tone, Cognition,Bed Mobility, Transfers,Gait,Activity Tolerance Assessment Summary pt requiring max A x 2 with mobility and has decrease activity tolerance and unable to stand up long enough to transfer using a FWW. pt will require SNF rehab to improve mobility and decrease burden of care. will continue to assess progress. Goals Bed Mobility Goal Minimal Assistance Transfer Goal Moderate Assistance,Front Wheeled Walker Gait Goal Moderate Assistance,Front Wheel Walker Gait Distance 20 Other Goals improve bed mobility SBA, transfers min A and ambulation min A using FWW 50 ft Days to Meet Goals 10 Frequency of Treatment Frequency Of Treatment Once a Day Treatment Plan Physical Therapy Treatment Plan Bed Mobility Training,Transfer Training,Gait Training, Therapeutic Exercise,Balance Retraining,Post Op Education, Discharge Planning,Hot or Cold Pack,Neuromuscular Re-ed, Coordination Retraining,Manual Therapy Precautions Other Precautions falls Recommendations To Nursing Amount of Assist Needed Mechanical Lift Discharge Recommendations PT Discharge Recommendations SNF Rehab Transportation Needs at Discharge Wheelchair/Cabulance
--- NOTE | 2021-01-24 10:05 | PC.NURSE ---
Day shift: Sr Chan informed of OT assessment and MD talked to Pt's daughter as well on the phone. CM infomred that plan is for Pt to go to rehab.
[2021-01-24] MEDS: METOPROLOL ER 25 MG TABLET PO (10:15)
[2021-01-24] MEDS: ESCITALOPRAM 10 MG TABLET PO (10:15)
[2021-01-24] MEDS: POTASSIUM CHLORIDE 20 MEQ TAB PO (10:15)
[2021-01-24] MEDS: FUROSEMIDE 20 MG TABLET PO (10:15)
[2021-01-24] MEDS: LEVOTHYROXINE 125 MCG TABLET PO (10:16)
[2021-01-24] MEDS: APIXABAN 5 MG TABLET 2.5 MG PO ×2 (10:16→20:50)
[2021-01-24] MEDS: CHOLESTYRAMINE/ASPARTAME 4 GM PACK PO (10:17)
[2021-01-24] MEDS: NYSTATIN POWDER 15GM 1 APPLIC TOP ×2 (10:19→20:47)
[2021-01-24] MEDS: BUDESONIDE 3 MG CAP 9 MG PO ×3 (10:45→20:47)
[2021-01-24] MEDS: COLESEVELAM 625 MG TABLET PO ×2 (10:46→20:47)
--- NOTE | 2021-01-24 11:21 | CM.IDA ---
Addendum entered by HALLE Hebert 01/24/21 15:02: Referral discussed w/Niyah at [facility] per patient/family request, gave dtr Aime's number to discuss private payment. PASRR completed. Continued to discuss obs vs inpatient w/patient and family throughout the day, according to GILBERTO Crocker, there is nothing documented in patient's chart that would qualify patient as an inpatient thus far. Original Note: Initial DCP Assessment Note Patient is an 85 yo male, resident of [place]. Patient presents after a presumed TIA, according to chart patient's symptoms have mostly resolved and patient back to his functional baseline, which dtr Adelaide (, [facility]) says is wheelchair bound w/heavy assist required for transfers. Patient unable to transfer today w/o Max assist of 2, therapies are suggesting SNF before return home PCP: Azam Fuller Payer: MCR/[employer] This is patient's 5th hospital visit for fall/weakness/TIA since June 2020. Patient familiar to this SQL PROGRAMMER from prior admissions. Met w/patient and dtr Adelaide at bedside this morning. Patient continues to live at home w/dtr Adelaide (works realtime captioner as a therapist), spouse Kayleen (who has advanced dementia) and 21/03 caregivers. Adelaide reports that caregivers have requested, recently, that they have a ranjeet in place for patient's transfers. Adelaide admits that over the last 2 months patient does not ambulate, he is wheelchair bound, and requires assist w/all transfers. Discussed short term vs terminal gauger planning this morning. Short term: Therapy team recommending SNF upon DC and patient and dtr think that might be safest at this time...patient unable to participate in transfers this morning. Patient requests [facility]. This SQL PROGRAMMER reviewed briefly, observation vs inpatient status, and the effect on MCR benefit for SNF After patient/family visit, reviewed available medical documentation w/GILBERTO Crocker and observation is the most appropriate at this time. Will review this w/patient and dtr Adelaide and discuss nexts steps in DC planning- SNF vs private payment vs home w/HH and continued caregiver supports HALLE Hebert Discharge Planning/Care Management CM Discharge Assessment Start: 01/24/21 11:07 Freq: Status: Active Protocol: Document 01/24/21 11:07 GAETANO (Rec: 01/24/21 11:21 GAETANO [id number]) Discharge Planning Assessment Assigned Securities Underwriter HALLE Mayer DPOA/Assigned Designee Name Adelaide Norman, dtr Spouse Kayleen has advanced dementia Contact Information Adelaide: [phone] Advance Directives? Yes Advance Directives on File Yes History Provided By Patient,Family Member,Medical Record Prior Living Arrangements House Household Members children,caregiver Comment Lives w/dtr Adelaide, has 21/03 caregivers Independent with ADL's No Is patient alert and oriented? Yes: Mostly Needs Assistance With Bathing,Grooming,Meal Prep, Toileting,Managing Medications ,Home Chores / Shopping Patient/Family Preference [facility] Facility Comment Patient is likely to be observation status, as he is back to functional baseline w/ no w/u results indicating CVA at this time (?) UR RN reviewing, obs expected. Barriers to Discharge Yes Comment Requiring heavy assist, Max 2 person assist this morning Medicare Choice List Provided Yes SNF/HH Preference [facility] Review Status In Process
--- NOTE | 2021-01-24 12:46 | PC.NURSE ---
Day shift: Pt Luli lifted to [facility] at approx 1240. Pt stated he feeels like he needs to have a BM. He did pass some gas but no BM at this time Urine sample sent to lab at this time as well. Urine was clean catch.
--- NOTE | 2021-01-24 12:58 | PM.PN.1 ---
Subjective Subjective Date Patient Seen: 01/24/21 Time Patient Seen: 06:58 Interval history: Patient seen and evaluated this morning. patient did well overnight with some mild confusion which is not atypical for him. On further evaluation with physical therapy today patient is still having weakness. On discussion with his daughter that she had concerns about his progressive weakness over the last few weeks month or so. They do have 24 hour caregiver support at home. Patient's weakness has been progressive in she was finding it more more difficult with her and the caregivers at home to help him maneuver safely at home. He required 2 people for assistance on physical therapy evaluation due to generalized weakness. Exam Vital Signs (past 8 hours): - 01/24/21 06:00 01/24/21 08:00 01/24/21 08:53 Temperature 98.0 F 96.5 F L Pulse Rate 65 76 Respiratory Rate 16 14 Blood Pressure 130/55 L 113/77 Pulse Oximetry 95 95 95 01/24/21 11:35 01/24/21 11:40 Temperature 97.7 F Pulse Rate 103 H 97 H Respiratory Rate 14 Blood Pressure 131/58 L Pulse Oximetry 96 Oxygen Delivery Method Room Air Oxygen Flow Rate 0 Narrative Exam Narrative: General: Alert aware he is at the hospital and [place]. HEENT pupils equal round and reactive or mucosa is moist neck is supple Cardio S1-S2 regular rate and rhythm no murmur appreciated Respiratory lungs are clear to auscultation no wheezes or crackles abdomen: Soft nontender no rebound or guarding extremities warm dry perfused 1 to 2+ edema Objective Labs Result Diagrams: 01/23/21 16:00 01/23/21 20:56 Labs: Laboratory Results - last 24 hr 01/23/21 01/23/21 01/23/21 16:00 16:00 16:00 WBC 8.2 RBC 4.03 L Hgb 13.2 L Hct 39.2 L MCV 97.1 MCH 32.7 MCHC 33.6 RDW 16.6 H Plt Count 198 Neut % (Auto) 73.5 Lymph % (Auto) 18.6 L Walsh % (Auto) 6.7 Eos % (Auto) 1.0 L Baso % (Auto) 0.2 Neut # (Auto) 6000 Lymph # (Auto) 1500 Walsh # (Auto) 500 Eos # (Auto) 100 Baso # (Auto) 0 PT 12.1 INR 1.1 APTT 29 Sodium 138 Potassium 3.8 Chloride 101 Carbon Dioxide 29 BUN 19 Creatinine 0.94 Estimated GFR > 60.0 BUN/Creatinine Ratio 20.2 Glucose 115 H Calcium 8.6 SARS-CoV-2 (PCR) 01/23/21 01/23/21 17:50 20:56 WBC RBC Hgb Hct MCV MCH MCHC RDW Plt Count Neut % (Auto) Lymph % (Auto) Walsh % (Auto) Eos % (Auto) Baso % (Auto) Neut # (Auto) Lymph # (Auto) Walsh # (Auto) Eos # (Auto) Baso # (Auto) PT INR APTT Sodium 136 L Potassium 3.5 Chloride 101 Carbon Dioxide 30 BUN 18 Creatinine 0.90 Estimated GFR > 60.0 BUN/Creatinine Ratio 20.0 Glucose 116 H Calcium 8.2 L SARS-CoV-2 (PCR) Negative PFSH Medical History Anosmia Benign prostate hyperplasia Cataracts, bilateral (~2018) Depression (~1959) Erectile dysfunction Family history of prostate cancer Fecal incontinence (~1957) H/O adenomatous polyp of colon Hearing loss (~1999) Hypothyroidism (~1995) Lymphocytic colitis Mild cognitive impairment Multiple falls Neuropathy Pacemaker (11/10/11) Paroxysmal atrial fibrillation Peripheral edema Prostate cancer Sick sinus syndrome Sleep apnea (~1995) Urge incontinence Urinary incontinence, mixed Surgical History Anesthesia H/O cataract removal with insertion of prosthetic lens H/O colectomy History of appendectomy History of cholecystectomy History of tonsillectomy S/P cataract extraction (~2018) S/P cholecystectomy (~1996) S/P nasal polypectomy (~1989) S/P partial colectomy (~2003) S/P placement of cardiac pacemaker (~10/2011) S/P tonsillectomy S/P TURP (~2012) S/P vasectomy (~1972) Family History Father History of heart disease Mother History of heart disease Brother Diabetes mellitus History of heart disease Family/Other Stroke Social History household members: children and caregiver Smoking Status: Never smoker Assessment & Plan Assessment & Plan narrative: TIA patient with symptoms more consistent with transient ischemic event and cerebrovascular accident based on neuro imaging. Some mild confusion at night which is not inconsistent with his age. After discussion with his daughter today physical therapy evaluation patient has a significantly weak which has been progressive over the last month or so he has full-time caregiving at home but there feeling uncomfortable with him transferring getting mad of bed in feel like a alf facility may be beneficial for the patient will go ahead and provide a protective services social worker consultation to arrange for placement into a alf facility to see if we can help with his weakness overnight he had no cardiac electrical abnormalities and no further worsening of his stroke-like symptoms Intermittent atrial fibrillation patient is in normal sinus rhythm continue with normal sinus rhythm. Blood pressure pulse stable at this point. Telemetry monitoring shows no significant abnor malities. Essential hypertension. Blood pressure is well controlled Continue with current antihypertensive medication Hyperlipidemia. Patient is on a statin and also Welchol. no changes Diarrhea. Chronic with lymphocytic colitis. Will continue his home budesonide dosing Disposition and plan. Anticipating thought maybe he could be discharged today. After physical therapy evaluation and weakness uncomfortable with sending him home. Patient may require alf facility and social walk will be working with him on this and discharge home when his space is available. Quality VTE Deep Vein Thrombosis/Pulmonary Embolism Present on Admission: No
[2021-01-24 13:19] LABS: UR Morphine/Opiate cutoff 300 Negative (Negative); Ur Creatinine Normal (Normal); Ur Specific Gravity Normal (Normal); Urine Amphetamines Negative (Negative); Urine Barbiturates Negative (Negative); Urine Benzodiazepines Negative (Negative); Urine Cocaine Negative (Negative); Urine MDMA Negative (Negative); Urine Methadone Negative (Negative); Urine Methamphetamines Negative (Negative); Urine Oxycodone Negative (Negative); Urine Phencyclidine Negative (Negative); Urine Tetrahydrocannabinol Negative (Negative); Urine Tricyclic Antidepressant Positive (Negative); Urine pH Normal (Normal)
[2021-01-25] VITALS (7 sets, daily range): BP systolic 120–150; BP diastolic 76–81; PULSE 61–86; RESP 16–20; TEMP 35.7–36; O2SAT 96–97
[2021-01-25] MEDS: METOPROLOL ER 25 MG TABLET PO (09:11)
[2021-01-25] MEDS: COLESEVELAM 625 MG TABLET PO (09:11)
[2021-01-25] MEDS: BUDESONIDE 9 MG 9 EACH PO (09:11)
[2021-01-25] MEDS: APIXABAN 5 MG TABLET 2.5 MG PO (09:12)
[2021-01-25] MEDS: FUROSEMIDE 20 MG TABLET PO (09:12)
[2021-01-25] MEDS: LEVOTHYROXINE 125 MCG TABLET PO (09:12)
[2021-01-25] MEDS: POTASSIUM CHLORIDE 20 MEQ TAB PO (09:12)
[2021-01-25] MEDS: ESCITALOPRAM 10 MG TABLET PO (09:18)
[2021-01-25] MEDS: CHOLESTYRAMINE/ASPARTAME 4 GM PACK PO (09:21)
[2021-01-25] MEDS: NYSTATIN POWDER 15GM 1 APPLIC TOP (09:21)
--- NOTE | 2021-01-25 11:34 | PC.NURSE ---
Day shift: Report given to Stephanie at [facility] at approx 1000 today. SNF packet given to transport persona just now. Pt being Luli lifted into WC at approx 1135. Pt and Pt's Daughter are aware of the plan at the SNF. Pt has all personal belongings. MD meds from pharmacy were given to Pt's Daughter. IV removed as well as Tele. Pt and Pt's daughter happy to be going to [facility] today. Pt tolerated Luli lift into WC.
--- NOTE | 2021-01-25 13:28 | CM.DANOTE ---
DCP/continued: Received verbal notification from Dr. Chan this AM that patient medically stable for discharge. Per notes current plan is [facility] via private pay. SHEET ROLLER OPERATOR met with patient and RN to discuss/confirm plan. RN reports that he will pass on d/c information to daughter when she returns. Orders obtained and faxed to [facility] alone with PASRR. Per January patient scheduled to be picked up around 11:30AM. Daughter has COVID vaccine card for patient, copy made and sent in d/c packet. P: [facility] today. HALLE Garcia
== END 2021-01-25 11:44 ==
LOC: ED 17:52 → AC 17:57
PROVIDERS: Admitting Provider Family Medicine; Emergency Provider Emergency Medicine; PCP Internal Medicine; Visit Provider Family Medicine
DX: R41.0 Disorientation, unspecified (principal); R29.818 Other symptoms and signs involving the nervous system; I10 Essential (primary) hypertension; Z79.01 Long term (current) use of anticoagulants; Z86.73 Personal history of transient ischemic attack (TIA), and cerebral infarction without residual deficits; I48.91 Unspecified atrial fibrillation; E78.5 Hyperlipidemia, unspecified; E03.9 Hypothyroidism, unspecified; K52.9 Noninfective gastroenteritis and colitis, unspecified; Z20.822 Contact with and (suspected) exposure to COVID-19
CPT/HCPCS: 36415; 70450; 70496; 70498; 80048; 80305; 85025; 85610; 85730; 87635; 93005; 96360; 97162; 97166; 97535; 99285; C9803; G0378

== ENCOUNTER → 2021-02-12 12:12 | Outpatient (ROUT) | payer MEDICARE, SELFPAY ==
[2021-01-23 18:07] VITALS: BMI 28.5
[2021-02-12 12:34] LABS: Appearance Urine UA CLEAR; Bilirubin Urine UA NEGATIVE (NEGATIVE); Color Urine UA YELLOW; Glucose Urine UA NEGATIVE (Negative); Ketones Urine UA 1+ (NEGATIVE); Leukocyte Esterase Urine UA 1+ (NEGATIVE); Nitrite Urine UA NEGATIVE (Negative); Occult Blood Urine UA NEGATIVE (Negative); Protein Urine UA NEGATIVE (Negative); Specific Gravity Urine UA 1.025 (1.000-1.035)
[2021-02-12 12:48] LABS: Bacteria Urine Moderate (10-30); Culture Indicated Urine Specimen Cultured; Mucus Urine 1+ (Negative); RBC Urine 0-1/HPF (0-5/HPF); Squamous Epithelial Cell Urine 1-5 /HPF (0-5/HPF); WBC Urine 10-30/HPF (0-5/HPF)
== END ==
PROVIDERS: PCP Internal Medicine; Visit Provider Nurse Practitioner
DX: R41.82 Altered mental status, unspecified (principal)
CPT/HCPCS: 81001; 87077; 87086; 87186

== ENCOUNTER → 2021-02-17 23:04 | Outpatient (ROUT) | payer MEDICARE, SELFPAY ==
[2021-01-23 18:07] VITALS: BMI 28.5
[2021-02-17 23:06] LABS: RBC Urine None Seen (0-5/HPF)
[2021-02-17 23:10] LABS: Appearance Urine UA CLEAR; Bilirubin Urine UA NEGATIVE (NEGATIVE); Color Urine UA YELLOW; Glucose Urine UA NEGATIVE (Negative); Ketones Urine UA NEGATIVE (NEGATIVE); Leukocyte Esterase Urine UA TRACE (NEGATIVE); Nitrite Urine UA POSITIVE (Negative); Occult Blood Urine UA TRACE-INTACT (Negative); Protein Urine UA NEGATIVE (Negative); Specific Gravity Urine UA 1.015 (1.000-1.035); Urobilinogen Urine UA 0.2 E.U./dL (0.2)
[2021-02-18 00:55] LABS: Bacteria Urine Many (>30); Culture Indicated Urine Specimen Cultured; WBC Urine 1-5/HPF (0-5/HPF)
== END ==
PROVIDERS: PCP Internal Medicine; Visit Provider Nurse Practitioner
DX: R33.9 Retention of urine, unspecified (principal)
CPT/HCPCS: 81001; 87077; 87086; 87147; 87186

== ENCOUNTER → 2021-02-25 11:10 | Outpatient (CLI) | payer MEDICARE, SELFPAY ==
[2021-01-23 18:07] VITALS: BMI 28.5
--- NOTE | 2021-02-25 | DI.RAD.S_ITS ---
PROCEDURE: XR CHEST 2V INDICATIONS: Hypoxemia TECHNIQUE: 2 views of the chest were acquired. COMPARISON: [facility], CR, XR CHEST 1V, 09/06/2020, 10:14. [facility], CR, XR CHEST 1V, 10/14/2020, 11:18. FINDINGS: Surgical changes and devices: Stable positioning of dual chamber left cardiac pacer. Lungs and pleura: Lungs are clear. No pleural effusions or pneumothorax. Mediastinum: Mediastinal contours are normal. Heart size is normal. Bones and chest wall: No suspicious bony abnormalities. Soft tissues appear unremarkable. IMPRESSION: No acute cardiopulmonary disease. Dictated by: Jaun Jensen RRStiven Interpreted: Kerwin Allen MD on 02/25/2021 at 11:42 Transcribed by: CORRIE on 02/25/2021 at 11:43 Approved by: Kerwin Allen M.D. on 02/25/2021 at 18:03
== END ==
PROVIDERS: PCP Internal Medicine; Referring Provider Nurse Practitioner; Visit Provider Nurse Practitioner
DX: R09.02 Hypoxemia (principal)
CPT/HCPCS: 71046